=== PATIENT | female | born 1950 | race Caucasian/White ===

== ENCOUNTER → 2020-07-08 11:33 | Outpatient (BNVA) | payer MEDICARE, SELFPAY | PROVIDERS: PCP Internal Medicine; Referring Provider Internal Medicine; Visit Provider Internal Medicine | DX: G47.33 Obstructive sleep apnea (adult) (pediatric) (principal); E66.01 Morbid (severe) obesity due to excess calories; Z68.41 Body mass index [BMI] 40.0-44.9, adult; Z99.89 Dependence on other enabling machines and devices; J44.9 Chronic obstructive pulmonary disease, unspecified | CPT/HCPCS: 99212 ==

== ENCOUNTER → 2020-08-31 10:14 | Outpatient (BNV) | payer MEDICARE, BC, SELFPAY | PROVIDERS: PCP Internal Medicine; Visit Provider Internal Medicine Medical Oncology | DX: M85.89 Other specified disorders of bone density and structure, multiple sites (principal); Z85.3 Personal history of malignant neoplasm of breast | CPT/HCPCS: 99212; 99213; 99214 ==

== ENCOUNTER 2020-12-14 12:29 | Outpatient (REF) | payer MEDICARE, BC, SELFPAY ==
[2020-12-14 13:19] LABS: Hematocrit 44.4 % (37-47); Hemoglobin 14.4 g/dl (12.0-16.0); Mean Corpuscular HGB Conc 32.4 g/dl (31.0-35.0); Mean Corpuscular Hemoglobin 30.3 pg (27.0-33.0); Mean Corpuscular Volume 93.3 fL (80-98); Mean Platelet Volume 11.2 fL (9.4-12.3); Platelet Count 176 X10*3/uL (160-400); Red Blood Count 4.76 X10*6/uL (4.20-5.50)
[2020-12-14 13:45] LABS: Alanine Aminotransferase 14 U/L (0-31); Albumin Level 3.9 g/dL (3.5-5.0); Alkaline Phosphatase 73 U/L (39-117); Anion Gap 12 (12-20); Aspartate Amino Transferase 16 U/L (5-31); Bilirubin Direct 0.3 mg/dL (0.0-0.5); Bilirubin Total 0.8 mg/dL (0.0-1.0); Blood Urea Nitrogen 24 mg/dL (9-16); Calcium 9.2 mg/dL (8.4-10.2); Carbon Dioxide 25 mmol/L (22-29); Chloride 109 mmol/L (96-108); Cholesterol 185 mg/dL; Estimated Glomerular Filt Rate > 60; Glucose Random 81 mg/dL (60-115); HDL Cholesterol 71 mg/dL; LDL Cholesterol Calculated 90 mg/dl; Potassium 4.5 mmol/L (3.3-5.1); Sodium 141 mmol/L (135-145); Total Protein 6.4 g/dL (6.5-8.0); Triglycerides 124 mg/dL
[2020-12-14 14:05] LABS: Thyroid Stimulating Hormone 0.98 uIU/mL (0.32-4.0)
[2020-12-19 07:16] LABS: Vitamin D 25-OH, D2 <4 ng/mL; Vitamin D 25-OH, D3 75 ng/mL; Vitamin D 25-OH, Total 75 ng/mL (30-100)
== END 2020-12-14 12:30 | disposition home or self-care (01) ==
LOC: HO.LAB 12:29
PROVIDERS: PCP Internal Medicine; Visit Provider Internal Medicine
DX: M19.90 Unspecified osteoarthritis, unspecified site (principal)
CPT/HCPCS: 36415; 80048; 80061; 80076; 82306; 84443; 85027; 86140

== ENCOUNTER → 2021-01-17 15:27 | Outpatient (BNVA) | payer MEDICARE, BC, SELFPAY | PROVIDERS: PCP Internal Medicine; Visit Provider Internal Medicine | DX: J44.9 Chronic obstructive pulmonary disease, unspecified (principal); G47.33 Obstructive sleep apnea (adult) (pediatric); E66.9 Obesity, unspecified; Z99.89 Dependence on other enabling machines and devices | CPT/HCPCS: 99212 ==

== ENCOUNTER 2021-03-01 12:26 | Outpatient (REF) | payer MEDICARE, SELFPAY ==
--- NOTE | ~2021-03-01 | MM_ITS ---
EXAMINATION: MM SCREENING DIGITAL BREAST TOMOSYNTHESIS, BILATERAL CLINICAL INFORMATION: Screening. Asymptomatic. Right breast cancer in 2015 status post lumpectomy. COMPARISON: Mammography: February 23, 2020 and studies dating back to June 27, 2012 TECHNIQUE: Digital breast tomosynthesis is performed in both the craniocaudal and mediolateral oblique views along with computer-aided detection (CAD). Synthesized 2D images are generated from the tomosynthesis. FINDINGS: There are scattered areas of fibroglandular density (ACR BI-RADS breast composition Category b). There are no new significant masses, abnormal calcifications, or other abnormalities. Postsurgical change within the right breast is seen. MM/MM tomosynthesis screening BI IMPRESSION: There are no significant changes from prior study. ASSESSMENT: BI-RADS 2: Benign RECOMMENDATION: Routine annual mammography screening. This patient's information was entered into a reminder system with a target due date for their next mammogram.
== END 2021-03-01 12:27 | disposition home or self-care (01) ==
LOC: HO.MAMMO 12:26
PROVIDERS: PCP Internal Medicine; Visit Provider Internal Medicine
DX: Z12.31 Encounter for screening mammogram for malignant neoplasm of breast (principal)
CPT/HCPCS: 77063; 77067

== ENCOUNTER 2021-03-25 14:11 | Outpatient (REF) | payer MEDICARE, SELFPAY ==
--- NOTE | ~2021-03-25 | MM_ITS ---
EXAMINATION: BONE DENSITOMETRY CLINICAL INDICATION: Osteopenia. COMPARISON: Previous BD dated 11/02/2016 and baseline BD dated 05/20/2009. TECHNIQUE: Using a Re-APP DXA System (software version: 13.1) manufactured by [email or web address], dual-energy x-ray absorptiometry was performed of the lumbar spine and left hip. The images are of good technical quality. Summary results are attached. FINDINGS: AP SPINE L1-L2 (excluding L3 and L4): The data of L1-L4 has been changed to exclude the L3 and L4 vertebral bodies, because dextrocurvature and degenerative changes at these levels may cause overestimation of lumbar spine density. Current: BMD 0.929 g/cm2, Z-score -1.3, T-score -2.0, osteopenia, 3.8% increase from previous, 9.5% decrease from baseline (<5% change is not significant). Prior: BMD 0.895 g/cm2. Baseline: BMD 1.027 g/cm2. LEFT FEMUR, NECK: Current: BMD 0.774 g/cm2, Z-score -0.9, T-score -1.9, osteopenia. Prior: BMD 0.805 g/cm2. Baseline: BMD 0.897 g/cm2. LEFT FEMUR, TOTAL: Current: BMD 0.875 g/cm2, Z-score -0.3, T-score -1.1, osteopenia, 0.1% increase from previous, 15.1% decrease from baseline (<5% change is not significant). Prior: BMD 0.874 g/cm2. Baseline: BMD 1.031 g/cm2. IDENTIFIED RISK FACTORS: Early menopause. Secondary osteoporosis. Height loss. HISTORY OF FRACTURE: No insufficiency fracture reported. MEDICATIONS: Calcium. Vitamin D. MM/XR DEXA axial skeleton IMPRESSION: 1. DIAGNOSIS: Osteopenia based on the lowest T-score value of -2.0 in the lumbar spine applying World Health Organization criteria. 2. 10-YEAR FRACTURE RISK PREDICTION, FRAX: Major osteoporotic fracture (clinical spine, forearm, hip or shoulder) 9.5%. Hip fracture 1.5%. 3. Treatment Recommendations: NOF guidelines recommend consideration for treatment in postmenopausal women and men age 50 and older presenting with the following: -A hip or vertebral (clinical or morphometric) fracture. -T-score less than or equal to -2.5 at the femoral neck or spine after appropriate evaluation to exclude secondary causes. -Low bone mass at the hip or spine and a 10-year fracture probability by FRAX of greater than or equal to 3% for hip fracture or greater than or equal to 20% for major osteoporotic fracture based on the [place] adapted WHO algorithm. 4. Other Recommendations: All treatment decisions require clinical judgment and consideration of individual patient factors, including patient preferences, comorbidities, previous drug use, risk factors not captured in the FRAX model (e.g. frailty, falls, vitamin D deficiency, increased bone turnover, interval significant decline in bone density) and possible under or overestimation of fracture risk by FRAX. Additional medical evaluation for secondary cause of low bone mineral density may be appropriate. FUTURE SCAN RECOMMENDATION: People with diagnosed cases of osteoporosis or at high risk for fracture should have regular bone mineral density tests. For patients eligible for Medicare, routine testing is allowed once every 2 years. The testing frequency can be increased to one year for patients who have rapidly progressing disease, those who are receiving or discontinuing medical therapy to restore bone mass, or have additional risk factors.
== END 2021-03-25 14:12 | disposition home or self-care (01) ==
LOC: HO.MAMMO 14:11
PROVIDERS: Visit Provider Internal Medicine Medical Oncology
DX: Z13.820 Encounter for screening for osteoporosis (principal); M85.80 Other specified disorders of bone density and structure, unspecified site; Z78.0 Asymptomatic menopausal state; Z79.899 Other long term (current) drug therapy
CPT/HCPCS: 77080

== ENCOUNTER 2021-03-29 13:02 | Outpatient (REF) | payer MEDICARE, SELFPAY ==
--- NOTE | ~2021-03-29 | XR_ITS ---
EXAMINATION: XR BILATERAL HAND/WRIST. CLINICAL INFORMATION: Pain in bilateral hand. COMPARISON: None TECHNIQUE: 4 views each hand. FINDINGS: LEFT HAND/WRIST: There is loss of PIP and DIP joint space with minimal periarticular spurring PIP joint 3rd digit. There are mild subluxations at the PIP and DIP joints 3rd digit. No fracture seen. Loss of MCP joint spaces also visualized 2nd through 5th digits. The intercarpal joint spaces are preserved. Loss of radiocarpal joint space is seen. There is mild osteopenia. No fracture noted. RIGHT HAND/WRIST: There is mild loss of PIP and DIP joint space with periarticular spurring and bony erosive changes PIP joint 2nd digit. There is subluxations PIP joint 2nd digit. No visible fracture or dislocation seen. There is minimal loss of the radial ulnar carpal joint space. XR/XR hand wrist RT IMPRESSION: 1. Severe degenerative changes PIP and DIP joints of both hands. There is subluxation and periarticular spurring with soft tissue swelling PIP and DIP joints 3rd digits both hands. 2. There is no acute fracture or dislocation. 3. Minimal loss of radial ulnar carpal joint both hands.
--- NOTE | ~2021-03-29 | XR_ITS ---
EXAMINATION: XR BILATERAL HAND/WRIST. CLINICAL INFORMATION: Pain in bilateral hand. COMPARISON: None TECHNIQUE: 4 views each hand. FINDINGS: LEFT HAND/WRIST: There is loss of PIP and DIP joint space with minimal periarticular spurring PIP joint 3rd digit. There are mild subluxations at the PIP and DIP joints 3rd digit. No fracture seen. Loss of MCP joint spaces also visualized 2nd through 5th digits. The intercarpal joint spaces are preserved. Loss of radiocarpal joint space is seen. There is mild osteopenia. No fracture noted. RIGHT HAND/WRIST: There is mild loss of PIP and DIP joint space with periarticular spurring and bony erosive changes PIP joint 2nd digit. There is subluxations PIP joint 2nd digit. No visible fracture or dislocation seen. There is minimal loss of the radial ulnar carpal joint space. XR/XR hand wrist LT IMPRESSION: 1. Severe degenerative changes PIP and DIP joints of both hands. There is subluxation and periarticular spurring with soft tissue swelling PIP and DIP joints 3rd digits both hands. 2. There is no acute fracture or dislocation. 3. Minimal loss of radial ulnar carpal joint both hands.
[2021-03-29 14:32] LABS: MANUAL DIFF FLAG NO
[2021-03-29 14:39] LABS: Basophils Percent Auto 0.4 % (0-2); Eosinophils Absolute Auto 0.1 X10*3/uL (0.0-0.4); Eosinophils Percent Auto 1.3 % (0-4); Hematocrit 44.1 % (37-47); Hemoglobin 14.5 g/dl (12.0-16.0); Imm Gran Abs Auto 0.01 X10*3/uL (0.00-0.03); Imm Gran Pct Auto 0.2 % (0.0-0.4); Lymphocytes Absolute Auto 1.4 X10*3/uL (1.2-4.9); Lymphocytes Percent Auto 31.3 % (20-40); Mean Corpuscular HGB Conc 32.9 g/dl (31.0-35.0); Mean Corpuscular Hemoglobin 30.7 pg (27.0-33.0); Mean Corpuscular Volume 93.2 fL (80-98); Mean Platelet Volume 11.5 fL (9.4-12.3); Monocytes Absolute Auto 0.3 X10*3/uL (0.1-1.2); Monocytes Percent Auto 6.7 % (2-11); Neutrophils Absolute Auto 2.7 X10*3/uL (2.0-8.3); Neutrophils Percent Auto 60.1 % (45-73); Platelet Count 146 X10*3/uL (160-400); Red Blood Count 4.73 X10*6/uL (4.20-5.50); Red Cell Distribution Width 13.6 % (11.0-16.0); White Blood Count 4.5 X10*3/uL (4.8-10.8)
[2021-03-29 15:16] LABS: Alanine Aminotransferase 16 U/L (0-31); Albumin Level 3.9 g/dL (3.5-5.0); Alkaline Phosphatase 70 U/L (39-117); Anion Gap 12 (12-20); Aspartate Amino Transferase 20 U/L (5-31); Bilirubin Total 0.6 mg/dL (0.0-1.0); Blood Urea Nitrogen 28 mg/dL (9-16); C Reactive Protein 0.27 mg/dL (< or = 0.50); Carbon Dioxide 23 mmol/L (22-29); Chloride 112 mmol/L (96-108); Estimated Glomerular Filt Rate > 60; Glucose Random 85 mg/dL (60-115); Potassium 4.4 mmol/L (3.3-5.1); Rheumatoid Factor 24.7 IU/mL (<15.0); Sodium 143 mmol/L (135-145); Total Protein 6.3 g/dL (6.5-8.0)
[2021-03-29 15:27] LABS: Erythrocyte Sedimentation Rate 4 MM/HR (0-20)
[2021-03-31 23:52] LABS: Cyclic Citrullinated Peptide <16 UNITS
== END 2021-03-29 13:03 | disposition home or self-care (01) ==
LOC: HO.LAB 13:02
PROVIDERS: PCP Internal Medicine; Visit Provider Student in an Organized Health Care Education/Training Program
DX: M79.641 Pain in right hand (principal); M79.642 Pain in left hand; M19.90 Unspecified osteoarthritis, unspecified site
CPT/HCPCS: 36415; 73110; 73130; 80053; 85025; 85652; 86140; 86200; 86431; 99202

== ENCOUNTER → 2021-04-12 13:59 | Outpatient (BNVA) | payer MEDICARE, SELFPAY | PROVIDERS: PCP Internal Medicine; Visit Provider Student in an Organized Health Care Education/Training Program | DX: M19.90 Unspecified osteoarthritis, unspecified site (principal) | CPT/HCPCS: 99212 ==

== ENCOUNTER → 2021-07-12 11:07 | Outpatient (BNVA) | payer MEDICARE, SELFPAY | PROVIDERS: PCP Internal Medicine; Visit Provider Internal Medicine | DX: G47.33 Obstructive sleep apnea (adult) (pediatric) (principal); J44.9 Chronic obstructive pulmonary disease, unspecified; Z99.89 Dependence on other enabling machines and devices | CPT/HCPCS: 99212 ==

== ENCOUNTER 2021-11-29 10:08 | Outpatient (REF) | payer MEDICARE, SELFPAY ==
[2021-11-29 10:50] LABS: Hematocrit 42.6 % (37.0-47.0); Hemoglobin 14.1 g/dl (12.0-16.0); Mean Corpuscular HGB Conc 33.1 g/dl (31.0-35.0); Mean Corpuscular Hemoglobin 30.7 pg (27.0-33.0); Mean Corpuscular Volume 92.8 fL (80.0-98.0); Mean Platelet Volume 11.7 fL (9.4-12.3); Platelet Count 155 X10*3/uL (160-400); Red Blood Count 4.59 X10*6/uL (4.20-5.50); Red Cell Distribution Width 14.7 % (11.0-16.0); White Blood Count 4.8 X10*3/uL (4.8-10.8)
[2021-11-29 12:17] LABS: Alanine Aminotransferase 15 U/L (0-31); Albumin Level 3.9 g/dL (3.5-5.0); Alkaline Phosphatase 64 U/L (39-117); Anion Gap 10 (12-20); Aspartate Amino Transferase 16 U/L (5-31); Bilirubin Direct 0.4 mg/dL (0.0-0.5); Bilirubin Total 0.9 mg/dL (0.0-1.0); Blood Urea Nitrogen 25 mg/dL (9-16); Calcium 9.5 mg/dL (8.4-10.2); Carbon Dioxide 26 mmol/L (22-29); Chloride 109 mmol/L (96-108); Cholesterol 189 mg/dL; Estimated Glomerular Filt Rate > 60; Glucose Random 85 mg/dL (60-115); HDL Cholesterol 75 mg/dL; LDL Cholesterol Calculated 98 mg/dl; Potassium 4.2 mmol/L (3.3-5.1); Sodium 141 mmol/L (135-145); Total Protein 6.5 g/dL (6.5-8.0); Triglycerides 82 mg/dL
[2021-11-29 12:23] LABS: Thyroid Stimulating Hormone 2.55 uIU/mL (0.32-4.0)
== END 2021-11-29 10:09 | disposition home or self-care (01) ==
LOC: HO.LAB 10:08
PROVIDERS: PCP Internal Medicine; Visit Provider Internal Medicine
DX: K21.9 Gastro-esophageal reflux disease without esophagitis (principal); M19.90 Unspecified osteoarthritis, unspecified site; B07.9 Viral wart, unspecified
CPT/HCPCS: 36415; 80048; 80061; 80076; 84443; 85027

== ENCOUNTER → 2022-01-03 10:52 | Outpatient (BNVA) | payer MEDICARE, SELFPAY | PROVIDERS: PCP Internal Medicine; Visit Provider Internal Medicine | DX: G47.33 Obstructive sleep apnea (adult) (pediatric) (principal); J44.9 Chronic obstructive pulmonary disease, unspecified; E66.01 Morbid (severe) obesity due to excess calories; Z68.41 Body mass index [BMI] 40.0-44.9, adult; Z99.89 Dependence on other enabling machines and devices | CPT/HCPCS: 99212 ==

== ENCOUNTER → 2022-03-13 13:55 | Outpatient (BNVA) | payer MEDICARE, SELFPAY | PROVIDERS: PCP Internal Medicine; Visit Provider Obstetrics & Gynecology | DX: N76.2 Acute vulvitis (principal); L72.3 Sebaceous cyst | CPT/HCPCS: 99202 ==

== ENCOUNTER 2022-03-16 10:04 | Outpatient (REF) | payer MEDICARE, SELFPAY ==
--- NOTE | ~2022-03-16 | MM_ITS ---
EXAMINATION: MM SCREENING DIGITAL BREAST TOMOSYNTHESIS, BILATERAL CLINICAL INFORMATION: Screening. Asymptomatic. COMPARISON: Mammography: March 01, 2021 and studies dating back to June 27, 2012 TECHNIQUE: Digital breast tomosynthesis is performed in both the craniocaudal and mediolateral oblique views along with computer-aided detection (CAD). Synthesized 2D images are generated from the tomosynthesis. Right exaggerated craniocaudal view also performed. FINDINGS: There are scattered areas of fibroglandular density (ACR BI-RADS breast composition Category b). There are bilateral stable postsurgical change noted with scarring. No new abnormal dominant mass or suspicious grouping of microcalcifications identified. MM/MM tomosynthesis screening BI IMPRESSION: There are no significant changes from prior study. ASSESSMENT: BI-RADS 2: Benign RECOMMENDATION: Routine annual mammography screening. This patient's information was entered into a reminder system with a target due date for their next mammogram.
== END 2022-03-16 10:05 | disposition home or self-care (01) ==
LOC: HO.MAMMO 10:04
PROVIDERS: PCP Internal Medicine; Visit Provider Internal Medicine
DX: Z12.31 Encounter for screening mammogram for malignant neoplasm of breast (principal)
CPT/HCPCS: 77063; 77067

== ENCOUNTER → 2022-04-17 13:06 | Outpatient (BNVA) | payer MEDICARE, SELFPAY | PROVIDERS: PCP Internal Medicine; Visit Provider Obstetrics & Gynecology | DX: N76.2 Acute vulvitis (principal) | CPT/HCPCS: 99212 ==

== ENCOUNTER → 2022-07-04 10:37 | Outpatient (BNVA) | payer MEDICARE, SELFPAY | PROVIDERS: PCP Internal Medicine; Visit Provider Internal Medicine | DX: J44.9 Chronic obstructive pulmonary disease, unspecified (principal); G47.33 Obstructive sleep apnea (adult) (pediatric); E66.01 Morbid (severe) obesity due to excess calories; Z99.89 Dependence on other enabling machines and devices; Z68.41 Body mass index [BMI] 40.0-44.9, adult | CPT/HCPCS: 99212 ==

== ENCOUNTER 2023-02-06 12:32 | Outpatient (REF) | payer MEDICARE, SELFPAY ==
[2023-02-06 13:45] LABS: Anion Gap 12 (12-20); Blood Urea Nitrogen 27 mg/dL (9-16); Calcium 9.9 mg/dL (8.4-10.2); Carbon Dioxide 24 mmol/L (22-29); Chloride 110 mmol/L (96-108); Estimated Glomerular Filt Rate > 60; Glucose Fasting 88 mg/dL (60-99); Potassium 4.3 mmol/L (3.3-5.1); Sodium 142 mmol/L (135-145)
== END 2023-02-06 12:33 | disposition home or self-care (01) ==
LOC: HO.LAB 12:32
PROVIDERS: PCP Internal Medicine; Visit Provider Nurse Practitioner Family
DX: Z13.1 Encounter for screening for diabetes mellitus (principal)
CPT/HCPCS: 36415; 80048

== ENCOUNTER → 2023-02-13 10:56 | Outpatient (BNVA) | payer MEDICARE, SELFPAY | PROVIDERS: PCP Internal Medicine; Visit Provider Internal Medicine | DX: J44.9 Chronic obstructive pulmonary disease, unspecified (principal); G47.33 Obstructive sleep apnea (adult) (pediatric); Z99.89 Dependence on other enabling machines and devices | CPT/HCPCS: 99212 ==

== ENCOUNTER 2023-03-27 11:59 | Outpatient (REF) | payer MEDICARE, SELFPAY ==
--- NOTE | ~2023-03-27 | MM_ITS ---
EXAMINATION: BONE DENSITOMETRY CLINICAL INDICATION: Asymptomatic menopausal state. COMPARISON: Previous BD dated 03/25/2021 and baseline BD dated 05/20/2009. TECHNIQUE: Using a EM[employer] DXA System (software version: 13.1) manufactured by [employer], dual-energy x-ray absorptiometry was performed of the lumbar spine and left hip. The images are of good technical quality. Summary results are attached. FINDINGS: LEFT FEMUR, NECK: Current: BMD 0.815 g/cm2, Z-score -0.4, T-score -1.6, osteopenia. Prior: BMD 0.774 g/cm2. Baseline: BMD 0.897 g/cm2. LEFT FEMUR, TOTAL: Current: BMD 0.903 g/cm2, Z-score 0.1, T-score -0.8, normal, 3.2% increase from previous, 12.4% decrease from baseline (<5% change is not significant). Prior: BMD 0.875 g/cm2. Baseline: BMD 1.031 g/cm2. AP SPINE L1-L3 (excluding L4): The data of L1-L4 has been changed to exclude the L4 vertebral body, because degenerative sclerosis at this level may cause overestimation of lumbar spine density. Current: BMD 0.961 g/cm2, Z-score -0.9, T-score -1.7, osteopenia, 7.8% decrease from previous, 7.8% decrease from baseline (<5% change is not significant). Prior: BMD 1.042 g/cm2. Baseline: BMD 1.042 g/cm2. IDENTIFIED RISK FACTORS: Early menopause, secondary osteoporosis, height loss. HISTORY OF FRACTURE: None listed. MEDICATIONS: Calcium supplements or multivitamin, vitamin D. MM/XR DEXA axial skeleton IMPRESSION: 1. DIAGNOSIS: Osteopenia based on the lowest T-score value of -1.7 in the lumbar spine applying World Health Organization criteria. 2. 10-YEAR FRACTURE RISK PREDICTION, FRAX: Major osteoporotic fracture (clinical spine, forearm, hip or shoulder) 9.0%. Hip fracture 1.4%. 3. Treatment Recommendations: NOF guidelines recommend consideration for treatment in postmenopausal women and men age 50 and older presenting with the following: -A hip or vertebral (clinical or morphometric) fracture. -T-score less than or equal to -2.5 at the femoral neck or spine after appropriate evaluation to exclude secondary causes. -Low bone mass at the hip or spine and a 10-year fracture probability by FRAX of greater than or equal to 3% for hip fracture or greater than or equal to 20% for major osteoporotic fracture based on the [place] adapted WHO algorithm. 4. Other Recommendations: All treatment decisions require clinical judgment and consideration of individual patient factors, including patient preferences, comorbidities, previous drug use, risk factors not captured in the FRAX model (e.g. frailty, falls, vitamin D deficiency, increased bone turnover, interval significant decline in bone density) and possible under or overestimation of fracture risk by FRAX. Additional medical evaluation for secondary cause of low bone mineral density may be appropriate. FUTURE SCAN RECOMMENDATION: People with diagnosed cases of osteoporosis or at high risk for fracture should have regular bone mineral density tests. For patients eligible for Medicare, routine testing is allowed once every 2 years. The testing frequency can be increased to one year for patients who have rapidly progressing disease, those who are receiving or discontinuing medical therapy to restore bone mass, or have additional risk factors.
--- NOTE | ~2023-03-27 | MM_ITS ---
EXAMINATION: MM SCREENING DIGITAL BREAST TOMOSYNTHESIS, BILATERAL CLINICAL INFORMATION: Screening. Asymptomatic. COMPARISON: Mammography: This study is compared with prior exams dating back to 2018. TECHNIQUE: Digital breast tomosynthesis is performed in both the craniocaudal and mediolateral oblique views along with computer-aided detection (CAD). Synthesized 2D images are generated from the tomosynthesis. FINDINGS: The breasts are almost entirely fatty (ACR BI-RADS breast composition Category a). In the deep third of the upper outer quadrant of the right breast, there is a focal asymmetry which warrants additional mammographic imaging. There is an asymmetry in the axillary tail of the right breast for which additional mammographic imaging is advised. In the left breast, there are no significant masses, abnormal calcifications, or other abnormalities. MM/MM tomosynthesis screening BI IMPRESSION: Focal asymmetry of the right breast and asymmetry of the axillary tail of the right breast warrant additional mammographic imaging. Sonography may be performed at the discretion of the diagnostic radiologist. ASSESSMENT: BI-RADS BI-RADS 0 - Incomplete: Needs additional Imaging. RECOMMENDATION: 1. Additional views of the right breast 2. Targeted ultrasound if warranted after review of the additional views. 3. Radiology department staff will contact the patient for additional imaging. Additional Imaging required This examination should not preclude the clinical evaluation of a suspicious palpable abnormality. This patient's information was entered into a reminder system with a target due date for their next mammogram.
== END 2023-03-27 12:00 | disposition home or self-care (01) ==
LOC: HO.MAMMO 11:59
PROVIDERS: PCP Nurse Practitioner Family; Visit Provider Nurse Practitioner Family
DX: Z12.31 Encounter for screening mammogram for malignant neoplasm of breast (principal); Z13.820 Encounter for screening for osteoporosis; Z78.0 Asymptomatic menopausal state
CPT/HCPCS: 77063; 77067; 77080

== ENCOUNTER → 2023-03-27 13:00 | Outpatient (BNV) | payer MEDICARE, SELFPAY | PROVIDERS: PCP Nurse Practitioner Family; Visit Provider Radiology Diagnostic Radiology | DX: Z12.31 Encounter for screening mammogram for malignant neoplasm of breast (principal) | CPT/HCPCS: 77063; 77067; 77080 ==

== ENCOUNTER 2023-04-18 11:19 | Outpatient (AMB) | payer MEDICARE, SELFPAY ==
--- NOTE | 2023-04-18 11:40 | A.OFFVIS_ITS ---
Intake Vital Signs 04/18/23 11:41 Height 4 ft 9.5 in Weight 202 lb BMI 43.0 BP 136/65 Blood Pressure Location Lt brachial Position Sitting Respiration 14 Pulse 72 Intake Visit Reasons: colonoscopy screening Intake Note: Patient new consult for 2nd pre colonoscopy screening. Patient denies any GI issues. 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: No Accompanied by: Self / Same As Patient Allergies morphine [MORPHINE] Allergy (Unknown, Verified 03/12/23 10:08) VOMITING, hives/stomach upset Sulfa (Sulfonamide Antibiotics) Allergy (Unknown, Verified 03/12/23 10:08) hives tolmetin [From TOLECTIN] Allergy (Unknown, Verified 03/12/23 10:08) HIVES Medication List - Last Reconciled 04/18/23 by Mary Arcos PA-C [calcium 1 tab PO DAILY] cholecalciferol (vitamin D3) 25 mcg PO DAILY meloxicam 15 mg PO DAILY multivitamin 1 tab PO DAILY pantoprazole 40 mg PO DAILY ropinirole 1 mg PO BEDTIME trazodone 100 mg PO BEDTIME venlafaxine ER 75 mg PO DAILY [Vitamin D3 1 tab PO DAILY] zinc 50 mg PO DAILY HPI HPI Comments History of Present Illness Details A 72 y/o female referred screening colonoscopy-COPD- f/u Dr. Mcarthur- routinely- stable- no hospital admissions- she has absolutely no GI concerns- appetite good, bowels normal she has mild reflux-well controlled with-pantoprazole- 1980s- perforated colon- no detail Sleeve gastrectomy-years ago-no issues Last colonoscopy 2005 No nausea, vomiting, hematemesis, hematochezia fevers chills PFSH Medical History Arthritis COPD (chronic obstructive pulmonary disease) Endogenous depression GERD (gastroesophageal reflux disease) Hernia Obesity (BMI 35.0-39.9 without comorbidity) [place] on CPAP Osteoarthritis Perforation bowel Tracheobronchitis Viral wart on finger Surgical History H/O bilateral breast reduction surgery H/O lumpectomy History of gastric bypass History of left knee replacement History of right knee joint replacement History of total right knee replacement Family History Mother No problems noted. Father No problems noted. Maternal Grandfather Stomach cancer Social History Household Members: Family Housing: House Are you a primary child care provider to a significant other at home: No Do you presently have visiting nurse or other home services: No Alcohol intake: current Alcohol intake frequency: holidays/special occasions only Alcohol type: wine Patient Tobacco Use Status: Never used Tobacco e-Cigarette/Vaping Use: Never Used Second Hand Smoke Exposure: No service: No Current occupational status: retired Hearing needs: Yes (hearing aide) Vision needs: Yes (Glasses) Female Reproductive History Menstrual Age of Menarche: 15 Review of Systems Const All systems reviewed & are unremarkable except as noted in HPI and below Card Denies dyspnea Resp Denies dyspnea GI Denies abdominal pain and Denies heartburn Physical Exam Vital Signs: Last Vital Signs Pulse 72 04/18/23 11:41 Resp 14 04/18/23 11:41 BP 136/65 04/18/23 11:41 BMI result Body Mass Index 43.0 Const General: comfortable and no acute distress Nutritional Appearance: overweight Orientation/consciousness: patient oriented x3 Limitations: no limitations Eyes Sclerae: sclerae normal Resp Effort & Inspection: normal respiratory effort and able to speak in complete sentences Auscultation: clear to auscultation bilaterally, no rales, no rhonchi and no wheezes Cardio Rate: regular rate Rhythm: regular rhythm Heart sounds: S1 normal heart sound present and S2 normal heart sound present GI Inspection: Yes Abdominal panniculus present Palpation (GI): Soft to palpation and nontender Auscultation: normal bowel sounds Skin General skin exam: no rashes or lesions noted Neuro General: patient oriented x3 Extrem General: Yes full ROM Psych Mental Status: mental status grossly normal Speech and movement: Clear speech present Affect: normal affect Attitude: cooperative Thought process: Normal thought process present Assessment & Plan Assessment & Plan (1) [place] on CPAP: Comment: SLEEP APNEA/ HYPOVENTILATION SYNDROME IS WELL CONTROLLED WITH THE USE OF BIPAP 20/4 CMs, FULL FACE MASK . SHE IS VERY COMPLIANT AND ACTUALLY USES ABOUT 10 HOURS PLUS EVERY DAY WITH GOOD RESULTS. SHE WILL CONTINUE TO DO SAME AND HAS NO DIFFICULTY IN USING THE BIPAP . Code(s): G47.33 - Obstructive sleep apnea (adult) (pediatric); Z99.89 - Dependence on other enabling machines and devices (2) Obesity (BMI 35.0-39.9 without comorbidity): Comment: GROSS OBESITY . DIFFICULT FOR HER TO LOOSE WEIGHT . Code(s): E66.9 - Obesity, unspecified (3) COPD (chronic obstructive pulmonary disease): Comment: COPD REMAINS WELL CONTROLLED , NEEDS ONLY PRN USE OF PROAIR 2 PUFFS Q 6 HRS PRN For the vaccine she is up to date. Advised to protect herself against any respiratory infections. AT PRESENT SHE SEEMS TO HAVE A MILD DEGREE OF UPPER AIRWAY INFECTION, BECAUSE SHE HAS UNDERLYING COPD, I WILL GO AHEAD AND GIVE HER A COURSE OF Z-PAKO. Code(s): J44.9 - Chronic obstructive pulmonary disease, unspecified (4) Screening for colon cancer: Comment: GI history unclear Code(s): Z12.11 - Encounter for screening for malignant neoplasm of colon Plan: Screening colonoscopy Plan Colon- anesthesia consult- ck w/ T prep-Mag citrate not available Patient Instructions: Very pleasant overweight 72-year-old female referred for screening colonoscopy- her GI history is unclear Recommend colonoscopy, anesthesia consult Need to discuss prep due to history, which is unclear Patient fully aware. There no major barriers to understanding Encouraged to call questions or concerns Appreciate the opportunity assist in the care of this patient Coding Level of Care Code New Pt Level 4 (49681) Diagnoses [place] on CPAP G47.33; Z99.89 Obesity (BMI 35.0-39.9 without comorbidity) E66.9 COPD (chronic obstructive pulmonary disease) J44.9 Screening for colon cancer Z12.11 Time Spent (min) 35
[2023-04-18 11:41] VITALS: BP 136/65; PULSE 72; RESP 14; BMI 43.0
== END 2023-04-18 12:58 | disposition home or self-care (01) ==
PROVIDERS: PCP Internal Medicine; Visit Provider Physician Assistant
DX: G47.33 Obstructive sleep apnea (adult) (pediatric) (principal); Z99.89 Dependence on other enabling machines and devices; E66.9 Obesity, unspecified; J44.9 Chronic obstructive pulmonary disease, unspecified; Z12.11 Encounter for screening for malignant neoplasm of colon
CPT/HCPCS: 99204

== ENCOUNTER → 2023-04-18 11:19 | Outpatient (BNVA) | payer MEDICARE, SELFPAY | PROVIDERS: PCP Internal Medicine; Visit Provider Physician Assistant | DX: Z01.818 Encounter for other preprocedural examination (principal); E66.9 Obesity, unspecified; G47.33 Obstructive sleep apnea (adult) (pediatric); J44.9 Chronic obstructive pulmonary disease, unspecified; Z99.89 Dependence on other enabling machines and devices | CPT/HCPCS: 99202 ==

== ENCOUNTER 2023-05-10 13:00 | Outpatient (AMB) | payer MEDICARE, SELFPAY ==
--- NOTE | 2023-05-10 13:03 | MHC.PC.OV ---
Vital Signs 05/10/23 13:05 Height 4 ft 9.5 in Weight 199 lb 2 oz BMI 42.3 BP 120/78 Blood Pressure Location Lt brachial Position Sitting Pulse 77 Pulse Source Pulse Oximeter Pulse Oximetry (%) 97 Oxygen Delivery Method Room Air Intake Visit Reasons: arthritis and gerd Intake Note: Patient is here to follow up on GERD, Arthritis. Monomer Recovery Operator Required: No Cask Maker: Not Required per policy Accompanied by: Self / Same As Patient Allergies morphine [MORPHINE] Allergy (Unknown, Verified 05/15/23 06:02) VOMITING, hives/stomach upset Sulfa (Sulfonamide Antibiotics) Allergy (Unknown, Verified 05/15/23 06:02) hives tolmetin [From TOLECTIN] Allergy (Unknown, Verified 05/15/23 06:02) HIVES Medication List - Last Reconciled 05/15/23 by Stephen Olmos MD [calcium 1 tab PO DAILY] cholecalciferol (vitamin D3) 25 mcg PO DAILY meloxicam 15 mg PO DAILY multivitamin 1 tab PO DAILY pantoprazole 40 mg PO DAILY ropinirole 1 mg PO BEDTIME trazodone 100 mg PO BEDTIME venlafaxine ER 75 mg PO DAILY [Vitamin D3 1 tab PO DAILY] zinc 50 mg PO DAILY Tobacco use date assessed: 05/10/23 Fall risk assessment: No Falls in past year Last assessed Fall Risk: 05/10/23 Dental Screening Dental Screen Date: 05/10/23 Did you have a dental visit in the last 12 months?: Yes Did you have a dental problem in the last 6 months where you did not have access to dental care?: No Was dental information given to patient?: Patient has dentist HPI arthritis and gerd HPI Details 72-year-old female presents to the office to discuss her chronic medical conditions. Patient is reporting moderate bilateral hip pain radiating down into her knees. Symptoms are present every day and is affecting her quality of life. 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 Able to walk without assistance. Compliant with other medications. Reporting no side effects. Unfortunately patient has not lost any weight. [facility] Medical History Tracheobronchitis Endogenous depression Viral wart on finger GERD (gastroesophageal reflux disease) Osteoarthritis Hernia Perforation bowel Arthritis COPD (chronic obstructive pulmonary disease) [place] on CPAP Obesity (BMI 35.0-39.9 without comorbidity) Surgical History History of total right knee replacement History of right knee joint replacement H/O bilateral breast reduction surgery H/O lumpectomy History of left knee replacement History of gastric bypass Family History Mother No problems noted. Father No problems noted. Maternal Grandfather Stomach cancer Social History Household Members: Family Housing: House Are you a primary care navigator to a significant other at home: No Do you presently have visiting nurse or other home services: No Alcohol intake: current Alcohol intake frequency: holidays/special occasions only Alcohol type: wine Patient Tobacco Use Status: Never used Tobacco e-Cigarette/Vaping Use: Never Used Second Hand Smoke Exposure: No service: No Current occupational status: retired Cognitive needs: No Hearing needs: Yes (hearing aide) Vision needs: Yes (Glasses) Female Reproductive History Menstrual Age of Menarche: 15 Questionnaire Thrive Questionnaire Date Thrive assessed: 02/06/23 ROLANDO-7 AMB Questionnaire ROLANDO-7 Date ROLANDO - 7 assessed: 02/06/23 Source: Developed by Drs. Avila Sesay, Tessy Gonzalez, Lee Cartwright and colleagues, with an educational samm from [employer]. Physical exam (Primary Care) Vital Signs: Last Vital Signs Pulse 77 05/10/23 13:05 BP 120/78 05/10/23 13:05 Pulse Ox 97 05/10/23 13:05 Oxygen Delivery Method Room Air 05/10/23 13:05 Care Plan Goal for BP management: Blood pressure is stable. Continue current management. BMI result Body Mass Index 42.3 BMI Assessment/Plan discussion: High (1 lb per week weight loss suggested.) BMI High, discussed plan: lifestyle, weight reduction and dietary Tobacco/Smoking Status: Tobacco use Status Tobacco use date assessed 05/10/23 05/10/23 13:11 Patient Tobacco Use Status Never used Tobacco 05/10/23 13:11 e-Cigarette/Vaping Use Never Used 05/10/23 13:11 Thrive Assessment: Date of Thrive Assessment Date Thrive assessed 02/06/23 05/10/23 13:11 Const General: cooperative and healthy appearing Nutritional Appearance: well nourished Orientation/consciousness: patient oriented x3 Limitations: no limitations HENMT Head: Yes normal to inspection Eyes General: appearance normal, both eyes and all related structures Neck Neck: Yes normal visual inspection Chest Chest palpation & inspection: normal palpation of entire chest wall Resp Effort & Inspection: normal respiratory effort Neuro General: patient oriented x3 Assessment and Plan Assessment & Plan (1) Osteoarthritis, hip, bilateral: Code(s): M16.0 - Bilateral primary osteoarthritis of hip Qualifiers: Osteoarthritis type: primary Qualified Code(s): M16.0 - Bilateral primary osteoarthritis of hip Plan: X-ray of the hips ordered. Continue anti-inflammatories. Physical therapy to be started. Meloxicam to be continued. (2) Breast cancer: Code(s): C50.919 - Malignant neoplasm of unspecified site of unspecified female breast Plan: Condition is stable. Follow-up with oncologist. (3) Morbid obesity with BMI of 40.0-44.9, adult: Comment: PATIENT IS FULLY AWARE OF THIS ISSUE. SHE IS NOT PHYSICALLY ACTIVE, TRIES TO WATCH HER DIET. NOT ABLE TO LOSE MUCH WEIGHT, SHE IS MOSTLY SEDENTARY. Code(s): E66.01 - Morbid (severe) obesity due to excess calories; Z68.41 - Body mass index [BMI] 40.0-44.9, adult (4) Endogenous depression: Code(s): F33.2 - Major depressive disorder, recurrent severe without psychotic features Plan: Continue current medications. Condition is stable. Orders: Orders XR hip BI w PEL1V 05/10/23 M16.0 - Bilateral primary osteoarthritis of hip Medications: Refilled meloxicam 15 mg PO DAILY 90 tabs 1RF M19.90 - Unspecified osteoarthritis, unspecified site venlafaxine ER 75 mg PO DAILY 90 caps 1RF Coding Level of Care Code Est Pt Level 4 (00398) Diagnoses Primary osteoarthritis of both hips M16.0 Osteoarthritis type: primary Breast cancer C50.919 Morbid obesity with BMI of 40.0-44.9, adult E66.01; Z68.41 Endogenous depression F33.2
[2023-05-10 13:05] VITALS: BP 120/78; PULSE 77; O2SAT 97; BMI 42.3
== END 2023-05-10 13:31 | disposition home or self-care (01) ==
PROVIDERS: PCP Internal Medicine; Visit Provider Internal Medicine
DX: M16.0 Bilateral primary osteoarthritis of hip (principal); C50.919 Malignant neoplasm of unspecified site of unspecified female breast; E66.01 Morbid (severe) obesity due to excess calories; Z68.41 Body mass index [BMI] 40.0-44.9, adult; F33.2 Major depressive disorder, recurrent severe without psychotic features
CPT/HCPCS: 99214

== ENCOUNTER 2023-05-10 13:38 | Outpatient (REF) | payer MEDICARE, SELFPAY ==
--- NOTE | ~2023-05-10 | XR_ITS ---
EXAMINATION: XR BILATERAL HIPS WITH AP PELVIS CLINICAL INFORMATION: Bilateral primary osteoarthritis of the hip COMPARISON: None available. TECHNIQUE: AP view of the pelvis and AP and lateral views of each hip were obtained. FINDINGS: The bones are diffusely demineralized. Degenerative changes in the imaged lower lumbar spine and bilateral sacroiliac joints. Surgical clips overlie the right hemipelvis. Moderate degenerative changes in the left hip with joint space narrowing and hypertrophic change. Moderate degenerative changes in the right hip with joint space narrowing and hypertrophic change. Pelvic calcifications are likely vascular. Surgical clips in the right lower quadrant of the pelvis. Corticated, 1.5 cm rounded calcification along the medial proximal aspect of the right femur, possibly an injection granuloma. XR/XR hip BI w PEL1V IMPRESSION: Moderate degenerative changes in the bilateral hips. Additional imaging with CT scan or MRI should be considered for better visualization as these modalities are much more sensitive for detection of fracture or other underlying pathology.
== END 2023-05-10 13:39 | disposition home or self-care (01) ==
LOC: HO.XRAY 13:38
PROVIDERS: PCP Internal Medicine; Visit Provider Internal Medicine
DX: M16.0 Bilateral primary osteoarthritis of hip (principal)
CPT/HCPCS: 73521

== ENCOUNTER 2023-06-05 14:17 | Outpatient (REF) | payer MEDICARE, SELFPAY | END 2023-06-05 14:18 | disposition home or self-care (01) | LOC: HO.MAMMO 14:17 | PROVIDERS: PCP Internal Medicine; Visit Provider Nurse Practitioner Family | DX: N64.89 Other specified disorders of breast (principal) | CPT/HCPCS: 77061; 77065 ==

== ENCOUNTER 2023-07-30 10:04 | Outpatient (AMB) | payer MEDICARE, SELFPAY ==
[2023-07-30 10:12] VITALS: BP 162/82; PULSE 85; BMI 42.1
--- NOTE | 2023-07-30 10:12 | A.OFFVIS_ITS ---
Intake Vital Signs 07/30/23 10:12 Height 4 ft 9.5 in Weight 198 lb BMI 42.1 BP 162/82 H Blood Pressure Location Lt brachial Position Sitting Pulse 85 Intake Visit Reasons: patient request- Discuss prep Intake Note: Patient follow up to discuss pre colonoscopy screening. Patient denies any GI issues. 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 Accompanied by: Self / Same As Patient Allergies morphine [MORPHINE] Allergy (Unknown, Verified 07/30/23 10:11) VOMITING, hives/stomach upset Sulfa (Sulfonamide Antibiotics) Allergy (Unknown, Verified 07/30/23 10:11) hives tolmetin [From TOLECTIN] Allergy (Unknown, Verified 07/30/23 10:11) HIVES Medication List - Last Reconciled 07/30/23 by Mary Arcos PA-C bisacodyl (Dulcolax (bisacodyl)) 20 mg (4 x 5 mg) PO ONCE 1 day [calcium 1 tab PO DAILY] cholecalciferol (vitamin D3) 25 mcg PO DAILY magnesium citrate (OneLAX Magnesium Citrate oral solution) 300 mL PO ONCE magnesium citrate (OneLAX Magnesium Citrate oral solution) 300 mL PO ONCE meloxicam 15 mg PO DAILY multivitamin 1 tab PO DAILY pantoprazole 40 mg PO DAILY ropinirole 1 mg PO BEDTIME trazodone 100 mg PO BEDTIME venlafaxine ER 75 mg PO DAILY [Vitamin D3 1 tab PO DAILY] zinc 50 mg PO DAILY HPI HPI Comments History of Present Illness Details A 72-year-old female scheduled for colonoscopy on 08/08/23- Dr. Parisa romero-06/2022- Here to day to get prep- Well controlled gerd- PFSH Medical History Tracheobronchitis Endogenous depression Viral wart on finger GERD (gastroesophageal reflux disease) Osteoarthritis Hernia Perforation bowel Arthritis COPD (chronic obstructive pulmonary disease) [place] on CPAP Obesity (BMI 35.0-39.9 without comorbidity) Surgical History History of total right knee replacement History of right knee joint replacement H/O bilateral breast reduction surgery H/O lumpectomy History of left knee replacement History of gastric bypass Family History Mother No problems noted. Father No problems noted. Maternal Grandfather Stomach cancer Social History Household Members: Family Housing: House Are you a primary toddler caregiver to a significant other at home: No Do you presently have visiting nurse or other home services: No Alcohol intake: current Alcohol intake frequency: holidays/special occasions only Alcohol type: wine Patient Tobacco Use Status: Never used Tobacco e-Cigarette/Vaping Use: Never Used Second Hand Smoke Exposure: No service: No Current occupational status: retired Cognitive needs: No Hearing needs: Yes (hearing aide) Vision needs: Yes (Glasses) Female Reproductive History Menstrual Age of Menarche: 15 Review of Systems Const All systems reviewed & are unremarkable except as noted in HPI and below Card Denies chest pain and Denies dyspnea Resp Denies dyspnea Physical Exam Vital Signs: Last Vital Signs Pulse 85 07/30/23 10:12 BP 162/82 H 07/30/23 10:12 BMI result Body Mass Index 42.1 Const General: cooperative, healthy appearing, comfortable and no acute distress Orientation/consciousness: patient oriented x3 Limitations: no limitations Eyes Sclerae: sclerae normal Resp Effort & Inspection: normal respiratory effort and able to speak in complete sentences Auscultation: clear to auscultation bilaterally (distant breath sounds), no rales, no rhonchi and no wheezes Cardio Rate: regular rate Rhythm: regular rhythm Heart sounds: S1 normal heart sound present and S2 normal heart sound present GI Palpation (GI): Soft to palpation and nontender Auscultation: normal bowel sounds Skin General skin exam: no rashes or lesions noted Neuro General: patient oriented x3 Psych Appearance: grossly normal Mental Status: mental status grossly normal Speech and movement: Clear speech present Affect: normal affect Attitude: cooperative Thought process: Normal thought process present Thought content: Normal thought content present Assessment & Plan Assessment & Plan (1) Positive colorectal cancer screening using Cologuard test: Comment: Seen previously scheduled for colonoscopy anesthesia consult due to COPD, sleep apnea, however did not machine pecan picker prep Reviewed the medications only partial prep sent to patient Code(s): R19.5 - Other fecal abnormalities Plan Already scheduled for 08/08/23 anesthesia consult- scheduled Mag citrate Prep reviewed/ lit given, resend to pharmacy Medications: Refilled magnesium citrate (OneLAX Magnesium Citrate oral solution) 18:00-prep day Drink entire bottle of Mag citrate followed by an 8 oz glass of water 300 mL PO ONCE 300 mL 0RF magnesium citrate (OneLAX Magnesium Citrate oral solution) Day of procedure- Drink entire bottle followed by 8 oz of water-5 hours before arrival time 300 mL PO ONCE 300 mL 0RF Patient Instructions: Anesthesia appointment Friday 08/03@1pm Reviewed- prep/ anesthesia/ escort (RHETT)lite given- reviewed Encouraged to call questions or concerns Coding Level of Care Code Est Pt Level 3 (57359) Diagnoses Positive colorectal cancer screening using Cologuard test R19.5 Time Spent (min) 35
== END 2023-07-30 11:44 | disposition home or self-care (01) ==
PROVIDERS: PCP Internal Medicine; Visit Provider Physician Assistant
DX: R19.5 Other fecal abnormalities (principal)
CPT/HCPCS: 99213

== ENCOUNTER → 2023-07-30 10:04 | Outpatient (BNVA) | payer MEDICARE, SELFPAY | PROVIDERS: PCP Internal Medicine; Visit Provider Physician Assistant | DX: R19.5 Other fecal abnormalities (principal) | CPT/HCPCS: 99212 ==

== ENCOUNTER 2023-08-06 10:44 | Outpatient (AMB) | payer MEDICARE, SELFPAY ==
[2023-08-06 11:08] VITALS: BP 110/82; PULSE 88; O2SAT 97; BMI 42.5
--- NOTE | 2023-08-06 11:08 | A.OFFVIS_ITS ---
Intake Vital Signs 08/06/23 11:08 Height 4 ft 9.5 in Weight 200 lb BMI 42.5 BP 110/82 Blood Pressure Location Lt brachial Position Sitting Pulse 88 Pulse Source Pulse Oximeter Pulse Oximetry (%) 97 Oxygen Delivery Method Room Air Intake Visit Reasons: elisa Intake Note: pt is here for follow up and needs clearance for colonoscocpy on Sunday the , feeling good today. 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: No Allergies morphine [MORPHINE] Allergy (Severe, Verified 08/06/23 11:30) VOMITING, hives/stomach upset tolmetin [From TOLECTIN] Allergy (Severe, Verified 08/06/23 11:30) HIVES Sulfa (Sulfonamide Antibiotics) Allergy (Intermediate, Verified 08/06/23 11:30) hives Medication List - Last Reconciled 08/06/23 by Chintan Mcarthur MD bisacodyl (Dulcolax (bisacodyl)) 20 mg (4 x 5 mg) PO ONCE 1 day calcium carbonate (Calcium) 600 mg PO DAILY cholecalciferol (vitamin D3) 25 mcg PO DAILY magnesium citrate (OneLAX Magnesium Citrate oral solution) 300 mL PO ONCE magnesium citrate (OneLAX Magnesium Citrate oral solution) 300 mL PO ONCE meloxicam 15 mg PO DAILY multivitamin 1 tab PO DAILY pantoprazole 40 mg PO DAILY ropinirole 1 mg PO BEDTIME trazodone 100 mg PO BEDTIME venlafaxine ER 75 mg PO DAILY zinc 50 mg PO DAILY Do you need a note to return to daycare/school/sports/work: No HPI elisa HPI Details 72 years old female a known case of mild bronchial asthma, and obstructive sleep apnea. She is here for 6 months follow-up. Has been using her CPAP very regularly actually all most 9-10 hours per night and sleeps well. She remains grossly overweight, and because of that she gets short of breath on walking around but has only occasional. bouts of wheezing and cough She does use albuterol but only once in a while . At present she does not have any active respiratory symptoms. [facility] Medical History Anxiety Hx of radiation therapy Tracheobronchitis Endogenous depression Viral wart on finger GERD (gastroesophageal reflux disease) Osteoarthritis Hernia Perforation bowel Arthritis COPD (chronic obstructive pulmonary disease) ELISA on CPAP Obesity (BMI 35.0-39.9 without comorbidity) Surgical History History of colon surgery Hx of colonoscopy History of total right knee replacement H/O bilateral breast reduction surgery H/O lumpectomy History of left knee replacement History of gastric bypass Family History Mother No problems noted. Father No problems noted. 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 a primary mall plant caretaker to a significant other at home: Yes () Do you presently have visiting nurse or other home services: No Alcohol intake: current Alcohol intake frequency: holidays/special occasions only Alcohol type: wine Patient Tobacco Use Status: Never used Tobacco e-Cigarette/Vaping Use: Never Used Second Hand Smoke Exposure: No service: No Current occupational status: retired Cognitive needs: No Hearing needs: Yes (hearing aide) Vision needs: Yes (Glasses) Female Reproductive History Menstrual Age of Menarche: 15 Review of Systems Const All systems reviewed & are unremarkable except as noted in HPI and below Eyes Reports no additional complaints ENT Reports sore throat Card Denies chest pain, Denies irregular heart rhythm and Denies leg edema Resp Reports as per HPI and Reports cough (For the last 1 week) GI Reports heartburn (Controlled with med) Reports no additional complaints Musc Reports back pain and Reports arthralgias Skin/Breast Reports system reviewed and no additional complaints, except as documented Neuro Reports restless legs (Controlled with med) Psych Reports anxiety (Controlled with med) Endo Reports no additional complaints Physical Exam Vital Signs: Last Vital Signs Pulse 88 08/06/23 11:08 BP 110/82 08/06/23 11:08 Pulse Ox 97 08/06/23 11:08 Oxygen Delivery Method Room Air 08/06/23 11:08 BMI result Body Mass Index 42.5 Const General: comfortable, no acute distress, alert and awake Orientation/consciousness: patient oriented x3 HEENT Head: Yes normal to inspection General nose exam: No nasal polyps present and No nasal discharge present Face and sinus: Yes sinuses nontender Mouth: oropharynx normal Throat: Yes posterior oropharynx normal (There is mild redness of the mucosal and swelling in the nasopharynx.) Eyes General: appearance normal, both eyes and all related structures Neck Neck: Yes normal visual inspection, Yes no lymphadenopathy, Yes trachea midline and Yes no JVD Thyroid: Thyroid normal Chest Chest palpation & inspection: normal inspection of the chest (Increased AP diameter), normal palpation of entire chest wall and no tenderness Resp Other: Percussion note is resonant, breath sounds distant on both sides with prolonged expiratory phase. No wheezes rhonchi or crepitations are heard Cardio Palpation: normal PMI Rate: regular rate Rhythm: regular rhythm Heart sounds: no gallops and no murmurs GI Palpation (GI): Soft to palpation, nontender, No hepatosplenomegaly present, no masses and Other GI palpation findings present (Abdomen is obese and slightly protuberant) Auscultation: normal bowel sounds Back/Spine/Pelvis Thoracic/Lumbar Spine: thoracic and lumbar spine normal to inspection and thoraco-lumbar ROM limited Skin General skin exam: no rashes or lesions noted Neuro General: patient oriented x3 and no focal motor deficits Cranial nerves: Yes CN's II-XII intact bilaterally Extrem General: Yes normal to inspection, No no joint enlargement (Enlarged and tender right knee), Yes no clubbing, cyanosis or edema and Yes no calf tenderness Psych Appearance: grossly normal and well kempt Speech and movement: Normal speech and movement present Results Reviewed Results Reviewed: Compliance report: She has used 30/30 nights, 100%. Average use it per night 10 hours 7 minutes. Pressure used mostly 11-12 cm. . No air leak is recorded Residual AHI only 1.1 SPIROMETRY ; FVC= 72 % FEV1=80 % FEV1/FVC= 87 FEF 25-75= 100 % C/W MILD RESTRICTIVE DISORDER, ON NO OBSTRUCTIVE DISORDER. Assessment & Plan Assessment & Plan (1) Morbid obesity with BMI of 40.0-44.9, adult: Comment: PATIENT IS FULLY AWARE OF THIS ISSUE. SHE IS NOT PHYSICALLY ACTIVE, TRIES TO WATCH HER DIET. NOT ABLE TO LOSE MUCH WEIGHT, SHE IS MOSTLY SEDENTARY. Code(s): E66.01 - Morbid (severe) obesity due to excess calories; Z68.41 - Body mass index [BMI] 40.0-44.9, adult Plan: ABOVE (2) ELISA on CPAP: Comment: SLEEP APNEA/ HYPOVENTILATION SYNDROME IS WELL CONTROLLED WITH THE USE OF BIPAP 20/4 CMs, FULL FACE MASK . SHE IS VERY COMPLIANT AND ACTUALLY USES ABOUT 10 HOURS PLUS EVERY DAY WITH GOOD RESULTS. Code(s): G47.33 - Obstructive sleep apnea (adult) (pediatric); Z99.89 - Dependence on other enabling machines and devices Plan: COMMENDED FOR EXCELLENT COMPLIANCE, ADVISED TO KEEP ON USING THE BIPAP EVERY NIGHT REGULARLY. (3) COPD (chronic obstructive pulmonary disease): Comment: SHE HAS HAD HISTORY OF MILD BRONCHIAL ASTHMA/COPD IN THE PAST. CURRENTLY USES ALBUTEROL ONLY ONCE IN A WHILE. SPIROMETRY INDICATES THAT SHE ACTUALLY HAS ONLY MILD RESTRICTIVE DISORDER. THERE IS NO OBSTRUCTIVE AIRWAY DISORDER. SHE IS NONSMOKER. Code(s): J44.9 - Chronic obstructive pulmonary disease, unspecified Plan: DOES NOT NEED TO USE ANY BRONCHODILATOR INHALER, INSTRUCTED TO DO DEEP BREATHING EXERCISES 2 OR 3 TIMES A DAY REGULARLY Plan SHE WILL BE UNDERGOING COLONOSCOPY FOR COLORECTAL CANCER SCREENING. FROM PULMONARY POINT OF VIEW SHE HAS NO CONTRAINDICATION. Orders: Orders AMB Spirometry Testing Today J44.9 - Chronic obstructive pulmonary disease, unspecified Coding Level of Care Code Est Pt Level 4 (01479) Diagnoses Morbid obesity with BMI of 40.0-44.9, adult E66.01; Z68.41 ELISA on CPAP G47.33; Z99.89 COPD (chronic obstructive pulmonary disease) J44.9
== END 2023-08-06 12:01 | disposition home or self-care (01) ==
PROVIDERS: PCP Internal Medicine; Visit Provider Internal Medicine
DX: E66.01 Morbid (severe) obesity due to excess calories (principal); Z68.41 Body mass index [BMI] 40.0-44.9, adult; G47.33 Obstructive sleep apnea (adult) (pediatric); Z99.89 Dependence on other enabling machines and devices; J44.9 Chronic obstructive pulmonary disease, unspecified
CPT/HCPCS: 94010; 99214

== ENCOUNTER → 2023-08-06 10:44 | Outpatient (BNVA) | payer MEDICARE, SELFPAY | PROVIDERS: PCP Internal Medicine; Visit Provider Internal Medicine | DX: G47.33 Obstructive sleep apnea (adult) (pediatric) (principal); J44.9 Chronic obstructive pulmonary disease, unspecified; E66.01 Morbid (severe) obesity due to excess calories; Z68.41 Body mass index [BMI] 40.0-44.9, adult; Z99.89 Dependence on other enabling machines and devices | CPT/HCPCS: 94010; 99212 ==

== ENCOUNTER 2023-08-08 08:07 | Day surgery (SDC) | payer MEDICARE, SELFPAY ==
[2023-08-02 16:44] VITALS: BMI 41.5
--- NOTE | 2023-08-07 09:11 | P.CONAN_ITS ---
Documented by User: Felisa Saunders NP 08/07/23 09:13 HPI - Anesthesia Eval Consult details Narrative: 72yo F for Colonoscopy Pulmo cleared PMFSH Active Problems Active Problems: All Active Problems (Updated 08/06/23 @ 12:04 by Chintan Mcarthur MD) Positive colorectal cancer screening using Cologuard test (Acute) Osteoarthritis, hip, bilateral (Acute) Osteopenia (Acute) Screening for diabetes mellitus (Acute) Post-menopausal (Acute) Sebaceous cyst (Acute) Vulvar inflammation (Acute) Morbid obesity with BMI of 40.0-44.9, adult (Acute) Adult general medical exam (Acute) Screening for colon cancer (Acute) Bilateral hand pain (Acute) Encounter for annual physical exam (Acute) Breast cancer (Acute) Tracheobronchitis (Acute) Endogenous depression (Acute) Viral wart on finger (Acute) GERD (gastroesophageal reflux disease) (Acute) Osteoarthritis (Acute) COPD (chronic obstructive pulmonary disease) (Acute) [place] on CPAP (Acute) Obesity (BMI 35.0-39.9 without comorbidity) (Acute) Past Medical History Medical History Anxiety Hx of radiation therapy Tracheobronchitis Endogenous depression Viral wart on finger GERD (gastroesophageal reflux disease) Osteoarthritis Hernia Perforation bowel Arthritis COPD (chronic obstructive pulmonary disease) [place] on CPAP Obesity (BMI 35.0-39.9 without comorbidity) Family History Family History Mother No problems noted. Father No problems noted. Maternal Grandfather Stomach cancer Surgical History Surgical History History of colon surgery Hx of colonoscopy History of total right knee replacement H/O bilateral breast reduction surgery H/O lumpectomy History of left knee replacement History of gastric bypass Social History Social History Household Members: Spouse and Family Housing: House Are you a primary director day care center to a significant other at home: Yes () Do you presently have visiting nurse or other home services: No Alcohol intake: current Alcohol intake frequency: holidays/special occasions only Alcohol type: wine Patient Tobacco Use Status: Never used Tobacco e-Cigarette/Vaping Use: Never Used Second Hand Smoke Exposure: No service: No Current occupational status: retired Cognitive needs: No Hearing needs: Yes (hearing aide) Vision needs: Yes (Glasses) Meds Allergies Allergy/AdvReac Type Severity Reaction Status Date / Time morphine [MORPHINE] Allergy Severe VOMITING, Verified 08/06/23 11:30 hives/stomach upset tolmetin [From TOLECTIN] Allergy Severe HIVES Verified 08/06/23 11:30 Sulfa (Sulfonamide Allergy Intermediate hives Verified 08/06/23 11:30 Antibiotics) Home Medications Medication Instructions Recorded Confirmed Last Taken Type multivitamin 1 tab PO DAILY 08/31/20 08/02/23 Unknown History zinc 50 mg capsule 50 mg PO DAILY 09/02/21 08/02/23 Unknown History calcium carbonate 600 mg calcium 600 mg PO DAILY 08/02/23 08/02/23 Unknown History (1,500 mg) tablet (Calcium) Exam Height,Weight and Vital Signs: Height 4 ft 9.5 in Weight 88.451 kg Narrative Narrative: In office spirometry 07/2023 SPIROMETRY ; FVC= 72 % FEV1=80 % FEV1/FVC= 87 FEF 25-75= 100 % C/W MILD RESTRICTIVE DISORDER, ON NO OBSTRUCTIVE DISORDER. Assessment and Plan Assessment Anesthesia Assessment: Chart Reviewed Documented by User: Sharan Mesa MD 08/08/23 07:33 [facility] Past Medical History Medical History Anxiety Hx of radiation therapy Tracheobronchitis Endogenous depression Viral wart on finger GERD (gastroesophageal reflux disease) Osteoarthritis Hernia Perforation bowel Arthritis COPD (chronic obstructive pulmonary disease) [place] on CPAP Obesity (BMI 35.0-39.9 without comorbidity) Family History Family History Mother No problems noted. Father No problems noted. Maternal Grandfather Stomach cancer Family history of problems with anesthesia: No Surgical History Surgical History History of colon surgery Hx of colonoscopy History of total right knee replacement H/O bilateral breast reduction surgery H/O lumpectomy History of left knee replacement History of gastric bypass History of Problems with Anesthesia: No Social History Social History Household Members: Spouse and Family Housing: House Are you a primary director day care center to a significant other at home: Yes () Do you presently have visiting nurse or other home services: No Alcohol intake: current Alcohol intake frequency: holidays/special occasions only Alcohol type: wine Patient Tobacco Use Status: Never used Tobacco e-Cigarette/Vaping Use: Never Used Second Hand Smoke Exposure: No service: No Current occupational status: retired Cognitive needs: No Hearing needs: Yes (hearing aide) Vision needs: Yes (Glasses) Meds Allergies Allergy/AdvReac Type Severity Reaction Status Date / Time morphine [MORPHINE] Allergy Severe VOMITING, Verified 08/06/23 11:30 hives/stomach upset tolmetin [From TOLECTIN] Allergy Severe HIVES Verified 08/06/23 11:30 Sulfa (Sulfonamide Allergy Intermediate hives Verified 08/06/23 11:30 Antibiotics) Home Medications Medication Instructions Recorded Confirmed Last Taken Type multivitamin 1 tab PO DAILY 08/31/20 08/02/23 Unknown History zinc 50 mg capsule 50 mg PO DAILY 09/02/21 08/02/23 Unknown History calcium carbonate 600 mg calcium 600 mg PO DAILY 08/02/23 08/02/23 Unknown History (1,500 mg) tablet (Calcium) Exam Airway Mallampati Class: III TM Dist: <=3cm Neck ROM: Limited Heart: rrr Lungs: diminished bs Assessment and Plan Assessment Anesthesia Assessment: Anesthesia Plan Discussed Final Anesthetic Review Family History of Problems with Anesthesia: No History of Problems with Anesthesia: No NPO: Yes ASA Class: IV Final Preanesthetic Review: No Changes in Pt Med Stat, Meds/Allgs Chart Reviewed, Consent Obtained/Reviewed and Anes Risks/Benef Reviewed Patient Risk: High Procedure Risk: Low Anesthetic Plan Anesthetic Plan: MAC: and Agree w/ Assess. and Plan Disposition: Standard PACU
[2023-08-08 08:36] VITALS: BMI 41.8
--- NOTE | 2023-08-08 08:58 | MHC.SHP ---
Pre-Procedural Eval Section A Date of Service: 08/08/23 Section B Chief Complaint: pos cologuard test Relevant Family History (Specify if Yes): No Relevant Social History: None Present Medications: see Short Stay Collaborative assessment Medical History: Significant History (Anxiety Hx of radiation therapy Tracheobronchitis Endogenous depression Viral wart on finger GERD (gastroesophageal reflux disease) Osteoarthritis Hernia Perforation bowel Arthritis COPD (chronic obstructive pulmonary disease) [place] on CPAP Obesity (BMI 35.0-39.9 without comorbidity)) History of Previous Operations: Relevant previous surgery/procedure and date(s) (History of colon surgery Hx of colonoscopy History of total right knee replacement H/O bilateral breast reduction surgery H/O lumpectomy History of left knee replacement History of gastric bypass) Allergies: Allergies Allergy/AdvReac Type Severity Reaction Status Date / Time morphine [MORPHINE] Allergy Severe VOMITING, Verified 08/06/23 11:30 hives/stomach upset tolmetin [From TOLECTIN] Allergy Severe HIVES Verified 08/06/23 11:30 Sulfa (Sulfonamide Allergy Intermediate hives Verified 08/06/23 11:30 Antibiotics) Review of Systems Sugical H&P ROS: Negative: Constitution, Cardiovascular, Respiratory, Neurological, Psychiatric, Hem-Onc, Allergic/Immunologic, Gastrointestinal, Genitourinary, Musculoskeletal, Integumentary, Endocrine and Eyes/Ears/Nose/Throat Exam Surgical H&P Exam: Normal: HEENT, Normal: Heart, Normal: Lungs, Normal: Extremities, Normal: Abdomen, Normal: Skin and Normal: Neurological Plan Diagnosis/Plan: Unchanged I have reviewed the history and physical and performed a pertinent physical examination on my patient. No changes have occurred unless specified. Time Spent With Patient Time: Total time managing care of this patient today ____ minutes.
[2023-08-08 09:05] VITALS: BP 137/63; PULSE 74; RESP 16; TEMP 36.4; O2SAT 99
[2023-08-08] MEDS: Lactated Ringers 1,000 ML 100 ML IVCONT (09:07)
--- NOTE | 2023-08-08 09:07 | W.PM.OPN ---
Operative Note Operative Note Date of Service: 08/08/23 Narrative: Operative Information Procedure Description: Colonoscopy Indication: pos cologuard Anesthesia: MAC COLONOSCOPY Instrument: Olympus variable stiffness pediatric scope 190L Colonoscopy Monitoring: Vital signs and clinical assessment, continuous EKG monitoring, Pulse oximetry, Carbon Dioxide monitoring and blood pressure monitoring were done throughout the procedure. Colon withdrawal time was 10 minutes. Procedure: The patient was placed in the left lateral decubitis position and pre-procedure medications were administered. After a digital rectal examination of the ano-rectum, the video colonoscope was inserted into the rectum and advanced through the colon to the cecum/TI. The colonoscope was slowly withdrawn in a retrograde panoramic fashion and the colon mucosa was carefully examined including a retroflexed view of the rectum. Findings and interventions are described below. Procedure Difficulty: easy Findings: Terminal Ileum-normal Cecum:normal Ascending Colon: 7-8 mm sessile polyp removed with cold snare Transverse Colon -normal Descending Colon: mild diverticulosis Sigmoid Colon: normal Rectum: Retroflexion with small internal hemorrhoids, grade I Anorectum - normal Colon preparation: [place] Bowel Preparation Scale Right colon; 2 Transverse colon: 2 Left colon; 2 (0 = Unprepared colon segment with mucosa not seen due to solid stool that cannot be cleared. 1 = Portion of mucosa of the colon segment seen, but other areas of the colon segment not well seen due to staining, residual stool and/or opaque liquid. 2 = Minor amount of residual staining, small fragments of stool and/or opaque liquid, but mucosa of colon segment seen well. 3 = Entire mucosa of colon segment seen well with no residual staining, small fragments of stool or opaque liquid) Impression and Post Procedure Diagnosis: polyp internal hemorrhoids diverticular disease Plan: High fiber diet leaflet Avoid straining at stool, epsom salts and sitz bath, anusol supps or cream Repeat Colonoscopy in 5-7 years if health allows or earlier if clinically indicated Above findings were reviewed with the patient and relevant handouts were provided if indicated.
[2023-08-08 10:31] VITALS: BP 100/67; PULSE 83; RESP 16; TEMP 36.2; O2SAT 97
[2023-08-08 10:46] VITALS: BP 115/70; PULSE 68; RESP 14; TEMP 36.2; O2SAT 99
== END 2023-08-08 12:24 | disposition home or self-care (01) ==
PROVIDERS: PCP Internal Medicine; Visit Provider Internal Medicine Gastroenterology
PROC: 0DJD8ZZ Inspection of Lower Intestinal Tract, Via Natural or Artificial Opening Endoscopic (ICD-10-PCS; CPT 45378; principal; 2023-08-08 10:20)
DX: R19.5 Other fecal abnormalities (principal); D12.2 Benign neoplasm of ascending colon; K57.30 Diverticulosis of large intestine without perforation or abscess without bleeding; K64.0 First degree hemorrhoids; K21.9 Gastro-esophageal reflux disease without esophagitis; F33.2 Major depressive disorder, recurrent severe without psychotic features; F41.9 Anxiety disorder, unspecified; J44.9 Chronic obstructive pulmonary disease, unspecified; G47.33 Obstructive sleep apnea (adult) (pediatric); E66.9 Obesity, unspecified; Z68.41 Body mass index [BMI] 40.0-44.9, adult; Z92.3 Personal history of irradiation; Z79.899 Other long term (current) drug therapy; Z99.89 Dependence on other enabling machines and devices; Z88.2 Allergy status to sulfonamides; Z88.5 Allergy status to narcotic agent; Z98.84 Bariatric surgery status; Z96.653 Presence of artificial knee joint, bilateral; Z98.890 Other specified postprocedural states
CPT/HCPCS: 45385; 88305; J2704

== ENCOUNTER → 2023-08-08 08:07 | Outpatient (BNV) | payer MEDICARE, SELFPAY | PROVIDERS: PCP Internal Medicine; Visit Provider Internal Medicine Gastroenterology | DX: Z12.11 Encounter for screening for malignant neoplasm of colon (principal); R19.5 Other fecal abnormalities; K63.5 Polyp of colon; K57.30 Diverticulosis of large intestine without perforation or abscess without bleeding | CPT/HCPCS: 45385 ==

== ENCOUNTER 2023-08-23 09:39 | Outpatient (AMB) | payer MEDICARE, SELFPAY ==
[2023-08-23 09:46] VITALS: BP 146/65; PULSE 71; BMI 43.3
--- NOTE | 2023-08-23 09:46 | A.OFFVIS_ITS ---
Intake Vital Signs 08/23/23 09:46 Height 4 ft 9 in Weight 200 lb BMI 43.3 BP 146/65 H Blood Pressure Location Lt brachial Position Sitting Pulse 71 Intake Visit Reasons: s/p colon Mccauley Intake Note: Patient follow up for Colonoscopy results Patient denies any GI issues. Principal Scientist Required: No Accompanied by: Self / Same As Patient Allergies morphine [MORPHINE] Allergy (Severe, Verified 08/23/23 09:45) VOMITING, hives/stomach upset tolmetin [From TOLECTIN] Allergy (Severe, Verified 08/23/23 09:45) HIVES Sulfa (Sulfonamide Antibiotics) Allergy (Intermediate, Verified 08/23/23 09:45) hives Medication List - Last Reconciled 08/23/23 by Mary Arcos PA-C bisacodyl (Dulcolax (bisacodyl)) 20 mg (4 x 5 mg) PO ONCE 1 day calcium carbonate (Calcium) 600 mg PO DAILY cholecalciferol (vitamin D3) 25 mcg PO DAILY magnesium citrate (OneLAX Magnesium Citrate oral solution) 300 mL PO ONCE magnesium citrate (OneLAX Magnesium Citrate oral solution) 300 mL PO ONCE meloxicam 15 mg PO DAILY multivitamin 1 tab PO DAILY pantoprazole 40 mg PO DAILY ropinirole 1 mg PO BEDTIME trazodone 100 mg PO BEDTIME venlafaxine ER 75 mg PO DAILY zinc 50 mg PO DAILY HPI HPI Comments History of Present Illness Details A 72 y/i female seen after positive cologuard test f/u after colonoscopy with polypectomy- She did not like the prep- No GI complaints- had diarrhea a couple days now resolved- Reviewed-procedure report, pathology and recommendations. Opportunity for questions answered to her satisfaction [facility] Medical History (Updated 08/23/23 @ 10:04 by Mary Arcos PA-C) Anxiety Hx of radiation therapy Tracheobronchitis Endogenous depression Viral wart on finger GERD (gastroesophageal reflux disease) Osteoarthritis Hernia Perforation bowel Arthritis COPD (chronic obstructive pulmonary disease) [place] on CPAP Obesity (BMI 35.0-39.9 without comorbidity) Surgical History History of colon surgery Hx of colonoscopy History of total right knee replacement H/O bilateral breast reduction surgery H/O lumpectomy History of left knee replacement History of gastric bypass Family History Mother No problems noted. Father No problems noted. 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 a primary patient care provider to a significant other at home: Yes () Do you presently have visiting nurse or other home services: No Alcohol intake: current Alcohol intake frequency: holidays/special occasions only Alcohol type: wine Patient Tobacco Use Status: Never used Tobacco e-Cigarette/Vaping Use: Never Used Second Hand Smoke Exposure: No service: No Current occupational status: retired Cognitive needs: No Hearing needs: Yes (hearing aide) Vision needs: Yes (Glasses) Female Reproductive History Menstrual Age of Menarche: 15 Physical Exam Vital Signs: Last Vital Signs Pulse 71 08/23/23 09:46 BP 146/65 H 08/23/23 09:46 BMI result Body Mass Index 43.3 Const General: cooperative, healthy appearing, comfortable and no acute distress Orientation/consciousness: patient oriented x3 Limitations: no limitations Eyes Sclerae: sclerae normal Skin General skin exam: no rashes or lesions noted Neuro General: patient oriented x3 Extrem General: Yes full ROM Psych Mental Status: mental status grossly normal Speech and movement: Normal speech and movement present and Clear speech present Affect: normal affect Attitude: cooperative Thought process: Normal thought process present Thought content: Normal thought content present Results Reviewed Results Reviewed: Impression and Post Procedure Diagnosis: polyp internal hemorrhoids diverticular disease Plan: High fiber diet leaflet Avoid straining at stool, epsom salts and sitz bath, anusol supps or cream Repeat Colonoscopy in 5-7 years if health allows or earlier if clinically indicated graciela: Charisma Ashley Age/Sex: 72/F Attending: Albert Mccauley MD : 1950 Submitted by: Albert Mccauley MD Copies to: Stephen Olmos MD MR #: [id number] Status: [facility] Collected: 08/08/23 Location: [facility] Received: 08/08/23 Diagnosis Colon, ascending, polypectomy: Fragments of sessile serrated lesion/polyp; negative for cytologic dysplasia. Clinical History Pre-Op Dx: Screening Post-Op Dx: Polyps, diverticulosis, hemorrhoids Microscopic Description Microscopic sections reviewed. Material Received Ascending colon polyp Gross Description Received in formalin labeled ?ascending colon polyp? are 4 eisenberg irregular tissue fragments each measuring less than 0.1 cm, submitted in toto in a cassette labeled A. CEDS Copies To Albert Mccauley MD [address] [place] [address] [place] [address] Stephen Olmos MD [address] [place] [address] Dr. Navarrete [address] [place], [place] [address] [address] NOTE: Unless otherwise stated, all tissue is formalin-fixed and paraffin- embedded. Some or all of the immunohistochemical tests reported herein may have been developed and their performance characteristics determined by [facility]. They have not been cleared or approved by the U.S. Food and Drug Administration (FDA). However, the FDA has determined that such clearance or approval is not necessary. This laboratory is certified under the Clinical Laboratory Improvement Amendments of 1988 (CLIA) as qualified to perform high complexity clinical laboratory testing. Electronically Signed By: Carlos A Germain MD 08/10/23 2397 Patient: Charisma Ashley Age/Sex: 72/F MR#: [id number] Page 1 of 1 Assessment & Plan Assessment & Plan (1) Sessile serrated polyp of colon: Comment: adenoma- 5 yr repeat colon Code(s): D12.6 - Benign neoplasm of colon, unspecified Plan 5 year recall colonoscopy Patient Instructions: 5 year recall colonoscopy- if good health Call with concerns Coding Level of Care Code Est Pt Level 3 (36612) Diagnoses Sessile serrated polyp of colon D12.6 Time Spent (min) 25
== END 2023-08-23 13:30 | disposition home or self-care (01) ==
PROVIDERS: PCP Internal Medicine; Visit Provider Physician Assistant
DX: D12.6 Benign neoplasm of colon, unspecified (principal)
CPT/HCPCS: 99213

== ENCOUNTER → 2023-08-23 09:39 | Outpatient (BNVA) | payer MEDICARE, SELFPAY | PROVIDERS: PCP Internal Medicine; Visit Provider Physician Assistant | DX: D12.6 Benign neoplasm of colon, unspecified (principal) | CPT/HCPCS: 99212 ==

== ENCOUNTER 2023-11-29 13:39 | Outpatient (AMB) | payer MEDICARE, SELFPAY ==
--- NOTE | 2023-11-29 13:44 | MHC.PC.OV ---
Vital Signs 11/29/23 13:48 Height 4 ft 9 in Weight 204 lb 8 oz BMI 44.2 BP 130/62 Blood Pressure Location Lt brachial Position Sitting Pulse 68 Pulse Source Pulse Oximeter Pulse Oximetry (%) 97 Oxygen Delivery Method Room Air Intake Visit Reasons: 3M. F/U-Medication Intake Note: Patient is here to follow up on Osteoarthritis, GERD, COPD. Paper Colorer Required: No Vascular Ultrasound Technician: Not Required per policy Accompanied by: Self / Same As Patient Allergies morphine [MORPHINE] Allergy (Severe, Verified 11/29/23 13:47) VOMITING, hives/stomach upset tolmetin [From TOLECTIN] Allergy (Severe, Verified 11/29/23 13:47) HIVES Sulfa (Sulfonamide Antibiotics) Allergy (Intermediate, Verified 11/29/23 13:47) hives Medication List - Last Reconciled 11/29/23 by Stephen Olmos MD bisacodyl (Dulcolax (bisacodyl)) 20 mg (4 x 5 mg) PO ONCE 1 day calcium carbonate (Calcium) 600 mg PO DAILY cholecalciferol (vitamin D3) 25 mcg PO DAILY magnesium citrate (OneLAX Magnesium Citrate oral solution) 300 mL PO ONCE magnesium citrate (OneLAX Magnesium Citrate oral solution) 300 mL PO ONCE multivitamin 1 tab PO DAILY pantoprazole 40 mg PO DAILY ropinirole 1 mg PO BEDTIME tramadol 50 mg PO DAILY trazodone 100 mg PO BEDTIME venlafaxine ER 75 mg PO DAILY zinc 50 mg PO DAILY Tobacco use date assessed: 11/29/23 Fall risk assessment: 1 Fall in past year Last assessed Fall Risk: 11/29/23 Dental Screening Dental Screen Date: 11/29/23 Did you have a dental visit in the last 12 months?: Yes Did you have a dental problem in the last 6 months where you did not have access to dental care?: No Was dental information given to patient?: Patient has dentist HPI 3M. F/U-Medication HPI Details 72-year-old female presents to the office to discuss her chronic medical conditions. Patient is having intense pain between her glutes. She is able to walk and has no difficulty urinating. Her quality of life has deteriorated due to the pain. X-rays done showed bilateral arthritis in the hip. She has been given a trial of meloxicam which gives her minimal relief. Able to climb stairs and come down stairs. [facility] Medical History Anxiety Hx of radiation therapy Tracheobronchitis Endogenous depression Viral wart on finger GERD (gastroesophageal reflux disease) Osteoarthritis Hernia Perforation bowel Arthritis COPD (chronic obstructive pulmonary disease) [place] on CPAP Obesity (BMI 35.0-39.9 without comorbidity) Surgical History History of colon surgery Hx of colonoscopy History of total right knee replacement H/O bilateral breast reduction surgery H/O lumpectomy History of left knee replacement History of gastric bypass Family History Mother No problems noted. Father No problems noted. 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 a primary patient care to a significant other at home: Yes () Do you presently have visiting nurse or other home services: No Alcohol intake: current Alcohol intake frequency: holidays/special occasions only Alcohol type: wine Patient Tobacco Use Status: Never used Tobacco e-Cigarette/Vaping Use: Never Used Second Hand Smoke Exposure: No service: No Current occupational status: retired Cognitive needs: No Hearing needs: Yes (hearing aide) Vision needs: Yes (Glasses) Female Reproductive History Menstrual Age of Menarche: 15 Questionnaire PHQ-9 Over the last 2 weeks, how often have you been bothered by any of the following problems? 1. Little interest or pleasure in doing things: not at all 2. Feeling down, depressed, or hopeless: not at all 3. Trouble falling or staying asleep, or sleeping too much: not at all 4. Feeling tired or having little energy: not at all 5. Poor appetite or overeating: not at all 6. Feeling bad about yourself - or that you are a failure or have let yourself or your family down: not at all 7. Trouble concentrating on things, such as reading the newspaper or watching television: not at all 8. Moving or speaking so slowly that other people could have noticed. Or the opposite - being so fidgety or restless that you have been moving around a lot more than usual: not at all 9. Thoughts that you would be better off or of hurting yourself in some way: not at all Total score: 0 Depression Screening Interpretation: Negative Depression Screening Done: Yes Source: Developed by Drs. Avila Sesay, Tessy Gonzalez, Lee Cartwright and colleagues, with an educational samm from [employer]. Thrive Questionnaire Date Thrive assessed: 11/29/23 I am a: Patient What is your living situation today?: I have a steady place to live Within the past 12 months, did the food you bought not last and you didn't have the money to get more?: Never true Within the past 12 months, did you worry whether your food would run out before you got money to buy more?: Never true Do you have trouble paying for medicines?: No Do you have trouble getting transportation to medical appointments?: No Do you have trouble paying your heating and electricity bill?: No Do you have trouble taking care of your child, family member or friend?: No Do you have trouble with day-to-day activities such as bathing, preparing meals, shopping, managing finances, etc.?: No Are you currently unemployed and looking for a job?: No Are you interested in more education?: No Currently or been in a relationship where the following occur: no concerns reported THRIVE Score: 0 AUDIT C Alcohol Use Questionnaire (AUDIT-C) 1. How often do you have a drink containing alcohol?: Never Total Score: 0 ROLANDO-7 AMB Questionnaire ROLANDO-7 Date ROLANDO - 7 assessed: 11/29/23 Feeling nervous, anxious, or on edge: 0 = Not at all Not being able to stop or control worryin = Not at all Worrying too much about different things: 0 = Not at all Trouble relaxin = Not at all Being so restless that it is hard to sit still: 0 = Not at all Becoming easily annoyed or irritable: 0 = Not at all Feeling afraid as if something awful might happen: 0 = Not at all Total ROLANDO-7 score (0-4 normal; 5-9 mild; 10-14 moderate; 15-21 severe): 0 Source: Developed by Drs. Avila Sesay, Tessy Gonzalez, Lee Cartwright and colleagues, with an educational samm from [employer]. Physical exam (Primary Care) Vital Signs: Last Vital Signs Pulse 68 11/29/23 13:48 BP 130/62 11/29/23 13:48 Pulse Ox 97 11/29/23 13:48 Oxygen Delivery Method Room Air 11/29/23 13:48 Care Plan Goal for BP management: Blood pressure is in range. Continue current medications. BMI result Body Mass Index 44.2 BMI Assessment/Plan discussion: High (1 lb per week, weight loss suggested.) BMI High, discussed plan: lifestyle, weight reduction, dietary and physical activity Tobacco/Smoking Status: Tobacco use Status Tobacco use date assessed 11/29/23 11/29/23 13:55 Patient Tobacco Use Status Never used Tobacco 11/29/23 13:55 e-Cigarette/Vaping Use Never Used 11/29/23 13:55 PHQ-9: PHQ-9 Score PHQ-9: Total score 0 11/29/23 13:55 Depression Screening Interpretation: Negative Thrive Assessment: Date of Thrive Assessment Date Thrive assessed 11/29/23 11/29/23 13:55 Currently or been in a relationship where the following occur: no concerns reported Const General: cooperative and healthy appearing Nutritional Appearance: well nourished Orientation/consciousness: patient oriented x3 Limitations: no limitations HENMT Head: Yes normal to inspection Eyes General: appearance normal, both eyes and all related structures Neck Neck: Yes normal visual inspection Chest Chest palpation & inspection: normal palpation of entire chest wall Resp Effort & Inspection: normal respiratory effort Neuro General: patient oriented x3 Assessment and Plan Assessment & Plan (1) Morbid obesity with BMI of 40.0-44.9, adult: Comment: PATIENT IS FULLY AWARE OF THIS ISSUE. SHE IS NOT PHYSICALLY ACTIVE, TRIES TO WATCH HER DIET. NOT ABLE TO LOSE MUCH WEIGHT, SHE IS MOSTLY SEDENTARY. Code(s): E66.01 - Morbid (severe) obesity due to excess calories; Z68.41 - Body mass index [BMI] 40.0-44.9, adult (2) Endogenous depression: Code(s): F33.2 - Major depressive disorder, recurrent severe without psychotic features Plan: Symptoms appear stable. Continue current medications. (3) Breast cancer: Code(s): C50.919 - Malignant neoplasm of unspecified site of unspecified female breast Plan: Condition is stable. (4) Chronic back pain: Code(s): M54.9 - Dorsalgia, unspecified; G89.29 - Other chronic pain Plan: Meloxicam has been stopped. Tramadol started. Patient was instructed to take 1 a day and to increase it to twice a day max. A referral to Pain Management has been made to see if any interventional modality will help relieve her pain. Orders: Orders Basic Metabolic Panel Today C50.919 - Malignant neoplasm of unspecified site of unspecified female breast, E66.01 - Morbid (severe) obesity due to excess calories, F33.2 - Major depressive disorder, recurrent severe without psychotic features, G89.29 - Other chronic pain, M54.9 - Dorsalgia, unspecified, Z68.41 - Body mass index [BMI] 40.0-44.9, adult Liver Panel Today C50.919 - Malignant neoplasm of unspecified site of unspecified female breast, E66.01 - Morbid (severe) obesity due to excess calories, F33.2 - Major depressive disorder, recurrent severe without psychotic features, G89.29 - Other chronic pain, M54.9 - Dorsalgia, unspecified, Z68.41 - Body mass index [BMI] 40.0-44.9, adult Erythrocyte Sedimentation Rate Today C50.919 - Malignant neoplasm of unspecified site of unspecified female breast, E66.01 - Morbid (severe) obesity due to excess calories, F33.2 - Major depressive disorder, recurrent severe without psychotic features, G89.29 - Other chronic pain, M54.9 - Dorsalgia, unspecified, Z68.41 - Body mass index [BMI] 40.0-44.9, adult Complete Blood Count no Diff Today C50.919 - Malignant neoplasm of unspecified site of unspecified female breast, E66.01 - Morbid (severe) obesity due to excess calories, F33.2 - Major depressive disorder, recurrent severe without psychotic features, G89.29 - Other chronic pain, M54.9 - Dorsalgia, unspecified, Z68.41 - Body mass index [BMI] 40.0-44.9, adult Lipid Panel Today C50.919 - Malignant neoplasm of unspecified site of unspecified female breast, E66.01 - Morbid (severe) obesity due to excess calories, F33.2 - Major depressive disorder, recurrent severe without psychotic features, G89.29 - Other chronic pain, M54.9 - Dorsalgia, unspecified, Z68.41 - Body mass index [BMI] 40.0-44.9, adult Thyroid Stimulating Hormone Today C50.919 - Malignant neoplasm of unspecified site of unspecified female breast, E66.01 - Morbid (severe) obesity due to excess calories, F33.2 - Major depressive disorder, recurrent severe without psychotic features, G89.29 - Other chronic pain, M54.9 - Dorsalgia, unspecified, Z68.41 - Body mass index [BMI] 40.0-44.9, adult Referrals Pain Management Referral G89.29 - Other chronic pain, M54.9 - Dorsalgia, unspecified Medications: New tramadol 50 mg PO DAILY 30 tabs 1RF Discontinued meloxicam Discontinued Reason: Doctor's Order 15 mg PO DAILY 90 tabs 1RF M19.90 - Unspecified osteoarthritis, unspecified site Coding Level of Care Code Est Pt Level 4 (55597) Diagnoses Morbid obesity with BMI of 40.0-44.9, adult E66.01; Z68.41 Endogenous depression F33.2 Breast cancer C50.919 Chronic back pain M54.9; G89.29
[2023-11-29 13:48] VITALS: BP 130/62; PULSE 68; O2SAT 97; BMI 44.2
== END 2023-11-29 15:02 | disposition home or self-care (01) ==
PROVIDERS: PCP Internal Medicine; Visit Provider Internal Medicine
DX: M54.9 Dorsalgia, unspecified (principal); G89.29 Other chronic pain; E66.01 Morbid (severe) obesity due to excess calories; Z68.41 Body mass index [BMI] 40.0-44.9, adult
CPT/HCPCS: 99214

== ENCOUNTER 2023-12-14 11:29 | Outpatient (REF) | payer MEDICARE, SELFPAY ==
[2023-12-14 11:56] LABS: Hematocrit 44.1 % (37.0-47.0); Hemoglobin 14.5 g/dl (12.0-16.0); Mean Corpuscular HGB Conc 32.9 g/dl (31.0-35.0); Mean Corpuscular Hemoglobin 30.8 pg (27.0-33.0); Mean Corpuscular Volume 93.6 fL (80.0-98.0); Mean Platelet Volume 11.4 fL (9.4-12.3); Platelet Count 150 X10*3/uL (160-400); Red Blood Count 4.71 X10*6/uL (4.20-5.50); Red Cell Distribution Width 13.5 % (11.0-16.0); White Blood Count 4.5 X10*3/uL (4.8-10.8)
[2023-12-14 12:38] LABS: Alanine Aminotransferase 15 U/L (0-31); Albumin Level 3.9 g/dL (3.5-5.0); Alkaline Phosphatase 74 U/L (39-117); Anion Gap 10 (12-20); Aspartate Amino Transferase 16 U/L (5-31); Bilirubin Direct 0.2 mg/dL (0.0-0.5); Bilirubin Total 0.6 mg/dL (0.0-1.0); Blood Urea Nitrogen 22 mg/dL (9-16); Calcium 9.3 mg/dL (8.4-10.2); Carbon Dioxide 26 mmol/L (22-29); Chloride 111 mmol/L (96-108); Cholesterol 191 mg/dL (<200); Estimated Glomerular Filt Rate > 60; Glucose Random 89 mg/dL (60-115); HDL Cholesterol 62 mg/dL (>40); LDL Cholesterol Calculated 109 mg/dL (<100); Potassium 4.4 mmol/L (3.3-5.1); Sodium 143 mmol/L (135-145); Total Protein 6.6 g/dL (6.5-8.0); Triglycerides 103 mg/dL (<150)
[2023-12-14 12:57] LABS: Thyroid Stimulating Hormone 1.69 uIU/mL (0.32-4.0)
[2023-12-14 13:11] LABS: Erythrocyte Sedimentation Rate 7 MM/HR (0-20)
== END 2023-12-14 11:30 | disposition home or self-care (01) ==
LOC: HO.LAB 11:29
PROVIDERS: PCP Internal Medicine; Visit Provider Internal Medicine
DX: E66.01 Morbid (severe) obesity due to excess calories (principal); F33.2 Major depressive disorder, recurrent severe without psychotic features; C50.919 Malignant neoplasm of unspecified site of unspecified female breast; M54.9 Dorsalgia, unspecified; G89.29 Other chronic pain; Z68.41 Body mass index [BMI] 40.0-44.9, adult
CPT/HCPCS: 36415; 80048; 80061; 80076; 84443; 85027; 85652

== ENCOUNTER 2023-12-19 10:16 | Outpatient (AMB) | payer MEDICARE, SELFPAY ==
--- NOTE | 2023-12-19 10:44 | A.OFFVIS_ITS ---
Vital Signs 12/19/23 11:05 Height 4 ft 9 in Weight 203 lb BMI 43.9 BP 146/84 H Blood Pressure Location Lt brachial Position Sitting Respiration 14 Pulse 74 Pulse Source Pulse Oximeter Pulse Oximetry (%) 96 Oxygen Delivery Method Room Air Intake Visit Reasons: Other chronic pain, Dorsalgia, unspecified Intake Note: Patient comes in for initial visit was referred by primary care. Reports pain 8/10. Allergies morphine [MORPHINE] Allergy (Severe, Verified 12/19/23 11:07) VOMITING, hives/stomach upset tolmetin [From TOLECTIN] Allergy (Severe, Verified 12/19/23 11:07) HIVES Sulfa (Sulfonamide Antibiotics) Allergy (Intermediate, Verified 12/19/23 11:07) hives HPI Comments Details: Charisma Mortensen is very pleasant 72 years old female who presents in my office with complains on pain in bilateral gluteal folds. She reports that her pain started 2 years ago. She reports that her pain is related to climbing up and down a ladder. The were no significant trauma fall or car accident. She reports pain severe 10/10, she reports that her doctor prescribe her tramadol 50 mg once a day to help her pain. She reports that she is unable to sleep normally she is unable to seat for a long period of time she can not do activities of daily living she can not take care of herself and she can not function normally. She is retired individual. She is self mobile. Weather changes aggravate her pain. Her pain is most severe in the morning and the evening and less severe between 12 and 20:00. In terms of tissue damage she describes her pain as shooting sharp heavy and killing sensation. She never had physical therapy for this condition. She never had any injections for this condition. She had hip x-ray in [facility] which is significant for hip osteoarthritis Her past medical history significant for remote history of depression, asthma and shortness of breath, GERD, arthritis. She suffers from osteopenia and generalized arthritis. Her past surgical history significant for intestinal rupture in 89 hernia repair in 2004 sleeve gastrectomy in 2009 hernia repair 2011 abdominoplasty and breast reduction in 2011, total knee replacement 2012 on the right and 2020 on the left. Also she had lumpectomy in 2014. She denies smoking cigarettes drinking alcohol she denies caffeinated beverages but she uses cannabis gummies for pain. [facility] Medical History Anxiety Hx of radiation therapy Tracheobronchitis Endogenous depression Viral wart on finger GERD (gastroesophageal reflux disease) Osteoarthritis Hernia Perforation bowel Arthritis COPD (chronic obstructive pulmonary disease) [place] on CPAP Obesity (BMI 35.0-39.9 without comorbidity) Surgical History History of colon surgery Hx of colonoscopy History of total right knee replacement H/O bilateral breast reduction surgery H/O lumpectomy History of left knee replacement History of gastric bypass Family History Mother No problems noted. Father No problems noted. 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 a primary foster care case manager to a significant other at home: Yes () Do you presently have visiting nurse or other home services: No Alcohol intake: current Alcohol intake frequency: holidays/special occasions only Alcohol type: wine Patient Tobacco Use Status: Never used Tobacco e-Cigarette/Vaping Use: Never Used Second Hand Smoke Exposure: No service: No Current occupational status: retired Cognitive needs: No Hearing needs: Yes (hearing aide) Vision needs: Yes (Glasses) Female Reproductive History Menstrual Age of Menarche: 15 Review of Systems Const All systems reviewed & are unremarkable except as noted in HPI and below ENT Reports Normal hearing present Neuro Reports Normal hearing present, Denies Abnormal speech present, Denies confusion and Denies Sensory deficit (Neuro) Psych Denies confusion Physical Exam Vital Signs: Last Vital Signs Pulse 74 12/19/23 11:05 Resp 14 12/19/23 11:05 BP 146/84 H 12/19/23 11:05 Pulse Ox 96 12/19/23 11:05 Oxygen Delivery Method Room Air 12/19/23 11:05 BMI result Body Mass Index 43.9 Const General: no acute distress, well developed, alert and awake; No confusion Orientation/consciousness: patient oriented x3 and No confusion Limitations: no limitations Eyes General: appearance normal, both eyes and all related structures Pupils: Equal, round and reactive pupils present EOM: EOMs intact bilaterally Neck Neck: Yes full ROM Chest Chest palpation & inspection: normal inspection of the chest Resp Effort & Inspection: normal respiratory effort, able to speak in complete sentences, normal respiratory pattern, no audible wheezes and no cough Cardio Jugular venous distension: no JVD GI Inspection: Yes normal to inspection Back/Spine/Pelvis Other: No tenderness on palpation on paraspinal or spinal region in the thoracic lumbar or sacral spine. No tenderness on palpation in projection of sacroiliac joints. SLR is negative bilaterally. Chao test is negative bilaterally. Fourteen finger test is negative bilaterally. Significant tenderness on palpation in projection of the ischial bursa bilaterally. Neuro General: patient oriented x3, gait normal and No confusion Cranial nerves: Yes CN's II-XII intact bilaterally, Yes Equal, round and reactive pupils present, Yes Normal hearing present and Yes Ability to bilaterally elevate shoulders present Speech: No Abnormal speech present Gait exam (Neuro): Normal gait present Motor exam (neuro): 5/5 motor strength present throughout Sensory Exam: No Sensory deficit (Neuro) Extrem General: No pedal edema Psych Speech and movement: Normal speech and movement present Affect: normal affect Attitude: cooperative Thought process: Normal thought process present Thought content: Normal thought content present Insight: Good insight present (Psych) Judgement: Good judgement present (Psych) Assessment & Plan Assessment & Plan (1) Ischial bursitis of left side: Code(s): M70.72 - Other bursitis of hip, left hip Category: Medical (2) Ischial bursitis of right side: Code(s): M70.71 - Other bursitis of hip, right hip Category: Medical (3) Chronic pain syndrome: Code(s): G89.4 - Chronic pain syndrome Category: Medical (4) Osteoarthritis, hip, bilateral: Code(s): M16.0 - Bilateral primary osteoarthritis of hip Category: Medical Qualifiers: Osteoarthritis type: primary Qualified Code(s): M16.0 - Bilateral primary osteoarthritis of hip (5) Osteopenia: Code(s): M85.80 - Other specified disorders of bone density and structure, unspecified site Category: Medical Plan To diagnose her condition and rule out red flags such as bone metastasis in the pelvic bones versus inflammation and osteomyelitis I will send this patient for bony pelvis CT scan. We also agreed that because her pain is such an unbearable and the tramadol which was prescribed by her primary care physician 50 mg once a day brings very little help with her pain relief I will start her on tramadol 50 mg 4 times a day to help her pain for 21 days. I will give this patient this medication with 1 refill. Hopefully it will be long enough for us to go through the pelvic CT scan. I also will see this patient in this office after pelvis CTs done. Physical therapy can not be employed to treat bursitis. Also topical medications can not be introduced to treat her bursitis. Unfortunately this is very rare condition and if there is no red flags diagnose by CT scan medical pain management and physical therapy is all what is recommended to treat this condition. Orders: Orders CT bony pelvis Today M19.90 - Unspecified osteoarthritis, unspecified site Medications: New tramadol 50 mg PO Q6H PRN 84 tabs 1RF pain 21 days naloxone 4 mg/actuation spray 1 dose into ONE nostril; alternate nostrils w each dose until help arrives 4 mg intranasal Q3M PRN 2 ea 6RF opioid overdose 1 day Discontinued tramadol Discontinued Reason: Doctor's Order 50 mg PO DAILY 30 tabs 1RF Coding Level of Care Code New Pt Level 3 (20995) Diagnoses Ischial bursitis of left side M70.72 Ischial bursitis of right side M70.71 Chronic pain syndrome G89.4 Primary osteoarthritis of both hips M16.0 Osteoarthritis type: primary Osteopenia M85.80
[2023-12-19 11:05] VITALS: BP 146/84; PULSE 74; RESP 14; O2SAT 96; BMI 43.9
== END 2023-12-19 11:17 | disposition home or self-care (01) ==
PROVIDERS: PCP Internal Medicine; Visit Provider Anesthesiology
DX: M70.72 Other bursitis of hip, left hip (principal); M70.71 Other bursitis of hip, right hip; G89.4 Chronic pain syndrome; M16.0 Bilateral primary osteoarthritis of hip; M85.80 Other specified disorders of bone density and structure, unspecified site
CPT/HCPCS: 99203

== ENCOUNTER → 2023-12-19 10:16 | Outpatient (BNVA) | payer MEDICARE, SELFPAY | PROVIDERS: PCP Internal Medicine; Visit Provider Anesthesiology | DX: M70.72 Other bursitis of hip, left hip (principal); M70.71 Other bursitis of hip, right hip; M16.0 Bilateral primary osteoarthritis of hip; G89.4 Chronic pain syndrome; M85.80 Other specified disorders of bone density and structure, unspecified site | CPT/HCPCS: 99202 ==

== ENCOUNTER → 2023-12-21 19:30 | Outpatient (REF) | payer MEDICARE, SELFPAY | LOC: HO.SL 19:30 | PROVIDERS: PCP Internal Medicine; Visit Provider Internal Medicine | DX: G47.33 Obstructive sleep apnea (adult) (pediatric) (principal); E66.01 Morbid (severe) obesity due to excess calories; Z68.41 Body mass index [BMI] 40.0-44.9, adult; J44.9 Chronic obstructive pulmonary disease, unspecified; Z99.89 Dependence on other enabling machines and devices | CPT/HCPCS: 95810 ==

== ENCOUNTER → 2023-12-22 05:36 | Outpatient (BNV) | payer MEDICARE, SELFPAY | PROVIDERS: PCP Internal Medicine; Visit Provider Psychiatry & Neurology Neurology | DX: G47.33 Obstructive sleep apnea (adult) (pediatric) (principal) | CPT/HCPCS: 95810 ==

== ENCOUNTER 2024-02-05 13:25 | Outpatient (AMB) | payer MEDICARE, SELFPAY ==
[2024-02-05 13:28] VITALS: BP 102/64; PULSE 90; O2SAT 97; BMI 43.2
--- NOTE | 2024-02-05 13:28 | MHC.OFFVIS ---
Vital Signs 02/05/24 13:28 Height 4 ft 9 in Weight 199 lb 8.293 oz BMI 43.2 BP 102/64 Blood Pressure Location Lt brachial Position Sitting Pulse 90 Pulse Source Pulse Oximeter Pulse Oximetry (%) 97 Oxygen Delivery Method Room Air Intake Visit Reasons: Obstructive sleep apnea Intake Note: pt is here for follow up and states she has a lump of phlegm in her throat that she cannot get out unless she coughs hard. Also leg issue, pins and needles (right leg) Route Jumper Required: No Allergies morphine [MORPHINE] Allergy (Severe, Verified 02/05/24 13:33) VOMITING, hives/stomach upset tolmetin [From TOLECTIN] Allergy (Severe, Verified 02/05/24 13:33) HIVES Sulfa (Sulfonamide Antibiotics) Allergy (Intermediate, Verified 02/05/24 13:33) hives Medication List - Last Reconciled 02/05/24 by Chintan Mcarthur MD calcium carbonate (Calcium 600) 600 mg PO DAILY cholecalciferol (vitamin D3) 25 mcg PO DAILY multivitamin 1 tab PO DAILY naloxone 4 mg/actuation 4 mg intranasal Q3M PRN 1 day pantoprazole 40 mg PO DAILY ropinirole 2 mg (2 x 1 mg) PO BEDTIME 90 days tramadol 50 mg PO Q6H PRN 21 days trazodone 100 mg PO BEDTIME venlafaxine ER 75 mg PO DAILY zinc 50 mg PO DAILY Do you need a note to return to daycare/school/sports/work: No HPI HPI Obstructive sleep apnea: Details: Julieta Mortensen 73 years old female, comes today for follow-up for her sleep apnea and use of CPAP. She has been using CPAP very regularly and sleeps good for at least 6 hours every night. She is complaining of having some mucus in the nasopharynx area when she wakes up in the morning and has hard. Time to clear it up Denies any wheezing but sometimes has a feeling of tightness in the chest. She does not use humidification because it makes her nose somewhat congested. There is no issue with the use of CPAP. Most of the conversation today was about tingling in the right lower extremity below the knee area. She is being followed by the pain clinic, and would be having CT scan of the lumbosacral spine next week. She does have past history of low back pain and radiculopathy. PFSH Medical History (Updated 02/05/24 @ 13:56 by Chintan Mcarthur MD) Allergic rhinitis Anxiety Hx of radiation therapy Tracheobronchitis Endogenous depression Viral wart on finger GERD (gastroesophageal reflux disease) Osteoarthritis Hernia Perforation bowel Arthritis COPD (chronic obstructive pulmonary disease) [place] on CPAP Obesity (BMI 35.0-39.9 without comorbidity) Surgical History History of colon surgery Hx of colonoscopy History of total right knee replacement H/O bilateral breast reduction surgery H/O lumpectomy History of left knee replacement History of gastric bypass Family History Mother No problems noted. Father No problems noted. 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 a primary manager progressive care to a significant other at home: Yes () Do you presently have visiting nurse or other home services: No Alcohol intake: current Alcohol intake frequency: holidays/special occasions only Alcohol type: wine Patient Tobacco Use Status: Never used Tobacco e-Cigarette/Vaping Use: Never Used Second Hand Smoke Exposure: No service: No Current occupational status: retired Cognitive needs: No Hearing needs: Yes (hearing aide) Vision needs: Yes (Glasses) Female Reproductive History Menstrual Age of Menarche: 15 Review of Systems Const All systems reviewed & are unremarkable except as noted in HPI and below Eyes Reports no additional complaints ENT Reports sore throat Card Denies chest pain, Denies irregular heart rhythm and Denies leg edema Resp Reports as per HPI and Reports cough (For the last 1 week) GI Reports heartburn (Controlled with med) Reports no additional complaints Musc Reports back pain and Reports arthralgias Skin/Breast Reports system reviewed and no additional complaints, except as documented Neuro Reports restless legs (Controlled with med) Psych Reports anxiety (Controlled with med) Endo Reports no additional complaints Physical Exam Vital Signs: Last Vital Signs Pulse 90 02/05/24 13:28 BP 102/64 02/05/24 13:28 Pulse Ox 97 02/05/24 13:28 Oxygen Delivery Method Room Air 02/05/24 13:28 BMI result Body Mass Index 43.2 Const General: comfortable, no acute distress, alert and awake Orientation/consciousness: patient oriented x3 HEENT Head: Yes normal to inspection General nose exam: No nasal polyps present and No nasal discharge present Face and sinus: Yes sinuses nontender Mouth: oropharynx normal Throat: Yes posterior oropharynx normal (There is mild redness of the mucosal and swelling in the nasopharynx.) Eyes General: appearance normal, both eyes and all related structures Neck Neck: Yes normal visual inspection, Yes no lymphadenopathy, Yes trachea midline and Yes no JVD Thyroid: Thyroid normal Chest Chest palpation & inspection: normal inspection of the chest (Increased AP diameter), normal palpation of entire chest wall and no tenderness Resp Other: Percussion note is resonant, breath sounds distant on both sides with prolonged expiratory phase. No wheezes rhonchi or crepitations are heard Cardio Palpation: normal PMI Rate: regular rate Rhythm: regular rhythm Heart sounds: no gallops and no murmurs GI Palpation (GI): Soft to palpation, nontender, No hepatosplenomegaly present, no masses and Other GI palpation findings present (Abdomen is obese and slightly protuberant) Auscultation: normal bowel sounds Back/Spine/Pelvis Thoracic/Lumbar Spine: thoracic and lumbar spine normal to inspection and thoraco-lumbar ROM limited Skin General skin exam: no rashes or lesions noted Neuro General: patient oriented x3 and no focal motor deficits Cranial nerves: Yes CN's II-XII intact bilaterally Extrem General: Yes normal to inspection, No no joint enlargement (Enlarged and tender right knee), Yes no clubbing, cyanosis or edema and Yes no calf tenderness Psych Appearance: grossly normal and well kempt Speech and movement: Normal speech and movement present Results Reviewed Results Reviewed: Compliance report is not available as her CPAP. Device does not transmit information But according to her she uses it every night and without. That she can not even sleep Assessment & Plan Assessment & Plan (1) Obesity (BMI 35.0-39.9 without comorbidity): Comment: GROSS OBESITY . BMI= 43.2 DIFFICULT FOR HER TO LOOSE WEIGHT . Code(s): E66.9 - Obesity, unspecified Category: Medical Plan: Talked about diet, she is already trying to control her calories intake. She has not able to do much exercise. (2) [place] on CPAP: Comment: SLEEP APNEA/ HYPOVENTILATION SYNDROME IS WELL CONTROLLED WITH THE USE OF BIPAP 20/4 CMs, FULL FACE MASK . SHE IS VERY COMPLIANT AND ACTUALLY USES ABOUT 10 HOURS PLUS EVERY DAY WITH GOOD RESULTS. Code(s): G47.33 - Obstructive sleep apnea (adult) (pediatric); Z99.89 - Dependence on other enabling machines and devices Category: Medical Plan: Continue to use BiPAP regularly, at least for. 6 hours every night Advise that she should use humidification even though she can keep it at a low-level. (3) COPD (chronic obstructive pulmonary disease): Comment: SHE HAS HAD HISTORY OF MILD BRONCHIAL ASTHMA/COPD IN THE PAST. CURRENTLY USES ALBUTEROL ONLY ONCE IN A WHILE. SPIROMETRY INDICATES THAT SHE ACTUALLY HAS ONLY MILD RESTRICTIVE DISORDER. THERE IS NO OBSTRUCTIVE AIRWAY DISORDER. SHE IS NONSMOKER. Code(s): J44.9 - Chronic obstructive pulmonary disease, unspecified Category: Medical Plan: OK to use albuterol HFA 2 puffs Q 6 hours p.r.n. if there is any. wheezing or tight feeling in the chest (4) Allergic rhinitis: Comment: She describes of having a mucus plug in the nasopharynx, which I think is due to low-grade rhinitis, Code(s): J30.9 - Allergic rhinitis, unspecified Category: Medical Plan: Advised to use SALINE NASAL SPRAY 1 OR 2 SQUIRTS AT NIGHTTIME. ALSO MAY USE CLARITIN 10 MG ONCE A DAY AT NIGHT. USE HUMIDIFICATION AT LOW TO MEDIUM LEVEL. MAY USE STEAM INHALATION IN THE MORNING IF THERE IS FEELING OF MUCUS IN THE NASOPHARYNX. Medications: New albuterol sulfate 90 mcg/actuation 2 puffs inhalation Q4-6H PRN 8.5 grams 4RF shortness of breath or wheezing 30 days Coding Level of Care Code Est Pt Level 3 (56926) Diagnoses Obesity (BMI 35.0-39.9 without comorbidity) E66.9 [place] on CPAP G47.33; Z99.89 COPD (chronic obstructive pulmonary disease) J44.9 Allergic rhinitis J30.9
== END 2024-02-05 13:49 | disposition home or self-care (01) ==
PROVIDERS: PCP Internal Medicine; Visit Provider Internal Medicine
DX: E66.9 Obesity, unspecified (principal); G47.33 Obstructive sleep apnea (adult) (pediatric); Z99.89 Dependence on other enabling machines and devices; J44.9 Chronic obstructive pulmonary disease, unspecified; J30.9 Allergic rhinitis, unspecified
CPT/HCPCS: 99213

== ENCOUNTER → 2024-02-05 13:25 | Outpatient (BNVA) | payer MEDICARE, SELFPAY | PROVIDERS: PCP Internal Medicine; Visit Provider Internal Medicine | DX: J44.9 Chronic obstructive pulmonary disease, unspecified (principal); J30.9 Allergic rhinitis, unspecified; G47.33 Obstructive sleep apnea (adult) (pediatric); E66.9 Obesity, unspecified; Z68.41 Body mass index [BMI] 40.0-44.9, adult; Z99.89 Dependence on other enabling machines and devices | CPT/HCPCS: 99212 ==

== ENCOUNTER 2024-02-11 14:28 | Outpatient (REF) | payer MEDICARE, SELFPAY ==
--- NOTE | ~2024-02-11 | CT_ITS ---
EXAMINATION: CT PELVIS WITHOUT CONTRAST CLINICAL INFORMATION: Osteoarthritis. COMPARISON: None available. TECHNIQUE: Helical scanning was performed with submillimeter collimation through the pelvis. Sagittal and coronal multiplanar 2-D reconstructions were obtained. This CT examination was performed using dose optimization techniques as appropriate, variously including the following: *Automated exposure control *Adjustment of mA and/or kV according to patient size (this includes techniques or standardized protocols for targeted exams where dose is matched to indication/reason for exam; i.e. extremities or head) *Use of iterative reconstruction technique DLP: 891 mGy-cm FINDINGS: PELVIS: Partially visualized, lobulated inferior pole of the left kidney. Unremarkable bowel anastomoses. No bowel wall thickening or inflammatory change. No pelvic bowel obstruction. No soft tissue mass or fluid collection. Postsurgical change at the anterior abdominal wall with a small hernia containing nonobstructed loop of small bowel. No associated inflammation or stranding to suggest ischemia or incarceration. Fat-containing right anterior abdominal wall hernia with the neck measuring up to 1.0 cm in ML dimension. No associated bowel loops. OSSEOUS STRUCTURES: Mild bilateral sacroiliac joint space narrowing with small marginal osteophytes. No periarticular erosion. Moderate degenerative arthritis at the symphysis pubis. No hip joint space narrowing or marginal osteophytes. Partially visualized degenerative disc disease and facet arthropathy within the lower lumbar spine. No concerning lytic or blastic osseous lesion. No evidence of femoral head avascular necrosis. CT/CT bony pelvis IMPRESSION: 1. Mild bilateral sacroiliac osteoarthritis. Moderate degenerative arthritis at the pubis. 2. Postsurgical change at the anterior abdominal wall with a small hernia containing a nonobstructed loop of small bowel. No associated inflammation or stranding to suggest ischemia or incarceration. Fat-containing right anterior abdominal wall hernia with the neck measuring up to 1.0 cm. No associated bowel loops. 3. Partially visualized degenerative disc disease and facet arthropathy within the lower lumbar spine.
== END 2024-02-11 14:29 | disposition home or self-care (01) ==
LOC: HO.CT 14:28
PROVIDERS: PCP Internal Medicine; Visit Provider Anesthesiology
DX: M19.90 Unspecified osteoarthritis, unspecified site (principal)
CPT/HCPCS: 72192

== ENCOUNTER 2024-03-14 20:27 | Emergency (ER) | payer MEDICARE, SELFPAY ==
--- NOTE | ~2024-03-14 | CT_ITS ---
EXAMINATION: CT ABDOMEN AND PELVIS WITHOUT CONTRAST CLINICAL INFORMATION: Small bowel obstruction COMPARISON: None available. TECHNIQUE: Multidetector volumetric imaging was performed from the superior aspect of the liver through the pubic symphysis. Sagittal and coronal reformatted images were obtained on the technologist's workstation. This CT examination was performed using dose optimization techniques as appropriate, variously including the following: *Automated exposure control *Adjustment of mA and/or kV according to patient size (this includes techniques or standardized protocols for targeted exams where dose is matched to indication/reason for exam; i.e. extremities or head) *Use of iterative reconstruction technique DLP: 938 mGy-cm FINDINGS: LUNG BASES: Lingular scarring. LIVER, GALLBLADDER, AND BILIARY TREE: The liver is normal in size, shape, and attenuation. No focal hepatic lesion or biliary ductal dilatation is present. The gallbladder is unremarkable with no evidence of radiopaque gallstones, gallbladder wall thickening, or obvious pericholecystic inflammatory changes. PANCREAS: Mildly atrophic. No contour deforming masses SPLEEN: Unremarkable. ADRENAL GLANDS: Unremarkable. KIDNEYS AND URETERS: Right upper pole 3 mm and left renal pelvis 5 mm renal calculi. Mild bilateral hydronephrosis with perinephric stranding. No perinephric collection. No hydroureter. Right upper pole Bosniak 1 cyst measuring 1.6 cm; no follow-up needed. BLADDER: Unremarkable. GASTROINTESTINAL TRACT: Postsurgical changes of sleeve gastrectomy. Enteroenteric anastomosis are seen in the mid abdomen with focally dilated loop of small bowel with air-fluid levels. There is no upstream obstructive changes. ABDOMINAL WALL: No significant hernia is appreciated. LYMPH NODES: Normal. VASCULAR: Unremarkable. PELVIC VISCERA: Anteverted uterus with small amount of fluid within the endometrium. OSSEOUS STRUCTURES: Degenerative changes of the thoracolumbar spine, worst at L4-L5. No acute fractures or focal osseous lesions. CT/CT abdomen pelvis wo IV con IMPRESSION: 1. Right upper pole 3 mm left renal pelvis 5 mm renal calculi. However, these are not obstructive or appear to be the source of bilateral mild hydronephrosis. 2. Enteroenteric anastomosis of the small bowel in mid abdomen with focally dilated short segment loop of bowel at the anastomotic site with air-fluid levels. No upstream small bowel obstruction. 3. Endometrial fluid. Fleischner guidelines were followed.
[2024-03-14 20:41] VITALS: BP 140/80; BP 158/90; PULSE 80; PULSE 86; RESP 16; TEMP 36.9; O2SAT 100; O2SAT 96; BMI 41.5
--- NOTE | 2024-03-14 21:31 | ED_ITS ---
HPI - Abdominal Pain General Chief Complaint: Abdominal Pain Stated Complaint: Lower abdominal pain, dx with bowel obstruction Time Seen by Provider: 03/14/24 21:29 Source: patient Mode of arrival: ambulatory Limitations: no limitations History of Present Illness ED Provider: jose GRIMALDO narrative: Patient with history of bowel resection from perforated bowels in 1988 status post enteroenteric anastomosis, gastric sleeve surgery in 2009 was at [facility] on 03/11 discharge at 14:00 today for partial bowel obstruction with abdominal pain CT scan done there showed ventral hernia without any obstruction slight dilated bowel at the site of anastomosis otherwise no acute patient was having p.o. fluids and food had lunch at noon time reached home at 02:00 p.m. had dinner at 05:30 p.m. at 06:00 p.m. started noticing pain again vomited 2 times patient had bowel movement earlier today and passing flatus complaining of local pain at left lower abdomen Related Data Home Medications ?Medication ?Instructions ?Recorded ?Confirmed multivitamin 1 tab PO DAILY 08/31/20 03/10/24 zinc 50 mg capsule 50 mg PO DAILY 09/02/21 03/10/24 calcium carbonate (Calcium 600) 600 mg PO DAILY 08/02/23 03/10/24 Previous Rx's ?Medication ?Instructions ?Recorded trazodone 100 mg tablet 100 mg PO BEDTIME #90 tabs 12/28/22 cholecalciferol (vitamin D3) 25 25 mcg PO DAILY #90 tabs 04/12/23 mcg (1,000 unit) tablet venlafaxine 75 mg capsule,extended 75 mg PO DAILY #90 caps 09/20/23 release 24 hr naloxone 4 mg/actuation nasal spray 4 mg intranasal Q3M PRN opioid 12/19/23 overdose 1 day #2 ea tramadol 50 mg tablet 50 mg PO Q6H PRN pain 21 days #84 12/19/23 tabs ropinirole 1 mg tablet 2 mg (2 x 1 mg) PO BEDTIME RSL 90 01/01/24 days #180 tabs albuterol sulfate 90 mcg/actuation 2 puff inhalation Q4-6H PRN 02/05/24 aerosol inhaler shortness of breath or wheezing 30 days #8.5 grams pantoprazole 40 mg tablet,delayed 40 mg PO DAILY #90 tabs 02/20/24 release polyethylene glycol 3350 17 17 g PO DAILY #510 grams 03/14/24 gram/dose oral powder (Miralax) Allergies Allergy/AdvReac Type Severity Reaction Status Date / Time morphine [MORPHINE] Allergy Severe VOMITING, Verified 03/14/24 20:52 hives/stomach upset tolmetin [From TOLECTIN] Allergy Severe HIVES Verified 03/14/24 20:52 Sulfa (Sulfonamide Allergy Intermediate hives Verified 03/14/24 20:52 Antibiotics) Review of Systems Review of Systems Yes all other systems are reviewed and are negative [facility] Past Medical History Medical History Allergic rhinitis Anxiety Hx of radiation therapy Tracheobronchitis Endogenous depression Viral wart on finger GERD (gastroesophageal reflux disease) Osteoarthritis Hernia Perforation bowel Arthritis COPD (chronic obstructive pulmonary disease) [place] on CPAP Obesity (BMI 35.0-39.9 without comorbidity) Surgical History History of colon surgery Hx of colonoscopy History of total right knee replacement H/O bilateral breast reduction surgery H/O lumpectomy History of left knee replacement History of gastric bypass Family History Family History Mother No problems noted. Father No problems noted. Maternal Grandfather Stomach cancer Social History Social History Household Members: Spouse and Family Housing: House Are you a primary childcare provider to a significant other at home: Yes () Do you presently have visiting nurse or other home services: No Alcohol intake: current Alcohol intake frequency: holidays/special occasions only Alcohol type: wine Patient Tobacco Use Status: Never used Tobacco e-Cigarette/Vaping Use: Never Used Second Hand Smoke Exposure: No Advance Directives: No Advance Directives Information Provided: No service: No Current occupational status: retired Cognitive needs: No Hearing needs: Yes (hearing aide) Vision needs: Yes (Glasses) Physical Exam ED Vital Signs: Vital Signs - 24 hr 03/14/24 20:41 03/14/24 22:21 Temperature 98.5 F 98.8 F Pulse Rate 80 73 Respiratory Rate 16 16 Blood Pressure 140/80 H 132/85 Pulse Oximetry 96 95 Oxygen Delivery Method Room Air Room Air BMI result Body Mass Index 41.5 Appearance: Alert. Oriented X3. No acute distress. Eyes: No pallor or icterus ENT: Pharynx normal. Oral Mucosa moist Neck: Normal inspection. Neck supple. CVS: Normal heart rate and rhythm. Pulses normal. Respiratory: No respiratory distress. Equal air entry bilateral, no wheezing/rales/rhonchi Abdomen: Soft and local tenderness left lower quadrant no hernia sac palpable . Bowel sounds are present, no mass palpable, no CVA tenderness Skin: Skin warm and dry. Normal skin color. Normal skin turgor. Extremities: No lower extremity edema. No calf tenderness Neuro: Oriented X 3. No motor deficit. Medical Decision Making Medical Decision Making MDM Narrative: Patient's localized pain in the left lower quadrant CT scan showed slightly dilated bowel at the site of anastomosis no signs of acute bowel obstruction patient felt much better during stay in the ER taking p.o. fluids pain has gone case discussed Dr. Mullins surgeon who saw the CT scan report is advised patient to follow up with PCP/surgeon as outpatient and avoid constipation Differential Diagnosis Differential Diagnoses: The differential diagnosis associated with the presentation includes Small bowel obstruction/bowel pain/diverticulitis Admission/Observation Consideration of admission/observation: Escalation of care including admission/observation considered Independent Interpretation I performed an independent interpretation of an: CT Scan Radiology Impression Discussion of test interpretation with radiology: I have reviewed the radiologist's reading. Radiologist Impression: [address] [address] [address] Scan Report Signed Patient: Charisma Ashley MR#: [id number] : 1950 Acct:[id number] Age/Sex: 73 / F ADM Date: 03/14/24 Loc: .ED Attending Dr: Ordering Physician: Harry Leyva MD Date of Service: 03/14/24 Procedure(s): CT abdomen pelvis wo IV con Accession Number(s): [id number] cc: Stephen Olmos MD; Harry Leyva MD~ EXAMINATION: CT ABDOMEN AND PELVIS WITHOUT CONTRAST CLINICAL INFORMATION: Small bowel obstruction COMPARISON: None available. TECHNIQUE: Multidetector volumetric imaging was performed from the superior aspect of the liver through the pubic symphysis. Sagittal and coronal reformatted images were obtained on the technologist's workstation. This CT examination was performed using dose optimization techniques as appropriate, variously including the following: *Automated exposure control *Adjustment of mA and/or kV according to patient size (this includes techniques or standardized protocols for targeted exams where dose is matched to indication/reason for exam; i.e. extremities or head) *Use of iterative reconstruction technique DLP: 938 mGy-cm FINDINGS: LUNG BASES: Lingular scarring. LIVER, GALLBLADDER, AND BILIARY TREE: The liver is normal in size, shape, and attenuation. No focal hepatic lesion or biliary ductal dilatation is present. The gallbladder is unremarkable with no evidence of radiopaque gallstones, gallbladder wall thickening, or obvious pericholecystic inflammatory changes. PANCREAS: Mildly atrophic. No contour deforming masses SPLEEN: Unremarkable. ADRENAL GLANDS: Unremarkable. KIDNEYS AND URETERS: Right upper pole 3 mm and left renal pelvis 5 mm renal calculi. Mild bilateral hydronephrosis with perinephric stranding. No perinephric collection. No hydroureter. Right upper pole Bosniak 1 cyst measuring 1.6 cm; no follow-up needed. BLADDER: Unremarkable. GASTROINTESTINAL TRACT: Postsurgical changes of sleeve gastrectomy. Enteroenteric anastomosis are seen in the mid abdomen with focally dilated loop of small bowel with air-fluid levels. There is no upstream obstructive changes. ABDOMINAL WALL: No significant hernia is appreciated. LYMPH NODES: Normal. VASCULAR: Unremarkable. PELVIC VISCERA: Anteverted uterus with small amount of fluid within the endometrium. OSSEOUS STRUCTURES: Degenerative changes of the thoracolumbar spine, worst at L4-L5. No acute fractures or focal osseous lesions. CT/CT abdomen pelvis wo IV con IMPRESSION: 1. Right upper pole 3 mm left renal pelvis 5 mm renal calculi. However, these are not obstructive or appear to be the source of bilateral mild hydronephrosis. 2. Enteroenteric anastomosis of the small bowel in mid abdomen with focally dilated short segment loop of bowel at the anastomotic site with air-fluid levels. No upstream small bowel obstruction. 3. Endometrial fluid. Fleischner guidelines were followed. Medications Administered Discontinued Medications Generic Name Dose Route Start Last Admin Trade Name Freq PRN Reason Stop Dose Admin Ketorolac Tromethamine 60 mg 03/14/24 21:42 07/19/24 22:11 Ketorolac Tromethamine 60 Mg/2 Ml Vial IM 03/14/24 21:43 60 mg ONCE ONE Administration Ondansetron HCl 4 mg 03/14/24 21:41 03/14/24 22:11 Ondansetron Odt 4 Mg Tab.Rapdis TRANSLINGU 03/14/24 21:42 4 mg ONCE ONE Administration Discharge Plan Discharge Clinical Impression: Abdominal pain Patient Disposition: Home, Self-Care Instructions: Abdominal Pain (ED) Additional Instructions: You have pain at the site of anastomosis from previous surgery from dilated bowel Avoid constipation take Colace and MiraLax Drink plenty of fluids Follow up with your surgeon if pain continues Prescriptions: New polyethylene glycol 3350 [Miralax] 17 gram/dose powder 17 g PO DAILY Qty: 510 0RF No Action trazodone 100 mg tablet 100 mg PO BEDTIME Qty: 90 5RF cholecalciferol (vitamin D3) 25 mcg (1,000 unit) tablet 25 mcg PO DAILY Qty: 90 3RF venlafaxine 75 mg capsule,extended release 24hr 75 mg PO DAILY Qty: 90 1RF pantoprazole 40 mg tablet,delayed release (DR/EC) 40 mg PO DAILY Qty: 90 1RF multivitamin Tablet 1 tab PO DAILY zinc 50 mg Capsule 50 mg PO DAILY calcium carbonate [Calcium 600] 600 mg calcium (1,500 mg) Tablet 600 mg PO DAILY ropinirole 1 mg tablet 2 mg PO BEDTIME 90 Days Qty: 180 3RF albuterol sulfate 90 mcg/actuation HFA aerosol inhaler 2 puff inhalation Q4-6H PRN (Reason: shortness of breath or wheezing) 30 Days Qty: 8.5 4RF tramadol 50 mg tablet 50 mg PO Q6H PRN (Reason: pain) 21 Days Qty: 84 1RF naloxone 4 mg/actuation spray,non-aerosol 4 mg intranasal Q3M PRN (Reason: opioid overdose) 1 Days Qty: 2 6RF Rx Instructions: spray 1 dose into ONE nostril; alternate nostrils w each dose until help arrives Print Language: Swedish
[2024-03-14] MEDS: Ondansetron ODT 4 MG TAB.RAPDIS TRANSLINGU (22:11)
[2024-03-14] MEDS: Ketorolac Tromethamine 60 MG/2 ML VIAL IM (22:11)
[2024-03-14 22:21] VITALS: BP 132/85; PULSE 73; RESP 16; TEMP 37.1; O2SAT 95
[2024-03-14 23:25] VITALS: BP 132/85; PULSE 73; RESP 16; TEMP 37.1; O2SAT 95
== END 2024-03-14 23:25 | disposition home or self-care (01) ==
PROVIDERS: Emergency Provider Internal Medicine; PCP Internal Medicine
DX: R10.32 Left lower quadrant pain (principal)
CPT/HCPCS: 74176; 96372; 99284; J1885

== ENCOUNTER 2024-03-19 10:19 | Outpatient (AMB) | payer MEDICARE, SELFPAY ==
--- NOTE | 2024-03-19 10:43 | MHC.OFFVIS ---
Vital Signs 03/19/24 10:50 Height 4 ft 9 in Weight 195 lb 4 oz BMI 42.2 BP 146/70 H Blood Pressure Location Lt brachial Position Sitting Respiration 16 Pulse 82 Pulse Source Pulse Oximeter Pulse Oximetry (%) 98 Oxygen Delivery Method Room Air Intake Visit Reasons: CT FOLLOW UP/RESULTS Intake Note: Patient comes to discuss CT results. Reports pain 6-7/10. Allergies morphine [MORPHINE] Allergy (Severe, Verified 03/19/24 10:49) VOMITING, hives/stomach upset tolmetin [From TOLECTIN] Allergy (Severe, Verified 03/19/24 10:49) HIVES Sulfa (Sulfonamide Antibiotics) Allergy (Intermediate, Verified 03/19/24 10:49) hives HPI Comments Details: Charisma Mortensen is very pleasant 72 years old female who presents in my office with complains on pain in bilateral gluteal folds. She reports that her pain started 2 years ago. She reports that her pain is related to climbing up and down a ladder. The were no significant trauma fall or car accident. I sent this patient for the CT scan of the bony pelvis in the attempt to diagnose possible ischial bursitis. Unfortunately no diagnostic evidence of ischial bursitis was demonstrated on the CT scan. The CT scan demonstrated significant advanced sacroiliitis. I offered today this patient to go for diagnostic sacroiliac joint injection bilateral. I will schedule this patient for this procedure without sedation. She agreed to go for this procedure. After the procedure will be completed I will discuss possibility of treating this patient pain with, steroid injections, peripheral nerve stimulation. [facility] Medical History Allergic rhinitis Anxiety Hx of radiation therapy Tracheobronchitis Endogenous depression Viral wart on finger GERD (gastroesophageal reflux disease) Osteoarthritis Hernia Perforation bowel Arthritis COPD (chronic obstructive pulmonary disease) [place] on CPAP Obesity (BMI 35.0-39.9 without comorbidity) Surgical History History of colon surgery Hx of colonoscopy History of total right knee replacement H/O bilateral breast reduction surgery H/O lumpectomy History of left knee replacement History of gastric bypass Family History Mother No problems noted. Father No problems noted. 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 a primary neonatal critical care nurse to a significant other at home: Yes () Do you presently have visiting nurse or other home services: No Alcohol intake: current Alcohol intake frequency: does not drink Alcohol type: wine Patient Tobacco Use Status: Never used Tobacco e-Cigarette/Vaping Use: Never Used Second Hand Smoke Exposure: No service: No Current occupational status: retired Cognitive needs: No Hearing needs: Yes (hearing aide) Vision needs: Yes (Glasses) Female Reproductive History Menstrual Age of Menarche: 15 Review of Systems Const All systems reviewed & are unremarkable except as noted in HPI and below ENT Reports Normal hearing present Neuro Reports Normal hearing present, Denies Abnormal speech present, Denies confusion and Denies Sensory deficit (Neuro) Psych Denies confusion Physical Exam Vital Signs: Last Vital Signs Pulse 82 03/19/24 10:50 Resp 16 03/19/24 10:50 BP 146/70 H 03/19/24 10:50 Pulse Ox 98 03/19/24 10:50 Oxygen Delivery Method Room Air 03/19/24 10:50 BMI result Body Mass Index 42.2 Const General: no acute distress, well developed, alert and awake; No confusion Orientation/consciousness: patient oriented x3 and No confusion Limitations: no limitations Eyes General: appearance normal, both eyes and all related structures Pupils: Equal, round and reactive pupils present EOM: EOMs intact bilaterally Neck Neck: Yes full ROM Chest Chest palpation & inspection: normal inspection of the chest Resp Effort & Inspection: normal respiratory effort, able to speak in complete sentences, normal respiratory pattern, no audible wheezes and no cough Cardio Jugular venous distension: no JVD GI Inspection: Yes normal to inspection Back/Spine/Pelvis Other: No tenderness on palpation on paraspinal or spinal region in the thoracic lumbar or sacral spine. No tenderness on palpation in projection of sacroiliac joints. SLR is negative bilaterally. Chao test is negative bilaterally. Fourteen finger test is negative bilaterally. Significant tenderness on palpation in projection of the ischial bursa bilaterally. Neuro General: patient oriented x3, gait normal and No confusion Cranial nerves: Yes CN's II-XII intact bilaterally, Yes Equal, round and reactive pupils present, Yes Normal hearing present and Yes Ability to bilaterally elevate shoulders present Speech: No Abnormal speech present Gait exam (Neuro): Normal gait present Motor exam (neuro): 5/5 motor strength present throughout Sensory Exam: No Sensory deficit (Neuro) Extrem General: No pedal edema Psych Speech and movement: Normal speech and movement present Affect: normal affect Attitude: cooperative Thought process: Normal thought process present Thought content: Normal thought content present Insight: Good insight present (Psych) Judgement: Good judgement present (Psych) Results Reviewed Results Reviewed: CT PELVIS WItHOUT CONTRAST CLINICAL INFORMATION: Osteoarthritis. COMPARISON: None available. TECHNIQUE: Helical scanning was performed with submillimeter collimation through the pelvis. Sagittal and coronal multiplanar 2-D reconstructions were obtained. This CT examination was performed using dose optimization techniques as appropriate, variously including the following: *Automated exposure control *Adjustment of mA and/or kV according to patient size (this includes techniques or standardized protocols for targeted exams where dose is matched to indication/reason for exam; i.e. extremities or head) *Use of iterative reconstruction technique DLP: 891 mGy-cm FINDINGS: PELVIS: Partially visualized, lobulated inferior pole of the left kidney. Unremarkable bowel anastomoses. No bowel wall thickening or inflammatory change. No pelvic bowel obstruction. No soft tissue mass or fluid collection. Postsurgical change at the anterior abdominal wall with a small hernia containing nonobstructed loop of small bowel. No associated inflammation or stranding to suggest ischemia or incarceration. Fat-containing right anterior abdominal wall hernia with the neck measuring up to 1.0 cm in ML dimension. No associated bowel loops. OSSEOUS STRUCTURES: Mild bilateral sacroiliac joint space narrowing with small marginal osteophytes. No periarticular erosion. Moderate degenerative arthritis at the symphysis pubis. No hip joint space narrowing or marginal osteophytes. Partially visualized degenerative disc disease and facet arthropathy within the lower lumbar spine. No concerning lytic or blastic osseous lesion. No evidence of femoral head avascular necrosis. IMPRESSION: 1. Mild bilateral sacroiliac osteoarthritis. Moderate degenerative arthritis at the pubis. 2. Postsurgical change at the anterior abdominal wall with a small hernia containing a nonobstructed loop of small bowel. No associated inflammation or stranding to suggest ischemia or incarceration. Fat-containing right anterior abdominal wall hernia with the neck measuring up to 1.0 cm. No associated bowel loops. 3. Partially visualized degenerative disc disease and facet arthropathy within the lower lumbar spine. Assessment & Plan Assessment & Plan (1) Ischial bursitis of left side: Code(s): M70.72 - Other bursitis of hip, left hip Category: Medical (2) Ischial bursitis of right side: Code(s): M70.71 - Other bursitis of hip, right hip Category: Medical (3) Chronic pain syndrome: Code(s): G89.4 - Chronic pain syndrome Category: Medical (4) Osteoarthritis, hip, bilateral: Code(s): M16.0 - Bilateral primary osteoarthritis of hip Category: Medical Qualifiers: Osteoarthritis type: primary Qualified Code(s): M16.0 - Bilateral primary osteoarthritis of hip (5) Osteopenia: Code(s): M85.80 - Other specified disorders of bone density and structure, unspecified site Category: Medical (6) Sacroiliitis: Code(s): M46.1 - Sacroiliitis, not elsewhere classified Category: Medical (7) Somatic dysfunction of both sacroiliac joints: Code(s): M99.04 - Segmental and somatic dysfunction of sacral region Category: Medical Plan On the bony pelvis CT scan no bursitis of the show recess were demonstrated. The full report is as above. I will schedule this patient for diagnostic bilateral sacroiliac joint injection based on the discovery of the sacroiliac joint arthritis on the CT scan. (sees the above). If this results in good pain relief I will offer therapeutic SI joint injections versus PNS cure on X /stim wave. Patient Instructions: I here by testify that I spent 32 minutes in conversation with this patient as well as evaluating diagnostic reports, planning her care and organizing this note. Coding Level of Care Code Est Pt Level 4 (80002) Diagnoses Ischial bursitis of left side M70.72 Ischial bursitis of right side M70.71 Chronic pain syndrome G89.4 Primary osteoarthritis of both hips M16.0 Osteoarthritis type: primary Osteopenia M85.80 Sacroiliitis M46.1 Somatic dysfunction of both sacroiliac joints M99.04
[2024-03-19 10:50] VITALS: BP 146/70; PULSE 82; RESP 16; O2SAT 98; BMI 42.2
== END 2024-03-19 11:22 | disposition home or self-care (01) ==
PROVIDERS: PCP Internal Medicine; Visit Provider Anesthesiology
DX: M70.72 Other bursitis of hip, left hip (principal); M70.71 Other bursitis of hip, right hip; G89.4 Chronic pain syndrome; M16.0 Bilateral primary osteoarthritis of hip; M85.80 Other specified disorders of bone density and structure, unspecified site; M46.1 Sacroiliitis, not elsewhere classified; M99.04 Segmental and somatic dysfunction of sacral region
CPT/HCPCS: 99214

== ENCOUNTER → 2024-03-19 10:19 | Outpatient (BNVA) | payer MEDICARE, SELFPAY | PROVIDERS: PCP Internal Medicine; Visit Provider Anesthesiology | DX: M70.72 Other bursitis of hip, left hip (principal); M70.71 Other bursitis of hip, right hip; M16.0 Bilateral primary osteoarthritis of hip; M85.80 Other specified disorders of bone density and structure, unspecified site; M46.1 Sacroiliitis, not elsewhere classified; M99.04 Segmental and somatic dysfunction of sacral region; G89.4 Chronic pain syndrome | CPT/HCPCS: 99212 ==

== ENCOUNTER 2024-03-28 11:37 | Outpatient (REF) | payer MEDICARE, SELFPAY ==
--- NOTE | ~2024-03-28 | MM_ITS ---
EXAMINATION: MM SCREENING DIGITAL BREAST TOMOSYNTHESIS, BILATERAL CLINICAL INFORMATION: Screening. Asymptomatic. The patient is status post bilateral breast reduction. COMPARISON: Mammography: This study is compared with prior exams dating back to 2020. TECHNIQUE: Digital breast tomosynthesis is performed in both the craniocaudal and mediolateral oblique views along with computer-aided detection (CAD). Synthesized 2D images are generated from the tomosynthesis. FINDINGS: The breasts are almost entirely fatty (ACR BI-RADS breast composition Category a). There are no significant masses, abnormal calcifications, or other abnormalities. Post reduction changes are present. MM/MM tomosynthesis screening BI IMPRESSION: No mammographic evidence of malignancy. ASSESSMENT: BI-RADS BI-RADS 2 - Benign Findings RECOMMENDATION: Routine annual mammography screening. 1 year F/U This examination should not preclude the clinical evaluation of a suspicious palpable abnormality. This patient's information was entered into a reminder system with a target due date for their next mammogram.
== END 2024-03-28 11:38 | disposition home or self-care (01) ==
LOC: HO.MAMMO 11:37
PROVIDERS: PCP Internal Medicine; Visit Provider Internal Medicine
DX: Z12.31 Encounter for screening mammogram for malignant neoplasm of breast (principal)
CPT/HCPCS: 77063; 77067

== ENCOUNTER → 2024-03-28 12:00 | Outpatient (BNV) | payer MEDICARE, SELFPAY | PROVIDERS: PCP Internal Medicine; Visit Provider Radiology Diagnostic Radiology | DX: Z12.31 Encounter for screening mammogram for malignant neoplasm of breast (principal) | CPT/HCPCS: 77063; 77067 ==

== ENCOUNTER 2024-03-31 10:15 | Outpatient (AMB) | payer MEDICARE, SELFPAY ==
[2024-03-31 10:20] VITALS: BP 124/88; PULSE 86; O2SAT 97; BMI 41.3
--- NOTE | 2024-03-31 10:20 | A.OFFPC_ITS ---
Vital Signs 03/31/24 10:20 Height 4 ft 9 in Weight 191 lb BMI 41.3 BP 124/88 Blood Pressure Location Lt brachial Position Sitting Pulse 86 Pulse Source Pulse Oximeter Pulse Oximetry (%) 97 Oxygen Delivery Method Room Air Intake Visit Reasons: 3M F/U Allergies morphine [MORPHINE] Allergy (Severe, Verified 03/31/24 13:25) VOMITING, hives/stomach upset tolmetin [From TOLECTIN] Allergy (Severe, Verified 03/31/24 13:25) HIVES Sulfa (Sulfonamide Antibiotics) Allergy (Intermediate, Verified 03/31/24 13:25) hives Medication List - Last Reconciled 03/31/24 by Stephen Olmos MD albuterol sulfate 90 mcg/actuation 2 puffs inhalation Q4-6H PRN 30 days calcium carbonate (Calcium 600) 600 mg PO DAILY cholecalciferol (vitamin D3) 25 mcg PO DAILY multivitamin 1 tab PO DAILY naloxone 4 mg/actuation 4 mg intranasal Q3M PRN 1 day pantoprazole 40 mg PO DAILY polyethylene glycol 3350 (Miralax) 17 grams PO DAILY ropinirole 2 mg (2 x 1 mg) PO BEDTIME 90 days tamsulosin 0.4 mg PO DAILY tramadol 50 mg PO Q6H PRN 21 days trazodone 100 mg PO BEDTIME venlafaxine ER 75 mg PO DAILY zinc 50 mg PO DAILY Tobacco use date assessed: 11/29/23 Fall risk assessment: No Falls in past year Last assessed Fall Risk: 03/31/24 Dental Screening Dental Screen Date: 11/29/23 HPI 3M F/U HPI Details 73-year-old female presents to the [facility] to discuss her chronic medical conditions. Patient was in the emergency room on 3 separate occasions recently. Finally a left kidney stone was diagnosed and patient was put on pain medication and tamsulosin. Continues to take the tamsulosin and symptoms are reasonably controlled. Since the last office visit, patient has not increased her tramadol to twice a day. She saw the pain management clinic and advised to use medical marijuana. She continues to drive during the daytime but not at night. Able to function and do activities of daily living. [facility] Medical History (Updated 03/31/24 @ 13:36 by Stephen Olmos MD) Chronic pain syndrome Somatic dysfunction of both sacroiliac joints Allergic rhinitis Anxiety Hx of radiation therapy Tracheobronchitis Endogenous depression Viral wart on finger GERD (gastroesophageal reflux disease) Osteoarthritis Hernia Perforation bowel Arthritis COPD (chronic obstructive pulmonary disease) [place] on CPAP Obesity (BMI 35.0-39.9 without comorbidity) Surgical History History of colon surgery Hx of colonoscopy History of total right knee replacement H/O bilateral breast reduction surgery H/O lumpectomy History of left knee replacement History of gastric bypass Family History Mother No problems noted. Father No problems noted. 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 a primary housekeeper child care to a significant other at home: Yes () Do you presently have visiting nurse or other home services: No Alcohol intake: current Alcohol intake frequency: does not drink Alcohol type: wine Patient Tobacco Use Status: Never used Tobacco Tobacco use type: Cigarette e-Cigarette/Vaping Use: Never Used Second Hand Smoke Exposure: No service: No Current occupational status: retired Cognitive needs: No Hearing needs: Yes (hearing aide) Vision needs: Yes (Glasses) Female Reproductive History Menstrual Age of Menarche: 15 Questionnaire PHQ-9 Over the last 2 weeks, how often have you been bothered by any of the following problems? 1. Little interest or pleasure in doing things: not at all 2. Feeling down, depressed, or hopeless: not at all 3. Trouble falling or staying asleep, or sleeping too much: not at all 4. Feeling tired or having little energy: not at all 5. Poor appetite or overeating: not at all 6. Feeling bad about yourself - or that you are a failure or have let yourself or your family down: not at all 7. Trouble concentrating on things, such as reading the newspaper or watching t elevision: not at all 8. Moving or speaking so slowly that other people could have noticed. Or the opposite - being so fidgety or restless that you have been moving around a lot more than usual: not at all 9. Thoughts that you would be better off or of hurting yourself in some way: not at all Total score: 0 Depression Screening Interpretation: Negative Depression Screening Done: Yes Source: Developed by Drs. Avila Sesay, Lee Grider and colleagues, with an educational samm from [employer]. Thrive Questionnaire Date Thrive assessed: 11/29/23 AUDIT C Alcohol Use Questionnaire (AUDIT-C) 1. How often do you have a drink containing alcohol?: Never Total Score: 0 ROLANDO-7 AMB Questionnaire ROLANDO-7 Date ROLANDO - 7 assessed: 11/29/23 Source: Developed by Drs. Avila Sesay, Lee Grider and colleagues, with an educational samm from [employer]. Physical exam (Primary Care) Vital Signs: Last Vital Signs Pulse 86 03/31/24 10:20 BP 124/88 03/31/24 10:20 Pulse Ox 97 03/31/24 10:20 Oxygen Delivery Method Room Air 03/31/24 10:20 Care Plan Goal for BP management: Blood pressure is stable. BMI result Body Mass Index 41.3 BMI Assessment/Plan discussion: High (1 lb per week weight loss suggested.) BMI High, discussed plan: lifestyle, weight reduction and dietary Tobacco/Smoking Status: Tobacco use Status Tobacco use date assessed 11/29/23 03/31/24 10:27 Patient Tobacco Use Status Never used Tobacco 03/31/24 10:27 Tobacco use type Cigarette 03/31/24 10:27 e-Cigarette/Vaping Use Never Used 03/31/24 10:27 PHQ-9: PHQ-9 Score PHQ-9: Total score 0 03/31/24 10:27 Depression Screening Interpretation: Negative Thrive Assessment: Date of Thrive Assessment Date Thrive assessed 11/29/23 03/31/24 10:27 Const General: cooperative and healthy appearing Nutritional Appearance: well nourished Orientation/consciousness: patient oriented x3 Limitations: no limitations HENMT Head: Yes normal to inspection Eyes General: appearance normal, both eyes and all related structures Neck Neck: Yes normal visual inspection Chest Chest palpation & inspection: normal palpation of entire chest wall Resp Effort & Inspection: normal respiratory effort Neuro General: patient oriented x3 Assessment and Plan Assessment & Plan (1) Chronic pain syndrome: Code(s): G89.4 - Chronic pain syndrome Plan: Telephone conversation with Dr. Welch. Patient can try medical marijuana. However in the state [facility], no separate prescriptions are needed. (2) Osteoarthritis, hip, bilateral: Code(s): M16.0 - Bilateral primary osteoarthritis of hip Qualifiers: Osteoarthritis type: primary Qualified Code(s): M16.0 - Bilateral primary osteoarthritis of hip Plan: Continue current treatment. Patient was advised to try tramadol twice a day. (3) Morbid obesity with BMI of 40.0-44.9, adult: Code(s): E66.01 - Morbid (severe) obesity due to excess calories; Z68.41 - Body mass index [BMI] 40.0-44.9, adult Plan: Counseling on the importance of diet and exercise done. (4) Endogenous depression: Code(s): F33.2 - Major depressive disorder, recurrent severe without psychotic features Plan: Continue current medications. (5) Renal colic on left side: Code(s): N23 - Unspecified renal colic Plan: Records from [facility] reviewed. Coding Level of Care Code Est Pt Level 4 (96516) Complex EM visit Add On G2211 Diagnoses Chronic pain syndrome G89.4 Primary osteoarthritis of both hips M16.0 Osteoarthritis type: primary Morbid obesity with BMI of 40.0-44.9, adult E66.01; Z68.41 Endogenous depression F33.2 Renal colic on left side N23
== END 2024-03-31 10:56 | disposition home or self-care (01) ==
PROVIDERS: PCP Internal Medicine; Visit Provider Internal Medicine
DX: N23 Unspecified renal colic (principal); M16.0 Bilateral primary osteoarthritis of hip; E66.01 Morbid (severe) obesity due to excess calories; Z68.41 Body mass index [BMI] 40.0-44.9, adult
CPT/HCPCS: 99214; G2211

== ENCOUNTER 2024-06-10 06:26 | Outpatient (REF) | payer MEDICARE, SELFPAY | END 2024-06-10 06:27 | disposition home or self-care (01) | LOC: CF 06:26 | PROVIDERS: Visit Provider Anesthesiology | DX: M46.1 Sacroiliitis, not elsewhere classified (principal); M99.04 Segmental and somatic dysfunction of sacral region; M53.3 Sacrococcygeal disorders, not elsewhere classified | CPT/HCPCS: 27096; J2003; J2795; Q9967 ==

== ENCOUNTER 2024-06-10 13:21 | Outpatient (AMB) | payer MEDICARE, SELFPAY ==
--- NOTE | 2024-06-10 13:39 | MHC.OFFVIS ---
Vital Signs 06/10/24 14:48 06/10/24 14:49 Height 4 ft 9 in 4 ft 9 in Weight 191 lb 191 lb BMI 41.3 41.3 BP 164/78 H 140/65 H Blood Pressure Location Lt brachial Lt brachial Position Sitting Sitting Respiration 16 16 Pulse 75 79 Pulse Source Pulse Oximeter Pulse Oximeter Pulse Oximetry (%) 99 99 Oxygen Delivery Method Room Air Room Air Comment pre-op post-op Intake Visit Reasons: BILATERAL DIAGNOSTIC SIJ INJECTIONS Allergies morphine [MORPHINE] Allergy (Severe, Verified 06/10/24 14:49) VOMITING, hives/stomach upset tolmetin [From TOLECTIN] Allergy (Severe, Verified 06/10/24 14:49) HIVES Sulfa (Sulfonamide Antibiotics) Allergy (Intermediate, Verified 06/10/24 14:49) hives PFSH Medical History Chronic pain syndrome Somatic dysfunction of both sacroiliac joints Allergic rhinitis Anxiety Hx of radiation therapy Tracheobronchitis Endogenous depression Viral wart on finger GERD (gastroesophageal reflux disease) Osteoarthritis Hernia Perforation bowel Arthritis COPD (chronic obstructive pulmonary disease) [place] on CPAP Obesity (BMI 35.0-39.9 without comorbidity) Surgical History History of colon surgery Hx of colonoscopy History of total right knee replacement H/O bilateral breast reduction surgery H/O lumpectomy History of left knee replacement History of gastric bypass Family History Mother No problems noted. Father No problems noted. 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 a primary field care advocate to a significant other at home: Yes () Do you presently have visiting nurse or other home services: No Alcohol intake: current Alcohol intake frequency: does not drink Alcohol type: wine Patient Tobacco Use Status: Never used Tobacco Tobacco use type: Cigarette e-Cigarette/Vaping Use: Never Used Second Hand Smoke Exposure: No service: No Current occupational status: retired Cognitive needs: No Hearing needs: Yes (hearing aide) Vision needs: Yes (Glasses) Female Reproductive History Menstrual Age of Menarche: 15 Physical Exam Vital Signs: Last Vital Signs Pulse 79 06/10/24 14:49 Resp 16 06/10/24 14:49 BP 140/65 H 06/10/24 14:49 Pulse Ox 99 06/10/24 14:49 Oxygen Delivery Method Room Air 06/10/24 14:49 BMI result Body Mass Index 41.3 Assessment & Plan Assessment & Plan (1) Somatic dysfunction of both sacroiliac joints: Code(s): M99.04 - Segmental and somatic dysfunction of sacral region Category: Medical (2) Sacroiliitis: Code(s): M46.1 - Sacroiliitis, not elsewhere classified Category: Medical (3) Sacroiliac joint dysfunction of both sides: Code(s): M53.3 - Sacrococcygeal disorders, not elsewhere classified Category: Medical Plan Bilateral diagnostic sacroiliac joint injection Informed consent was explained thoroughly to the patient.? All questions about benefits and risks for the procedure were answered.automotive parts interpreter conservation officer Fabienne Amos helps her to convey this conversation. Patient came to the operating room and was positioned prone on the operating table with the pillow under the abdomen. The lower back and buttocks of the patient were prepped with ChloraPrep prepped and draped with sterile utility towels.? Sterilely draped C-arm was brought over the operating field and sq picture of patient's pelvis was demonstrated on the screen.? For the right joint tilting C-arm contralateral to the site of the joint the most posterior portion of the joints was superimposed with anterior silhouette of the joint.? Skin was injected in the projection of the joint slightly medial to the location of the joint with 25 gauge 1/2 inch needle using local lidocaine 2% . After that 22 gauge 3 and 1/2 inch needle was driven to the right joint in tunnel vision fashion.? When needle entered the joint capsule injection of the contrast was performed demonstrating intra-articular and minimally periarticular spread of the contrast.? After that 4 cc. of ropivacaine 0.5% was injected in the joint. After that procedure was repeated on the left side in mirroring fashion. Same dose of ropivacaine was injected into the joint. Upon completion of the injections the needle was removed and Band-Aid was applied.? Upon completion of the injection patient was taken outside of the operating room to the recovery room where recovered uneventfully. Orders: Orders FL guidance in treatment room 06/10/24 M46.1 - Sacroiliitis, not elsewhere classified Coding Level of Care Code Procedure Only Diagnoses Somatic dysfunction of both sacroiliac joints M99.04 Sacroiliitis M46.1 Sacroiliac joint dysfunction of both sides M53.3
[2024-06-10 14:48] VITALS: BP 164/78; PULSE 75; RESP 16; O2SAT 99; BMI 41.3
[2024-06-10 14:49] VITALS: BP 140/65; PULSE 79; RESP 16; O2SAT 99; BMI 41.3
== END 2024-06-10 14:48 | disposition home or self-care (01) ==
LOC: HO.PMCPRC 13:21
PROVIDERS: PCP Internal Medicine; Visit Provider Anesthesiology
DX: M46.1 Sacroiliitis, not elsewhere classified (principal); M53.3 Sacrococcygeal disorders, not elsewhere classified
CPT/HCPCS: 27096

== ENCOUNTER 2024-06-16 13:01 | Outpatient (AMB) | payer MEDICARE, SELFPAY ==
--- NOTE | 2024-06-16 13:16 | A.OFFVIS_ITS ---
Vital Signs 06/16/24 13:32 Height 4 ft 9 in Weight 191 lb 6 oz BMI 41.4 BP 138/96 H Blood Pressure Location Lt brachial Position Sitting Respiration 16 Pulse 80 Pulse Source Pulse Oximeter Pulse Oximetry (%) 97 Oxygen Delivery Method Room Air Intake Visit Reasons: BILATERAL DIAGNOSTIC SIJ INJECTIONS Intake Note: Patient comes in for post-op. Reports pain 6/10. Allergies morphine [MORPHINE] Allergy (Severe, Verified 06/10/24 14:49) VOMITING, hives/stomach upset tolmetin [From TOLECTIN] Allergy (Severe, Verified 06/10/24 14:49) HIVES Sulfa (Sulfonamide Antibiotics) Allergy (Intermediate, Verified 06/10/24 14:49) hives HPI Comments Details: Charisma Mortensen is very pleasant 72 years old female who presents in my office with complains on pain in bilateral gluteal folds. She reports that her pain started 2 years ago. She reports that her pain is related to climbing up and down a ladder. . I sent this patient for the CT scan of the bony pelvis in the attempt to diagnose possible ischial bursitis. Unfortunately no diagnostic evidence of ischial bursitis was demonstrated on the CT scan. The CT scan demonstrated significant advanced sacroiliitis. The patient went for diagnostic sacroiliac joint injection bilateral the results of the injection are as follows before the procedure she had pain 10/10. Immediately after the procedure and 1 hour after procedure she had pain 8/10. From that point on her pain started to decrease and 2 hours after procedure she had pain 7/10 3 hours after procedure had pain 5/10 4 hours of the procedure she had pain 3/10 and 5 hours after the procedure had pain 1/10. 6 hours after procedure had pain 0/10. She felt very comfortable for all the time from 6 hours after the procedure until 11: 55 p.m. when she had pain 3/10. Pain started to come back at around 09:00 where she felt pain 10/10. That demonstrates possibly good results of the diagnostic sacroiliac joint injection. I will schedule her for therapeutic sacroiliac joint injection with steroids. I will see her after that procedure. [facility] Medical History Chronic pain syndrome Somatic dysfunction of both sacroiliac joints Allergic rhinitis Anxiety Hx of radiation therapy Tracheobronchitis Endogenous depression Viral wart on finger GERD (gastroesophageal reflux disease) Osteoarthritis Hernia Perforation bowel Arthritis COPD (chronic obstructive pulmonary disease) [place] on CPAP Obesity (BMI 35.0-39.9 without comorbidity) Surgical History History of colon surgery Hx of colonoscopy History of total right knee replacement H/O bilateral breast reduction surgery H/O lumpectomy History of left knee replacement History of gastric bypass Family History Mother No problems noted. Father No problems noted. 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 a primary home care administrator to a significant other at home: Yes () Do you presently have visiting nurse or other home services: No Alcohol intake: current Alcohol intake frequency: does not drink Alcohol type: wine Patient Tobacco Use Status: Never used Tobacco Tobacco use type: Cigarette e-Cigarette/Vaping Use: Never Used Second Hand Smoke Exposure: No service: No Current occupational status: retired Cognitive needs: No Hearing needs: Yes (hearing aide) Vision needs: Yes (Glasses) Female Reproductive History Menstrual Age of Menarche: 15 Review of Systems Const All systems reviewed & are unremarkable except as noted in HPI and below ENT Reports Normal hearing present Neuro Reports Normal hearing present, Denies Abnormal speech present, Denies confusion and Denies Sensory deficit (Neuro) Psych Denies confusion Physical Exam Vital Signs: Last Vital Signs Pulse 80 06/16/24 13:32 Resp 16 06/16/24 13:32 BP 138/96 H 06/16/24 13:32 Pulse Ox 97 06/16/24 13:32 Oxygen Delivery Method Room Air 06/16/24 13:32 BMI result Body Mass Index 41.4 Const General: no acute distress, well developed, alert and awake; No confusion Orientation/consciousness: patient oriented x3 and No confusion Limitations: no limitations Eyes General: appearance normal, both eyes and all related structures Pupils: Equal, round and reactive pupils present EOM: EOMs intact bilaterally Neck Neck: Yes full ROM Chest Chest palpation & inspection: normal inspection of the chest Resp Effort & Inspection: normal respiratory effort, able to speak in complete sentences, normal respiratory pattern, no audible wheezes and no cough Cardio Jugular venous distension: no JVD GI Inspection: Yes normal to inspection Back/Spine/Pelvis Other: No tenderness on palpation on paraspinal or spinal region in the thoracic lumbar or sacral spine. No tenderness on palpation in projection of sacroiliac joints. SLR is negative bilaterally. Chao test is negative bilaterally. Fourteen finger test is negative bilaterally. Significant tenderness on palpation in projection of the ischial bursa bilaterally. Neuro General: patient oriented x3, gait normal and No confusion Cranial nerves: Yes CN's II-XII intact bilaterally, Yes Equal, round and reactive pupils present, Yes Normal hearing present and Yes Ability to bilaterally elevate shoulders present Speech: No Abnormal speech present Gait exam (Neuro): Normal gait present Motor exam (neuro): 5/5 motor strength present throughout Sensory Exam: No Sensory deficit (Neuro) Extrem General: No pedal edema Psych Speech and movement: Normal speech and movement present Affect: normal affect Attitude: cooperative Thought process: Normal thought process present Thought content: Normal thought content present Insight: Good insight present (Psych) Judgement: Good judgement present (Psych) Results Reviewed Results Reviewed: CT PELVIS WItHOUT CONTRAST CLINICAL INFORMATION: Osteoarthritis. COMPARISON: None available. TECHNIQUE: Helical scanning was performed with submillimeter collimation through the pelvis. Sagittal and coronal multiplanar 2-D reconstructions were obtained. This CT examination was performed using dose optimization techniques as appropriate, variously including the following: *Automated exposure control *Adjustment of mA and/or kV according to patient size (this includes techniques or standardized protocols for targeted exams where dose is matched to indication/reason for exam; i.e. extremities or head) *Use of iterative reconstruction technique DLP: 891 mGy-cm FINDINGS: PELVIS: Partially visualized, lobulated inferior pole of the left kidney. Unremarkable bowel anastomoses. No bowel wall thickening or inflammatory change. No pelvic bowel obstruction. No soft tissue mass or fluid collection. Postsurgical change at the anterior abdominal wall with a small hernia containing nonobstructed loop of small bowel. No associated inflammation or stranding to suggest ischemia or incarceration. Fat-containing right anterior abdominal wall hernia with the neck measuring up to 1.0 cm in ML dimension. No associated bowel loops. OSSEOUS STRUCTURES: Mild bilateral sacroiliac joint space narrowing with small marginal osteophytes. No periarticular erosion. Moderate degenerative arthritis at the symphysis pubis. No hip joint space narrowing or marginal osteophytes. Partially visualized degenerative disc disease and facet arthropathy within the lower lumbar spine. No concerning lytic or blastic osseous lesion. No evidence of femoral head avascular necrosis. IMPRESSION: 1. Mild bilateral sacroiliac osteoarthritis. Moderate degenerative arthritis at the pubis. 2. Postsurgical change at the anterior abdominal wall with a small hernia containing a nonobstructed loop of small bowel. No associated inflammation or stranding to suggest ischemia or incarceration. Fat-containing right anterior abdominal wall hernia with the neck measuring up to 1.0 cm. No associated bowel loops. 3. Partially visualized degenerative disc disease and facet arthropathy within the lower lumbar spine. Assessment & Plan Assessment & Plan (1) Ischial bursitis of left side: Code(s): M70.72 - Other bursitis of hip, left hip Category: Medical (2) Ischial bursitis of right side: Code(s): M70.71 - Other bursitis of hip, right hip Category: Medical (3) Chronic pain syndrome: Code(s): G89.4 - Chronic pain syndrome Category: Medical (4) Osteoarthritis, hip, bilateral: Code(s): M16.0 - Bilateral primary osteoarthritis of hip Category: Medical Qualifiers: Osteoarthritis type: primary Qualified Code(s): M16.0 - Bilateral primary osteoarthritis of hip (5) Osteopenia: Code(s): M85.80 - Other specified disorders of bone density and structure, unspecified site Category: Medical (6) Sacroiliitis: Code(s): M46.1 - Sacroiliitis, not elsewhere classified Category: Medical (7) Somatic dysfunction of both sacroiliac joints: Code(s): M99.04 - Segmental and somatic dysfunction of sacral region Category: Medical Plan On the bony pelvis CT scan no bursitis of the show recess were demonstrated. The full report is as above. Diagnostic sacroiliac joint resulted in not typical however impressive and much more than 6 hours pain relief. I will schedule her for therapeutic sacroiliac joint injection with triamcinolone. We will see her after the procedure. She complains on severe pain sometimes unable to take care of herself for her ailing . I recommended her to go to [facility] and obtain some help for herself and for her at home. She agreed with me on that. Patient Instructions: I here by testify that I spent 32 minutes in conversation with this patient as well as planning her care and organizing this note. Coding Level of Care Code Est Pt Level 4 (32760) Diagnoses Ischial bursitis of left side M70.72 Ischial bursitis of right side M70.71 Chronic pain syndrome G89.4 Primary osteoarthritis of both hips M16.0 Osteoarthritis type: primary Osteopenia M85.80 Sacroiliitis M46.1 Somatic dysfunction of both sacroiliac joints M99.04
[2024-06-16 13:32] VITALS: BP 138/96; PULSE 80; RESP 16; O2SAT 97; BMI 41.4
== END 2024-06-16 14:08 | disposition home or self-care (01) ==
PROVIDERS: PCP Internal Medicine; Visit Provider Anesthesiology
DX: M70.72 Other bursitis of hip, left hip (principal); M70.71 Other bursitis of hip, right hip; G89.4 Chronic pain syndrome; M16.0 Bilateral primary osteoarthritis of hip; M85.80 Other specified disorders of bone density and structure, unspecified site; M46.1 Sacroiliitis, not elsewhere classified; M99.04 Segmental and somatic dysfunction of sacral region
CPT/HCPCS: 99214

== ENCOUNTER → 2024-06-16 13:01 | Outpatient (BNVA) | payer MEDICARE, SELFPAY | PROVIDERS: PCP Internal Medicine; Visit Provider Anesthesiology | DX: M70.72 Other bursitis of hip, left hip (principal); M70.71 Other bursitis of hip, right hip; G89.4 Chronic pain syndrome; M16.0 Bilateral primary osteoarthritis of hip; M85.80 Other specified disorders of bone density and structure, unspecified site; M46.1 Sacroiliitis, not elsewhere classified; M99.04 Segmental and somatic dysfunction of sacral region | CPT/HCPCS: 99212 ==

== ENCOUNTER 2024-07-10 13:06 | Outpatient (AMB) | payer MEDICARE, SELFPAY ==
--- NOTE | 2024-07-10 13:53 | A.OFFPC_ITS ---
Vital Signs 07/10/24 13:54 Height 4 ft 9 in Weight 204 lb 4 oz BMI 44.2 BP 140/72 H Blood Pressure Location Lt brachial Position Sitting Pulse 81 Pulse Source Pulse Oximeter Pulse Oximetry (%) 96 Oxygen Delivery Method Room Air Intake Visit Reasons: 3 Month F/U - see comments Intake Note: Patient is here to follow up on Chronic pain, COPD, [place]. Complaint of pins and needle radiating up and down the right leg for the past six months. Dinner Cook Required: No Gleason Operator: Not Required per policy Accompanied by: Self / Same As Patient Allergies morphine [MORPHINE] Allergy (Severe, Verified 07/10/24 13:54) VOMITING, hives/stomach upset tolmetin [From TOLECTIN] Allergy (Severe, Verified 07/10/24 13:54) HIVES Sulfa (Sulfonamide Antibiotics) Allergy (Intermediate, Verified 07/10/24 13:54) hives Tobacco use date assessed: 07/10/24 Fall risk assessment: No Falls in past year Last assessed Fall Risk: 07/10/24 Dental Screening Dental Screen Date: 11/29/23 HPI HPI Comments History of Present Illness Details 73-year-old female presents to the [facility] for a follow-up visit. Patient is reporting tingling sensation and pain from the right hip down to the leg. She is seeing the pain management center and is scheduled for a steroid injection. She has difficulty walking. Able to ambulate without assistance. [facility] Medical History Chronic pain syndrome Somatic dysfunction of both sacroiliac joints Allergic rhinitis Anxiety Hx of radiation therapy Tracheobronchitis Endogenous depression Viral wart on finger GERD (gastroesophageal reflux disease) Osteoarthritis Hernia Perforation bowel Arthritis COPD (chronic obstructive pulmonary disease) [place] on CPAP Obesity (BMI 35.0-39.9 without comorbidity) Surgical History History of colon surgery Hx of colonoscopy History of total right knee replacement H/O bilateral breast reduction surgery H/O lumpectomy History of left knee replacement History of gastric bypass Family History Mother No problems noted. Father No problems noted. 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 a primary director of primary care to a significant other at home: Yes () Do you presently have visiting nurse or other home services: No Alcohol intake: current Alcohol intake frequency: does not drink Alcohol type: wine Patient Tobacco Use Status: Never used Tobacco Tobacco use type: Cigarette e-Cigarette/Vaping Use: Never Used Second Hand Smoke Exposure: No service: No Current occupational status: retired Cognitive needs: No Hearing needs: Yes (hearing aide) Vision needs: Yes (Glasses) Female Reproductive History Menstrual Age of Menarche: 15 Questionnaire Thrive Questionnaire Date Thrive assessed: 11/29/23 AUDIT C Alcohol Use Questionnaire (AUDIT-C) 3. How often do you have six or more drinks on one occasion?: Never Total Score: 0 ROLANDO-7 AMB Questionnaire ROLANDO-7 Date ROLANDO - 7 assessed: 11/29/23 Source: Developed by Drs. Avila Sesay, Tessy Gonzalez, Lee Cartwright and colleagues, with an educational samm from [employer]. Physical exam (Primary Care) Vital Signs: Last Vital Signs Pulse 81 07/10/24 13:54 BP 140/72 H 07/10/24 13:54 Pulse Ox 96 07/10/24 13:54 Oxygen Delivery Method Room Air 07/10/24 13:54 BMI result Body Mass Index 44.2 Tobacco/Smoking Status: Tobacco use Status Tobacco use date assessed 07/10/24 07/10/24 14:00 Patient Tobacco Use Status Never used Tobacco 07/10/24 14:00 Tobacco use type Cigarette 07/10/24 14:00 e-Cigarette/Vaping Use Never Used 07/10/24 14:00 Thrive Assessment: Date of Thrive Assessment Date Thrive assessed 11/29/23 07/10/24 14:00 Const General: cooperative and healthy appearing Nutritional Appearance: well nourished Orientation/consciousness: patient oriented x3 Limitations: no limitations HENMT Head: Yes normal to inspection Eyes General: appearance normal, both eyes and all related structures Neck Neck: Yes normal visual inspection Chest Chest palpation & inspection: normal palpation of entire chest wall Resp Effort & Inspection: normal respiratory effort Neuro General: patient oriented x3 Office Procedures Flu Questionnaire Does the patient have a severe egg allergy?: No Does the patient have severe life threatening allergies?: No Does the patient have a fever or illness today?: No Has the patient ever had Guillain-Le Grand Syndrome?: No Has the patient ever had any past reaction to a flu shot?: No Immunizations Fluarix Triv [id number] (PF) 45 mcg (15 mcg x 3)/0.5 mL IM syringe Performing Provider: Stephen Olmos MD [facility] Administered by: Nadia Znuiga LPN on 07/10/24 14:10 Dose Route Admin Location Dispensed Lot Number Expiration Date NDC [employer] Technologist 0.5 mL IM Left Deltoid 0.5 mL [id number] 02/23/25 11846-030-09 [employer] VIS Given Date VIS Provided VIS Publication Date 07/10/24 Single Vaccine 21 Eligibility Eligibility Date Funding Source Not [facility] Eligible 07/10/24 Private Coding Level of Care Code Est Pt Level 3 (87705) Complex EM visit Add On G2211 Diagnoses Ischial bursitis of right side M70.71 Assessment & Plan Assessment & Plan (1) Ischial bursitis of right side: Code(s): M70.71 - Other bursitis of hip, right hip Category: Medical Plan: Tramadol started once a day. Neurontin to be prescribed 3 times a day. Patient was gently advised to lose weight. Orders: Orders Influenza [id number] Immunization Today Z23 - Encounter for immunization Medications: Changed From tramadol 50 mg PO Q6H 21 days PRN 84 tabs 1RF pain To tramadol 50 mg PO DAILY PRN 30 tabs 0RF pain 30 days
[2024-07-10 13:54] VITALS: BP 140/72; PULSE 81; O2SAT 96; BMI 44.2
== END 2024-07-10 14:31 | disposition home or self-care (01) ==
PROVIDERS: PCP Internal Medicine; Visit Provider Internal Medicine
DX: M70.71 Other bursitis of hip, right hip (principal); Z23 Encounter for immunization

== ENCOUNTER → 2024-07-10 13:06 | Outpatient (BNVA) | payer MEDICARE, SELFPAY | PROVIDERS: PCP Internal Medicine; Visit Provider Internal Medicine | DX: Z23 Encounter for immunization (principal); M70.71 Other bursitis of hip, right hip | CPT/HCPCS: 90471; 90656; 99212 ==

== ENCOUNTER 2024-08-05 06:19 | Outpatient (REF) | payer MEDICARE, SELFPAY ==
--- NOTE | ~2024-08-05 | FL_ITS ---
EXAMINATION: FLUORO GUIDANCE IN TREATMENT ROOM CLINICAL INFORMATION: Sacrococcygeal disorders, not elsewhere classified. COMPARISON: None available. TECHNIQUE: Fluoroscopy supervised by: Dr. Esteban Bear. Fluoroscopy time: 0.3 minutes. Cumulative Dose: 5.32 mGy. DAP: 0.0687 mGy-m2 (milligray-meter squared). Images: 4. FINDINGS: [place] overlie each SI joint. Contrast was injected FL/FL guidance in treatment room IMPRESSION: Fluoroscopy during procedure. Please see procedure report for additional information. Electronically signed by: Bar Mejia MD 09/25/2024 07:29 AM EST
--- OUTSIDE RECORDS SUMMARY | 2024-08-06 18:28 | XMS_ITS ---
Author Organization [facility] Address [address] [place] [address] Care Team Providers Care Kindergarten Assistant Name Role Phone Nickolas, Kartik Primary Care Provider [phone] Wilber Robles Unavailable [phone] Allergies Allergen (clinical drug ingredient) Drug/Non Drug Allergy documented on EMR Reaction Allergy Type Onset Date Status sulfamethoxazole / trimethoprim Bactrim hives Drug Allergy Active tolmetin Tolmetin Sodium hives Drug Allergy A ctive morphine Morphine vomiting Drug Allergy Active REASON FOR VISIT At Risk Footcare, Painful Nail(s) aggrevated by shoes and causing difficulty standing/walking. Medications Medication SIG (Take, Route, Frequency, Duration) Notes Start Date End Date Status rOPINIRole HCl 1 MG 1 tablet 1 to 3 hour s before bedtime Orally Once a day Active Symbicort 80-4.5 MCG/ACT 2 puffs Inhalat ion Twice a day Active Tamoxifen Citrate 20 MG TAKE 1 TABLET BY MOUTH EVERY DAY Oral for 30 Active traZODone HCl 50 MG 1 tablet at bedtime Orally Once a day Active Pantoprazole Sodium Active Combivent 18-103 MCG/ACT 2 puffs Inhalat ion Four times a day 01/02/2020 Active Claritin Active Flonase 50 MCG/ACT 1 spray in each nost ril Nasally Once a day Active Effexor XR 75 MG 1 capsule with food Orally Once a day Active Omeprazole Active Tamsulosin HCl Activ e Acyclovir 5 % 1 application Externally Five times a day for 4 day(s) Active Aleve Active CeleBREX Active Tylenol 500mg Oral prn Not-Ta shanna Zantac 150 MG 1 tablet Orally Twic e a day Active Meloxicam 15 MG 1 tablet Orally Once a day Not-Taking Zinc Active Amoxicillin 500 MG 4 capsules one time Orally Once a day for 1 day(s) 09/19/2019 Not-Taking Social History Tobacco Use: Social History Observation Description Date Details (start date - stop date) Never Smoker NA - NA Tobacco Use/Smoking Question Answer Notes Are you a: nonsmoker Tobacco use other than smoking: Question Answer Notes Are you an other tobacco user? No Vital Signs Height 4ft9.5in in 06/13/2024 Weight 198 lbs 06/13/2024 BMI 42.1 kg/m2 06/13/2024 Blood pressure systolic 128 mm Hg 06/13/20 Blood pressure diastolic 70 mm Hg 024 Procedures Procedure Date Ordered Date Performed Result Body Sit e 59152-CXUYJZM NAIL, 6 OR MORE 06/13/2024 N/A 94879-ILCE SKIN LESIONS, 2 TO 4 06/13/2024 N/A Encounters Encounter Location Date Provider Diagnosis [facility] [address] [address] 06/13/2024 Wilber Robles Atherosclerosis of soboba artery of both lower extremities, with unspecified presence of clinical manifestation I70.203 ; Tinea unguium B35.1 ; Pain in right toe(s) M79.674 and Pain in left toe(s) M79.675 Assessments Encounter Date Diagnosis (ICD Code) Assessment Notes Treatment Notes Treatment Clinical Notes Section Notes 06/13/2024 Atherosclerosis of soboba artery of both lower extremities, with unspecified presence of clinical manifestation (ICD-10 - I70.203) 06/13/2024 Tinea unguium (ICD-10 - B35.1) 06/13/2024 Pain in right toe(s) (ICD-10 - M79.674) 06/13/2024 Pain in left toe(s) (ICD-10 - M79.675) Plan Of Treatment Pending Test Test Name Order Date 47502-DAZEBKH NAIL, 6 OR MORE 06/13/2024 02292-TACA SKIN LESIONS, 2 TO 4 06/13/20 24 Next Appt Details Follow Up: prn, Reason: Provider Name:Wilber Robles , 09/09/2024 03:00:00 PM, [address] [place], [address], Procedure Notes * Category Sub-Category Detail Notes Debride Nail 6-10 Nail debridement Performance o f this nail treatment by a nonprofessional would put this patients foot and overall health at risk. Therefore, nail debridement was performed extensively to reduce/remove overall nail length, girth, thickness, subungual debris, and necrotic tissue, by manual and/or electrical means through the use of a nail nipper and/or dremel-type convex grinder operator, to a more viable healthy nail plate or bed tissue 6-10. Silver nitrate used for any petechial bleeding as necessary. Definitive antifungal treatment options have been reviewed and discussed with the patient. The patient chooses, no pharmaceutical tx - 44640 Keratoma Treatment Parring or Cutting o f Benign Hyperkeratotic Lesion(s) (-56) 2-4 Lesions - The Benign hyperkeratotic lesions, as described above were pared, and/or cut utilizing a sterile 15 blade, tissue nippers, and/or dremel - 90073 , Q8 Progress Notes * DIONCharismaOB:1950 (73 yo F)Acc No.[id number]:06/13/2024 Progress Note Patient:?Charisma Ashley Provider:?Wilber Robles DPM :1950???Age:73 Y???Sex:Female D ate:06/13/2024 Address[address] Pcp:Stephen Olmos Subjective: * Chief Complaints: * ???At Risk FootcarePainful N ail(s) aggrevated by shoes and causing difficulty standing/walking. * HPI: ???At Risk footcare:?Pt States Last PCP Visit:?Date?03/12/2024 * ROS:?General/Constitutional:?Nausea?denies.?Vomiting?denies.?Hunger Thirst?denies.?Loss appetite?denies.?Chills?denies.?Fatigue?denies.?Fever?denies.?Night Sweats?denies.?Unexplained weight loss?denies.?Ophthalmologic:?Blurred vision?denies.?Red eye?denies.?HEENTM:?Dentures?denies.?Dizziness?denies.?Glasses/contacts?admits.?Retinopathy?de nies.?Blurred/double vision?denies.?TMJ?denies.?Discharge/drainage?denies.?Implants?admits.?Hard of hearing denies.?Difficulty chewing/swallowing/speaking?denies.?Nose bleeds?denies.?Sore mouth?denies.?Swollen glands?denies.?Respiratory:?On Oxygen?denies.?Pneumonia/pleurisy?denies.?Bronchitis??admits.?Emphysema?denies.? Coughing?admits.?Cough blood?denies.?Shortness of breath?denies.?Wheezing?denies.?Cardiovascular:?Pacemaker?denies.?MVP?denies.?WPW?denies.?CHF?denies.?Heart attack?denies.?Septal defect?denies.?Rapid beat?denies.?Chest pain ?denies.?Atrial Fib.?denies.?Murmur/Palpitations?denies.?Gastrointestinal:?Hemorrhoids?denies.?Stomach/Abdominal pain?denies.?Dark blood stool?denies.?Irritable bowel ?denies.?Constipation?denies.?Diarrhea?denies.?Vomiting?denies.?Hematology:?Swelling?denies.?Bruising?denies.?Bleeding problem?denies.?Genitourinary:?Blood urine?denies.?Frequent/Painfu/urination/bladder control?denies.?Kidney stones?denies.?Infection (UTI)?denies.?Nephropathy?denies.?Musculoskeletal:?Hammertoes?admits.?Bunions?denies.?Scoliosis/kyphosis?denies.?Muscle cramps / walking??admits.?Generalized aches and pains?denies.?Weakness?denies.?Integ.:?Shahid?denies.?Scars??admits.?Corns/calluses?admits.?Ingrown nails??admits.?Painful nails?admits.?Rashes?denies.?Neurologic:?Difficulty sleeping?admits.?Bipolar?denies.?Brain disorder?denies.?Balance trouble?denies.?Confusion?denies.?Fainting/blackouts?denies.?Headache?denies.?Tr emors?denies.? * Medical History:? * Surgical History:?intetinal, complication of infection 04/1989hernia 12/29, 01/04gastrectomy reast reduction 02/05skin removal 02/05left knee replacement 02/06lumpectomy on right breast 10/20/2014HT L2nd/Relocation L2nd MTPJ 03/07/2017right knee replacement 07/19/2021 * Hospitalization/Major Diagno stic Procedure:?Left side Pain unknown 04/02-04/04/20[facility]-Kidney stone 03/22/24 * Family History:?Mother: dece ased, foot problems, diagnosed with Unspecified essential hypertension, Unspecified heart disease, Other specified conditions influencing health status.?Father: , diagnosed with Other specified conditions influencing health status.?Maternal Grand Mother: arthritis, foot problems.? * Social History:?Tobacco Use:?Tobacco Use/Smoking?Are you a:?nonsmoker ?Tobacco use other than smoking?Are you an other tobacco user??No ???Miscellaneous:?Caffeine: yes, frequency: sometimes. ?Children: yes, 3. ?Exercise: yes, walking, occasional. ?Marital status: . ?Occupation: retired-[employer]. * Medications:?TakingTamsulosi n HCl Aleve Acyclovir 5 % Cream 1 application Externally Five times a dayCeleBREX Claritin Combivent 18-103 MCG/ACT Aerosol 2 puffs Inhalation Four times a dayEffexor XR 75 MG Capsule Extended Release 24 Hour 1 capsule with food Orally Once a dayFlonase 50 MCG/ACT Suspension 1 spray in each nostril Nasally Once a dayOmeprazole Pantoprazole Sodium Symbicort 80-4.5 MCG/ACT Aerosol 2 puffs Inhalation Twice a dayrOPINIRole HCl 1 MG Tablet 1 tablet 1 to 3 hours before bedtime Orally Once a daytraZODone HCl 50 MG Tablet 1 tablet at bedtime Orally Once a dayTamoxifen Citrate 20 MG Tablet TAKE 1 TABLET BY MOUTH EVERY DAY Oral Zantac 150 MG Tablet 1 tablet Orally Twice a dayZinc Taking Tamsulosin HCl Taking Aleve Taking Acyclovir 5 % Cream 1 application Externally Five times a dayTaking CeleBREX Taking Claritin Taking Combivent 18-103 MCG/ACT Aerosol 2 puffs Inhalation Four times a dayTaking Effexor XR 75 MG Capsule Extended Release 24 Hour 1 capsule with food Orally Once a dayTaking Flonase 50 MCG/ACT Suspension 1 spray in each nostril Nasally Once a dayTaking Omeprazole Taking Pantoprazole Sodium Taking Symbicort 80-4.5 MCG/ACT Aerosol 2 puffs Inhalation Twice a dayTaking rOPINIRole HCl 1 MG Tablet 1 tablet 1 to 3 hours before bedtime Orally Once a dayTaking traZODone HCl 50 MG Tablet 1 tablet at bedtime Orally Once a dayTaking Tamoxifen Citrate 20 MG Tablet TAKE 1 TABLET BY MOUTH EVERY DAY Oral Taking Zantac 150 MG Tablet 1 tablet Orally Twice a dayTaking Zinc Not-Taking/PRNMeloxicam 15 MG Tablet 1 tablet Orally Once a dayAmoxicillin 500 MG Capsule 4 capsules one time Orally Once a dayTylenol 500mg Oral prnMedication List reviewed and reconciled with the patientNot-Taking/PRN Meloxicam 15 MG Tablet 1 tablet Orally Once a dayNot-Taking/PRN Amoxicillin 500 MG Capsule 4 capsules one time Orally Once a dayNot-Taking/PRN Tylenol 500mg Oral prnMedication List reviewed and reconciled with the patient * Allergies:?Bactrim: hivesTol metin Sodium: hivesMorphine: vomitingyes[Allergies Verified] Objective: * Vitals:?Ht: 4ft9.5in, Wt:198 , BMI:42.1, Shoe size: 6.5, BP:128/70 mm Hg, Ht-cm: 146.05 cm, Wt-k.81 kg. * Examination: ???Vascular: ?DP PULSES(B):? 0-1/4, B/L.?PT PULSES(B):? 0/4, B/L.?CAPILLARY FILL TIME:? delayed, all digits, B/L.?TROPHIC CONDITION-TEXTURE/ELASTICITY/TURGOR/HAIR GROWTH(B):? decreased, with sparse to absent hair growth, B/L.?TEMPERTURE GRADIENT(C):? decreased, cool to cool, proximal to distal, B/L.?PIGMENTATION:? rubrous, B/L.?EDEMA(C):? absent, B/L.?CLAUDICATION(C):?denies, B/L.?REST PAIN:?denies, B/L.?Nails: ?NAILS are:?Elongated, overgrown, dystrophic, lytic, greater than 3mm thick, discolored and friable with crumbly malodorous subungual debris, with pain on palpation, T1, T3, T4, T5 (REGROWTH FROM PNA 2020),?T6, T8, T9.?Dermatologic: ?SKIN FINDINGS:? Skin exam reveals Keratotic lesion(s) located at, SUB MTH (s), 1, B/L .? Assessment: * Assessment: 1.?Tinea unguium - B35.1?2.? Atherosclerosis of soboba artery of both lower extremities, with unspecified presence of clinical manifestation - I70.203?3.?Pain in right toe(s) - M79.674?4.?Pain in left toe(s) - M79.675? Plan: * Treatment: 2.?Atherosclerosis of soboba artery of both lower extremities, with unspecified presence of clinical manifestation?Procedure: 21717-RTWL SKIN LESIONS, 2 TO 4 * Procedures:?Debride Nail 6-10:?Nail debridement?Performance of this nail treatment by a nonprofessional would put this patients foot and overall health at risk. Therefore, nail debridement was performed extensively to reduce/remove overall nail length, girth, thickness, subungual debris, and necrotic tissue, by manual and/or electrical means through the use of a nail nipper and/or dremel-type convex grinder operator, to a more viable healthy nail plate or bed tissue 6-10. Silver nitrate used for any petechial bleeding as necessary. Definitive antifungal treatment options have been reviewed and discussed with the patient. The patient chooses, no pharmaceutical tx - 10088.?Keratoma Treatment:?Parring or Cutting of Benign Hyperkeratotic Lesion(s)?(-56) 2-4 Lesions - The Benign hyperkeratotic lesions, as described above were pared, and/or cut utilizing a sterile 15 blade, tissue nippers, and/or dremel - 69164 , Q8.? * Procedure Codes:?33230 DEBRI DE NAIL, 6 OR MORE, Modifiers: XS 10952 TRIM SKIN LESIONS, 2 TO 4, Modifiers: XS , Q8 * Preventive Medicine:? ??Counseling:?BMI Care goal follow-up plan:?BMI counseling provided to patient:?Lifestyle education * Follow Up:?prn * Images: * Sign off status: Completed true * Provider:?Wilber Robles DPM Date:?2023 Generated for Mary hayes/Cady/Bruce on:?08/06/2024 06:28 PM EST History and Physical Notes * HPI (History of Present Illness) Category Sub-Category Detail Notes Category Not es At Risk footcare Pt States Last PCP Visit: Date: 4 Examination Category Sub-Category Detail Notes Category Not es Dermatologic SKIN FINDINGS: Skin exam reveal s Keratotic lesion(s) located at, SUB MTH (s), 1, B/L Vascular DP PULSES(B): 0-1/4, B/L PT PULSES(B): 0/4, B/L CAPILLARY FILL TIME: delayed, all digits , B/L TEMPERTURE GRADIENT(C): decreased, cool to cool, proximal to distal, B/L TROPHIC CONDITION-TEXTURE/ELASTICITY/TURGOR/HAIR GROWTH(B): decreased, with sparse to absent hair gr owth, B/L EDEMA(C): absent, B/L CLAUDICATION(C): denies, B/L REST PAIN: denies, B/L PIGMENTATION: rubrous, B/L Nails NAILS are: Elongated, overg rown, dystrophic, lytic, greater than 3mm thick, discolored and friable with crumbly malodorous subungual debris, with pain on palpation, T1, T3, T4, T5 (REGROWTH FROM PNA 2019), T6, T8, T9
--- OUTSIDE RECORDS SUMMARY | 2024-08-06 18:28 | XMS_ITS ---
Author Organization [facility] Address [address] [place] [address] Care Team Providers Care Rn Visiting Name Role Phone Nickolas, Kartik Primary Care Provider [phone] Wilber Robles Unavailable [phone] Allergies Allergen (clinical drug ingredient) Drug/Non Drug [...] Duration) Notes Start Date End Date Status Tylenol 500mg Oral prn Not-Ta shanna Amoxicillin 500 MG 4 capsules one time Orally Once a day for 1 day(s) 09/19/2019 Not-Taking Meloxicam 15 MG 1 tablet Orally Once a day Not-Taking Zinc Active Zantac 150 MG 1 tablet Orally Twic e a day Active rOPINIRole HCl 1 MG 1 tablet 1 to 3 hour s before bedtime Orally Once a day Active Symbicort 80-4.5 MCG/ACT 2 puffs Inhalat ion Twice a day Active Pantoprazole Sodium Active Tamoxifen Citrate 20 MG TAKE 1 TABLET BY MOUTH EVERY DAY Oral for 30 Active traZODone HCl 50 MG 1 tablet at bedtime Orally Once a day Active Combivent 18-103 MCG/ACT 2 puffs Inhalat ion Four times a day 01/02/2020 Active Flonase 50 MCG/ACT 1 spray in each nost ril Nasally Once a day Active Effexor XR 75 MG 1 capsule with food Orally Once a day Active Omeprazole Active Claritin Active Tamsulosin HCl Activ e CeleBREX Active Acyclovir 5 % 1 application Externally Five times a day for 4 day(s) Active Aleve Active Social History Tobacco Use: Social History Observation Description Date Details (start date - stop date) Never Smoker NA - NA Tobacco Use/Smoking Question Answer Notes Are you a: nonsmoker Alcohol Screen Question Answer Notes Did you have a drink containing alcohol in the p ast year? No Points 0 Interpretation Negative Tobacco use other than smoking: Question Answer Notes Are you an other tobacco user? No Vital Signs Height 4ft 9.5in in 03/28/2024 Weight 200 lbs 03/28/2024 BMI 42.53 kg/m2 03/28/2024 Blood pressure systolic 120 mm Hg 03/28/20 24 Blood pressure diastolic 70 mm Hg 024 Procedures Procedure Date Ordered Date Performed Result Body Sit e 26507-WQXEFNN NAIL, 6 OR MORE 03/28/2024 N/A 97713-ZXLR SKIN LESIONS, 2 TO 4 03/28/2024 N/A Encounters Encounter Location Date Provider Diagnosis [facility] [place] [address] [place] [address] 03/28/2024 Wilber Robles Atherosclerosis of [place] artery of both lower extremities, with unspecified presence of clinical manifestation I70.203 ; Tinea unguium B35.1 ; Pain in right toe(s) M79.674 and Pain in left toe(s) M79.675 Assessments Encounter Date Diagnosis (ICD Code) Assessment Notes Treatment Notes Treatment Clinical Notes Section Notes 03/28/2024 Atherosclerosis of [place] artery of both lower extremities, with unspecified presence of clinical manifestation (ICD-10 - I70.203) 03/28/2024 Tinea unguium (ICD-10 - B35.1) 03/28/2024 Pain in right toe(s) (ICD-10 - M79.674) 03/28/2024 Pain in left toe(s) (ICD-10 - M79.675) Plan Of Treatment Pending Test Test Name Order Date [id number]-DWYACYH NAIL, 6 OR MORE 03/28/2024 42393-TQHZ SKIN LESIONS, 2 TO 4 03/28/20 24 Next Appt Details Follow Up: prn, Reason: Provider Name:Wilber Robles , 09/09/2024 03:00:00 PM, [address] [place], [address], Procedure Notes * Category Sub-Category Detail Notes Debride Nail 6-10 Nail debridement Nail debridem ent performed extensively to reduce/remove overall nail length, girth, thickness, subungual debris, and necrotic tissue, by manual and electrical means through the use of a nail nipper and/or dremel, to more viable healthy nail plate or bed tissue 6-10. Silver nitrate used for any petechial bleeding as necessary. Patient chooses, no pharmaceutical tx (45182) Keratoma Treatment Parring or Cutting o f Benign Hyperkeratotic Lesion(s) 32007 (2-4 Lesions) - The Benign hyperkeratotic lesions, as described above were pared, and/or cut utilizing a sterile #15 blade, tissue nippers, and/or dremel, Q8 Progress Notes * Charisma ASHLEYOB:1950 (73 yo F)Acc No.[id number]:03/28/2024 Progress Note Patient:?Charisma Ashley Provider:?Wilber Robles DPM :1950???Age:73 Y???Sex:Female D ate:03/28/2024 Address[address] Pcp:Stephen Olmos Subjective: * Chief Complaints: * ???At Risk FootcarePainful N ail(s) aggrevated by shoes and causing difficulty standing/walking. * HPI: ???At Risk footcare:?Pt States Last PCP Visit:?Date?01/07/2024 * ROS:?General/Constitutional:?Nausea?denies.?Vomiting?denies.?Hunger Thirst?denies.?Loss appetite?denies.?Chills?denies.?Fatigue?denies.?Fever?denies.?Night Sweats?denies.?Unexplained weight loss?denies.?Ophthalmologic:?Blurred [...] Hospitalization/Major Diagno stic Procedure:?Left side Pain unknown 04/02-04/04/20 * Family History:?Mother: dece ased, foot problems, diagnosed with Unspecified essential hypertension, Unspecified heart disease, Other specified conditions influencing health status.?Father: , diagnosed with Other specified conditions influencing health status.?Maternal Grand Mother: arthritis, foot problems.? * Social History:?Tobacco Use:?Tobacco Use/Smoking?Are you a:?nonsmoker ?Tobacco use other than smoking?Are you an other tobacco user??No ???Drugs/Alcohol:?Drugs?Have you used drugs other than those for medical reasons in the past 12 months??No ?Alcohol Screen?Did you have a drink containing alcohol in the past year??No ?Points?0 ?Interpretation?Negative ???Miscellaneous:?Caffeine: yes, frequency: sometimes. ?Children: yes, 3. [...] Sodium: hivesMorphine: vomitingyes[Allergies Verified] Objective: * Vitals:?Ht: 4ft 9.5in, Wt:20 0, BMI:42.53, Shoe size:6.5, BP:120/70 mm Hg. * Examination: ???Vascular: ?DP PULSES:? 0-1/4, B/L.?PT PULSES:? 0/4, B/L.?CAPILLARY FILL TIME:? delayed, all digits, B/L.?SKIN TEMPERTURE GRADIENT OF THE LOWER EXTERMITIES:? decreased, cool to cool, proximal to distal, B/L.?HAIR GROWTH/TEXTURE/ELASTICITY/TURGOR:? decreased, B/L.?PIGMENTATION:? rubrous, B/L.?EDEMA:? absent, B/L.?CLAUDICATION:?denies, B/L.?REST PAIN:?denies, B/L.?Nails: ?NAILS are:?Elongated, overgrown, dystrophic, lytic, greater than 3mm thick, discolored and friable with crumbly malodorous subungual debris, with pain on palpation, T1, T3, T4, NOW T5(REGROWTH FROM PNA 2019),?T6, T8, T9.?Dermatologic: ?SKIN FINDINGS:? Skin exam reveals Keratotic lesion(s) located at, SUB MTH (s), 1, B/L .? Assessment: * Assessment: 1.?Tinea unguium - B35.1?2.? Atherosclerosis of [place] artery of both lower extremities, with unspecified presence of clinical manifestation - I70.203?3.?Pain in right toe(s) - M79.674?4.?Pain in left toe(s) - M79.675? Plan: * Treatment: 2.?Atherosclerosis of [place] artery of both lower extremities, with unspecified presence of clinical manifestation?Procedure: 55342-GUWV SKIN LESIONS, 2 TO 4 * Procedures:?Debride Nail 6-10:?Nail debridement?Nail debridement performed extensively to reduce/remove overall nail length, girth, thickness, subungual debris, and necrotic tissue, by manual and electrical means through the use of a nail nipper and/or dremel, to more viable healthy nail plate or bed tissue 6-10. Silver nitrate used for any petechial bleeding as necessary. Patient chooses, no pharmaceutical tx (97373).?Keratoma Treatment:?Parring or Cutting of Benign Hyperkeratotic Lesion(s)?55129 (2-4 Lesions) - The Benign hyperkeratotic lesions, as described above were pared, and/or cut utilizing a sterile #15 blade, tissue nippers, and/or dremel, Q8.? * Procedure Codes:?02440 DEBRI DE NAIL, 6 OR MORE, Modifiers: XS 26398 TRIM SKIN LESIONS, 2 TO 4, Modifiers: XS , Q8 * Follow Up:?prn * Images: * Sign off status: Completed true * Provider:?Wilber Robles DPM Date:?2023 Generated for Mary hayes/Cady/Bruce on:?08/06/2024 06:28 PM EST History and Physical Notes * HPI (History of Present Illness) Category Sub-Category Detail Notes Category Not es At Risk footcare Pt States Last PCP Visit: Date: Examination Category Sub-Category Detail Notes Category Not es Dermatologic SKIN FINDINGS: Skin exam reveal s Keratotic lesion(s) located at, SUB MTH (s), 1, B/L Vascular DP PULSES(B): 0-1/4, B/L PT PULSES(B): 0/4, B/L CAPILLARY FILL TIME: delayed, all digits , B/L TEMPERTURE GRADIENT(C): decreased, cool to cool, proximal to distal, B/L TROPHIC CONDITION-TEXTURE/ELASTICITY/TURGOR/HAIR GROWTH(B): decreased, B/L EDEMA(C): absent, B/L CLAUDICATION(C): denies, B/L REST PAIN: denies, B/L PIGMENTATION: rubrous, B/L Nails NAILS are: Elongated, overg rown, dystrophic, lytic, greater than 3mm thick, discolored and friable with crumbly malodorous subungual debris, with pain on palpation, T1, T3, T4, NOW T5(REGROWTH FROM PNA 2019), T6, T8, T9
--- OUTSIDE RECORDS SUMMARY | 2024-08-06 18:28 | XMS_ITS ---
Author Organization [facility] Address [address] [place] [id number] Care Team Providers Care Automation Mechanic Name Role Phone Stephen Olmos Primary Care Provider Wilber Robles Unavailable [phone] Fu Encounters Encounter Location Date Provider Diagnosis [address] [address] 01/18/2024 Wilber Robles Plan Of Treatment Next Appt Details Provider Name:Wilber Robles , 09/09/2024 03:00:00 PM, [address] [place] [address], [phone], Progress Notes * DIONCharisma RichelleOB:1950 (73 yo F)Acc No.[id number]:01/18/2024 Progress Note Patient:?Charisma ASHLEY Provider:?Wilber Robles DPM :1950???Age:73 Y???Sex:Female D ate:01/18/2024 Address:[facility] [phone] Pcp:Stephen Olmos Subjective: * Chief Complaints: * ???1. Dr Fu. * Medical History:? Objective: * Vitals:? Assessment: Plan: * Treatment: * Images: * The named appointment provid er may or may not be the originator of this progress note, and it is not deemed complete until electronically signed by the appointment provider. Sign off status: Pending * Provider:Dina Robles DPM Date:?2023 Generated for Mary hayes/Cady/Bruce on:?08/06/2024 06:28 PM EST
--- OUTSIDE RECORDS SUMMARY | 2024-08-06 18:29 | XMS_ITS | Clinical Summary ---
Author Organization Unknown Care Team Providers Care Plate Straightener Name Role Phone ANA MARÍA BESS, AVI Unavailable Unavailab carey BENSON PT, ALICIA Unavailable Unavailable ADRIEL SECTION CUTTER, LAYNE Unavailable Unavailable Payers Payer Name Policy Type Policy Number Effective Date Expira tion Date MEDICARE.NGS.PDGM [id number] Problems Condition Name Condition Details Condition Category Status Onset Date Resolution Date Last Treatment Date Treating Clinician Comments AFTERCARE FOLLOWING JOINT REPLACEMENT SURGERY Active 2020-08 00:00: 00 PRESENCE OF RIGHT ARTIFICIAL KNEE JOINT Active 2020-08 00:00: 00 CHRONIC OBSTRUCTIVE PULMONARY DISEASE, UNSPECIFIED Active 08-27 00:00: 00 UNSPECIFIED ASTHMA, UNCOMPLICATE D Active 08-27 00:00: 00 DEPRESSION, UNSPECIFIED Active 08-27 00:00: 00 OBSTRUCTIVE SLEEP APNEA (ADULT) (PEDIATRIC) Active 08-27 00:00: 00 RESTLESS LEGS SYNDROME Active 08-27 00:00: 00 OBESITY, UNSPECIFIED Active 08-27 00:00: 00 BODY MASS INDEX [BMI]40.0-44 .9, ADULT Active 08-27 00:00: 00 DEPENDENCE ON OTHER ENABLING MACHINES AND DEVICES Active 08-27 00:00: 00 PERSONAL HISTORY OF MALIGNANT NEOPLASM OF BREAST Active 08-27 00:00: 00 PERSONAL HISTORY OF PEPTIC ULCER DISEASE Active 08-27 00:00: 00 BARIATRIC SURGERY STATUS Active 08-27 00:00: 00 Allergies, Adverse Reactions, Alerts Allergy Name Allergy Type Status Severity Reaction(s) Onset Date Inactive Date Treating Clinician Comments BACTRIM Propensity to adverse reactions Active 2021-06 08:18:2 7 TOLECTIN Propensity to adverse reactions Active 2021-06 08:18:3 8 MORPHINE Propensity to adverse reactions Active 2021-06 08:18:5 1 Medications Ordered Medication Name Filled Medication Name Start Date Stop Date Current Medication? Ordering Clinician Indication Dosage Frequency Signature (SIG) Comments Components aspirin 325 mg tablet,david yed release 2020-08 00:00: 00 Yes [id number] ANTICOAGULA TION 325 mg 2 TIMES DAILY 325 mg 2 TIMES DAILY (route: oral) Med Classific ation: Analgesic , Anti-infl ammatory or Antipyret ic ropinirole 1 mg tablet 05-13 00:00: 00 Yes [id number] RLS 1 mg DAILY 1 mg AMADOR Y (route: oral) Med Classific ation: Central Nervous System Agents docusate sodium 100 mg capsule 2020-08 00:00: 00 Yes [id number] STOOL SOFTNER 100 mg 2 TIMES DAILY 100 mg 2 TIMES DAILY (route: oral) Med Classific ation: Gastroint estinal Therapy Agents trazodone 100 mg tablet 05-12 00:00: 00 Yes [id number] SLEEP AIDE 100 mg BEDTIME 100 mg BEDTIME (route: oral) Med Classific ation: Central Nervous System Agents celecoxib 200 mg capsule 2020-08 00:00: 00 Yes [id number] ANTI INFLAMMATOR Y 200 mg DAILY 200 mg DAILY (route: oral) Med Classific ation: Analgesic , Anti-infl ammatory or Antipyret ic pantoprazol e 40 mg tablet,david yed release 2020-08 00:00: 00 Yes [id number] GERD 40 mg DAILY 40 mg DAILY (route: oral) Med Classific ation: Gastroint estinal Therapy Agents venlafaxine ER 75 mg capsule,ext ended release 24 hr 2020-08 00:00: 00 Yes [id number] ANTIDEPRESS ANT 75 mg 2 TIMES DAILY 75 mg 2 TIMES DAILY (route: oral) Med Classific ation: Central Nervous System Agents meloxicam 15 mg tablet 2020-08 00:00: 00 07-21 00:00 :00 No [id number] Per instruc tions Per instructio ns (route: oral) Med Classific ation: Analgesic , Anti-infl ammatory or Antipyret ic acetaminoph en 325 mg capsule 2020-08 00:00: 00 Yes [id number] PAIN 650 mg EVERY 6 HOURS 650 mg EVERY 6 HOURS (route: oral) Med Classific ation: Analgesic , Anti-infl ammatory or Antipyret ic Calcium 600 + D(3) 600 mg calcium-200 unit capsule 2020-08 00:00: 00 Yes [id number] SUPPLEMENT 1 capsule DAILY 1 capsule DAILY (route: oral) Med Classific ation: Electroly te Balance-N utritiona l Products Combivent Respimat 20 mcg-100 mcg/actuati on solution for inhalation 2020-08 00:00: 00 Yes [id number] COPD 2 puff 4 TIMES DAILY 2 puff 4 TIMES DAILY (route: inhalation ) Med Classific ation: Respirato ry Therapy Agents hydromorpho ne 2 mg tablet 2020-08 00:00: 00 Yes [id number] PAIN Per instruc tions DIRECTED Per instructio ns DIRECTED (route: oral) Med Classific ation: Analgesic , Anti-infl ammatory or Antipyret ic Spectravite Women 50 Plus 8 mg iron-400 mcg-300 mcg tablet 2020-08 00:00: 00 Yes [id number] SUPPLEMENT 1 tablet DAILY 1 tablet DAILY (route: oral) Med Classific ation: Electroly te Balance-N utritiona l Products tramadol 50 mg tablet 2020-08 00:00: 00 Yes [id number] PAIN Per instruc tions DIRECTED Per instructio ns DIRECTED (route: oral) Med Classific ation: Analgesic , Anti-infl ammatory or Antipyret ic Vitamin D3 50 mcg (2,000 unit) capsule 2020-08 00:00: 00 Yes [id number] SUPPLEMENT 100 mcg DAILY 100 mcg DAILY (route: oral) Med Classific ation: Electroly te Balance-N utritiona l Products Vital Signs Vital Name Observation Time Observation Value Commen ts Temperature 2021-07-29 13:52:00.000 97.5 [degF] Temperature 2021-07-27 15:10:00.000 99.1 [degF] Temperature 2021-07-24 10:15:00.000 98.7 [degF] Temperature 2021-07-21 08:47:00.000 97.7 [degF] Height 2021-07-21 08:47:00.000 57 [in_us] Pulse 2021-07-29 13:52:00.000 82 /min Pulse 2021-07-27 15:10:00.000 77 /min Pulse 2021-07-24 10:15:00.000 84 /min Pulse 2021-07-21 08:47:00.000 97 /min O2 Saturation (%) 2021-07-29 13:52:00.000 97 % O2 Saturation (%) 2021-07-24 10:15:00.000 96 % Respirations 2021-07-29 13:52:00.000 16 /min Respirations 2021-07-27 15:10:00.000 16 /min Respirations 2021-07-24 10:15:00.000 18 /min Respirations 2021-07-21 08:47:00.000 18 /min Weight (lbs) 2021-07-21 08:47:00.000 195 [lb_av] Systolic Blood Pressure 2021-07-29 13:52:00.000 120 mm [Hg] Systolic Blood Pressure 2021-07-27 15:10:00.000 138 mm [Hg] Systolic Blood Pressure 2021-07-24 10:15:00.000 118 mm [Hg] Systolic Blood Pressure 2021-07-21 08:47:00.000 128 mm [Hg] Diastolic Blood Pressure 2021-07-29 13:52:00.000 70 mm [Hg] Diastolic Blood Pressure 2021-07-27 15:10:00.000 85 mm [Hg] Diastolic Blood Pressure 2021-07-24 10:15:00.000 72 mm [Hg] Diastolic Blood Pressure 2021-07-21 08:47:00.000 80 mm [Hg] Plan of Treatment Planned Activity Planned Date Details Comments Future Scheduled Test AGENCY MAY PERFORM A RESUMPTION OF CARE VISIT FOLLOWING ANY HOSPITAL ADMISSION. PHYSICAL THERAPY TO EVALUATE, ASSESS AND MONITOR, PROVIDE SKILLED THERAPEUTIC INTERVENTION, ACTIVITY, EDUCATION, AND TRAINING TO ADDRESS: [code = AGENCY MAY PERFORM A RESUMPTION OF CARE VISIT FOLLOWING ANY HOSPITAL ADMISSION. PHYSICAL THERAPY TO EVALUATE, ASSESS AND MONITOR, PROVIDE SKILLED THERAPEUTIC INTERVENTION, ACTIVITY, EDUCATION, AND TRAINING TO ADDRESS:] Future Scheduled Test TRANSFER T RAINING (PT) [code = TRANSFER TRAINING (PT)] Future Scheduled Test GAIT TRAIN ING (PT) [code = GAIT TRAINING (PT)] Future Scheduled Test THERAPEUTI C EXERCISES (PT) [code = THERAPEUTIC EXERCISES (PT)] Future Scheduled Test ORTHOPEDIC SURGICAL AFTERCARE (PT) MAY TEACH PATIENT APPLICATION OF CRYOTHERAPY FOR PAIN AND/OR SWELLING UP TO 20 MIN AT A TIME OVER INCISION/JOINT [code = ORTHOPEDIC SURGICAL AFTERCARE (PT) MAY TEACH PATIENT APPLICATION OF CRYOTHERAPY FOR PAIN AND/OR SWELLING UP TO 20 MIN AT A TIME OVER INCISION/JOINT] Future Scheduled Test KNEE REPLA CEMENT SELF-MANAGEMENT (PT) [code = KNEE REPLACEMENT SELF-MANAGEMENT (PT)] Future Scheduled Test IDENTIFY F ALL RISK FACTORS AND ESTABLISH HOME EXERCISE PROGRAM TO MINIMIZE FALL RISK (PT) [code = IDENTIFY FALL RISK FACTORS AND ESTABLISH HOME EXERCISE PROGRAM TO MINIMIZE FALL RISK (PT)] Future Scheduled Test PAIN MANAG EMENT (PT) [code = PAIN MANAGEMENT (PT)] Future Scheduled Test PHYSICAL T HERAPY TO INSTRUCT PATIENT/CAREGIVER ON RISK FOR HOSPITALIZATION, TEACH SIGNS AND SYMPTOMS THAT PUT PATIENT AT RISK, WHEN TO NOTIFY CLINICIAN OF COMPLICATIONS/DECLINE, AND WHEN TO CALL 911. PHYSICAL THERAPY TO INSTRUCT PATIENT/CAREGIVER ON: SIGNS AND SYMPTOMS TO BE ON ALERT FOR EARLY INTERVENTION, PRIOR TO NEEDING EMERGENCY SERVICES CALL US FIRST TO KEEP [facility] SYMPTOM REPORT FOR VISIBLE REFERENCE NOTIFY CLINICIAN/PHYSICIAN FOR DECLINE IN STATUS WHEN AND HOW TO CALL HOME HEALTH AGENCY FACILITATE PHYSICIAN FOLLOW UP APPOINTMENT IDENTIFY SOCIOECONOMIC CONCERNS AND MAKE APPROPRIATE REFERRAL NEEDED [code = PHYSICAL THERAPY TO INSTRUCT PATIENT/CAREGIVER ON RISK FOR HOSPITALIZATION, TEACH SIGNS AND SYMPTOMS THAT PUT PATIENT AT RISK, WHEN TO NOTIFY CLINICIAN OF COMPLICATIONS/DECLINE, AND WHEN TO CALL 911. PHYSICAL THERAPY TO INSTRUCT PATIENT/CAREGIVER ON: SIGNS AND SYMPTOMS TO BE ON ALERT FOR EARLY INTERVENTION, PRIOR TO NEEDING EMERGENCY SERVICES CALL US FIRST TO KEEP [facility] SYMPTOM REPORT FOR VISIBLE REFERENCE NOTIFY CLINICIAN/PHYSICIAN FOR DECLINE IN STATUS WHEN AND HOW TO CALL HOME HEALTH AGENCY FACILITATE PHYSICIAN FOLLOW UP APPOINTMENT IDENTIFY SOCIOECONOMIC CONCERNS AND MAKE APPROPRIATE REFERRAL NEEDED] Goal 2021-07-29 Patient Goal - WALK WITHOUT PAIN Goal Provider Goal - Goal Provider Goal - PT STG: PATIENT WILL DEMONSTRATE INDEPENDENCE WITH ALL ASPECTS OF BED MOBILITY WITHIN 1 WEEK PT LTG: PATIENT WILL DEMONSTRATE IMPROVED TRANSFERS FROM MIN ASSIST TO INDEPENDENT WITH WALKER WITHIN 1 WEEK Goal Provider Goal - PT STG: PATIENT WILL DEMONSTRATE ADEQUATE STEP LENGTH, FOOT CLEARANCE AND CONSISTENT HEEL STRIKE BILATERALLY TO IMPROVE GAIT PATTERN WITHIN 1 WEEK PT LTG: PATIENT WILL DEMONSTRATE IMPROVED AMBULATION FROM MIN ASSIST TO SUP WITH WALKER WITHIN 2 WEEKS PT LTG: PATIENT WILL DEMONSTRATE IMPROVED SAFETY NEGOTIATING STAIRS FROM MIN ASSIST TO SBA WITH RAIL AND STAIR LIFT WITHIN 2 WEEKS Goal Provider Goal - PT STG: PATIENT WILL DEMONSTRATE INDEPENDENCE WITH LOWER EXTREMITY HOME EXERCISE PROGRAM WITHIN 2 WEEKS PT LTG: PATIENT WILL DEMONSTRATE INCREASED STRENGTH OF RIGHT LE FROM 3-/5 TO 3/5 WITHIN 2 WEEKS IN ORDER TO IMPROVE SAFETY AND STABILITY WITH GAIT AND TRANSFERS PT LTG: PATIENT WILL DEMONSTRATE INCREASED ROM OF RIGHT KNEE FROM -5-76 DEGREES TO 0-120 DEGREES WITHIN 2 WEEKS IN ORDER TO IMPROVE GAIT PATTERN AND TRANSFER TECHNIQUE Goal Provider Goal - PATIENT WILL DEMONSTRATE NORMAL HEALING FOLLOWING SURGERY WITH NO COMPLICATIONS BY DISCHARGE. Goal Provider Goal - PT GOAL: PATIENT WILL DEMONSTRATE OPTIMAL OUTCOMES, INCLUDING INCREASED ROM AND STRENGTH FOLLOWING TKA BY DISCHARGE. Goal Provider Goal - PATIENT/CAREGIVER WILL DEMONSTRATE ADHERENCE TO FALL REDUCTION SELF MANAGEMENT TO MINIMIZE FALL RISK BY DISCHARGE. Goal Provider Goal - PT GOAL: PATIENT/CAREGIVER WILL VERBALIZE UNDERSTANDING OF PAIN MANAGEMENT BY DISCHARGE. Goal Provider Goal - PATIENT/CAREGIVER WILL VERBALIZE UNDERSTANDING OF SIGNS AND SYMPTOMS THAT PUT THE PATIENT AT RISK FOR HOSPITALIZATION, WHEN TO NOTIFY THERAPIST/NURSE OF COMPLICATIONS/DECLINE AND WHEN TO CALL 911. Reason for Visit INDEPENDENT WITH USE OF ASSISTIVE DEVICE Encounters Start Date/Time End Date/Time Encounter Type Admission Type Attending [facility] Care Department Encounter ID Discharge Date Discharge Status Discharge Condition Discharge Reason Percent Goals Met 2021-07-21 00:00:00 2021-07-29 00:00:00 Outpatient NEW ADMISSION ALICIA [facility]SON [facility] [id number] 2021-07-29 00:00:00 DISCHARGE TO HOME OR SELF CARE INDEPENDEN T WITH USE OF ASSISTIVE DEVICE HH ONLY - OUT PATIENT 100.00
--- OUTSIDE RECORDS SUMMARY | 2024-08-06 18:29 | XMS_ITS | Patient Health Record ---
Author Organization [facility] Address [address] [place] [address] Care Team Providers Care Lymphedema Therapist Name Role Phone Stephen Olmos Primary Care Provider [phone] Wilber Robles Unavailable [phone] Allergies Allergen (clinical drug ingredient) Drug/Non Drug Allergy documented on EMR Reaction Allergy Type Onset Date Status sulfamethoxazole / trimethoprim Bactrim hives Drug Allergy Active tolmetin Tolmetin Sodium hives Drug Allergy A ctive morphine Morphine vomiting Drug Allergy Active Reason For Referral No Information Medications Medication SIG (Take, Route, Frequency, Duration) Notes Start Date End Date Status Zantac 150 MG 1 tablet Orally Twic e a day Active Combivent 18-103 MCG/ACT 2 puffs Inhalat ion Four times a day 01/02/2020 Active Meloxicam 15 MG 1 tablet Orally Once a day Not-Taking Claritin Active Zinc Active Flonase 50 MCG/ACT 1 spray in each nost ril Nasally Once a day Active Tylenol 500mg Oral prn Not-Ta shanna Effexor XR 75 MG 1 capsule with food Orally Once a day Active Amoxicillin 500 MG 4 capsules one time Orally Once a day for 1 day(s) 09/19/2019 Not-Taking Pantoprazole Sodium Active Omeprazole Active Tamsulosin HCl Activ e rOPINIRole HCl 1 MG 1 tablet 1 to 3 hour s before bedtime Orally Once a day Active Symbicort 80-4.5 MCG/ACT 2 puffs Inhalat ion Twice a day Active Acyclovir 5 % 1 application Externally Five times a day for 4 day(s) Active Tamoxifen Citrate 20 MG TAKE 1 TABLET BY MOUTH EVERY DAY Oral for 30 Active Aleve Active traZODone HCl 50 MG 1 tablet at bedtime Orally Once a day Active CeleBREX Active Immunizations Vaccine Route Administration Date Status Comme nts COVID-19 Pfizer BioNTech Vaccine Unknown 06/16/2021 Administered 1st 11/23/20 2nd 12/16/20 Social History Tobacco Use: Social History Observation [...] Are you an other tobacco user? No Problems Problem Type SNOMED Code ICD Code Onset Dates Problem Status W/U Status Risk Notes Problem Atherosclerosis of [place] arteries of the extremities (136242106142034) Atherosclerosis of [place] artery of both lower extremities, with unspecified presence of clinical manifestation (I70.203) Active confirmed Vital Signs Blood pressure diastolic 70 mm Hg 06/13/2024 Height 4ft9.5in in 06/13/2024 Blood pressure systolic 128 mm Hg 06/13/2024 Weight 198 lbs 06/13/2024 BMI 42.1 kg/m2 06/13/2024 Procedures Procedure Date Ordered Date Performed Result Body Sit e 59827-WHCGTZM NAIL, 6 OR MORE 11/02/2023 N/A 03806-JYRX SKIN LESIONS, 2 TO 4 11/02/2023 N/A 53464-EQAOJNO NAIL, 6 OR MORE 03/28/2024 N/A 64871-JUIJ SKIN LESIONS, 2 TO 4 03/28/2024 N/A 49590-JUJKIPP NAIL, 6 OR MORE 06/13/2024 N/A 80938-SONZ SKIN LESIONS, 2 TO 4 06/13/2024 N/A Encounters Encounter Location Date [facility] [address] 11/02/2023 Wilber Robles Atherosclerosis of [place] artery of both lower extremities, with unspecified presence of clinical manifestation I70.203 ; Tinea unguium B35.1 ; Pain in right toe(s) M79.674 and Pain in left toe(s) M79.675 [facility] [place] [address] 03/28/2024 Wilber Robles Atherosclerosis of [place] artery of both lower extremities, with unspecified presence of clinical manifestation I70.203 ; Tinea unguium B35.1 ; Pain in right toe(s) M79.674 and Pain in left toe(s) M79.675 [facility] [address] [address] 06/13/2024 Wilber Robles Atherosclerosis of [place] artery of both lower extremities, with unspecified presence of clinical manifestation I70.203 ; Tinea unguium B35.1 ; Pain in right toe(s) M79.674 and Pain in left toe(s) M79.675 Assessments Encounter Date Diagnosis (ICD Code) Assessment Notes Treatment Notes Treatment Clinical Notes Section Notes 11/02/2023 Tinea unguium (ICD-10 - B35.1) 11/02/2023 Atherosclerosis of [place] artery of both lower extremities, with unspecified presence of clinical manifestation (ICD-10 - I70.203) 03/28/2024 Tinea unguium (ICD-10 - B35.1) 03/28/2024 Atherosclerosis of [place] artery of both lower extremities, with unspecified presence of clinical manifestation (ICD-10 - I70.203) 06/13/2024 Tinea unguium (ICD-10 - B35.1) 06/13/2024 Atherosclerosis of [place] artery of both lower extremities, with unspecified presence of clinical manifestation (ICD-10 - I70.203) 03/28/2024 Pain in right toe(s) (ICD-10 - M79.674) 06/13/2024 Pain in right toe(s) (ICD-10 - M79.674) 11/02/2023 Pain in right toe(s) (ICD-10 - M79.674) 11/02/2023 Pain in left toe(s) (ICD-10 - M79.675) 06/13/2024 Pain in left toe(s) (ICD-10 - M79.675) 03/28/2024 Pain in left toe(s) (ICD-10 - M79.675) Plan Of Treatment Pending Test Test Name Order Date X ray : Foot, left 3V 04/19/2017 08439-EZSZWVR NAIL, 6 OR MORE 12/05/2013 92422-BLSPULD NAIL, 6 OR MORE 08/07/2017 88899-HCSDIYA NAIL, 6 OR MORE 11/13/2017 93900-OUPFWLT NAIL, 6 OR MORE 02/19/2018 15525-CPGJQPP NAIL, 6 OR MORE 04/30/2018 23168-OGUPKOE NAIL, 6 OR MORE 07/23/2018 01690-IVWRKFK NAIL, 6 OR MORE 10/15/2018 20986-FSUWEIM NAIL, 6 OR MORE 03/13/2014 31647-IXNIDIM NAIL, 6 OR MORE 06/16/2014 04164-QMIJXSZ NAIL, 6 OR MORE 12/08/2014 88133-FPDRVTL NAIL, 6 OR MORE 03/05/2015 21903-APWRLHN NAIL, 6 OR MORE 06/08/2015 97536-OGZATEQ NAIL, 6 OR MORE 09/14/2015 64784-SUHGCHW NAIL, 6 OR MORE 12/28/2015 93841-OCTJSYL NAIL, 6 OR MORE 03/31/2016 87324-RTMAQQN NAIL, 6 OR MORE 07/04/2016 12425-JNWQLMG NAIL, 6 OR MORE 10/03/2016 22948-BQBFKHB NAIL, 6 OR MORE 01/07/2019 16166-VLZUENP NAIL, 6 OR MORE 04/01/2019 37191-ANHHMDQ NAIL, 6 OR MORE 05/18/2017 43962-PJWEIES NAIL, 6 OR MORE 08/01/2019 31947-HTRSXEN NAIL, 6 OR MORE 10/31/2019 25367-OGREGAP NAIL, 6 OR MORE 01/23/2020 17467-BIULNSX NAIL, 6 OR MORE 04/09/2020 54712-KQLWKQH NAIL, 6 OR MORE 07/02/2020 58067-GZEGKIN NAIL, 6 OR MORE 09/24/2020 81005-GZXIRBR NAIL, 6 OR MORE 12/07/2020 44268-REWCMTG NAIL, 6 OR MORE 02/15/2021 84944-SOCKZWC NAIL, 6 OR MORE 05/10/2021 94911-TTEIMFD NAIL, 6 OR MORE 01/02/2017 43766-SIRLNQH NAIL, 6 OR MORE 07/26/2021 90964-FUOXHIA NAIL, 6 OR MORE 11/04/2021 13586-ENHZQIR NAIL, 6 OR MORE 01/06/2022 62986-DKLITLV NAIL, 6 OR MORE 03/14/2022 35439-NRPKFXG NAIL, 6 OR MORE 07/03/2022 98305-VQELVUB NAIL, 6 OR MORE 09/12/2022 14308-WNUNHFC NAIL, 6 OR MORE 11/21/2022 12940-RSRQPXY NAIL, 6 OR MORE 02/09/2023 09387-YFQCVPX NAIL, 6 OR MORE 05/11/2023 65347-RDVMFGH NAIL, 6 OR MORE 08/03/2023 46118-BXDCLOO NAIL, 6 OR MORE 11/02/2023 03596-DXSLFPR NAIL, 6 OR MORE 03/28/2024 75161-UOOCDTE NAIL, 6 OR MORE 06/13/2024 39768-Ohrqxmks Plate 05/11/2023 69992-Zspphsry Plate 11/21/2022 70139-Qqkgdpmj Plate 03/14/2022 34829-Yskpuyrp Plate 04/01/2021 73628-Gzgpagxw Plate 05/10/2021 78738-Rloozvgj Plate 02/15/2021 76230-Uwistols Plate 12/07/2020 33586-Cnokwfcn Plate 09/24/2020 94281-Fovzkkdl Plate 07/02/2020 56683-Qieuciiq Plate 04/09/2020 37775-Zhgtytyl Plate 10/31/2019 94906-Turgfhhg Plate 08/01/2019 75747-Prvmfrce Plate 05/18/2017 72008-Tvqbnbdm Plate 04/01/2019 38640-Qcvmpcjt Plate 10/03/2016 30674-Kavtdjdv Plate 06/08/2015 70833-Hsesgktw Plate 10/15/2018 18416-Deeegetz Plate Each Additional 02/2017 78244-SPA 06/27/2019 78876-XJP 12/19/2019 05660-FYS 06/27/2021 67087- Debride <25 sq cm 07/26/2021 48346- Debride <25 sq cm 04/09/2020 22562-FIOXIVT SKIN/TISSUE 01/23/2020 60220-BNUXVYG SKIN/TISSUE 01/02/2020 15981-UNZABWN SKIN/TISSUE 07/11/2019 12819-YNLORMO SKIN/TISSUE 07/14/2021 32565 I&D ABSCESS- SIMPLE,SINGLE 017 11440-OCMU SKIN LESIONS, 2 TO 4 11/22/19 23 12112-UJVA SKIN LESIONS, 2 TO 4 09/12/19 23 31374-UEWR SKIN LESIONS, 2 TO 4 11/02/19 24 30508-YBSA SKIN LESIONS, 2 TO 4 08/03/20 23 60481-VNDH SKIN LESIONS, 2 TO 4 05/11/20 17808-DXFU SKIN LESIONS, 2 TO 4 02/10/20 23 64718-LLPF SKIN LESIONS, 2 TO 4 06/13/20 24 78027-LTRB SKIN LESIONS, 2 TO 4 03/28/20 47383- Biopsy of skin lesion 12/05/2013 54497- Biopsy of Addt'l Lesions 12/06/19 14 73224 - Tenotomy, open flexor 09/19/2019 74839 - Tenotomy, open flexor 03/18/2021 Next Appt Details Provider Name:Wilber Robles , 09/09/2024 03:00:00 PM, [address] [place] [address], [phone], Insurance Providers Payer Name Payer Address Payer Phone Subscriber Number Group Number Insured Name Patient Relationship to Insured Coverage Start Date Coverage End Date Medicare [facility] [employer] [address] [place] [address] [id number] Charisma Ashley Self - patient is the insured [employer] [address] [place] [address] [id number] Charisma Ashley Self - patient is the insured Medical (General) History Medical History History ICD Code Arthritis asthma Back,Hip,and Knee pain Hepatitis as a child Hiatal hernia Measles Mumps Chicken pox Surgical History Surgery Date(Month/Year) intetinal,complication of infection 04/27 989 hernia 12/29, 01/04 gastrectomy 05/06 breast reduction 02/05 skin removal 02/05 left knee replacement 02/06 lumpectomy on right breast 10/20/2014 HT L2nd/Relocation L2nd MTPJ 03/07/2017 right knee replacement 07/19/2021 Hospitalization History Reason Date(Month/Year) C/Rai-Kidney stone 03/22/24 Left side Pain unknown 04/02-04/04/20
== END 2024-08-05 06:20 | disposition home or self-care (01) ==
LOC: CF 06:19
PROVIDERS: Visit Provider Anesthesiology
DX: M53.3 Sacrococcygeal disorders, not elsewhere classified (principal); M46.1 Sacroiliitis, not elsewhere classified
CPT/HCPCS: 27096; J2003; J2795; J3301; Q9967

== ENCOUNTER 2024-08-05 14:17 | Outpatient (AMB) | payer MEDICARE, SELFPAY ==
[2024-08-05 14:24] VITALS: BP 130/82; PULSE 85; RESP 14; O2SAT 97
--- NOTE | 2024-08-05 14:24 | A.OFFVIS_ITS ---
Vital Signs 08/05/24 14:24 08/05/24 14:48 BP 130/82 140/88 H Blood Pressure Location Lt brachial Lt brachial Position Sitting Sitting Respiration 14 16 Pulse 85 90 Pulse Source Pulse Oximeter Pulse Oximeter Pulse Oximetry (%) 97 98 Oxygen Delivery Method Room Air Room Air Intake Visit Reasons: BILATERAL SIJ INJECTION Allergies morphine [MORPHINE] Allergy (Severe, Verified 08/05/24 14:25) VOMITING, hives/stomach upset tolmetin [From TOLECTIN] Allergy (Severe, Verified 08/05/24 14:25) HIVES Sulfa (Sulfonamide Antibiotics) Allergy (Intermediate, Verified 08/05/24 14:25) hives Medication List - Last Reconciled 08/05/24 by Georgia Tsai LPN albuterol sulfate 90 mcg/actuation 2 puffs PO Q4-6H PRN calcium carbonate (Calcium 600) 600 mg PO DAILY cholecalciferol (vitamin D3) 25 mcg PO DAILY gabapentin (Neurontin) 100 mg PO TID 30 days multivitamin 1 tab PO DAILY naloxone 4 mg/actuation 4 mg intranasal Q3M PRN 1 day pantoprazole 40 mg PO DAILY polyethylene glycol 3350 (Miralax) 17 grams PO DAILY ropinirole 2 mg (2 x 1 mg) PO BEDTIME 90 days tamsulosin 0.4 mg PO DAILY tramadol 50 mg PO DAILY 30 days trazodone 100 mg PO BEDTIME venlafaxine ER 75 mg PO DAILY zinc 50 mg PO DAILY [facility] Medical History Chronic pain syndrome Somatic dysfunction of both sacroiliac joints Allergic rhinitis Anxiety Hx of radiation therapy Tracheobronchitis Endogenous depression Viral wart on finger GERD (gastroesophageal reflux disease) Osteoarthritis Hernia Perforation bowel Arthritis COPD (chronic obstructive pulmonary disease) [place] on CPAP Obesity (BMI 35.0-39.9 without comorbidity) Surgical History History of colon surgery Hx of colonoscopy History of total right knee replacement H/O bilateral breast reduction surgery H/O lumpectomy History of left knee replacement History of gastric bypass Family History Mother No problems noted. Father No problems noted. 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 a primary respiratory care program director to a significant other at home: Yes () Do you presently have visiting nurse or other home services: No Alcohol intake: current Alcohol intake frequency: does not drink Alcohol type: wine Patient Tobacco Use Status: Never used Tobacco Tobacco use type: Cigarette e-Cigarette/Vaping Use: Never Used Second Hand Smoke Exposure: No service: No Current occupational status: retired Cognitive needs: No Hearing needs: Yes (hearing aide) Vision needs: Yes (Glasses) Female Reproductive History Menstrual Age of Menarche: 15 Physical Exam Vital Signs: Last Vital Signs Pulse 90 08/05/24 14:48 Resp 16 08/05/24 14:48 BP 140/88 H 08/05/24 14:48 Pulse Ox 98 08/05/24 14:48 Oxygen Delivery Method Room Air 08/05/24 14:48 Assessment & Plan Assessment & Plan (1) Sacroiliac joint dysfunction of both sides: Code(s): M53.3 - Sacrococcygeal disorders, not elsewhere classified Category: Medical (2) Sacroiliitis: Code(s): M46.1 - Sacroiliitis, not elsewhere classified Category: Medical Plan bilateral sacroiliac joint injection Informed consent was explained thoroughly to the patient.? All questions about benefits and risks for the procedure were answered. Patient came to the operating room and was positioned prone on the operating table with the pillow under her pelvis. ?[employer] [employer] monitors were applied and patient was sedated. ? Time out was performed delineating name and of the patient, site and side of the procedure, nature of the procedure and potential patient?s risks. The lower back of the patient and upper buttocks was prepped with ChloraPrep prepped and draped with sterile utility drapes.? C-arm was brought over the operating field and square picture of patient's pelvis was demonstrated on the screen.? For the right and left joint tilting C-arm contralateral to the site of the joint the posterior joint silhouette was delineated on the screen. Skin projection of the joint was chosen as a target of the injection and it was injected ?slightly medial to the location of the joint with 25 gauge needle using local lidocaine 2% without epinephrine. After that 22 gauge 3 and 1/2 inch needle was driven to the joint silhouette in tunnel vision fashion.? When needle entered the joint capsule injection of the contrast was performed demonstrating intra-articular spread of the contrast.? After that 4 cc. of ropivacaine 0.5% mixed with kenalog 40 mg was injected into the joint. Upon completion of the injections the needle was removed and sterile dressing was applied.? Upon completion of the injection patient was awaken taken outside of the operating room to the recovery room where recovered uneventfully.? Orders: Orders FL guidance in treatment room 08/05/24 M53.3 - Sacrococcygeal disorders, not elsewhere classified Coding Level of Care Code Procedure Only Diagnoses Sacroiliac joint dysfunction of both sides M53.3 Sacroiliitis M46.1
[2024-08-05 14:48] VITALS: BP 140/88; PULSE 90; RESP 16; O2SAT 98
--- OUTSIDE RECORDS SUMMARY | 2024-08-06 22:03 | XMS_ITS | Clinical Summary ---
Author Organization Unknown Care Team Providers Care Place Change Roof Bolter Name Role Phone ANA MARÍA BESS, AVI Unavailable Unavailab carey BENSON PT, ALICIA Unavailable Unavailable ADRIEL MANAGER BUSINESS BANKING, LAYNE Unavailable Unavailable Payers Payer Name Policy Type Policy Number Effective Date Expira tion Date MEDICARE.NGS.PDGM [id number] Problems Condition Name Condition Details Condition Category [...] tablet,david yed release 2020-08 00:00: 00 Yes [id number] ANTICOAGULA TION 325 mg 2 TIMES DAILY 325 mg 2 TIMES DAILY (route: oral) Med Classific ation: Analgesic , Anti-infl ammatory or Antipyret ic ropinirole 1 mg tablet 05-13 00:00: 00 Yes [id number] RLS 1 mg DAILY 1 mg AMADOR Y (route: oral) Med Classific ation: Central Nervous System Agents docusate sodium 100 mg capsule 2020-08 00:00: 00 Yes [id number] STOOL SOFTNER 100 mg 2 TIMES DAILY 100 mg 2 TIMES DAILY (route: oral) Med Classific ation: Gastroint estinal Therapy Agents trazodone 100 mg tablet 05-12 00:00: 00 Yes [id number] SLEEP AIDE 100 mg BEDTIME 100 mg BEDTIME (route: oral) Med Classific ation: Central Nervous System Agents celecoxib 200 mg capsule 2020-08 00:00: 00 Yes [id number] ANTI INFLAMMATOR Y 200 mg DAILY 200 mg DAILY (route: oral) Med Classific ation: Analgesic , Anti-infl ammatory or Antipyret ic pantoprazol e 40 mg tablet,david yed release 2020-08 00:00: 00 Yes [id number] GERD 40 mg DAILY 40 mg DAILY (route: oral) Med Classific ation: Gastroint estinal Therapy Agents venlafaxine ER 75 mg capsule,ext ended release 24 hr 2020-08 00:00: 00 Yes [id number] ANTIDEPRESS ANT 75 mg 2 TIMES DAILY 75 mg 2 TIMES DAILY (route: oral) Med Classific ation: Central Nervous System Agents meloxicam 15 mg tablet 2020-08 00:00: 00 07-21 00:00 :00 No [id number] Per instruc tions Per instructio ns (route: oral) Med Classific ation: Analgesic , Anti-infl ammatory or Antipyret ic acetaminoph en 325 mg capsule 2020-08 00:00: 00 Yes [id number] PAIN 650 mg EVERY 6 HOURS 650 mg EVERY 6 HOURS (route: oral) Med Classific ation: Analgesic , Anti-infl ammatory or Antipyret ic Calcium 600 + D(3) 600 mg calcium-200 unit capsule 2020-08 00:00: 00 Yes [id number] SUPPLEMENT 1 capsule DAILY 1 capsule DAILY (route: oral) Med Classific ation: Electroly te Balance-N utritiona l Products Combivent Respimat 20 mcg-100 mcg/actuati on solution for inhalation 2020-08 00:00: 00 Yes [id number] COPD 2 puff 4 TIMES DAILY 2 puff 4 TIMES DAILY (route: inhalation ) Med Classific ation: Respirato ry Therapy Agents hydromorpho ne 2 mg tablet 2020-08 00:00: 00 Yes [id number] PAIN Per instruc tions DIRECTED Per instructio ns DIRECTED (route: oral) Med Classific ation: Analgesic , Anti-infl ammatory or Antipyret ic Spectravite Women 50 Plus 8 mg iron-400 mcg-300 mcg tablet 2020-08 00:00: 00 Yes [id number] SUPPLEMENT 1 tablet DAILY 1 tablet DAILY (route: oral) Med Classific ation: Electroly te Balance-N utritiona l Products tramadol 50 mg tablet 2020-08 00:00: 00 Yes [id number] PAIN Per instruc tions DIRECTED Per instructio ns DIRECTED (route: oral) Med Classific ation: Analgesic , Anti-infl ammatory or Antipyret ic Vitamin D3 50 mcg (2,000 unit) capsule 2020-08 00:00: 00 Yes [id number] SUPPLEMENT 100 mcg DAILY 100 mcg DAILY [...] EMERGENCY SERVICES CALL US FIRST TO KEEP ROCKBOARD LATHER SYMPTOM REPORT FOR VISIBLE REFERENCE NOTIFY CLINICIAN/PHYSICIAN [...] EMERGENCY SERVICES CALL US FIRST TO KEEP ROCKBOARD LATHER SYMPTOM REPORT FOR VISIBLE REFERENCE NOTIFY CLINICIAN/PHYSICIAN [...] End Date/Time Encounter Type Admission Type Attending [facility] Care Department Encounter ID Discharge Date Discharge Status Discharge Condition Discharge Reason Percent Goals Met 2021-07-21 00:00:00 2021-07-29 00:00:00 Outpatient NEW ADMISSION ALICIA B[facility]SON [facility] [id number] 2021-07-29 00:00:00 DISCHARGE TO HOME OR SELF CARE INDEPENDEN T WITH USE OF ASSISTIVE DEVICE HH ONLY - OUT PATIENT 100.00
--- OUTSIDE RECORDS SUMMARY | 2024-08-06 22:03 | XMS_ITS | Clinical Summary ---
Author Organization Unknown Care Team Providers Care Consulting Sales Manager Name Role Phone ANA MARÍA BESS, AVI Unavailable Unavailab carey BENSON PT, ALICIA Unavailable Unavailable ADRIEL ELECTRICAL ENGINEERING INTERN, LAYNE Unavailable Unavailable Payers Payer Name Policy Type Policy Number Effective Date Expira tion Date MEDICARE.NGS.PDGM [id number] Problems Condition Name Condition Details Condition Category [...] tablet,david yed release 2020-08 00:00: 00 Yes [id number] ANTICOAGULA TION 325 mg 2 TIMES DAILY 325 mg 2 TIMES DAILY (route: oral) Med Classific ation: Analgesic , Anti-infl ammatory or Antipyret ic ropinirole 1 mg tablet 05-13 00:00: 00 Yes [id number] RLS 1 mg DAILY 1 mg AMADOR Y (route: oral) Med Classific ation: Central Nervous System Agents docusate sodium 100 mg capsule 2020-08 00:00: 00 Yes [id number] STOOL SOFTNER 100 mg 2 TIMES DAILY 100 mg 2 TIMES DAILY (route: oral) Med Classific ation: Gastroint estinal Therapy Agents trazodone 100 mg tablet 05-12 00:00: 00 Yes [id number] SLEEP AIDE 100 mg BEDTIME 100 mg BEDTIME (route: oral) Med Classific ation: Central Nervous System Agents celecoxib 200 mg capsule 2020-08 00:00: 00 Yes [id number] ANTI INFLAMMATOR Y 200 mg DAILY 200 mg DAILY (route: oral) Med Classific ation: Analgesic , Anti-infl ammatory or Antipyret ic pantoprazol e 40 mg tablet,david yed release 2020-08 00:00: 00 Yes [id number] GERD 40 mg DAILY 40 mg DAILY (route: oral) Med Classific ation: Gastroint estinal Therapy Agents venlafaxine ER 75 mg capsule,ext ended release 24 hr 2020-08 00:00: 00 Yes [id number] ANTIDEPRESS ANT 75 mg 2 TIMES DAILY 75 mg 2 TIMES DAILY (route: oral) Med Classific ation: Central Nervous System Agents meloxicam 15 mg tablet 2020-08 00:00: 00 07-21 00:00 :00 No [id number] Per instruc tions Per instructio ns (route: oral) Med Classific ation: Analgesic , Anti-infl ammatory or Antipyret ic acetaminoph en 325 mg capsule 2020-08 00:00: 00 Yes [id number] PAIN 650 mg EVERY 6 HOURS 650 mg EVERY 6 HOURS (route: oral) Med Classific ation: Analgesic , Anti-infl ammatory or Antipyret ic Calcium 600 + D(3) 600 mg calcium-200 unit capsule 2020-08 00:00: 00 Yes [id number] SUPPLEMENT 1 capsule DAILY 1 capsule DAILY (route: oral) Med Classific ation: Electroly te Balance-N utritiona l Products Combivent Respimat 20 mcg-100 mcg/actuati on solution for inhalation 2020-08 00:00: 00 Yes [id number] COPD 2 puff 4 TIMES DAILY 2 puff 4 TIMES DAILY (route: inhalation ) Med Classific ation: Respirato ry Therapy Agents hydromorpho ne 2 mg tablet 2020-08 00:00: 00 Yes [id number] PAIN Per instruc tions DIRECTED Per instructio ns DIRECTED (route: oral) Med Classific ation: Analgesic , Anti-infl ammatory or Antipyret ic Spectravite Women 50 Plus 8 mg iron-400 mcg-300 mcg tablet 2020-08 00:00: 00 Yes [id number] SUPPLEMENT 1 tablet DAILY 1 tablet DAILY (route: oral) Med Classific ation: Electroly te Balance-N utritiona l Products tramadol 50 mg tablet 2020-08 00:00: 00 Yes [id number] PAIN Per instruc tions DIRECTED Per instructio ns DIRECTED (route: oral) Med Classific ation: Analgesic , Anti-infl ammatory or Antipyret ic Vitamin D3 50 mcg (2,000 unit) capsule 2020-08 00:00: 00 Yes [id number] SUPPLEMENT 100 mcg DAILY 100 mcg DAILY [...] EMERGENCY SERVICES CALL US FIRST TO KEEP DECK CADET SYMPTOM REPORT FOR VISIBLE REFERENCE NOTIFY CLINICIAN/PHYSICIAN [...] EMERGENCY SERVICES CALL US FIRST TO KEEP DECK CADET SYMPTOM REPORT FOR VISIBLE REFERENCE NOTIFY CLINICIAN/PHYSICIAN [...] 2021-07-29 00:00:00 Outpatient NEW ADMISSION [facility] [id number] 2021-07-29 00:00:00 DISCHARGE TO HOME OR SELF CARE INDEPENDEN T WITH USE OF ASSISTIVE DEVICE HH ONLY - OUT PATIENT 100.00
== END 2024-08-05 15:01 | disposition home or self-care (01) ==
LOC: HO.PMCPRC 14:17
PROVIDERS: PCP Internal Medicine; Visit Provider Anesthesiology
DX: M53.3 Sacrococcygeal disorders, not elsewhere classified (principal); M46.1 Sacroiliitis, not elsewhere classified
CPT/HCPCS: 27096

== ENCOUNTER 2024-08-12 12:31 | Outpatient (AMB) | payer MEDICARE, SELFPAY ==
--- OUTSIDE RECORDS SUMMARY | 2024-08-12 12:33 | XMS_ITS | Clinical Summary ---
Author Organization Unknown Care Team Providers Care Industrial Hygenist Name Role Phone ANA MARÍA BESS, AVI Unavailable Unavailab carey BENSON PT, ALICIA Unavailable Unavailable ADRIEL GENERAL MAINTENANCE HELPER, LAYNE Unavailable Unavailable Payers Payer Name Policy Type Policy Number Effective Date Expira tion Date MEDICARE.NGS.PDGM [id number] Problems Condition Name Condition Details Condition Category [...] tablet,david yed release 2020-08 00:00: 00 Yes [id number] ANTICOAGULA TION 325 mg 2 TIMES DAILY 325 mg 2 TIMES DAILY (route: oral) Med Classific ation: Analgesic , Anti-infl ammatory or Antipyret ic ropinirole 1 mg tablet 05-13 00:00: 00 Yes [id number] RLS 1 mg DAILY 1 mg AMADOR Y (route: oral) Med Classific ation: Central Nervous System Agents docusate sodium 100 mg capsule 2020-08 00:00: 00 Yes [id number] STOOL SOFTNER 100 mg 2 TIMES DAILY 100 mg 2 TIMES DAILY (route: oral) Med Classific ation: Gastroint estinal Therapy Agents trazodone 100 mg tablet 05-12 00:00: 00 Yes [id number] SLEEP AIDE 100 mg BEDTIME 100 mg BEDTIME (route: oral) Med Classific ation: Central Nervous System Agents celecoxib 200 mg capsule 2020-08 00:00: 00 Yes [id number] ANTI INFLAMMATOR Y 200 mg DAILY 200 mg DAILY (route: oral) Med Classific ation: Analgesic , Anti-infl ammatory or Antipyret ic pantoprazol e 40 mg tablet,david yed release 2020-08 00:00: 00 Yes [id number] GERD 40 mg DAILY 40 mg DAILY (route: oral) Med Classific ation: Gastroint estinal Therapy Agents venlafaxine ER 75 mg capsule,ext ended release 24 hr 2020-08 00:00: 00 Yes [id number] ANTIDEPRESS ANT 75 mg 2 TIMES DAILY 75 mg 2 TIMES DAILY (route: oral) Med Classific ation: Central Nervous System Agents meloxicam 15 mg tablet 2020-08 00:00: 00 07-21 00:00 :00 No [id number] Per instruc tions Per instructio ns (route: oral) Med Classific ation: Analgesic , Anti-infl ammatory or Antipyret ic acetaminoph en 325 mg capsule 2020-08 00:00: 00 Yes [id number] PAIN 650 mg EVERY 6 HOURS 650 mg EVERY 6 HOURS (route: oral) Med Classific ation: Analgesic , Anti-infl ammatory or Antipyret ic Calcium 600 + D(3) 600 mg calcium-200 unit capsule 2020-08 00:00: 00 Yes [id number] SUPPLEMENT 1 capsule DAILY 1 capsule DAILY (route: oral) Med Classific ation: Electroly te Balance-N utritiona l Products Combivent Respimat 20 mcg-100 mcg/actuati on solution for inhalation 2020-08 00:00: 00 Yes [id number] COPD 2 puff 4 TIMES DAILY 2 puff 4 TIMES DAILY (route: inhalation ) Med Classific ation: Respirato ry Therapy Agents hydromorpho ne 2 mg tablet 2020-08 00:00: 00 Yes [id number] PAIN Per instruc tions DIRECTED Per instructio ns DIRECTED (route: oral) Med Classific ation: Analgesic , Anti-infl ammatory or Antipyret ic Spectravite Women 50 Plus 8 mg iron-400 mcg-300 mcg tablet 2020-08 00:00: 00 Yes [id number] SUPPLEMENT 1 tablet DAILY 1 tablet DAILY (route: oral) Med Classific ation: Electroly te Balance-N utritiona l Products tramadol 50 mg tablet 2020-08 00:00: 00 Yes [id number] PAIN Per instruc tions DIRECTED Per instructio ns DIRECTED (route: oral) Med Classific ation: Analgesic , Anti-infl ammatory or Antipyret ic Vitamin D3 50 mcg (2,000 unit) capsule 2020-08 00:00: 00 Yes [id number] SUPPLEMENT 100 mcg DAILY 100 mcg DAILY [...] EMERGENCY SERVICES CALL US FIRST TO KEEP BOW STAPLER SYMPTOM REPORT FOR VISIBLE REFERENCE NOTIFY CLINICIAN/PHYSICIAN [...] EMERGENCY SERVICES CALL US FIRST TO KEEP BOW STAPLER SYMPTOM REPORT FOR VISIBLE REFERENCE NOTIFY CLINICIAN/PHYSICIAN [...] End Date/Time Encounter Type Admission Type Attending [facility] Care Department Encounter ID Discharge Date Discharge Status Discharge Condition Discharge Reason Percent Goals Met 2021-07-21 00:00:00 2021-07-29 00:00:00 Outpatient NEW ADMISSION ALICIA B[facility]SON [facility] [id number] 2021-07-29 00:00:00 DISCHARGE TO HOME OR SELF CARE INDEPENDEN T WITH USE OF ASSISTIVE DEVICE HH ONLY - OUT PATIENT 100.00
--- OUTSIDE RECORDS SUMMARY | 2024-08-12 12:33 | XMS_ITS ---
Author Organization [facility] Address [address] [place] [address] Care Team Providers Care Information Specialist Name Role Phone Nickolas, Kartik Primary Care Provider Wilber Robles Unavailable [phone] Allergies Allergen (clinical drug ingredient) Drug/Non Drug [...] Ordered Date Performed Result Body Sit e 14733-TLIGXVF NAIL, 6 OR MORE 03/28/2024 N/A 08999-TSNL SKIN LESIONS, 2 TO 4 03/28/2024 N/A Encounters Encounter Location Date Provider Diagnosis [facility] [address] [place] [address] 03/28/2024 Wilber Robles Atherosclerosis of [place] artery of both lower extremities, with unspecified presence of clinical manifestation I70.203 ; Tinea unguium B35.1 ; Pain in right toe(s) M79.674 and Pain in left toe(s) M79.675 Assessments Encounter Date Diagnosis (ICD Code) Assessment Notes Treatment Notes Treatment Clinical Notes Section Notes 03/28/2024 Atherosclerosis of [place] artery of both lower extremities, with unspecified presence of clinical manifestation (ICD-10 - I70.203) 03/28/2024 Tinea unguium (ICD-10 - B35.1) 03/28/2024 Pain in right toe(s) (ICD-10 - M79.674) 03/28/2024 Pain in left toe(s) (ICD-10 - M79.675) Plan Of Treatment Pending Test Test Name Order Date 46363-UZGBKRL NAIL, 6 OR MORE 03/28/2024 66812-EHTT SKIN LESIONS, 2 TO 4 03/28/20 24 Next Appt Details Follow Up: prn, Reason: Provider Name:Wilber Robles , 09/09/2024 03:00:00 PM, [address] [place], [address], Procedure Notes * Category Sub-Category Detail Notes [...] as necessary. Patient chooses, no pharmaceutical tx (54060) Keratoma Treatment Parring or Cutting o f Benign Hyperkeratotic Lesion(s) 22580 (2-4 Lesions) - The Benign hyperkeratotic lesions, as described above were pared, and/or cut utilizing a sterile #15 blade, tissue nippers, and/or dremel, Q8 Progress Notes * Charisma ASHLEYOB:1950 (73 yo F)Acc No.[id number]:03/28/2024 Progress Note Patient:?Charisma Ashley Provider:?Wilber Robles DPM :1950???Age:73 Y???Sex:Female D ate:03/28/2024 Address:[address] Pcp:Stephen Olmos Subjective: * Chief Complaints: * [...] Assessment: 1.?Tinea unguium - B35.1?2.? Atherosclerosis of [place] artery of both lower extremities, with unspecified presence of clinical manifestation - I70.203?3.?Pain in right toe(s) - M79.674?4.?Pain in left toe(s) - M79.675? Plan: * Treatment: 2.?Atherosclerosis of [place] artery of both lower extremities, with unspecified presence of clinical manifestation?Procedure: 54105-GVSN SKIN LESIONS, 2 TO 4 * Procedures:?Debride Nail 6-10:?Nail debridement?Nail debridement performed extensively to reduce/remove overall nail length, girth, thickness, subungual debris, and necrotic tissue, by manual and electrical means through the use of a nail nipper and/or dremel, to more viable healthy nail plate or bed tissue 6-10. Silver nitrate used for any petechial bleeding as necessary. Patient chooses, no pharmaceutical tx (10108).?Keratoma Treatment:?Parring or Cutting of Benign Hyperkeratotic Lesion(s)?19802 (2-4 Lesions) - The Benign hyperkeratotic lesions, as described above were pared, and/or cut utilizing a sterile #15 blade, tissue nippers, and/or dremel, Q8.? * Procedure Codes:?03556 DEBRI DE NAIL, 6 OR MORE, Modifiers: XS 19789 TRIM SKIN LESIONS, 2 TO 4, Modifiers: XS , Q8 * Follow Up:?prn * Images: * Sign off status: Completed true * Provider:?Wilber Robles DPM Date:?2023 Generated for Mary hayes/Cady/Bruce on:?08/12/2024 12:32 PM EST History and Physical Notes * [...]
--- OUTSIDE RECORDS SUMMARY | 2024-08-12 12:33 | XMS_ITS ---
Author Organization [facility] Address [address] [facility] [address] Care Team Providers Care Rag Inspector Name Role Phone Nickolas, Kartik Primary Care Provider [phone] Wilber Robles Unavailable [phone] Allergies Allergen (clinical drug ingredient) Drug/Non Drug [...] Ordered Date Performed Result Body Sit e 51458-TRGZDSA NAIL, 6 OR MORE 06/13/2024 N/A 76319-SOWR SKIN LESIONS, 2 TO 4 06/13/2024 N/A Encounters Encounter Location Date Provider Diagnosis [facility] [address] [address] 06/13/2024 Wilber Robles Atherosclerosis of [place] artery of both lower extremities, with unspecified presence of clinical manifestation I70.203 ; Tinea unguium B35.1 ; Pain in right toe(s) M79.674 and Pain in left toe(s) M79.675 Assessments Encounter Date Diagnosis (ICD Code) Assessment Notes Treatment Notes Treatment Clinical Notes Section Notes 06/13/2024 Atherosclerosis of [place] artery of both lower extremities, with unspecified presence of clinical manifestation (ICD-10 - I70.203) 06/13/2024 Tinea unguium (ICD-10 - B35.1) 06/13/2024 Pain in right toe(s) (ICD-10 - M79.674) 06/13/2024 Pain in left toe(s) (ICD-10 - M79.675) Plan Of Treatment Pending Test Test Name Order Date 73340-YSGCEKT NAIL, 6 OR MORE 06/13/2024 44498-LVXK SKIN LESIONS, 2 TO 4 06/13/20 24 Next Appt Details Follow Up: prn, Reason: Provider Name:Wilber Robles , 09/09/2024 03:00:00 PM, [address] [place], [address], Procedure Notes * Category Sub-Category [...] use of a nail nipper and/or dremel-type tool grinder operator external, to a more viable healthy nail plate or bed tissue 6-10. Silver nitrate used for any petechial bleeding as necessary. Definitive antifungal treatment options have been reviewed and discussed with the patient. The patient chooses, no pharmaceutical tx - [address]00 Keratoma Treatment Parring or Cutting o f Benign Hyperkeratotic Lesion(s) (-56) 2-4 Lesions - The Benign hyperkeratotic lesions, as described above were pared, and/or cut utilizing a sterile 15 blade, tissue nippers, and/or dremel - 04842 , Q8 Progress Notes * DIONCharismaOB:1950 (73 yo F)Acc No.[id number]:06/13/2024 Progress Note Patient:?Charisma Ashley Provider:?Wilber Robles DPM :1950???Age:73 Y???Sex:Female D ate:06/13/2024 Address[address] Pcp:Stephen Olmos Subjective: * Chief Complaints: * [...] Assessment: 1.?Tinea unguium - B35.1?2.? Atherosclerosis of [place] artery of both lower extremities, with unspecified presence of clinical manifestation - I70.203?3.?Pain in right toe(s) - M79.674?4.?Pain in left toe(s) - M79.675? Plan: * Treatment: 2.?Atherosclerosis of [place] artery of both lower extremities, with unspecified presence of clinical manifestation?Procedure: 49371-DXGR SKIN LESIONS, 2 TO 4 * Procedures:?Debride Nail 6-10:?Nail debridement?Performance of this nail treatment by a nonprofessional would put this patients foot and overall health at risk. Therefore, nail debridement was performed extensively to reduce/remove overall nail length, girth, thickness, subungual debris, and necrotic tissue, by manual and/or electrical means through the use of a nail nipper and/or dremel-type tool grinder operator external, to a more viable healthy nail plate or bed tissue 6-10. Silver nitrate used for any petechial bleeding as necessary. Definitive antifungal treatment options have been reviewed and discussed with the patient. The patient chooses, no pharmaceutical tx - 75277.?Keratoma Treatment:?Parring or Cutting of Benign Hyperkeratotic Lesion(s)?(-56) 2-4 Lesions - The Benign hyperkeratotic lesions, as described above were pared, and/or cut utilizing a sterile 15 blade, tissue nippers, and/or dremel - 73555 , Q8.? * Procedure Codes:?51274 DEBRI DE NAIL, 6 OR MORE, Modifiers: XS 81343 TRIM SKIN LESIONS, 2 TO 4, Modifiers: [...]
--- OUTSIDE RECORDS SUMMARY | 2024-08-12 12:33 | XMS_ITS ---
Author Organization [facility] Address [address] [place] [address] Care Team Providers Care Security Advisor Name Role Phone Stephen Olmos Primary Care Provider [phone] Wilber Robles Unavailable [phone] Fu Encounters Encounter Location Date Provider Diagnosis [address] [address] 01/18/2024 Wilber Robles Plan Of Treatment Next Appt Details Provider Name:Wilber Robles , 09/09/2024 03:00:00 PM, [address] [place] [address], [address], Progress Notes * DIONCharisma RichelleOB:1950 (73 yo F)Acc No.[id number]:01/18/2024 Progress Note Patient:?Charisma ASHLEY Provider:?Wilber Robles DPM :1950???Age:73 Y???Sex:Female D ate:01/18/2024 Address:[facility] [address] [place] Pcp:Stephen Olmos Subjective: * Chief Complaints: * [...]
--- OUTSIDE RECORDS SUMMARY | 2024-08-12 12:33 | XMS_ITS | Patient Health Record ---
[facility] Address [address] [facility] [place] [address] Care Team Providers Care Timber Surveyor Name Role Phone Stephen Olmos Primary Care Provider [phone] Wilber Robles Unavailable [phone] Allergies Allergen (clinical drug ingredient) Drug/Non Drug [...] W/U Status Risk Notes Problem Atherosclerosis of [place] arteries of the extremities ([id number]) Atherosclerosis of [place] artery of both lower extremities, with unspecified presence of clinical manifestation (I70.203) Active confirmed Vital Signs Blood pressure diastolic 70 mm Hg 06/13/2024 Height 4ft9.5in in 06/13/2024 Blood pressure systolic 128 mm Hg 06/13/2024 Weight 198 lbs 06/13/2024 BMI 42.1 kg/m2 06/13/2024 Procedures Procedure Date Ordered Date Performed Result Body Sit e 67279-EQDICDI NAIL, 6 OR MORE 11/02/2023 N/A 70189-BNIZ SKIN LESIONS, 2 TO 4 11/02/2023 N/A 27641-KHUUDTB NAIL, 6 OR MORE 03/28/2024 N/A 74874-ALPJ SKIN LESIONS, 2 TO 4 03/28/2024 N/A 00030-JJJHJIJ NAIL, 6 OR MORE 06/13/2024 N/A 38754-RGYO SKIN LESIONS, 2 TO 4 06/13/2024 N/A Encounters Encounter Location Date [facility] [address] 11/02/2023 Wilber Robles Atherosclerosis of [place] artery of both lower extremities, with unspecified presence of clinical manifestation I70.203 ; Tinea unguium B35.1 ; Pain in right toe(s) M79.674 and Pain in left toe(s) M79.675 [facility] [place] [address] 03/28/2024 Wilber Robles Atherosclerosis of [place] artery of both lower extremities, with unspecified presence of clinical manifestation I70.203 ; Tinea unguium B35.1 ; Pain in right toe(s) M79.674 and Pain in left toe(s) M79.675 [facility] [address] [address] 06/13/2024 Wilber Robles Atherosclerosis of [place] artery of both lower extremities, with unspecified presence of clinical manifestation I70.203 ; Tinea unguium B35.1 ; Pain in right toe(s) M79.674 and Pain in left toe(s) M79.675 Assessments Encounter Date Diagnosis (ICD Code) Assessment Notes Treatment Notes Treatment Clinical Notes Section Notes 11/02/2023 Tinea unguium (ICD-10 - B35.1) 11/02/2023 Atherosclerosis of [place] artery of both lower extremities, with unspecified presence of clinical manifestation (ICD-10 - I70.203) 03/28/2024 Tinea unguium (ICD-10 - B35.1) 03/28/2024 Atherosclerosis of [place] artery of both lower extremities, with unspecified presence of clinical manifestation (ICD-10 - I70.203) 06/13/2024 Tinea unguium (ICD-10 - B35.1) 06/13/2024 Atherosclerosis of [place] artery of both lower extremities, with unspecified [...] X ray : Foot, left 3V 04/19/2017 16367-JRADZNT NAIL, 6 OR MORE 12/05/2013 57680-JUMEXCV NAIL, 6 OR MORE 08/07/2017 12867-HOXSANE NAIL, 6 OR MORE 11/13/2017 18985-TIRXWCL NAIL, 6 OR MORE 02/19/2018 37408-HBYQSYD NAIL, 6 OR MORE 04/30/2018 71927-DDRVACQ NAIL, 6 OR MORE 07/23/2018 62441-MDJPWEY NAIL, 6 OR MORE 10/15/2018 31782-GFIECUK NAIL, 6 OR MORE 03/13/2014 49941-XTBGLHS NAIL, 6 OR MORE 06/16/2014 87139-NNZVGRT NAIL, 6 OR MORE 12/08/2014 50697-IKZWTZS NAIL, 6 OR MORE 03/05/2015 75852-PNYABIJ NAIL, 6 OR MORE 06/08/2015 63452-TJTWWSC NAIL, 6 OR MORE 09/14/2015 74111-KSQIHZO NAIL, 6 OR MORE 12/28/2015 99353-XYEUGJG NAIL, 6 OR MORE 03/31/2016 34416-BEEYBJO NAIL, 6 OR MORE 07/04/2016 29448-DSSLCRU NAIL, 6 OR MORE 10/03/2016 11928-NKVECAQ NAIL, 6 OR MORE 01/07/2019 69888-SQJRYXI NAIL, 6 OR MORE 04/01/2019 44769-UKRANJS NAIL, 6 OR MORE 05/18/2017 83763-IRREOUW NAIL, 6 OR MORE 08/01/2019 39858-NXCNZDW NAIL, 6 OR MORE 10/31/2019 50606-GCYCZUA NAIL, 6 OR MORE 01/23/2020 22108-LURBCFT NAIL, 6 OR MORE 04/09/2020 70333-PHTDVFM NAIL, 6 OR MORE 07/02/2020 70848-FEQXBAN NAIL, 6 OR MORE 09/24/2020 71730-DMLNHLZ NAIL, 6 OR MORE 12/07/2020 30752-ETHNUFO NAIL, 6 OR MORE 02/15/2021 74485-FNIXHWM NAIL, 6 OR MORE 05/10/2021 37344-CORJTZQ NAIL, 6 OR MORE 01/02/2017 82589-QDTGWHL NAIL, 6 OR MORE 07/26/2021 12533-PTRLBVG NAIL, 6 OR MORE 11/04/2021 76925-LWUYFXI NAIL, 6 OR MORE 01/06/2022 97950-DNUYCLF NAIL, 6 OR MORE 03/14/2022 62992-ZMZESMU NAIL, 6 OR MORE 07/03/2022 42940-OXHVQUE NAIL, 6 OR MORE 09/12/2022 39245-UETRPGQ NAIL, 6 OR MORE 11/21/2022 86948-SQVBQKL NAIL, 6 OR MORE 02/09/2023 63115-ZDIDQSY NAIL, 6 OR MORE 05/11/2023 87845-YZTTQVW NAIL, 6 OR MORE 08/03/2023 70807-VIRYYQT NAIL, 6 OR MORE 11/02/2023 20019-MBWSOPB NAIL, 6 OR MORE 03/28/2024 23888-YNSIQSP NAIL, 6 OR MORE 06/13/2024 29702-Tffratzd Plate 05/11/2023 77600-Jjrmvhah Plate 11/21/2022 59264-Ampbysuu Plate 03/14/2022 42052-Yrnwwnwm Plate 04/01/2021 32039-Rutvzvct Plate 05/10/2021 70364-Wwnpiszg Plate 02/15/2021 17288-Qmyiakca Plate 12/07/2020 59356-Dykwkeia Plate 09/24/2020 98788-Sytqkvnl Plate 07/02/2020 23003-Ajzwekgt Plate 04/09/2020 95265-Qtnnleez Plate 10/31/2019 48461-Ybyfbele Plate 08/01/2019 48057-Fknskowr Plate 05/18/2017 41019-Jjqvvgvn Plate 04/01/2019 57457-Fsahrpej Plate 10/03/2016 89346-Knjsychp Plate 06/08/2015 16757-Bywjtevu Plate 10/15/2018 40530-Dntcswev Plate Each Additional 02/2017 28995-CWE 06/27/2019 06377-WMS 12/19/2019 98425-QBL 06/27/2021 06712- Debride <25 sq cm 07/26/2021 41308- Debride <25 sq cm 04/09/2020 07796-KIMAUFF SKIN/TISSUE 01/23/2020 98964-CNEOTOP SKIN/TISSUE 01/02/2020 48302-LJEIZKF SKIN/TISSUE 07/11/2019 36546-AKBRNQO SKIN/TISSUE 07/14/2021 61651 I&D ABSCESS- SIMPLE,SINGLE 017 41199-LDEA SKIN LESIONS, 2 TO 4 11/22/19 23 39269-PCLO SKIN LESIONS, 2 TO 4 09/12/19 23 84448-UJJD SKIN LESIONS, 2 TO 4 11/02/19 24 93812-WZXZ SKIN LESIONS, 2 TO 4 08/03/20 23 58714-XJFR SKIN LESIONS, 2 TO 4 05/11/20 46471-TGOI SKIN LESIONS, 2 TO 4 02/10/20 23 53759-HVLP SKIN LESIONS, 2 TO 4 06/13/20 24 89850-WYLW SKIN LESIONS, 2 TO 4 03/28/20 27802- Biopsy of skin lesion 12/05/2013 78078- Biopsy of Addt'l Lesions 12/06/19 14 50566 - Tenotomy, open flexor 09/19/2019 76748 - Tenotomy, open flexor 03/18/2021 Next Appt Details Provider Name:Wilber Robles , 09/09/2024 03:00:00 PM, [address] [place] [address], [phone], Insurance Providers Payer Name Payer Address Payer Phone Subscriber Number Group Number Insured Name Patient Relationship to Insured Coverage Start Date Coverage End Date Medicare [facility] [employer] [address] [facility] [place] [address] [id number] Charisma Ashley Self - patient is the insured [employer] [address] [place] [address] [id number] Charisma Ashley Self - patient is the [...]
--- OUTSIDE RECORDS SUMMARY | 2024-08-12 12:33 | XMS_ITS | Clinical Summary ---
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 Name Role Phone ANA MARÍA BESS, AVI Unavailable Unavailab carey BENSON PT, ALICIA Unavailable Unavailable ADRIEL WASTE COTTON CLEANER, LAYNE Unavailable Unavailable Payers Payer Name Policy Type Policy Number Effective Date Expira tion Date MEDICARE.NGS.PDGM [id number] Problems Condition Name Condition Details Condition Category [...] tablet,david yed release 2020-08 00:00: 00 Yes [id number] ANTICOAGULA TION 325 mg 2 TIMES DAILY 325 mg 2 TIMES DAILY (route: oral) Med Classific ation: Analgesic , Anti-infl ammatory or Antipyret ic ropinirole 1 mg tablet 05-13 00:00: 00 Yes [id number] RLS 1 mg DAILY 1 mg AMADOR Y (route: oral) Med Classific ation: Central Nervous System Agents docusate sodium 100 mg capsule 2020-08 00:00: 00 Yes [id number] STOOL SOFTNER 100 mg 2 TIMES DAILY 100 mg 2 TIMES DAILY (route: oral) Med Classific ation: Gastroint estinal Therapy Agents trazodone 100 mg tablet 05-12 00:00: 00 Yes [id number] SLEEP AIDE 100 mg BEDTIME 100 mg BEDTIME (route: oral) Med Classific ation: Central Nervous System Agents celecoxib 200 mg capsule 2020-08 00:00: 00 Yes [id number] ANTI INFLAMMATOR Y 200 mg DAILY 200 mg DAILY (route: oral) Med Classific ation: Analgesic , Anti-infl ammatory or Antipyret ic pantoprazol e 40 mg tablet,david yed release 2020-08 00:00: 00 Yes [id number] GERD 40 mg DAILY 40 mg DAILY (route: oral) Med Classific ation: Gastroint estinal Therapy Agents venlafaxine ER 75 mg capsule,ext ended release 24 hr 2020-08 00:00: 00 Yes [id number] ANTIDEPRESS ANT 75 mg 2 TIMES DAILY 75 mg 2 TIMES DAILY (route: oral) Med Classific ation: Central Nervous System Agents meloxicam 15 mg tablet 2020-08 00:00: 00 07-21 00:00 :00 No [id number] Per instruc tions Per instructio ns (route: oral) Med Classific ation: Analgesic , Anti-infl ammatory or Antipyret ic acetaminoph en 325 mg capsule 2020-08 00:00: 00 Yes [id number] PAIN 650 mg EVERY 6 HOURS 650 mg EVERY 6 HOURS (route: oral) Med Classific ation: Analgesic , Anti-infl ammatory or Antipyret ic Calcium 600 + D(3) 600 mg calcium-200 unit capsule 2020-08 00:00: 00 Yes [id number] SUPPLEMENT 1 capsule DAILY 1 capsule DAILY (route: oral) Med Classific ation: Electroly te Balance-N utritiona l Products Combivent Respimat 20 mcg-100 mcg/actuati on solution for inhalation 2020-08 00:00: 00 Yes [id number] COPD 2 puff 4 TIMES DAILY 2 puff 4 TIMES DAILY (route: inhalation ) Med Classific ation: Respirato ry Therapy Agents hydromorpho ne 2 mg tablet 2020-08 00:00: 00 Yes [id number] PAIN Per instruc tions DIRECTED Per instructio ns DIRECTED (route: oral) Med Classific ation: Analgesic , Anti-infl ammatory or Antipyret ic Spectravite Women 50 Plus 8 mg iron-400 mcg-300 mcg tablet 2020-08 00:00: 00 Yes [id number] SUPPLEMENT 1 tablet DAILY 1 tablet DAILY (route: oral) Med Classific ation: Electroly te Balance-N utritiona l Products tramadol 50 mg tablet 2020-08 00:00: 00 Yes [id number] PAIN Per instruc tions DIRECTED Per instructio ns DIRECTED (route: oral) Med Classific ation: Analgesic , Anti-infl ammatory or Antipyret ic Vitamin D3 50 mcg (2,000 unit) capsule 2020-08 00:00: 00 Yes [id number] SUPPLEMENT 100 mcg DAILY 100 mcg DAILY [...] EMERGENCY SERVICES CALL US FIRST TO KEEP JIG AND FIXTURE MAKER SYMPTOM REPORT FOR VISIBLE REFERENCE NOTIFY CLINICIAN/PHYSICIAN [...] EMERGENCY SERVICES CALL US FIRST TO KEEP JIG AND FIXTURE MAKER SYMPTOM REPORT FOR VISIBLE REFERENCE NOTIFY CLINICIAN/PHYSICIAN [...] Date/Time Encounter Type Admission Type Attending [facility] Care Department Encounter ID Discharge Date Discharge Status Discharge Condition Discharge Reason Percent Goals Met 2021-07-21 00:00:00 2021-07-29 00:00:00 Outpatient NEW ADMISSION ALICIA BENSON [facility] [id number] 2021-07-29 00:00:00 DISCHARGE TO HOME OR SELF CARE INDEPENDEN T WITH USE OF ASSISTIVE DEVICE HH ONLY - OUT PATIENT 100.00
[2024-08-12 13:07] VITALS: BP 122/90; PULSE 98; O2SAT 96; BMI 43.2
--- NOTE | 2024-08-12 13:07 | A.OFFVIS_ITS ---
Vital Signs 08/12/24 13:07 Height 4 ft 9 in Weight 199 lb 8.293 oz BMI 43.2 BP 122/90 H Blood Pressure Location Lt brachial Position Sitting Pulse 98 Pulse Source Pulse Oximeter Pulse Oximetry (%) 96 Oxygen Delivery Method Room Air Intake Visit Reasons: Obstructive sleep apnea Intake Note: pt is here for follow up of [place], and is going well. 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: No Allergies morphine [MORPHINE] Allergy (Severe, Verified 08/12/24 13:49) VOMITING, hives/stomach upset tolmetin [From TOLECTIN] Allergy (Severe, Verified 08/12/24 13:49) HIVES Sulfa (Sulfonamide Antibiotics) Allergy (Intermediate, Verified 08/12/24 13:49) hives Medication List - Last Reconciled 08/12/24 by Chintan Mcarthur MD albuterol sulfate 90 mcg/actuation 2 puffs PO Q4-6H PRN calcium carbonate (Calcium 600) 600 mg PO DAILY cholecalciferol (vitamin D3) 25 mcg PO DAILY gabapentin (Neurontin) 100 mg PO TID 30 days multivitamin 1 tab PO DAILY naloxone 4 mg/actuation 4 mg intranasal Q3M PRN 1 day pantoprazole 40 mg PO DAILY polyethylene glycol 3350 (Miralax) 17 grams PO DAILY ropinirole 2 mg (2 x 1 mg) PO BEDTIME 90 days tamsulosin 0.4 mg PO DAILY tramadol 50 mg PO DAILY 30 days trazodone 100 mg PO BEDTIME venlafaxine ER 75 mg PO DAILY zinc 50 mg PO DAILY Do you need a note to return to daycare/school/sports/work: No HPI HPI Obstructive sleep apnea: Details: THIS 73 YEARS OLD FEMALE, IS HERE FOR FOLLOW-UP AFTER 6 MONTHS. SHE HAS LONGSTANDING HISTORY OF OBSTRUCTIVE SLEEP APNEA WHICH IS BEING TREATED EFFECTIVELY WITH CPAP. SHE IS VERY COMPLIANT AND USES MORE THAN 8-9 HOURS EVERY DAY. HER WEIGHT IS UNCHANGED BUT SHE HAS NOT PUT ON EXTRA WEIGHT. HER CPAP MACHINE WORKS FINE EVEN THOUGH IT IS MORE THAN 5 YEARS OLD. SHE HAS OCCASIONAL COUGH AND WHEEZE BUT HAS NOT NEEDED TO USE THE ALBUTEROL INHALER. [facility] Medical History Chronic pain syndrome Somatic dysfunction of both sacroiliac joints Allergic rhinitis Anxiety Hx of radiation therapy Tracheobronchitis Endogenous depression Viral wart on finger GERD (gastroesophageal reflux disease) Osteoarthritis Hernia Perforation bowel Arthritis COPD (chronic obstructive pulmonary disease) [place] on CPAP Obesity (BMI 35.0-39.9 without comorbidity) Surgical History History of colon surgery Hx of colonoscopy History of total right knee replacement H/O bilateral breast reduction surgery H/O lumpectomy History of left knee replacement History of gastric bypass Family History Mother No problems noted. Father No problems noted. 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 a primary care team coordinator scheduler to a significant other at home: Yes () Do you presently have visiting nurse or other home services: No Alcohol intake: current Alcohol intake frequency: does not drink Alcohol type: wine Patient Tobacco Use Status: Never used Tobacco Tobacco use type: Cigarette e-Cigarette/Vaping Use: Never Used Second Hand Smoke Exposure: No service: No Current occupational status: retired Cognitive needs: No Hearing needs: Yes (hearing aide) Vision needs: Yes (Glasses) Female Reproductive History Menstrual Age of Menarche: 15 Review of Systems Const All systems reviewed & are unremarkable except as noted in HPI and below Eyes Reports no additional complaints ENT Reports sore throat Card Denies chest pain, Denies irregular heart rhythm and Denies leg edema Resp Reports as per HPI and Reports cough (For the last 1 week) GI Reports heartburn (Controlled with med) Reports no additional complaints Musc Reports back pain and Reports arthralgias Skin/Breast Reports system reviewed and no additional complaints, except as documented Neuro Reports restless legs (Controlled with med) Psych Reports anxiety (Controlled with med) Endo Reports no additional complaints Physical Exam Vital Signs: Last Vital Signs Pulse 98 08/12/24 13:07 BP 122/90 H 08/12/24 13:07 Pulse Ox 96 08/12/24 13:07 Oxygen Delivery Method Room Air 08/12/24 13:07 BMI result Body Mass Index 43.2 Const General: comfortable, no acute distress, alert and awake Orientation/consciousness: patient oriented x3 HEENT Head: Yes normal to inspection General nose exam: No nasal polyps present and No nasal discharge present Face and sinus: Yes sinuses nontender Mouth: oropharynx normal Throat: Yes posterior oropharynx normal (There is mild redness of the mucosal and swelling in the nasopharynx.) Eyes General: appearance normal, both eyes and all related structures Neck Neck: Yes normal visual inspection, Yes no lymphadenopathy, Yes trachea midline and Yes no JVD Thyroid: Thyroid normal Chest Chest palpation & inspection: normal inspection of the chest (Increased AP diameter), normal palpation of entire chest wall and no tenderness Resp Other: Percussion note is resonant, breath sounds distant on both sides with prolonged expiratory phase. No wheezes rhonchi or crepitations are heard Cardio Palpation: normal PMI Rate: regular rate Rhythm: regular rhythm Heart sounds: no gallops and no murmurs GI Palpation (GI): Soft to palpation, nontender, No hepatosplenomegaly present, no masses and Other GI palpation findings present (Abdomen is obese and slightly protuberant) Auscultation: normal bowel sounds Back/Spine/Pelvis Thoracic/Lumbar Spine: thoracic and lumbar spine normal to inspection and thoraco-lumbar ROM limited Skin General skin exam: no rashes or lesions noted Neuro General: patient oriented x3 and no focal motor deficits Cranial nerves: Yes CN's II-XII intact bilaterally Extrem General: Yes normal to inspection, No no joint enlargement (Enlarged and tender right knee), Yes no clubbing, cyanosis or edema and Yes no calf tenderness Psych Appearance: grossly normal and well kempt Speech and movement: Normal speech and movement present Results Reviewed Results Reviewed: COMPLIANCE REPORT FOR THE LAST 30 NIGHTS IS REVIEWED. AVERAGE USAGE PER NIGHT IS DAY 9 HOURS 29 MINUTES ( USE IT PER AVERAGE SED 100% OF THE NIGHT. NO SIGNIFICANT AIR LEAK. RESIDUAL AHI 0.9 Assessment & Plan Assessment & Plan (1) Morbid obesity with BMI of 40.0-44.9, adult: Comment: THIS PATIENT REMAINS GROSSLY OVERWEIGHT, BUT OVER THE YEARS SHE HAS DEFINITELY LOST SOME WEIGHT. Code(s): E66.01 - Morbid (severe) obesity due to excess calories; Z68.41 - Body mass index [BMI] 40.0-44.9, adult Category: Medical Plan: THERE IS NOT MUCH POTENTIAL FOR HER TO LOSE WEIGHT ANY MODE., BECAUSE HER ACTIVITY LEVEL IS LOW. (2) [place] on CPAP: Comment: SLEEP APNEA/ HYPOVENTILATION SYNDROME IS WELL CONTROLLED WITH THE USE OF BIPAP 20/4 CMs, FULL FACE MASK . SHE IS VERY COMPLIANT AND ACTUALLY USES ABOUT 10 HOURS PLUS EVERY DAY WITH GOOD RESULTS. Code(s): G47.33 - Obstructive sleep apnea (adult) (pediatric); Z99.89 - Dependence on other enabling machines and devices Category: Medical Plan: COMMENDED FOR VERY GOOD COMPLIANCE AND ADVISED TO CONTINUE USING THE CPAP DURING THE NIGHT AND FEW. HOURS DURING THE DAYTIME (3) COPD (chronic obstructive pulmonary disease): Comment: SHE HAS HAD HISTORY OF MILD BRONCHIAL ASTHMA/COPD IN THE PAST. CURRENTLY USES ALBUTEROL ONLY ONCE IN A WHILE. SPIROMETRY INDICATES THAT SHE ACTUALLY HAS ONLY MILD RESTRICTIVE DISORDER. THERE IS NO OBSTRUCTIVE AIRWAY DISORDER. SHE IS NONSMOKER. Code(s): J44.9 - Chronic obstructive pulmonary disease, unspecified Category: Medical Plan: SHE DOES HAVE ALBUTEROL ON HAND AND ADVISED TO USE 1 OR 2 PUFFS Q 6 HOURS ONLY P.R.N. (4) Allergic rhinitis: Comment: She describes of having a mucus plug in the nasopharynx, which I think is due to low-grade rhinitis, Code(s): J30.9 - Allergic rhinitis, unspecified Category: Medical Plan: MAY USE FLONASE 2 SPRAY IN EACH NOSTRIL AT NIGHT BUT ONLY P.R.N. Coding Level of Care Code Est Pt Level 3 (58043) Diagnoses Morbid obesity with BMI of 40.0-44.9, adult E66.01; Z68.41 [place] on CPAP G47.33; Z99.89 COPD (chronic obstructive pulmonary disease) J44.9 Allergic rhinitis J30.9
== END 2024-08-12 13:43 | disposition home or self-care (01) ==
PROVIDERS: PCP Internal Medicine; Visit Provider Internal Medicine
DX: E66.01 Morbid (severe) obesity due to excess calories (principal); Z68.41 Body mass index [BMI] 40.0-44.9, adult; G47.33 Obstructive sleep apnea (adult) (pediatric); Z99.89 Dependence on other enabling machines and devices; J44.9 Chronic obstructive pulmonary disease, unspecified; J30.9 Allergic rhinitis, unspecified
CPT/HCPCS: 99213

== ENCOUNTER → 2024-08-12 12:31 | Outpatient (BNVA) | payer MEDICARE, SELFPAY | PROVIDERS: PCP Internal Medicine; Visit Provider Internal Medicine | DX: G47.33 Obstructive sleep apnea (adult) (pediatric) (principal); J44.9 Chronic obstructive pulmonary disease, unspecified; J30.9 Allergic rhinitis, unspecified; E66.01 Morbid (severe) obesity due to excess calories; Z99.89 Dependence on other enabling machines and devices; Z68.41 Body mass index [BMI] 40.0-44.9, adult | CPT/HCPCS: 99212 ==

== ENCOUNTER 2024-09-01 12:52 | Outpatient (AMB) | payer MEDICARE, SELFPAY ==
--- NOTE | 2024-09-01 13:00 | MHC.OFFVIS ---
Vital Signs 09/01/24 13:02 Height 4 ft 9 in Weight 199 lb BMI 43.1 BP 169/75 H Blood Pressure Location Lt brachial Position Sitting Respiration 17 Pulse 99 Pulse Source Pulse Oximeter Pulse Oximetry (%) 96 Oxygen Delivery Method Room Air Intake Visit Reasons: BILATERAL SIJ INJECTION Allergies morphine [MORPHINE] Allergy (Severe, Verified 09/01/24 13:03) VOMITING, hives/stomach upset tolmetin [From TOLECTIN] Allergy (Severe, Verified 09/01/24 13:03) HIVES Sulfa (Sulfonamide Antibiotics) Allergy (Intermediate, Verified 09/01/24 13:03) hives Medication List - Last Reconciled 09/01/24 by Georgia Tsai LPN albuterol sulfate 90 mcg/actuation 2 puffs PO Q4-6H PRN calcium carbonate (Calcium 600) 600 mg PO DAILY cholecalciferol (vitamin D3) 25 mcg PO DAILY gabapentin (Neurontin) 100 mg PO TID 30 days multivitamin 1 tab PO DAILY naloxone 4 mg/actuation 4 mg intranasal Q3M PRN 1 day pantoprazole 40 mg PO DAILY ropinirole 2 mg (2 x 1 mg) PO BEDTIME 90 days tramadol 50 mg PO DAILY 30 days trazodone 100 mg PO BEDTIME venlafaxine ER 75 mg PO DAILY zinc 50 mg PO DAILY HPI Comments Details: Charisma Mortensen is back in my office after therapeutic bilateral sacroiliac joint injection. She reports her pain now is 09/05. She reports that since the time of the injection on 08/05/2024 her mobility greatly improved, she was able to perform better activities of daily living, she admits better social interactions. I explained to the patient today that we can repeat those injections as needed but no more often than once in 3 months. She will give us a call and I will schedule the procedure. Prior: Initially complained on on pain in bilateral gluteal folds which started 2 years ago. She reports that her pain is related to climbing up and down a ladder. . I sent this patient for the CT scan of the bony pelvis in the attempt to diagnose possible ischial bursitis. Unfortunately no diagnostic evidence of ischial bursitis was demonstrated on the CT scan. The CT scan demonstrated significant advanced sacroiliitis. She received diagnostic sacroiliac joint injections with very promising results. We schedule her for therapeutic sacroiliac joint injection. [facility] Medical History Chronic pain syndrome Somatic dysfunction of both sacroiliac joints Allergic rhinitis Anxiety Hx of radiation therapy Tracheobronchitis Endogenous depression Viral wart on finger GERD (gastroesophageal reflux disease) Osteoarthritis Hernia Perforation bowel Arthritis COPD (chronic obstructive pulmonary disease) [place] on CPAP Obesity (BMI 35.0-39.9 without comorbidity) Surgical History History of colon surgery Hx of colonoscopy History of total right knee replacement H/O bilateral breast reduction surgery H/O lumpectomy History of left knee replacement History of gastric bypass Family History Mother No problems noted. Father No problems noted. 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 a primary laboratory animal caretaker to a significant other at home: Yes () Do you presently have visiting nurse or other home services: No Alcohol intake: current Alcohol intake frequency: does not drink Alcohol type: wine Patient Tobacco Use Status: Never used Tobacco Tobacco use type: Cigarette e-Cigarette/Vaping Use: Never Used Second Hand Smoke Exposure: No service: No Current occupational status: retired Cognitive needs: No Hearing needs: Yes (hearing aide) Vision needs: Yes (Glasses) Female Reproductive History Menstrual Age of Menarche: 15 Review of Systems Const All systems reviewed & are unremarkable except as noted in HPI and below ENT Reports Normal hearing present Neuro Reports Normal hearing present, Denies Abnormal speech present, Denies confusion and Denies Sensory deficit (Neuro) Psych Denies confusion Physical Exam Vital Signs: Last Vital Signs Pulse 99 09/01/24 13:02 Resp 17 09/01/24 13:02 BP 169/75 H 09/01/24 13:02 Pulse Ox 96 09/01/24 13:02 Oxygen Delivery Method Room Air 09/01/24 13:02 BMI result Body Mass Index 43.1 Const General: no acute distress, well developed, alert and awake; No confusion Orientation/consciousness: patient oriented x3 and No confusion Limitations: no limitations Eyes General: appearance normal, both eyes and all related structures Pupils: Equal, round and reactive pupils present EOM: EOMs intact bilaterally Neck Neck: Yes full ROM Chest Chest palpation & inspection: normal inspection of the chest Resp Effort & Inspection: normal respiratory effort, able to speak in complete sentences, normal respiratory pattern, no audible wheezes and no cough Cardio Jugular venous distension: no JVD GI Inspection: Yes normal to inspection Back/Spine/Pelvis Other: No tenderness on palpation on paraspinal or spinal region in the thoracic lumbar or sacral spine. No tenderness on palpation in projection of sacroiliac joints. SLR is negative bilaterally. Chao test is negative bilaterally. Fourteen finger test is negative bilaterally. Neuro General: patient oriented x3, gait normal and No confusion Cranial nerves: Yes CN's II-XII intact bilaterally, Yes Equal, round and reactive pupils present, Yes Normal hearing present and Yes Ability to bilaterally elevate shoulders present Speech: No Abnormal speech present Gait exam (Neuro): Normal gait present Motor exam (neuro): 5/5 motor strength present throughout Sensory Exam: No Sensory deficit (Neuro) Extrem General: No pedal edema Psych Speech and movement: Normal speech and movement present Affect: normal affect Attitude: cooperative Thought process: Normal thought process present Thought content: Normal thought content present Insight: Good insight present (Psych) Judgement: Good judgement present (Psych) Results Reviewed Results Reviewed: CT PELVIS WItHOUT CONTRAST CLINICAL INFORMATION: Osteoarthritis. COMPARISON: None available. TECHNIQUE: Helical scanning was performed with submillimeter collimation through the pelvis. Sagittal and coronal multiplanar 2-D reconstructions were obtained. This CT examination was performed using dose optimization techniques as appropriate, variously including the following: *Automated exposure control *Adjustment of mA and/or kV according to patient size (this includes techniques or standardized protocols for targeted exams where dose is matched to indication/reason for exam; i.e. extremities or head) *Use of iterative reconstruction technique DLP: 891 mGy-cm FINDINGS: PELVIS: Partially visualized, lobulated inferior pole of the left kidney. Unremarkable bowel anastomoses. No bowel wall thickening or inflammatory change. No pelvic bowel obstruction. No soft tissue mass or fluid collection. Postsurgical change at the anterior abdominal wall with a small hernia containing nonobstructed loop of small bowel. No associated inflammation or stranding to suggest ischemia or incarceration. Fat-containing right anterior abdominal wall hernia with the neck measuring up to 1.0 cm in ML dimension. No associated bowel loops. OSSEOUS STRUCTURES: Mild bilateral sacroiliac joint space narrowing with small marginal osteophytes. No periarticular erosion. Moderate degenerative arthritis at the symphysis pubis. No hip joint space narrowing or marginal osteophytes. Partially visualized degenerative disc disease and facet arthropathy within the lower lumbar spine. No concerning lytic or blastic osseous lesion. No evidence of femoral head avascular necrosis. IMPRESSION: 1. Mild bilateral sacroiliac osteoarthritis. Moderate degenerative arthritis at the pubis. 2. Postsurgical change at the anterior abdominal wall with a small hernia containing a nonobstructed loop of small bowel. No associated inflammation or stranding to suggest ischemia or incarceration. Fat-containing right anterior abdominal wall hernia with the neck measuring up to 1.0 cm. No associated bowel loops. 3. Partially visualized degenerative disc disease and facet arthropathy within the lower lumbar spine. Assessment & Plan Assessment & Plan (1) Ischial bursitis of left side: Code(s): M70.72 - Other bursitis of hip, left hip Category: Medical (2) Ischial bursitis of right side: Code(s): M70.71 - Other bursitis of hip, right hip Category: Medical (3) Chronic pain syndrome: Code(s): G89.4 - Chronic pain syndrome Category: Medical (4) Osteoarthritis, hip, bilateral: Code(s): M16.0 - Bilateral primary osteoarthritis of hip Category: Medical Qualifiers: Osteoarthritis type: primary Qualified Code(s): M16.0 - Bilateral primary osteoarthritis of hip (5) Osteopenia: Code(s): M85.80 - Other specified disorders of bone density and structure, unspecified site Category: Medical (6) Sacroiliitis: Code(s): M46.1 - Sacroiliitis, not elsewhere classified Category: Medical (7) Somatic dysfunction of both sacroiliac joints: Code(s): M99.04 - Segmental and somatic dysfunction of sacral region Category: Medical Plan On the bony pelvis CT scan no bursitis of the show recess were demonstrated. The full report is as above. Diagnostic sacroiliac joint resulted in not typical however impressive and much more than 6 hours pain relief. Therapeutic sacroiliac joint injection resulted in the 1 month of pain relief. Patient was explained about possibility of performing those injections once in 3 months. She will give us a call and we will schedule injection for this patient. Coding Level of Care Code Est Pt Level 3 (05780) Diagnoses Ischial bursitis of left side M70.72 Ischial bursitis of right side M70.71 Chronic pain syndrome G89.4 Primary osteoarthritis of both hips M16.0 Osteoarthritis type: primary Osteopenia M85.80 Sacroiliitis M46.1 Somatic dysfunction of both sacroiliac joints M99.04
[2024-09-01 13:02] VITALS: BP 169/75; PULSE 99; RESP 17; O2SAT 96; BMI 43.1
--- OUTSIDE RECORDS SUMMARY | 2024-09-01 14:51 | XMS_ITS | Clinical Summary ---
Author Organization Unknown Care Team Providers Care Engine Repair Supervisor Name Role Phone ANA MARÍA BESS, AVI Unavailable Unavailab carey BENSON PT, ALICIA Unavailable Unavailable ADRIEL MAP COMPILER, LAYNE Unavailable Unavailable Payers Payer Name Policy Type Policy Number Effective Date Expira tion Date MEDICARE.NGS.PDGM [id number] Problems Condition Name Condition Details Condition Category [...] tablet,david yed release 2020-08 00:00: 00 Yes [id number] ANTICOAGULA TION 325 mg 2 TIMES DAILY 325 mg 2 TIMES DAILY (route: oral) Med Classific ation: Analgesic , Anti-infl ammatory or Antipyret ic ropinirole 1 mg tablet 05-13 00:00: 00 Yes [id number] RLS 1 mg DAILY 1 mg AMADOR Y (route: oral) Med Classific ation: Central Nervous System Agents docusate sodium 100 mg capsule 2020-08 00:00: 00 Yes [id number] STOOL SOFTNER 100 mg 2 TIMES DAILY 100 mg 2 TIMES DAILY (route: oral) Med Classific ation: Gastroint estinal Therapy Agents trazodone 100 mg tablet 05-12 00:00: 00 Yes [id number] SLEEP AIDE 100 mg BEDTIME 100 mg BEDTIME (route: oral) Med Classific ation: Central Nervous System Agents celecoxib 200 mg capsule 2020-08 00:00: 00 Yes [id number] ANTI INFLAMMATOR Y 200 mg DAILY 200 mg DAILY (route: oral) Med Classific ation: Analgesic , Anti-infl ammatory or Antipyret ic pantoprazol e 40 mg tablet,david yed release 2020-08 00:00: 00 Yes [id number] GERD 40 mg DAILY 40 mg DAILY (route: oral) Med Classific ation: Gastroint estinal Therapy Agents venlafaxine ER 75 mg capsule,ext ended release 24 hr 2020-08 00:00: 00 Yes [id number] ANTIDEPRESS ANT 75 mg 2 TIMES DAILY 75 mg 2 TIMES DAILY (route: oral) Med Classific ation: Central Nervous System Agents meloxicam 15 mg tablet 2020-08 00:00: 00 07-21 00:00 :00 No [id number] Per instruc tions Per instructio ns (route: oral) Med Classific ation: Analgesic , Anti-infl ammatory or Antipyret ic acetaminoph en 325 mg capsule 2020-08 00:00: 00 Yes [id number] PAIN 650 mg EVERY 6 HOURS 650 mg EVERY 6 HOURS (route: oral) Med Classific ation: Analgesic , Anti-infl ammatory or Antipyret ic Calcium 600 + D(3) 600 mg calcium-200 unit capsule 2020-08 00:00: 00 Yes [id number] SUPPLEMENT 1 capsule DAILY 1 capsule DAILY (route: oral) Med Classific ation: Electroly te Balance-N utritiona l Products Combivent Respimat 20 mcg-100 mcg/actuati on solution for inhalation 2020-08 00:00: 00 Yes [id number] COPD 2 puff 4 TIMES DAILY 2 puff 4 TIMES DAILY (route: inhalation ) Med Classific ation: Respirato ry Therapy Agents hydromorpho ne 2 mg tablet 2020-08 00:00: 00 Yes [id number] PAIN Per instruc tions DIRECTED Per instructio ns DIRECTED (route: oral) Med Classific ation: Analgesic , Anti-infl ammatory or Antipyret ic Spectravite Women 50 Plus 8 mg iron-400 mcg-300 mcg tablet 2020-08 00:00: 00 Yes [id number] SUPPLEMENT 1 tablet DAILY 1 tablet DAILY (route: oral) Med Classific ation: Electroly te Balance-N utritiona l Products tramadol 50 mg tablet 2020-08 00:00: 00 Yes [id number] PAIN Per instruc tions DIRECTED Per instructio ns DIRECTED (route: oral) Med Classific ation: Analgesic , Anti-infl ammatory or Antipyret ic Vitamin D3 50 mcg (2,000 unit) capsule 2020-08 00:00: 00 Yes [id number] SUPPLEMENT 100 mcg DAILY 100 mcg DAILY [...] EMERGENCY SERVICES CALL US FIRST TO KEEP MORTAR WORKER SYMPTOM REPORT FOR VISIBLE REFERENCE NOTIFY CLINICIAN/PHYSICIAN [...] EMERGENCY SERVICES CALL US FIRST TO KEEP MORTAR WORKER SYMPTOM REPORT FOR VISIBLE REFERENCE NOTIFY CLINICIAN/PHYSICIAN [...] End Date/Time Encounter Type Admission Type Attending [facility] Care Department Encounter ID Discharge Date Discharge Status Discharge Condition Discharge Reason Percent Goals Met 2021-07-21 00:00:00 2021-07-29 00:00:00 Outpatient NEW ADMISSION ALICIA BENSON [facility] [id number] 2021-07-29 00:00:00 DISCHARGE TO HOME OR SELF CARE INDEPENDEN T WITH USE OF ASSISTIVE DEVICE HH ONLY - OUT PATIENT 100.00
--- OUTSIDE RECORDS SUMMARY | 2024-09-01 14:51 | XMS_ITS | Patient Health Record ---
[facility] Address [address] [place] [address] Care Team Providers Care Heavy Line Technician Name Role Phone Stephen Olmos Primary Care Provider [phone] Wilber Robles Unavailable [phone] Allergies Allergen (clinical drug ingredient) Drug/Non Drug [...] W/U Status Risk Notes Problem Atherosclerosis of resighini arteries of the extremities ([id number]) Atherosclerosis of resighini artery of both lower extremities, with unspecified presence of clinical manifestation (I70.203) Active confirmed Vital Signs Blood pressure diastolic 70 mm Hg 06/13/2024 Height 4ft9.5in in 06/13/2024 Blood pressure systolic 128 mm Hg 06/13/2024 Weight 198 lbs 06/13/2024 BMI 42.1 kg/m2 06/13/2024 Procedures Procedure Date Ordered Date Performed Result Body Sit e 79922-TNWQIPD NAIL, 6 OR MORE 11/02/2023 N/A 71617-CEZU SKIN LESIONS, 2 TO 4 11/02/2023 N/A 70129-WGURHTR NAIL, 6 OR MORE 03/28/2024 N/A 04190-IGQZ SKIN LESIONS, 2 TO 4 03/28/2024 N/A 24132-BZZEVOA NAIL, 6 OR MORE 06/13/2024 N/A 94733-XJLQ SKIN LESIONS, 2 TO 4 06/13/2024 N/A Encounters Encounter [facility] Date [facility] [address] 11/02/2023 Wilber Robles Atherosclerosis of resighini artery of both lower extremities, with unspecified presence of clinical manifestation I70.203 ; Tinea unguium B35.1 ; Pain in right toe(s) M79.674 and Pain in left toe(s) M79.675 [facility] [place] [address] 03/28/2024 Wilber Robles Atherosclerosis of resighini artery of both lower extremities, with unspecified presence of clinical manifestation I70.203 ; Tinea unguium B35.1 ; Pain in right toe(s) M79.674 and Pain in left toe(s) M79.675 [facility] [address] [address] 06/13/2024 Wilber Robles Atherosclerosis of resighini artery of both lower extremities, with unspecified presence of clinical manifestation I70.203 ; Tinea unguium B35.1 ; Pain in right toe(s) M79.674 and Pain in left toe(s) M79.675 Assessments Encounter Date Diagnosis (ICD Code) Assessment Notes Treatment Notes Treatment Clinical Notes Section Notes 11/02/2023 Tinea unguium (ICD-10 - B35.1) 11/02/2023 Atherosclerosis of resighini artery of both lower extremities, with unspecified presence of clinical manifestation (ICD-10 - I70.203) 03/28/2024 Tinea unguium (ICD-10 - B35.1) 03/28/2024 Atherosclerosis of resighini artery of both lower extremities, with unspecified presence of clinical manifestation (ICD-10 - I70.203) 06/13/2024 Tinea unguium (ICD-10 - B35.1) 06/13/2024 Atherosclerosis of resighini artery of both lower extremities, with unspecified [...] X ray : Foot, left 3V 04/19/2017 90154-BKBXYGZ NAIL, 6 OR MORE 12/08/2014 95976-MSRNIFA NAIL, 6 OR MORE 06/08/2015 62649-MPNBHAY NAIL, 6 OR MORE 09/14/2015 57610-BFYVCZV NAIL, 6 OR MORE 12/28/2015 13837-OYHVUCV NAIL, 6 OR MORE 03/31/2016 97586-BQWXTDR NAIL, 6 OR MORE 10/03/2016 15174-JACABCI NAIL, 6 OR MORE 08/07/2017 08017-GACPJRC NAIL, 6 OR MORE 11/13/2017 38827-YAONPJO NAIL, 6 OR MORE 02/19/2018 48439-FLNUVMO NAIL, 6 OR MORE 04/30/2018 15612-YDGJNVV NAIL, 6 OR MORE 07/23/2018 63646-ERPTGWF NAIL, 6 OR MORE 10/15/2018 67411-QZKSPSP NAIL, 6 OR MORE 05/18/2017 09333-HIULQQC NAIL, 6 OR MORE 01/07/2019 17010-GAPKXJU NAIL, 6 OR MORE 04/01/2019 71766-TOPFVAW NAIL, 6 OR MORE 10/31/2019 22619-NMHAPDJ NAIL, 6 OR MORE 08/01/2019 90360-FMPWQBA NAIL, 6 OR MORE 01/23/2020 81894-FAGUQXC NAIL, 6 OR MORE 04/09/2020 31609-GKABOEB NAIL, 6 OR MORE 09/24/2020 76846-EIWYMVK NAIL, 6 OR MORE 12/07/2020 76115-SWSTUPZ NAIL, 6 OR MORE 02/15/2021 00198-TBPFFSU NAIL, 6 OR MORE 05/10/2021 96101-XXDYBNH NAIL, 6 OR MORE 01/02/2017 59047-XZMIGOK NAIL, 6 OR MORE 07/26/2021 35591-NILBZNH NAIL, 6 OR MORE 11/04/2021 95914-EBQBKDH NAIL, 6 OR MORE 01/06/2022 83198-DYRYPYV NAIL, 6 OR MORE 03/14/2022 25656-RHXJRKQ NAIL, 6 OR MORE 07/03/2022 63040-SUKGKDX NAIL, 6 OR MORE 09/12/2022 24475-ICHIJQO NAIL, 6 OR MORE 11/21/2022 01630-SXWGSSD NAIL, 6 OR MORE 02/09/2023 27735-HEXNMCO NAIL, 6 OR MORE 05/11/2023 88740-ZUAONVD NAIL, 6 OR MORE 08/03/2023 94186-SIOATBW NAIL, 6 OR MORE 11/02/2023 47346-FUPIUHV NAIL, 6 OR MORE 03/28/2024 58141-PCJVUAD NAIL, 6 OR MORE 06/13/2024 09853-QSABCWY NAIL, 6 OR MORE 07/04/2016 05590-CVKWSAT NAIL, 6 OR MORE 03/05/2015 11634-IVEERJN NAIL, 6 OR MORE 06/16/2014 44417-NCQPEOC NAIL, 6 OR MORE 03/13/2014 95261-HNTDODA NAIL, 6 OR MORE 12/05/2013 65729-JOTGZKR NAIL, OR MORE 07/02/2020 78521-Uepiujfe Plate 07/02/2020 11141-Bbbmuggu Plate 05/11/2023 61645-Tlwqvtpy Plate 11/21/2022 61369-Kuvfmauc Plate 03/14/2022 79872-Xpnkoymn Plate 04/01/2021 08352-Aivdtnqh Plate 05/10/2021 92787-Veiavlcx Plate 02/15/2021 02607-Sedbxwzh Plate 12/07/2020 72433-Uzwukczv Plate 09/24/2020 43078-Xpjxhlpq Plate 04/09/2020 38578-Qiswetuc Plate 08/01/2019 07138-Aipisgti Plate 10/31/2019 50815-Abntfclo Plate 04/01/2019 95767-Nqlaifmy Plate 05/18/2017 27914-Fwisdvmt Plate 10/15/2018 72970-Yvuyrbxf Plate 10/03/2016 50474-Louicdfi Plate 06/08/2015 15052-Tvnnchzp Plate Each Additional 02/2017 74561-YDB 12/19/2019 61124-OQU 06/27/2021 68666-ZSK 06/27/2019 87561- Debride <25 sq cm 07/26/2021 24661- Debride <25 sq cm 04/09/2020 32490-WXKXHLN SKIN/TISSUE 01/02/2020 92921-NUDQEZD SKIN/TISSUE 01/23/2020 95868-WQYCSQX SKIN/TISSUE 07/14/2021 04438-HWPEKKI SKIN/TISSUE 07/11/2019 38285 I&D ABSCESS- SIMPLE,SINGLE 017 77713-RVIG SKIN LESIONS, 2 TO 4 11/22/19 23 01439-PSKM SKIN LESIONS, 2 TO 4 09/12/19 23 63353-HGUO SKIN LESIONS, 2 TO 4 06/13/20 24 77855-MTLN SKIN LESIONS, 2 TO 4 03/28/20 24 41441-LNUA SKIN LESIONS, 2 TO 4 11/02/19 24 30264-MFJX SKIN LESIONS, 2 TO 4 08/03/20 23 00974-JSDV SKIN LESIONS, 2 TO 4 05/11/20 23 54368-LTWM SKIN LESIONS, 2 TO 4 02/10/20 92796- Biopsy of skin lesion 12/05/2013 04203- Biopsy of Addt'l Lesions 12/06/19 14 35521 - Tenotomy, open flexor 09/19/2019 70489 - Tenotomy, open flexor 03/18/2021 Next Appt Details Provider Name:Wilber Robles , 09/09/2024 03:00:00 PM, [address] [place] [address], [phone], Insurance Providers Payer Name Payer Address Payer Phone Subscriber Number Group Number Insured Name Patient Relationship to Insured Coverage Start Date Coverage End Date Medicare [facility] [employer] [address] [place] [address] [id number] Charisma Ashley Self - patient is the insured [employer] [address] [place] [address] [phone] [id number] Charisma Ashley Self - patient is the [...]
--- OUTSIDE RECORDS SUMMARY | 2024-09-01 14:51 | XMS_ITS ---
Author Organization [facility] Address [address] [facility] [place] [address] Care Team Providers Care Wheel Truing Machine Tender Name Role Phone Nickolas, Kartik Primary Care Provider [phone] Wilber Robles Unavailable [phone] Allergies Allergen (clinical drug ingredient) Drug/Non Drug [...] Ordered Date Performed Result Body Sit e 82258-ONLEJZL NAIL, 6 OR MORE 03/28/2024 N/A 27505-SIHZ SKIN LESIONS, 2 TO 4 03/28/2024 N/A Encounters Encounter Location Date Provider Diagnosis [facility] [place] [address] [place] [address] 03/28/2024 Wilber Robles Atherosclerosis of la posta artery of both lower extremities, with unspecified presence of clinical manifestation I70.203 ; Tinea unguium B35.1 ; Pain in right toe(s) M79.674 and Pain in left toe(s) M79.675 Assessments Encounter Date Diagnosis (ICD Code) Assessment Notes Treatment Notes Treatment Clinical Notes Section Notes 03/28/2024 Atherosclerosis of la posta artery of both lower extremities, with unspecified presence of clinical manifestation (ICD-10 - I70.203) 03/28/2024 Tinea unguium (ICD-10 - B35.1) 03/28/2024 Pain in right toe(s) (ICD-10 - M79.674) 03/28/2024 Pain in left toe(s) (ICD-10 - M79.675) Plan Of Treatment Pending Test Test Name Order Date 27312-EIHBOSU NAIL, 6 OR MORE 03/28/2024 26834-AMJP SKIN LESIONS, 2 TO 4 03/28/20 24 Next Appt Details Follow Up: prn, Reason: Provider Name:Wilber Roblse , 09/09/2024 03:00:00 PM, [address] [place], [address], Procedure Notes * Category Sub-Category Detail Notes [...] as necessary. Patient chooses, no pharmaceutical tx (45649) Keratoma Treatment Parring or Cutting o f Benign Hyperkeratotic Lesion(s) 64811 (2-4 Lesions) - The Benign hyperkeratotic lesions, as described above were pared, and/or cut utilizing a sterile #15 blade, tissue nippers, and/or dremel, Q8 Progress Notes * Charisma ASHLEYOB:1950 (73 yo F)Acc No.[id number]:03/28/2024 Progress Note Patient:?Charisma Ashley Provider:?Wilber Robles DPM :1950???Age:73 Y???Sex:Female D ate:03/28/2024 Address:[address] Pcp:Stephen Olmos Subjective: * Chief Complaints: * [...] Assessment: 1.?Tinea unguium - B35.1?2.? Atherosclerosis of la posta artery of both lower extremities, with unspecified presence of clinical manifestation - I70.203?3.?Pain in right toe(s) - M79.674?4.?Pain in left toe(s) - M79.675? Plan: * Treatment: 2.?Atherosclerosis of la posta artery of both lower extremities, with unspecified presence of clinical manifestation?Procedure: 91041-HQQQ SKIN LESIONS, 2 TO 4 * Procedures:?Debride Nail 6-10:?Nail debridement?Nail debridement performed extensively to reduce/remove overall nail length, girth, thickness, subungual debris, and necrotic tissue, by manual and electrical means through the use of a nail nipper and/or dremel, to more viable healthy nail plate or bed tissue 6-10. Silver nitrate used for any petechial bleeding as necessary. Patient chooses, no pharmaceutical tx (77036).?Keratoma Treatment:?Parring or Cutting of Benign Hyperkeratotic Lesion(s)?81153 (2-4 Lesions) - The Benign hyperkeratotic lesions, as described above were pared, and/or cut utilizing a sterile #15 blade, tissue nippers, and/or dremel, Q8.? * Procedure Codes:?25805 DEBRI DE NAIL, 6 OR MORE, Modifiers: XS 65000 TRIM SKIN LESIONS, 2 TO 4, Modifiers: XS , Q8 * Follow Up:?prn * Images: * Sign off status: Completed true * Provider:?Wilber Robles DPM Date:?2023 Generated for Mary hayes/Cady/Bruce on:?09/01/2024 02:50 PM EST History and Physical Notes * HPI (History of Present Illness) Category Sub-Category Detail Notes Category Not es At Risk footcare Pt States Last PCP Visit: Date: 4 Examination Category Sub-Category Detail Notes Category Not es Dermatologic SKIN FINDINGS: Skin exam reveal s Keratotic lesion(s) located at, SUB MTH (s), 1, B/L Vascular DP PULSES (B): 0-1/4, B/L PT PULSES (B): 0/4, B/L CAPILLARY FILL TIME: delayed, all digits , B/L TEMPERTURE GRADIENT (C): decreased, cool to cool, proximal to distal, B/L TROPHIC CONDITION-TEXTURE/ELASTICITY/TURGOR/HAIR GROWTH (B): decreased, B/L EDEMA (C): absent, B/L CLAUDICATION (C): denies, B/L REST PAIN: denies, B/L PIGMENTATION: rubrous, B/L Nails NAILS are: Elongated, overg rown, dystrophic, lytic, greater than 3mm thick, discolored and friable with crumbly malodorous subungual debris, with pain on palpation, T1, T3, T4, NOW T5(REGROWTH FROM PNA 2019), T6, T8, T9
--- OUTSIDE RECORDS SUMMARY | 2024-09-01 14:51 | XMS_ITS ---
Author Organization [facility] Address [address] [place] [address] Care Team Providers Care Coke Loader Name Role Phone Stephen Olmos Primary Care Provider Wilber Robles Unavailable [phone] Fu Encounters Encounter Location Date Provider Diagnosis [address] [address] 01/18/2024 Wilber Robles Plan Of Treatment Next Appt Details Provider Name:Wilber Robles , 09/09/2024 03:00:00 PM, [address] [place] [address], [phone], Progress Notes * DIONCharisma RichelleOB:1950 (73 yo F)Acc No.[id number]:01/18/2024 Progress Note Patient:?Charisma ASHLEY Provider:?Wilber Robles DPM :1950???Age:73 Y???Sex:Female D ate:01/18/2024 Address:[facility] [address] [id number] Pcp:Stephen Olmos Subjective: * Chief Complaints: * [...]
--- OUTSIDE RECORDS SUMMARY | 2024-09-01 14:51 | XMS_ITS | Clinical Summary ---
Author Organization Unknown Care Team Providers Care Cargo Handler Name Role Phone ANA MARÍA BESS, AVI Unavailable Unavailab carey BENSON PT, ALICIA Unavailable Unavailable [facility] PH[facility]IAN, LAYNE Unavailable Unavailable Payers Payer Name Policy Type Policy Number Effective Date Expira tion Date MEDICARE.NGS.PDGM [id number] Problems Condition Name Condition Details Condition Category [...] tablet,david yed release 2020-08 00:00: 00 Yes [id number] ANTICOAGULA TION 325 mg 2 TIMES DAILY 325 mg 2 TIMES DAILY (route: oral) Med Classific ation: Analgesic , Anti-infl ammatory or Antipyret ic ropinirole 1 mg tablet 05-13 00:00: 00 Yes [id number] RLS 1 mg DAILY 1 mg AMADOR Y (route: oral) Med Classific ation: Central Nervous System Agents docusate sodium 100 mg capsule 2020-08 00:00: 00 Yes [id number] STOOL SOFTNER 100 mg 2 TIMES DAILY 100 mg 2 TIMES DAILY (route: oral) Med Classific ation: Gastroint estinal Therapy Agents trazodone 100 mg tablet 05-12 00:00: 00 Yes [id number] SLEEP AIDE 100 mg BEDTIME 100 mg BEDTIME (route: oral) Med Classific ation: Central Nervous System Agents celecoxib 200 mg capsule 2020-08 00:00: 00 Yes [id number] ANTI INFLAMMATOR Y 200 mg DAILY 200 mg DAILY (route: oral) Med Classific ation: Analgesic , Anti-infl ammatory or Antipyret ic pantoprazol e 40 mg tablet,david yed release 2020-08 00:00: 00 Yes [id number] GERD 40 mg DAILY 40 mg DAILY (route: oral) Med Classific ation: Gastroint estinal Therapy Agents venlafaxine ER 75 mg capsule,ext ended release 24 hr 2020-08 00:00: 00 Yes [id number] ANTIDEPRESS ANT 75 mg 2 TIMES DAILY 75 mg 2 TIMES DAILY (route: oral) Med Classific ation: Central Nervous System Agents meloxicam 15 mg tablet 2020-08 00:00: 00 07-21 00:00 :00 No [id number] Per instruc tions Per instructio ns (route: oral) Med Classific ation: Analgesic , Anti-infl ammatory or Antipyret ic acetaminoph en 325 mg capsule 2020-08 00:00: 00 Yes [id number] PAIN 650 mg EVERY 6 HOURS 650 mg EVERY 6 HOURS (route: oral) Med Classific ation: Analgesic , Anti-infl ammatory or Antipyret ic Calcium 600 + D(3) 600 mg calcium-200 unit capsule 2020-08 00:00: 00 Yes [id number] SUPPLEMENT 1 capsule DAILY 1 capsule DAILY (route: oral) Med Classific ation: Electroly te Balance-N utritiona l Products Combivent Respimat 20 mcg-100 mcg/actuati on solution for inhalation 2020-08 00:00: 00 Yes [id number] COPD 2 puff 4 TIMES DAILY 2 puff 4 TIMES DAILY (route: inhalation ) Med Classific ation: Respirato ry Therapy Agents hydromorpho ne 2 mg tablet 2020-08 00:00: 00 Yes [id number] PAIN Per instruc tions DIRECTED Per instructio ns DIRECTED (route: oral) Med Classific ation: Analgesic , Anti-infl ammatory or Antipyret ic Spectravite Women 50 Plus 8 mg iron-400 mcg-300 mcg tablet 2020-08 00:00: 00 Yes [id number] SUPPLEMENT 1 tablet DAILY 1 tablet DAILY (route: oral) Med Classific ation: Electroly te Balance-N utritiona l Products tramadol 50 mg tablet 2020-08 00:00: 00 Yes [id number] PAIN Per instruc tions DIRECTED Per instructio ns DIRECTED (route: oral) Med Classific ation: Analgesic , Anti-infl ammatory or Antipyret ic Vitamin D3 50 mcg (2,000 unit) capsule 2020-08 00:00: 00 Yes [id number] SUPPLEMENT 100 mcg DAILY 100 mcg DAILY [...] EMERGENCY SERVICES CALL US FIRST TO KEEP DIVISIONAL STOREKEEPER SYMPTOM REPORT FOR VISIBLE REFERENCE NOTIFY CLINICIAN/PHYSICIAN [...] EMERGENCY SERVICES CALL US FIRST TO KEEP DIVISIONAL STOREKEEPER SYMPTOM REPORT FOR VISIBLE REFERENCE NOTIFY CLINICIAN/PHYSICIAN [...] Date/Time Encounter Type Admission Type Attending [facility] Care Department Encounter ID Discharge Date Discharge Status Discharge Condition Discharge Reason Percent Goals Met 2021-07-21 00:00:00 2021-07-29 00:00:00 Outpatient NEW ADMISSION ALICIA BENSON [facility] [id number] 2021-07-29 00:00:00 DISCHARGE TO HOME OR SELF CARE INDEPENDEN T WITH USE OF ASSISTIVE DEVICE HH ONLY - OUT PATIENT 100.00
--- OUTSIDE RECORDS SUMMARY | 2024-09-01 14:51 | XMS_ITS ---
Author Organization [facility] Address [address] [facility] [place] [address] Care Team Providers Care Maintenance Supervisor Name Role Phone Nickolas, Kartik Primary Care Provider Wilber Robles Unavailable [phone] Allergies Allergen (clinical drug ingredient) Drug/Non Drug [...] Ordered Date Performed Result Body Sit e 90189-PYERXWJ NAIL, 6 OR MORE 06/13/2024 N/A 96194-NOTW SKIN LESIONS, 2 TO 4 06/13/2024 N/A Encounters Encounter Location Date Provider Diagnosis [facility] [address] [address] 06/13/2024 Wilber Robles Atherosclerosis of choctaw artery of both lower extremities, with unspecified presence of clinical manifestation I70.203 ; Tinea unguium B35.1 ; Pain in right toe(s) M79.674 and Pain in left toe(s) M79.675 Assessments Encounter Date Diagnosis (ICD Code) Assessment Notes Treatment Notes Treatment Clinical Notes Section Notes 06/13/2024 Atherosclerosis of choctaw artery of both lower extremities, with unspecified presence of clinical manifestation (ICD-10 - I70.203) 06/13/2024 Tinea unguium (ICD-10 - B35.1) 06/13/2024 Pain in right toe(s) (ICD-10 - M79.674) 06/13/2024 Pain in left toe(s) (ICD-10 - M79.675) Plan Of Treatment Pending Test Test Name Order Date 27824-FDQRNOB NAIL, 6 OR MORE 06/13/2024 61411-GPLC SKIN LESIONS, 2 TO 4 06/13/20 24 Next Appt Details Follow Up: prn, Reason: Provider Name:Wilber Robles , 09/09/2024 03:00:00 PM, [address] [place], [address], Procedure Notes * Category Sub-Category [...] use of a nail nipper and/or dremel-type liquor grinder mill operator, to a more viable healthy nail plate or bed tissue 6-10. Silver nitrate used for any petechial bleeding as necessary. Definitive antifungal treatment options have been reviewed and discussed with the patient. The patient chooses, no pharmaceutical tx - 88096 Keratoma Treatment Parring or Cutting o f Benign Hyperkeratotic Lesion(s) (-56) 2-4 Lesions - The Benign hyperkeratotic lesions, as described above were pared, and/or cut utilizing a sterile 15 blade, tissue nippers, and/or dremel - 14123 , Q8 Progress Notes * KELLICharismaOB:1950 (73 yo F)Acc No.[id number]:06/13/2024 Progress Note Patient:?Charisma Ashley Provider:?Wilber Robles DPM :1950???Age:73 Y???Sex:Female D ate:06/13/2024 Address[address] Pcp:Stephen Olmos Subjective: * Chief Complaints: * [...] Assessment: 1.?Tinea unguium - B35.1?2.? Atherosclerosis of choctaw artery of both lower extremities, with unspecified presence of clinical manifestation - I70.203?3.?Pain in right toe(s) - M79.674?4.?Pain in left toe(s) - M79.675? Plan: * Treatment: 2.?Atherosclerosis of choctaw artery of both lower extremities, with unspecified presence of clinical manifestation?Procedure: 07581-EQUK SKIN LESIONS, 2 TO 4 * Procedures:?Debride Nail 6-10:?Nail debridement?Performance of this nail treatment by a nonprofessional would put this patients foot and overall health at risk. Therefore, nail debridement was performed extensively to reduce/remove overall nail length, girth, thickness, subungual debris, and necrotic tissue, by manual and/or electrical means through the use of a nail nipper and/or dremel-type liquor grinder mill operator, to a more viable healthy nail plate or bed tissue 6-10. Silver nitrate used for any petechial bleeding as necessary. Definitive antifungal treatment options have been reviewed and discussed with the patient. The patient chooses, no pharmaceutical tx - 86389.?Keratoma Treatment:?Parring or Cutting of Benign Hyperkeratotic Lesion(s)?(-56) 2-4 Lesions - The Benign hyperkeratotic lesions, as described above were pared, and/or cut utilizing a sterile 15 blade, tissue nippers, and/or dremel - 80461 , Q8.? * Procedure Codes:?84413 DEBRI DE NAIL, 6 OR MORE, Modifiers: XS 70350 TRIM SKIN LESIONS, 2 TO 4, Modifiers: [...] distal, B/L TROPHIC CONDITION-TEXTURE/ELASTICITY/TURGOR/HAIR GROWTH (B): decreased, with sparse to absent hair gr owth, B/L EDEMA (C): absent, B/L CLAUDICATION (C): denies, B/L REST PAIN: denies, B/L PIGMENTATION: rubrous, B/L Nails NAILS are: Elongated, overg rown, dystrophic, lytic, greater than 3mm thick, discolored and friable with crumbly malodorous subungual debris, with pain on palpation, T1, T3, T4, T5 (REGROWTH FROM PNA 2019), T6, T8, T9
== END 2024-09-01 13:27 | disposition home or self-care (01) ==
PROVIDERS: PCP Internal Medicine; Visit Provider Anesthesiology
DX: M70.72 Other bursitis of hip, left hip (principal); M70.71 Other bursitis of hip, right hip; G89.4 Chronic pain syndrome; M16.0 Bilateral primary osteoarthritis of hip; M85.80 Other specified disorders of bone density and structure, unspecified site; M46.1 Sacroiliitis, not elsewhere classified; M99.04 Segmental and somatic dysfunction of sacral region
CPT/HCPCS: 99213

== ENCOUNTER → 2024-09-01 12:52 | Outpatient (BNVA) | payer MEDICARE, SELFPAY | PROVIDERS: PCP Internal Medicine; Visit Provider Anesthesiology | DX: M70.72 Other bursitis of hip, left hip (principal); M70.71 Other bursitis of hip, right hip; M16.0 Bilateral primary osteoarthritis of hip; M85.80 Other specified disorders of bone density and structure, unspecified site; M46.1 Sacroiliitis, not elsewhere classified; M99.04 Segmental and somatic dysfunction of sacral region; G89.4 Chronic pain syndrome | CPT/HCPCS: 99212 ==

== ENCOUNTER 2024-11-10 13:11 | Outpatient (AMB) | payer MEDICARE, SELFPAY ==
[2024-11-10 13:34] VITALS: BP 130/94; PULSE 90; O2SAT 97; BMI 43.6
--- NOTE | 2024-11-10 13:34 | MHC.OFFVIS ---
Vital Signs 11/10/24 13:34 Height 4 ft 9.5 in Weight 205 lb 0.478 oz BMI 43.6 BP 130/94 H Blood Pressure Location Lt brachial Position Sitting Pulse 90 Pulse Source Pulse Oximeter Pulse Oximetry (%) 97 Oxygen Delivery Method Room Air Intake Visit Reasons: Obstructive sleep apnea Intake Note: pt is here for follow up and states her new cpap is going well but dealing with all over body ache, waiting for injection to her lower back to help. 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 Allergies morphine [MORPHINE] Allergy (Severe, Verified 11/10/24 13:52) VOMITING, hives/stomach upset tolmetin [From TOLECTIN] Allergy (Severe, Verified 11/10/24 13:52) HIVES Sulfa (Sulfonamide Antibiotics) Allergy (Intermediate, Verified 11/10/24 13:52) hives Medication List - Last Reconciled 11/10/24 by Chintan Mcarthur MD albuterol sulfate 90 mcg/actuation 2 puffs PO Q4-6H PRN calcium carbonate (Calcium 600) 600 mg PO DAILY cholecalciferol (vitamin D3) 25 mcg PO DAILY gabapentin (Neurontin) 100 mg PO TID 30 days multivitamin 1 tab PO DAILY naloxone 4 mg/actuation 4 mg intranasal Q3M PRN 1 day pantoprazole 40 mg PO DAILY raloxifene 60 mg PO DAILY ropinirole 2 mg (2 x 1 mg) PO BEDTIME 90 days tramadol 50 mg PO DAILY 30 days trazodone 100 mg PO BEDTIME venlafaxine ER 75 mg PO DAILY zinc 50 mg PO DAILY Do you need a note to return to daycare/school/sports/work: No HPI HPI Obstructive sleep apnea: Details: This 73 years old female is known to have obstructive sleep apnea for the past several years. She has been using CPAP. For more than 10-15 years her CPAP device was old so she has now gotten the new CPAP. Which is working good. She is very happy with the new CPAP device because it does not make it is much noise , and she sleeps very comfortably. She uses the CPAP every night for more than 9 hours. She claims that the sleep is very good and profound. She denies. any daytime sleepiness Her main problem is the, multi joints pain due to her advanced degenerative arthritis. But in spite of pain she does sleep good at night. PFSH Medical History Chronic pain syndrome Somatic dysfunction of both sacroiliac joints Allergic rhinitis Anxiety Hx of radiation therapy Tracheobronchitis Endogenous depression Viral wart on finger GERD (gastroesophageal reflux disease) Osteoarthritis Hernia Perforation bowel Arthritis COPD (chronic obstructive pulmonary disease) [place] on CPAP Obesity (BMI 35.0-39.9 without comorbidity) Surgical History History of colon surgery Hx of colonoscopy History of total right knee replacement H/O bilateral breast reduction surgery H/O lumpectomy History of left knee replacement History of gastric bypass Family History Mother No problems noted. Father No problems noted. 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: Yes () Do you presently have visiting nurse or other home services: No Alcohol intake: current Alcohol intake frequency: does not drink Alcohol type: wine Patient Tobacco Use Status: Never used Tobacco Tobacco use type: Cigarette e-Cigarette/Vaping Use: Never Used Second Hand Smoke Exposure: No service: No Current occupational status: retired Cognitive needs: No Hearing needs: Yes (hearing aide) Vision needs: Yes (Glasses) Female Reproductive History Menstrual Age of Menarche: 15 Review of Systems Const All systems reviewed & are unremarkable except as noted in HPI and below Eyes Reports no additional complaints ENT Reports sore throat Card Denies chest pain, Denies irregular heart rhythm and Denies leg edema Resp Reports as per HPI and Reports cough (For the last 1 week) GI Reports heartburn (Controlled with med) Reports no additional complaints Musc Reports back pain and Reports arthralgias Skin/Breast Reports system reviewed and no additional complaints, except as documented Neuro Reports restless legs (Controlled with med) Psych Reports anxiety (Controlled with med) Endo Reports no additional complaints Physical Exam Vital Signs: Last Vital Signs Pulse 90 11/10/24 13:34 BP 130/94 H 11/10/24 13:34 Pulse Ox 97 11/10/24 13:34 Oxygen Delivery Method Room Air 11/10/24 13:34 BMI result Body Mass Index 43.6 Const General: comfortable, no acute distress, alert and awake Orientation/consciousness: patient oriented x3 HEENT Head: Yes normal to inspection General nose exam: No nasal polyps present and No nasal discharge present Face and sinus: Yes sinuses nontender Mouth: oropharynx normal Throat: Yes posterior oropharynx normal (There is mild redness of the mucosal and swelling in the nasopharynx.) Eyes General: appearance normal, both eyes and all related structures Neck Neck: Yes normal visual inspection, Yes no lymphadenopathy, Yes trachea midline and Yes no JVD Thyroid: Thyroid normal Chest Chest palpation & inspection: normal inspection of the chest (Increased AP diameter), normal palpation of entire chest wall and no tenderness Resp Other: Percussion note is resonant, breath sounds distant on both sides with prolonged expiratory phase. No wheezes rhonchi or crepitations are heard Cardio Palpation: normal PMI Rate: regular rate Rhythm: regular rhythm Heart sounds: no gallops and no murmurs GI Palpation (GI): Soft to palpation, nontender, No hepatosplenomegaly present, no masses and Other GI palpation findings present (Abdomen is obese and slightly protuberant) Auscultation: normal bowel sounds Back/Spine/Pelvis Thoracic/Lumbar Spine: thoracic and lumbar spine normal to inspection and thoraco-lumbar ROM limited Skin General skin exam: no rashes or lesions noted Neuro General: patient oriented x3 and no focal motor deficits Cranial nerves: Yes CN's II-XII intact bilaterally Extrem General: Yes normal to inspection, No no joint enlargement (Enlarged and tender right knee), Yes no clubbing, cyanosis or edema and Yes no calf tenderness Psych Appearance: grossly normal and well kempt Speech and movement: Normal speech and movement present Results Reviewed Results Reviewed: Compliance report for the last 30 nights is reviewed She has used 30/30 nights,. 100% Average use it per night and day is 9 hours 59 minutes. There is no significant air leak. She is on BiPAP setting of IPAP 16 and EPAP of 6 Residual AHI 6. Assessment & Plan Assessment & Plan (1) Morbid obesity with BMI of 40.0-44.9, adult: Comment: THIS PATIENT REMAINS GROSSLY OVERWEIGHT, BUT OVER THE YEARS SHE HAS DEFINITELY LOST SOME WEIGHT. CURRENT BMI 43.6 Code(s): E66.01 - Morbid (severe) obesity due to excess calories; Z68.41 - Body mass index [BMI] 40.0-44.9, adult Category: Medical Plan: PATIENT IS AWARE OF GROSS OBESITY. SHE TRIES TO WATCH HER DIET BUT SHE IS NOT ABLE TO DO MUCH EXERCISE. (2) COPD (chronic obstructive pulmonary disease): Comment: SHE HAS HAD HISTORY OF MILD BRONCHIAL ASTHMA/COPD IN THE PAST. CURRENTLY USES ALBUTEROL ONLY ONCE IN A WHILE. SPIROMETRY INDICATES THAT SHE ACTUALLY HAS ONLY MILD RESTRICTIVE DISORDER. THERE IS NO OBSTRUCTIVE AIRWAY DISORDER. SHE IS NONSMOKER. Code(s): J44.9 - Chronic obstructive pulmonary disease, unspecified Category: Medical Plan: OK TO USE ALBUTEROL HFA 2 PUFFS Q 6 HOURS ONLY P.R.N. (3) [place] on CPAP: Comment: SLEEP APNEA/ HYPOVENTILATION SYNDROME IS WELL CONTROLLED WITH THE USE OF BIPAP 16/6 CMs, FULL FACE MASK . SHE IS VERY COMPLIANT AND ACTUALLY USES ABOUT 9-10 HOURS PLUS EVERY DAY WITH GOOD RESULTS. SHE IS VERY HAPPY WITH THE NEW BIPAP MACHINE AND VERY PLEASE TO USE IT EVERY NIGHT. Code(s): G47.33 - Obstructive sleep apnea (adult) (pediatric); Z99.89 - Dependence on other enabling machines and devices Category: Medical Plan: COMMENDED FOR GOOD COMPLIANCE AND ADVISED TO CONTINUE USING THE BIPAP EVERY NIGHT Coding Level of Care Code Est Pt Level 3 (47053) Diagnoses Morbid obesity with BMI of 40.0-44.9, adult E66.01; Z68.41 COPD (chronic obstructive pulmonary disease) J44.9 [place] on CPAP G47.33; Z99.89
--- OUTSIDE RECORDS SUMMARY | 2024-11-10 15:21 | XMS_ITS ---
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 Role Phone Stephen Olmos Primary Care Provider [phone] Wilber Robles Unavailable [phone] Allergies Allergen (clinical drug ingredient) Drug/Non Drug Allergy documented on EMR Reaction Allergy Type Onset Date Status Bactrim hives Drug Allergy Active tolmetin Tolmetin [...] Ordered Date Performed Result Body Sit e 89383-YODKWXM NAIL, 6 OR MORE 03/28/2024 N/A 57404-KXOU SKIN LESIONS, 2 TO 4 03/28/2024 N/A Encounters Encounter Location Date Provider Diagnosis [facility] [address] [place] [address] 03/28/2024 Wilber Robles Atherosclerosis of [place] artery of both lower extremities, with unspecified presence of clinical manifestation I70.203 ; Tinea unguium B35.1 ; Pain in right toe(s) M79.674 and Pain in left toe(s) M79.675 Assessments Encounter Date Diagnosis (ICD Code) Assessment Notes Treatment Notes Treatment Clinical Notes Section Notes 03/28/2024 Atherosclerosis of [place] artery of both lower extremities, with unspecified presence of clinical manifestation (ICD-10 - I70.203) 03/28/2024 Tinea unguium (ICD-10 - B35.1) 03/28/2024 Pain in right toe(s) (ICD-10 - M79.674) 03/28/2024 Pain in left toe(s) (ICD-10 - M79.675) Plan Of Treatment Pending Test Test Name Order Date 47204-FOQGPTY NAIL, 6 OR MORE 03/28/2024 74991-CYRR SKIN LESIONS, 2 TO 4 03/28/20 24 Next Appt Details Follow Up: prn, Reason: Provider Name:Wilber Coby Robles , 11/14/2024 12:00:00 PM, [address] [place], [address], Procedure Notes * Category Sub-Category Detail Notes [...] as necessary. Patient chooses, no pharmaceutical tx (96113) Keratoma Treatment Parring or Cutting o f Benign Hyperkeratotic Lesion(s) 44563 (2-4 Lesions) - The Benign hyperkeratotic lesions, as described above were pared, and/or cut utilizing a sterile #15 blade, tissue nippers, and/or dremel, Q8 Progress Notes * Charisma ASHLEYOB:1950 (73 yo F)Acc No.[id number]:03/28/2024 Progress Note Patient:?Charisma Ashley Provider:?Wilber Robles DPM :1950???Age:73 Y???Sex:Female D ate:03/28/2024 Address[address] Pcp:Stephen Olmos Subjective: * Chief Complaints: * [...] Assessment: 1.?Tinea unguium - B35.1?2.? Atherosclerosis of [place] artery of both lower extremities, with unspecified presence of clinical manifestation - I70.203?3.?Pain in right toe(s) - M79.674?4.?Pain in left toe(s) - M79.675? Plan: * Treatment: 2.?Atherosclerosis of [place] artery of both lower extremities, with unspecified presence of clinical manifestation?Procedure: 29942-NXVS SKIN LESIONS, 2 TO 4 * Procedures:?Debride Nail 6-10:?Nail debridement?Nail debridement performed extensively to reduce/remove overall nail length, girth, thickness, subungual debris, and necrotic tissue, by manual and electrical means through the use of a nail nipper and/or dremel, to more viable healthy nail plate or bed tissue 6-10. Silver nitrate used for any petechial bleeding as necessary. Patient chooses, no pharmaceutical tx ([id number]).?Keratoma Treatment:?Parring or Cutting of Benign Hyperkeratotic Lesion(s)?95710 (2-4 Lesions) - The Benign hyperkeratotic lesions, as described above were pared, and/or cut utilizing a sterile #15 blade, tissue nippers, and/or dremel, Q8.? * Procedure Codes:?05357 DEBRI DE NAIL, 6 OR MORE, Modifiers: XS 23815 TRIM SKIN LESIONS, 2 TO 4, Modifiers: XS , Q8 * Follow Up:?prn * Images: * Sign off status: Completed true * Provider:?Wilber Robles DPM Date:?2023 Generated for Mary hayes/Cady/Bruce on:?11/10/2024 03:20 PM EDT History and Physical Notes * HPI (History [...]
--- OUTSIDE RECORDS SUMMARY | 2024-11-10 15:21 | XMS_ITS ---
Author Organization [facility] Address [address] [facility] [place] [address] Care Team Providers Care Public Health Doctor Name Role Phone Nickolas, Kartik Primary Care Provider Wilber Robles Unavailable [phone] Allergies Allergen (clinical drug ingredient) Drug/Non Drug Allergy documented on EMR Reaction Allergy Type Onset Date Status Bactrim hives Drug Allergy Active tolmetin Tolmetin Sodium hives Drug Allergy A ctive morphine Morphine vomiting Drug Allergy Active REASON FOR VISIT At Risk Footcare, Painful Nail(s) aggrevated by shoes and causing difficulty standing/walking., Foot pain Medications Medication SIG (Take, Route, Frequency, Duration) Notes Start Date End Date Status Zantac 150 MG 1 tablet Orally Twic e a day Active Tylenol 500mg Oral prn Not-Ta shanna Amoxicillin 500 MG 4 capsules one time Orally Once a day for 1 day(s) 09/19/2019 Not-Taking Meloxicam 15 MG 1 tablet Orally Once a day Not-Taking Zinc Active Tamoxifen Citrate 20 MG TAKE 1 TABLET BY MOUTH EVERY DAY Oral for 30 Active traZODone HCl 50 MG 1 tablet at bedtime Orally Once a day Active rOPINIRole HCl 1 MG 1 tablet 1 to 3 hour s before bedtime Orally Once a day Active Symbicort 80-4.5 MCG/ACT 2 puffs Inhalat ion Twice a day Active Pantoprazole Sodium Active Omeprazole Active Flonase 50 MCG/ACT 1 spray in each nost ril Nasally Once a day Active Effexor XR 75 MG 1 capsule with food Orally Once a day Active Combivent 18-103 MCG/ACT 2 puffs Inhalat ion Four times a day 01/02/2020 Active Claritin Active CeleBREX Active Acyclovir 5 % 1 application Externally Five times a day for 4 day(s) Active Aleve Active Tamsulosin HCl Activ e Social History Tobacco Use: Social History Observation Description Date Details (start date - stop date) Never Smoker NA - NA Alcohol Screen Question Answer Notes Did you have a drink containing alcohol in the p ast year? No Points 0 Interpretation Negative Tobacco use other than smoking: Question Answer Notes Are you an other tobacco user? No Tobacco Control (Standard) Question Answer Notes Tobacco use: Nonsmoker Additional Findings: Tobacco non-user Current no nsmoker Vital Signs Height 4ft9.5in in 09/09/2024 Weight 198 lbs 09/09/2024 BMI 42.1 kg/m2 09/09/2024 Blood pressure systolic 128 mm Hg 09/09/19 25 Blood pressure diastolic 70 mm Hg 025 Procedures Procedure Date Ordered Date Performed Result Body Sit e 95281-ZFTMGBX NAIL, 6 OR MORE 09/09/2024 N/A 41823-OPOO SKIN LESIONS, 2 TO 4 09/09/2024 N/A Encounters Encounter Location Date Provider Diagnosis [facility] [address] [place] [address] 09/09/2024 Wilber Robles Atherosclerosis of [place] artery of both lower extremities, with unspecified presence of clinical manifestation I70.203 ; Tinea unguium B35.1 ; Pain in right toe(s) M79.674 ; Pain in left toe(s) M79.675 ; Pain in left foot M79.672 ; Pain in left ankle and joints of left foot M25.572 ; Bursitis of left foot M77.52 and 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 Assessments Encounter Date Diagnosis (ICD Code) Assessment Notes Treatment Notes Treatment Clinical Notes Section Notes 09/09/2024 Atherosclerosis of [place] artery of both lower extremities, with unspecified presence of clinical manifestation (ICD-10 - I70.203) 09/09/2024 Tinea unguium (ICD-10 - B35.1) 09/09/2024 Pain in right toe(s) (ICD-10 - M79.674) 09/09/2024 Pain in left toe(s) (ICD-10 - M79.675) 09/09/2024 Pain in left foot (ICD-10 - M79.672) 09/09/2024 Pain in left ankle and joints of left foot (ICD-10 - M25.572) 09/09/2024 Bursitis of left foot (ICD-10 - M77.52) 09/09/2024 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 - M19.072) Plan Of Treatment Pending Test Test Name Order Date X ray : Foot, left 3V 09/09/2024 [id number] NAIL, 6 OR MORE 09/09/2024 41635-[id number] SKIN LESIONS, 2 TO 4 09/09/19 Next Appt Details Follow Up: prn, Reason: Provider Name:Wilber Robles , 11/14/2024 12:00:00 PM, [address] [place] [address], [phone], Procedure Notes * Category Sub-Category Detail Notes Debride Nail 6-10 Nail debridement Due to the cl inical pathology outlined in the exam findings, performance of this nail treatment is medically necessary as its management by an unskilled/untrained nonprofessional would put this patients foot and overall health at risk. Therefore, debridement to affected nail(s), as described in exam ( T1, T3, T4, T5, T6, T8, T9), was performed exclusively by the physician of record to reduce/remove overall nail length, girth, thickness, subungual debris, and necrotic tissue, by manual and/or electrical means through the use of a nail nipper and/or dremel-type grinder hardboard, to a more viable healthy nail plate or bed tissue 6-10 nails in total. Silver nitrate was used for any petechial bleeding as necessary. Definitive antifungal treatment options, both pharmaceutical and surgical, have been reviewed and discussed with the patient. The patient solely prefers the use of intermittent/as needed professional debridement services for their nail condition and understands the need for additional periodic treatments to maintain effectiveness in symptomatic relief - 10172 Keratoma Treatment Parring or Cutting o f Benign Hyperkeratotic Lesion(s) (-56) 2-4 Lesions - Due to the at risk nature of the patients medical condition as documented in the exam findings, performance of this keratoderma treatment is medically necessary as its management by an unskilled/untrained nonprofessional would put this patients foot and overall health at risk. Therefore, the benign hyperkeratotic lesions, ( 2) in total, locations as stated and described in the exam ( SUB MTH (s), 1, B/L), were pared, and/or cut utilizing a sterile 15 blade, tissue nippers, and/or power dremel instrumentation by the physician of record - 73472, Q8 Progress Notes * Charisma ASHLEYYoselynOB:1950 (73 yo F)Acc No.[id number]:09/09/2024 Progress Note Patient:?Charisma ASHLEY Provider:?Wilber Robles DPM :1950???Age:73 Y???Sex:Female D ate:09/09/2024 Address[address] Pcp:Stephen Olmos Subjective: * Chief Complaints: * ???At Risk FootcarePainful N ail(s) aggrevated by shoes and causing difficulty standing/walking.Foot pain * HPI: ???At Risk footcare:?Pt States Last PCP Visit:?Date?06/16/2024 ???Foot Pain:?Nature:?aching, stiffness, swelling, throbbing.?Location:?Top, Midfoot, LEFT.?Duration:?several weeks.?Course:?worse.?Treatments:?rest/alter normal daily activity.? * ROS:?General/Constitutional:?Nausea?denies.?Vomiting?denies.?Hunger Thirst?denies.?Loss appetite?denies.?Chills?denies.?Fatigue?denies.?Fever?denies.?Night Sweats?denies.?Unexplained weight loss?denies.?Ophthalmologic:?Blurred [...] arthritis, foot problems.? * Social History:?Tobacco Use:?Tobacco use other than smoking?Are you an other tobacco user??No ?Tobacco Control (Standard)?Tobacco use:?Nonsmoker ?Additional Findings: Tobacco non-user?Current nonsmoker ???Drugs/Alcohol:?Drugs?Have you used drugs other than those for medical reasons in the past 12 months??No ?Alcohol Screen?Did you have a drink containing alcohol in the past year??No ?Points?0 ?Interpretation?Negative ???Miscellaneous:?Caffeine: yes, frequency: sometimes. ?Children: yes, 3. ?Exercise: yes, walking, occasional. ?Marital status: . ?Occupation: retired-[employer]. * Medications:?TakingTamsulosi n HCl Aleve Acyclovir 5 % Cream 1 application Externally Five times a day CeleBREX Claritin Combivent 18-103 MCG/ACT Aerosol 2 puffs Inhalation Four times a day Effexor XR 75 MG Capsule Extended Release 24 Hour 1 capsule with food Orally Once a day Flonase 50 MCG/ACT Suspension 1 spray in each nostril Nasally Once a day Omeprazole Pantoprazole Sodium Symbicort 80-4.5 MCG/ACT Aerosol 2 puffs Inhalation Twice a day rOPINIRole HCl 1 MG Tablet 1 tablet 1 to 3 hours before bedtime Orally Once a day traZODone HCl 50 MG Tablet 1 tablet at bedtime Orally Once a day Tamoxifen Citrate 20 MG Tablet TAKE 1 TABLET BY MOUTH EVERY DAY Oral Zantac 150 MG Tablet 1 tablet Orally Twice a day Zinc Taking Tamsulosin HCl Taking Aleve Taking Acyclovir 5 % Cream 1 application Externally Five times a day Taking CeleBREX Taking Claritin Taking Combivent 18-103 MCG/ACT Aerosol 2 puffs Inhalation Four times a day Taking Effexor XR 75 MG Capsule Extended Release 24 Hour 1 capsule with food Orally Once a day Taking Flonase 50 MCG/ACT Suspension 1 spray in each nostril Nasally Once a day Taking Omeprazole Taking Pantoprazole Sodium Taking Symbicort 80-4.5 MCG/ACT Aerosol 2 puffs Inhalation Twice a day Taking rOPINIRole HCl 1 MG Tablet 1 tablet 1 to 3 hours before bedtime Orally Once a day Taking traZODone HCl 50 MG Tablet 1 tablet at bedtime Orally Once a day Taking Tamoxifen Citrate 20 MG Tablet TAKE 1 TABLET BY MOUTH EVERY DAY Oral Taking Zantac 150 MG Tablet 1 tablet Orally Twice a day Taking Zinc Not-Taking/PRNMeloxicam 15 MG Tablet 1 tablet Orally Once a day Amoxicillin 500 MG Capsule 4 capsules one time Orally Once a day Tylenol 500mg Oral prn Medication List reviewed and reconciled with the patientNot- Taking/PRN Meloxicam 15 MG Tablet 1 tablet Orally Once a day Not-Taking/PRN Amoxicillin 500 MG Capsule 4 capsules one time Orally Once a day Not-Taking/PRN Tylenol 500mg Oral prn Medication List reviewed and reconciled with the patient * Allergies:?Bactrim: hivesTol metin Sodium: hivesMorphine: vomitingyes[Allergies Verified] Objective: * Vitals:?Ht:4ft9.5in, Wt:198, BMI:42.1, Shoe size:6.5, BP:128/70mm Hg, Ht-cm: 146.05 cm, Wt-k.81 kg. * Examination: ???Vascular: ?DP PULSES (B):? 0-1/4, B/L.?PT PULSES (B):? 0/4, B/L.?CAPILLARY FILL TIME:? delayed, all digits, B/L.?TROPHIC CONDITION-TEXTURE/ELASTICITY/TURGOR/HAIR GROWTH (B):? decreased, with sparse to absent hair growth, B/L.?TEMPERTURE GRADIENT (C):? decreased, cool to cool, proximal to distal, B/L.?PIGMENTATION:? rubrous, B/L.?EDEMA (C):? absent, B/L.?CLAUDICATION (C):?denies, B/L.?REST PAIN:?denies, B/L.?Nails: ?NAILS are:?Elongated, overgrown, dystrophic, lytic, greater than 3mm thick, discolored and friable with crumbly malodorous subungual debris, with pain on palpation, T1, T3, T4, T5 (REGROWTH FROM PNA 2019),?T6, T8, T9.?Dermatologic: ?SKIN FINDINGS:? Skin exam reveals Keratotic lesion(s) located at, SUB MTH (s), 1, B/L .?Orthopedic: ?FOOT MORPHOLOGY:? Prominent, painful 1st Met-Cuneiform joint without inflammation, LEFT.?FOOTWEAR:?shoe gear properties exacerbate patients foot/toe deformity.?X-Rays - IMAGING REPORT: ?Clinical Indication(s):? Evaluate for Fracture, Evaluate Biomechanical Deformity.?Views:?3 views of Foot, AP, LAT, LO, LEFT??Taken by trained?[facility] Front Office Manager (?EF).?Findings:?normal bone and soft tissue density consistent for patients age and sex, eburnation dorsal 1st MT/Cun. jt, dorsal degenerative changes of the tarsal joints.?Fracture:?Negative fractures identified.?Neurological: ?TINEL'S COMPRESSION:? Negative, Medial dorsal cutaneous nerve distribution, Intermediate dorsal cutaneous nerve distribution, Deep peroneal nerve distribution, Left.?General Examination: ?GENERAL APPEARANCE:?Reveals a pleasant, alert, well nourished, well- developed, well hydrated individual, who demonstrates proper attention to hygiene/body habitus, and is in no acute distress, Pt serves as own historian for office visit today.?ORIENTED:?person, place, and time.? Assessment: * Assessment: 1.?Tinea unguium - B35.1???2 .?Atherosclerosis of [place] artery of both lower extremities, with unspecified presence of clinical manifestation - I70.203 (Primary)???3.?Pain in right toe(s) - M79.674???4.?Pain in left toe(s) - M79.675 ??5.?Pain in left foot - M79.672???6.?Pain in left ankle and joints of left foot - M25.572???7.?Bursitis of left foot - M77.52???8.?Osteoarthritis of midtarsal joint of left foot - M19.072???Specify :Dx New problem, Prognosis Uncertain (4) Acute problem, Complicated w/ Multiple Tx Options(4)??? Plan: * Treatment: 2.?Tinea unguium?Procedure: [id number]-[id number] NAIL, 6 OR MORE 3.?Pain in left foot?Imaging: X ray : Foot, left 3V * Procedures:?Debride Nail 6-10:?Nail debridement?Due to the clinical pathology outlined in the exam findings, performance of this nail treatment is medically necessary as its management by an unskilled/untrained nonprofessional would put this patients foot and overall health at risk. Therefore, debridement to affected nail(s), as described in exam (?T1,?T3,?T4, T5,?T6,?T8,?T9), was performed exclusively by the physician of record to reduce/remove overall nail length, girth, thickness, subungual debris, and necrotic tissue, by manual and/or electrical means through the use of a nail nipper and/or dremel-type grinder hardboard, to a more viable healthy nail plate or bed tissue 6- 10 nails in total. Silver nitrate was used for any petechial bleeding as necessary. Definitive antifungal treatment options, both pharmaceutical and surgical, have been reviewed and discussed with the patient. The patient solely prefers the use of intermittent/as needed professional debridement services for their nail condition and understands the need for additional periodic treatments to maintain effectiveness in symptomatic relief - 59607.?Keratoma Treatment:?Parring or Cutting of Benign Hyperkeratotic Lesion(s)?(-56) 2-4 Lesions - Due to the at risk nature of the patients medical condition as documented in the exam findings, performance of this keratoderma treatment is medically necessary as its management by an unskilled/untrained nonprofessional would put this patients foot and overall health at risk. Therefore, the benign hyperkeratotic lesions, ( 2) in total, locations as stated and described in the exam (?SUB MTH (s),?1,?B/L), were pared, and/or cut utilizing a sterile 15 blade, tissue nippers, and/or power dremel instrumentation by the physician of record - 60311, Q8.? * Procedure Codes:?81680 DEBRI DE NAIL, 6 OR MORE, Modifiers: XS 40863 X-RAY EXAM OF LEFT FOOT 3V, Modifiers: 26 , [id number] TRIM SKIN LESIONS, 2 TO 4, Modifiers: XS , Q8 * Preventive Medicine:? ??Counseling:?BMI Care goal follow-up plan:?BMI counseling provided to patient:?Lifestyle education ?Discussion:?-14: Office or other outpatient visit for the evaluation and management of an established patient, which required a medically appropriate history and/or examination and MODERATE level of DECISION MAKING for: 1 OR MORE CHRONIC PROBLEM(S) THATS WORSENING, 2 STABLE CHRONIC PROBLEMS, A NEWLY DIAGNOSED PROBLEM WITH UNCERTAIN PROGNOSIS, AN ACUTE COMPLICATED INJURY WITH MULTIPLE TREATMENT OPTIONS, OR AN ACUTE PROBLEM WITH ACCOMPANYING SYSTEMIC SYMPTOMS, THAT POSE(S) A MODERATE RISK OF MORBIDITY. THIS CONDITION MAY ALSO INCLUDE RX DRUG MANAGEMENT, OR A DECISON FOR MINOR SURGERY. The visit on the day of the encounter encompassed interpreting the data and educating the patient as to the nature of their condition, treatment options available according to their individual PMH, meds, allergies, and overall health/living conditions, as well as any potential risks or complications that may occur from a failure to adhere to, and participate in, the recommended course of therapy. The discussion included a complete verbal, and/or written explanation of the examination results, any x-rays taken, the proposed diagnosis, and outline of the treatment plan. A schedule for future care needs was also explained. The patient verbalized an understanding of the instructions at this time and agreed to be an active participant in their treatment. If the patient should think of any questions or concerns after the visit, I have encouraged the patient to call the office.?Arthritis:?The patient was counseled on the various etiologies for their Arthritis including genetic, history of injury or trauma, abnormal foot biomechanics leading to excessive joint wear, and use/overuse. We discussed the various treatment options from no treatment, to topical analgesics such as Biofreeze gel, Aspercream, Voltaren gel, Lidoderm patches, CBD oils, THC creams, and Custom-compounded topical cream preparations to natural oral products such as Glucosamine Sulfate/Chondroitin/MSM/Collegen to analgesic Tylenol, to anti-inflammatory medications such as Ibuprofen/Naproxen, and the use of oral steroids if needed. Cardiac, Kidney, and GI issues were discussed RE: potential complications of oral anti-inflammatories. We discussed several other treatment options consisting of accom shoes, supportive innersoles, AFO bracing/support, cortisone injection therapy, and surgical resection of the arthritic joint(s) or fusion reconstruction if necessary. We discussed the advantages and disadvantages of conservative (vs) surgical treamtents including pain relief, improved function/activities of daily life, return to exercise to failure, expense, systemic complications, infection, etaphtd-[id number]-jtdieke, prolongued postop course. Patient questions re: the various treatment options available, their successes and potential failures, and senior living effects were discussed and the answers were verbally confirmed understood.?Orthotics:?I explained to the patient the benefits of OT use. I explained that orthoses are medically necessary to decrease the foot pain through proper mechanical control, support of their foot.?P.R.I.C.E.:?The patient was counseled on the use of P.R.I.C.E. and NSAIDS (if well tolerated) to aid in the recovery from their painful condition.?Podiatric Surgery Counseling:?Surgical procedures to treat the patients foot problem were discussed. We reviewed the risks of the procedure (described below) vs not having the procedure (persistent pain, deformity, risk for skin ulceration/infection, loss of toe). We discussed the potential procedure complications including, but not limited to: pain, swelling, bleeding, scarring, numbness, infection, delayed/non healing, floppy/unstable/shorthened toe, recurrence, failure of the procedure, overcorrection leading to plantarflexed/downward positioned toe, recurrence, need for further surgery, as well as the possibility for loss of the toe itself. We discussed the use of IV/Local anesthesia, and the usual post-op course for healing. No guarentees were given. The patient verbally indicated a full understanding of the above conversation, and any other of their questions were answered to their satisfaction.?Shoe Gear Counseling:?The patient and I reviewed the types of shoes they should be wearing. My recommendation included obtaining a well-fitted shoe with a good supportive, non-foldable nor twistable sole, plenty of toe/room for the forefoot, and proper arch support. Based on todays examination, I recommended the patient look for new shoes, by having their feet professionally measured. We discussed that generally the best time of the day for a shoe fitting is the afternoon. Different shoes types and brands to best match the patients occupation and vocation were discussed. Specific brand selection will be up to the patient, their individual foot condition/deformities, and fit. The patient and I reviewed the standard new shoe break in period by wearing them for a few hours a day while checking for redness or sores as wear time is increased. The patient verbally confirmed to understanding the information discussed.? ??Screening/Special Tests:?Fall Risk?Screening:?No falls in the past year ?FALLS: Screening for Future Fall Risk?Have you had any falls with injury in the past year??No * Follow Up:?prn * Images: * Sign off status: Completed true * Provider:?Wilber Robles DPM Date:?2024 Generated for Mary hayes/Cady/Bruce on:?11/10/2024 03:21 PM EDT History and Physical Notes * HPI (History of Present Illness) Category Sub-Category Detail Notes Category Not es At Risk footcare Pt States Last PCP Visit: Date: 4 Foot Pain Nature: aching, stiffnes s, swelling, throbbing Location: Top, Midfoot, LEFT Duration: several weeks Course: worse Treatments: rest/alter normal da fernando activity Examination Category Sub-Category Detail Notes Category Not es Neurological TINEL'S COMPRESSION: Negative, M edial dorsal cutaneous nerve distribution, Intermediate dorsal cutaneous nerve distribution, Deep peroneal nerve distribution, Left Dermatologic SKIN FINDINGS: Skin exam reveal s Keratotic lesion(s) located at, SUB MTH (s), 1, B/L Orthopedic FOOT MORPHOLOGY: Prominent, pain ful 1st Met-Cuneiform joint without inflammation, LEFT FOOTWEAR: shoe gear properties exacerbate patients foot/toe deformity General Examination GENERAL APPEARANCE: Reveals a pleasant, alert, well nourished, well-developed, well hydrated individual, who demonstrates proper attention to hygiene/body habitus, and is in no acute distress, Pt serves as own historian for office visit today ORIENTED: person, place, and t torey Vascular DP PULSES (B): 0-1/4, B/L PT [...] (REGROWTH FROM PNA 2019), T6, T8, T9 X-Rays - IMAGING REPORT Findings: normal b one and soft tissue density consistent for patients age and sex, eburnation dorsal 1st MT/Cun. jt, dorsal degenerative changes of the tarsal joints Fracture: Negative fractures i dentified Views: 3 views of Foot, AP, LAT, LO, LEFT Taken by trained [facility] Front Office Manager ( EF) Clinical Indication(s): Evaluate for Fra cture, Evaluate Biomechanical Deformity
--- OUTSIDE RECORDS SUMMARY | 2024-11-10 15:21 | XMS_ITS | Patient Health Record ---
[facility] Organization [facility] Address [address] [facility] [address] Care Team Providers Care Box Brander Name Role Phone Stephen Olmos Primary Care Provider [phone] Wilber Robles Unavailable [phone] Allergies Allergen (clinical drug ingredient) Drug/Non Drug Allergy documented on EMR Reaction Allergy Type Onset Date Status Bactrim hives Drug Allergy Active tolmetin Tolmetin Sodium hives Drug Allergy A ctive morphine Morphine vomiting Drug Allergy Active Reason For Referral No Information Medications Medication SIG (Take, Route, Frequency, Duration) Notes Start Date End Date Status CeleBREX Active Acyclovir 5 % 1 application Externally Five times a day for 4 day(s) Active Tamoxifen Citrate 20 MG TAKE 1 TABLET BY MOUTH EVERY DAY Oral for 30 Active Aleve Active traZODone HCl 50 MG 1 tablet at bedtime Orally Once a day Active Tamsulosin HCl Activ e rOPINIRole HCl [...] a day for 1 day(s) 09/19/2019 Not-Taking Combivent 18-103 MCG/ACT 2 puffs Inhalat ion Four times a day 01/02/2020 Active Meloxicam 15 MG 1 tablet Orally Once a day Not-Taking Claritin Active Zinc Active Zantac 150 MG 1 tablet Orally Twic e a day Active Immunizations Vaccine Route Administration Date Status Commashley nts COVID-19 Pfizer BioNTech Vaccine Unknown 06/16/2021 [...] Additional Findings: Tobacco non-user Current no nsmoker Problems Problem Type SNOMED Code ICD Code Onset Dates Problem Status W/U Status Risk Notes Problem Atherosclerosis of [place] arteries of the extremities ([id number]) Atherosclerosis of [place] artery of both lower extremities, with unspecified presence of clinical manifestation (I70.203) Active confirmed Vital Signs Blood pressure diastolic 70 mm Hg 09/09/2024 Height 4ft9.5in in 09/09/2024 Blood pressure systolic 128 mm Hg 09/09/2024 Weight 198 lbs 09/09/2024 BMI 42.1 kg/m2 09/09/2024 Procedures Procedure Date Ordered Date Performed Result Body Sit e 83777-ERWCMRP NAIL, 6 OR MORE 03/28/2024 N/A 35303-VONK SKIN LESIONS, 2 TO 4 03/28/2024 N/A 98371-LLEAZUR NAIL, 6 OR MORE 06/13/2024 N/A 94556-ELUR SKIN LESIONS, 2 TO 4 06/13/2024 N/A 49295-WABDRFB NAIL, 6 OR MORE 09/09/2024 N/A 53109-OMWK SKIN LESIONS, 2 TO 4 09/09/2024 N/A Encounters Encounter Location Date [facility] [address] [place] [address] 03/28/2024 Wilber Robles Atherosclerosis of [place] artery of both lower extremities, with unspecified presence of clinical manifestation I70.203 ; Tinea unguium B35.1 ; Pain in right toe(s) M79.674 and Pain in left toe(s) M79.675 [facility] [address] [address] 06/13/2024 Wilber Robles Atherosclerosis of [place] artery of both lower extremities, with unspecified presence of clinical manifestation I70.203 ; Tinea unguium B35.1 ; Pain in right toe(s) M79.674 and Pain in left toe(s) M79.675 [facility] [address] 09/09/2024 Wilber Robles Atherosclerosis of [place] artery of both lower extremities, with unspecified [...] Notes Treatment Clinical Notes Section Notes 03/28/2024 Tinea unguium (ICD-10 - B35.1) 03/28/2024 Atherosclerosis of [place] artery of both lower extremities, with unspecified presence of clinical manifestation (ICD-10 - I70.203) 06/13/2024 Tinea unguium (ICD-10 - B35.1) 06/13/2024 Atherosclerosis of [place] artery of both lower extremities, with unspecified presence of clinical manifestation (ICD-10 - I70.203) 09/09/2024 Tinea unguium (ICD-10 - B35.1) 09/09/2024 Atherosclerosis of [place] artery of both lower extremities, with unspecified presence of clinical manifestation (ICD-10 - I70.203) 09/09/2024 Pain in right toe(s) (ICD-10 - M79.674) 03/28/2024 Pain in right toe(s) (ICD-10 - M79.674) 06/13/2024 Pain in right toe(s) (ICD-10 - M79.674) 06/13/2024 Pain in left toe(s) (ICD-10 - M79.675) 03/28/2024 Pain in left toe(s) (ICD-10 - M79.675) 09/09/2024 Pain in left toe(s) (ICD-10 - [...] X ray : Foot, left 3V 04/19/2017 X ray : Foot, left 3V 09/09/2024 19954-XKOQABA NAIL, 6 OR MORE 09/09/2024 70494-QZZVJRU NAIL, 6 OR MORE 03/28/2024 92988-IPXGEJV NAIL, 6 OR MORE 06/13/2024 77782-RBPJBEJ NAIL, 6 OR MORE 12/05/2013 52037-OCAFFMS NAIL, 6 OR MORE 08/07/2017 00031-OOLAPYH NAIL, 6 OR MORE 11/13/2017 71179-VCZGULO NAIL, 6 OR MORE 02/19/2018 10515-YJHYALL NAIL, 6 OR MORE 04/30/2018 76532-KCNVUBR NAIL, 6 OR MORE 07/23/2018 38051-JDOQXWB NAIL, 6 OR MORE 10/15/2018 70770-KGQVFLU NAIL, 6 OR MORE 03/13/2014 95886-SWUGWKL NAIL, 6 OR MORE 06/16/2014 31881-STTFGTL NAIL, 6 OR MORE 12/08/2014 45389-MQUTGIE NAIL, 6 OR MORE 03/05/2015 64504-CPMZOUX NAIL, 6 OR MORE 06/08/2015 99851-NVQUSEM NAIL, 6 OR MORE 09/14/2015 28212-QQIHGRG NAIL, 6 OR MORE 12/28/2015 36496-XVQHJMU NAIL, 6 OR MORE 03/31/2016 60425-TFULFNF NAIL, 6 OR MORE 07/04/2016 08746-XQXYAFF NAIL, 6 OR MORE 10/03/2016 24315-JDYJFNE NAIL, 6 OR MORE 01/07/2019 15286-NDUBIMK NAIL, 6 OR MORE 04/01/2019 11844-UQHHPGL NAIL, 6 OR MORE 05/18/2017 28653-VAKHLWJ NAIL, 6 OR MORE 08/01/2019 55006-ZFNHCVD NAIL, 6 OR MORE 10/31/2019 27649-OOJFHDE NAIL, 6 OR MORE 01/23/2020 93968-CGLAEIG NAIL, 6 OR MORE 04/09/2020 72954-SPVSYUI NAIL, 6 OR MORE 07/02/2020 99661-WUOULDQ NAIL, 6 OR MORE 09/24/2020 24910-RULROVU NAIL, 6 OR MORE 12/07/2020 21192-CAIYTHP NAIL, 6 OR MORE 02/15/2021 66403-LSEEEIN NAIL, 6 OR MORE 05/10/2021 70400-WRVGPBR NAIL, 6 OR MORE 01/02/2017 46033-NDBSFWW NAIL, 6 OR MORE 07/26/2021 55576-YOTCLGU NAIL, 6 OR MORE 11/04/2021 32836-ZGZWWFT NAIL, 6 OR MORE 01/06/2022 60452-FVVJLJW NAIL, 6 OR MORE 03/14/2022 66450-SNMAFSG NAIL, 6 OR MORE 07/03/2022 33163-ACUUSRQ NAIL, 6 OR MORE 09/12/2022 61669-GNRKJKT NAIL, 6 OR MORE 11/21/2022 36874-VOTJREH NAIL, 6 OR MORE 02/09/2023 50106-HWGAEVM NAIL, 6 OR MORE 05/11/2023 44603-YWCEFGG NAIL, 6 OR MORE 08/03/2023 80495-YUXPPQR NAIL, 6 OR MORE 11/02/2023 64546-Clufhwae Plate 11/21/2022 46221-Ezkcszpc Plate 03/14/2022 12197-Ybamtiux Plate 04/01/2021 07486-Nebrrinb Plate 05/10/2021 56336-Vclrstbs Plate 02/15/2021 86721-Nwwslwfr Plate 12/07/2020 08752-Xirtjmnn Plate 09/24/2020 11038-Yulzesor Plate 07/02/2020 58349-Wsrrzfqy Plate 04/09/2020 23883-Rmbzslid Plate 10/31/2019 80409-Dvddubpk Plate 08/01/2019 91125-Vfwypgfw Plate 05/18/2017 99998-Ucrgvadd Plate 04/01/2019 08567-Sqyedbxm Plate 10/03/2016 12266-Cucosshz Plate 06/08/2015 06807-Liciumlf Plate 10/15/2018 75637-Stjwparu Plate 05/11/2023 48462-Sqwmisuv Plate Each Additional 02/2017 23002-IGD 06/27/2019 46015-XZY 12/19/2019 98043-EKI 06/27/2021 24784- Debride <25 sq cm 07/26/2021 88597- Debride <25 sq cm 04/09/2020 17608-TZFMFSZ SKIN/TISSUE 01/23/2020 10448-VPVUAKC SKIN/TISSUE 01/02/2020 42821-BXNUHQB SKIN/TISSUE 07/11/2019 08511-CQWCWJP SKIN/TISSUE 07/14/2021 75737 I&D ABSCESS- SIMPLE,SINGLE 017 33825-DDTK SKIN LESIONS, 2 TO 4 11/22/19 23 31051-FYFY SKIN LESIONS, 2 TO 4 09/12/19 23 17196-AQUU SKIN LESIONS, 2 TO 4 11/02/19 24 52350-DUVQ SKIN LESIONS, 2 TO 4 08/03/20 23 92417-AYIK SKIN LESIONS, 2 TO 4 05/11/20 23 07526-ZPSY SKIN LESIONS, 2 TO 4 02/10/20 23 84496-NCFQ SKIN LESIONS, 2 TO 4 09/09/19 25 67580-SCDK SKIN LESIONS, 2 TO 4 06/13/20 24 08860-XKUV SKIN LESIONS, 2 TO 4 03/28/20 24 04513- Biopsy of skin lesion 12/05/2013 92609- Biopsy of Addt'l Lesions 12/06/19 14 84982 - Tenotomy, open flexor 09/19/2019 76290 - Tenotomy, open flexor 03/18/2021 Next Appt Details Provider Name:Wilber Robles , 11/14/2024 12:00:00 PM, [address] [facility], [place], [address], Insurance Providers Payer Name Payer Address Payer Phone Subscriber Number Group Number Insured Name Patient Relationship to Insured Coverage Start Date Coverage End Date Medicare National [employer] [address] [place] [address] [phone] [id number] Charisma Ashley Marie Self - patient is the insured [facility] [address] [place] [address] [id number] Julieta Ashleye Marie Self - patient is the insured Medical [...] knee replacement 07/19/2021 Hospitalization History Reason Date(Month/Year) [facility]/Fredi-Kidney stone 03/22/24 Left side Pain unknown 04/02-04/04/20
--- OUTSIDE RECORDS SUMMARY | 2024-11-10 15:21 | XMS_ITS ---
Author Organization [facility] Address [address] [facility] [place] [address] Care Team Providers Care Vacuum Cleaner Assembler Name Role Phone Nickolas, Kartik Primary Care Provider [phone] Wilber Robles Unavailable [phone] Allergies Allergen (clinical drug ingredient) Drug/Non Drug [...] Active CeleBREX Active Tylenol 500mg Oral prn Ana M-Ta shanna Zantac 150 MG 1 tablet Orally [...] Ordered Date Performed Result Body Sit e 14709-MDQKBRM NAIL, 6 OR MORE 06/13/2024 N/A 32173-VGIA SKIN LESIONS, 2 TO 4 06/13/2024 N/A Encounters Encounter Location Date Provider Diagnosis [facility] [address] [address] 06/13/2024 Wilber Robles Atherosclerosis of [place] artery of both lower extremities, with unspecified presence of clinical manifestation I70.203 ; Tinea unguium B35.1 ; Pain in right toe(s) M79.674 and Pain in left toe(s) M79.675 Assessments Encounter Date Diagnosis (ICD Code) Assessment Notes Treatment Notes Treatment Clinical Notes Section Notes 06/13/2024 Atherosclerosis of [place] artery of both lower extremities, with unspecified presence of clinical manifestation (ICD-10 - I70.203) 06/13/2024 Tinea unguium (ICD-10 - B35.1) 06/13/2024 Pain in right toe(s) (ICD-10 - M79.674) 06/13/2024 Pain in left toe(s) (ICD-10 - M79.675) Plan Of Treatment Pending Test Test Name Order Date 28725-AFLQJZJ NAIL, 6 OR MORE 06/13/2024 85176-LWQR SKIN LESIONS, 2 TO 4 06/13/20 24 Next Appt Details Follow Up: prn, Reason: Provider Name:Wilber Robles , 11/14/2024 12:00:00 PM, [address] [place], [address], Procedure Notes * Category Sub-Category Detail Notes Debride Nail 6-10 Nail debridement Performance o f this nail treatment by a nonprofessional would put this patients foot and overall health at risk. Therefore, nail debridement was performed extensively to reduce/remove overall nail length, girth, thickness, subungual debris, and necrotic tissue, by manual and/or electrical means through the use of a nail nipper and/or dremel-type universal grinder tool, to a more viable healthy nail plate or bed tissue 6-10. Silver nitrate used for any petechial bleeding as necessary. Definitive antifungal treatment options have been reviewed and discussed with the patient. The patient chooses, no pharmaceutical tx - 88639 Keratoma Treatment Parring or Cutting o f Benign Hyperkeratotic Lesion(s) (-56) 2-4 Lesions - The Benign hyperkeratotic lesions, as described above were pared, and/or cut utilizing a sterile 15 blade, tissue nippers, and/or dremel - 86858 , Q8 Progress Notes * Charisma ASHLEYOB:1950 (73 yo F)Acc No.[id number]:06/13/2024 Progress Note Patient:?DionCharisma Provider:Dina Robles DPM :1950???Age:73 Y???Sex:Female D ate:06/13/2024 Address:[place] [address], [facility] Pcp:Stephen Olmos Subjective: * Chief Complaints: * [...] Assessment: 1.?Tinea unguium - B35.1?2.? Atherosclerosis of [place] artery of both lower extremities, with unspecified presence of clinical manifestation - I70.203?3.?Pain in right toe(s) - M79.674?4.?Pain in left toe(s) - M79.675? Plan: * Treatment: 2.?Atherosclerosis of [place] artery of both lower extremities, with unspecified presence of clinical manifestation?Procedure: 86548-JQCU SKIN LESIONS, 2 TO 4 * Procedures:?Debride Nail 6-10:?Nail debridement?Performance of this nail treatment by a nonprofessional would put this patients foot and overall health at risk. Therefore, nail debridement was performed extensively to reduce/remove overall nail length, girth, thickness, subungual debris, and necrotic tissue, by manual and/or electrical means through the use of a nail nipper and/or dremel-type universal grinder tool, to a more viable healthy nail plate or bed tissue 6-10. Silver nitrate used for any petechial bleeding as necessary. Definitive antifungal treatment options have been reviewed and discussed with the patient. The patient chooses, no pharmaceutical tx - 69618.?Keratoma Treatment:?Parring or Cutting of Benign Hyperkeratotic Lesion(s)?(-56) 2-4 Lesions - The Benign hyperkeratotic lesions, as described above were pared, and/or cut utilizing a sterile 15 blade, tissue nippers, and/or dremel - 46428 , Q8.? * Procedure Codes:?95215 DEBRI DE NAIL, 6 OR MORE, Modifiers: XS 55456 TRIM SKIN LESIONS, 2 TO 4, Modifiers: [...]
== END 2024-11-10 14:56 | disposition home or self-care (01) ==
LOC: HO.HPS 13:11
PROVIDERS: PCP Internal Medicine; Visit Provider Internal Medicine
DX: E66.01 Morbid (severe) obesity due to excess calories (principal); Z68.41 Body mass index [BMI] 40.0-44.9, adult; J44.9 Chronic obstructive pulmonary disease, unspecified; G47.33 Obstructive sleep apnea (adult) (pediatric); Z99.89 Dependence on other enabling machines and devices
CPT/HCPCS: 99213

== ENCOUNTER → 2024-11-10 13:11 | Outpatient (BNVA) | payer MEDICARE, SELFPAY | PROVIDERS: PCP Internal Medicine; Visit Provider Internal Medicine | DX: G47.33 Obstructive sleep apnea (adult) (pediatric) (principal); J44.9 Chronic obstructive pulmonary disease, unspecified; E66.01 Morbid (severe) obesity due to excess calories; Z99.89 Dependence on other enabling machines and devices; Z68.41 Body mass index [BMI] 40.0-44.9, adult | CPT/HCPCS: 99212 ==

== ENCOUNTER 2025-01-01 14:29 | Outpatient (AMB) | payer MEDICARE, SELFPAY ==
--- NOTE | 2025-01-01 14:41 | MHC.PC.OV ---
Vital Signs 01/01/25 14:44 Height 4 ft 9.5 in Weight 205 lb 2 oz BMI 43.6 BP 140/72 H Blood Pressure Location Lt brachial Position Sitting Pulse 88 Pulse Source Pulse Oximeter Temp 97.3 F Temp Source Temporal Artery Scan Pulse Oximetry (%) 95 Oxygen Delivery Method Room Air Intake Visit Reasons: 3mth f/u Intake Note: Patient is here to follow up on COPD, TR[place], Chronic pain. Complaint of pain in both arms and upper back Top Waddy Required: No Gum Machine Filler: Not Required per policy Accompanied by: Self / Same As Patient Allergies morphine [MORPHINE] Allergy (Severe, Verified 01/01/25 14:43) VOMITING, hives/stomach upset tolmetin [From TOLECTIN] Allergy (Severe, Verified 01/01/25 14:43) HIVES Sulfa (Sulfonamide Antibiotics) Allergy (Intermediate, Verified 01/01/25 14:43) hives Tobacco use date assessed: 01/01/25 Fall risk assessment: No Falls in past year Last assessed Fall Risk: 01/01/25 Dental Screening Dental Screen Date: 01/01/25 Did you have a dental visit in the last 12 months?: Yes Did you have a dental problem in the last 6 months where you did not have access to dental care?: No Was dental information given to patient?: Patient has dentist [facility] Medical History (Updated 11/10/24 @ 14:05 by Chintan Mcarthur MD) Chronic pain syndrome Somatic dysfunction of both sacroiliac joints Allergic rhinitis Anxiety Hx of radiation therapy Tracheobronchitis Endogenous depression Viral wart on finger GERD (gastroesophageal reflux disease) Osteoarthritis Hernia Perforation bowel Arthritis COPD (chronic obstructive pulmonary disease) TRENTON on CPAP Obesity (BMI 35.0-39.9 without comorbidity) Surgical History History of colon surgery Hx of colonoscopy (~08/08/23) History of total right knee replacement H/O bilateral breast reduction surgery H/O lumpectomy History of left knee replacement History of gastric bypass Family History Mother No problems noted. Father No problems noted. Maternal Grandfather Stomach cancer Social History (Reviewed 01/01/25 @ 14:42 by LISA Portillo Household Members: Spouse and Family Housing: House Are you a primary wound care technician to a significant other at home: Yes () Do you presently have visiting nurse or other home services: No Alcohol intake: current Alcohol intake frequency: does not drink Alcohol type: wine Patient Tobacco Use Status: Never used Tobacco Tobacco use type: Cigarette e-Cigarette/Vaping Use: Never Used Second Hand Smoke Exposure: No service: No Current occupational status: retired Cognitive needs: No Hearing needs: Yes (hearing aide) Vision needs: Yes (Glasses) Female Reproductive History Menstrual Age of Menarche: 15 Questionnaire PHQ-9 Over the last 2 weeks, how often have you been bothered by any of the following problems? 1. Little interest or pleasure in doing things: not at all 2. Feeling down, depressed, or hopeless: not at all 3. Trouble falling or staying asleep, or sleeping too much: nearly every day 4. Feeling tired or having little energy: more than half the days 5. Poor appetite or overeating: not at all 6. Feeling bad about yourself - or that you are a failure or have let yourself or your family down: not at all 7. Trouble concentrating on things, such as reading the newspaper or watching television: not at all 8. Moving or speaking so slowly that other people could have noticed. Or the opposite - being so fidgety or restless that you have been moving around a lot more than usual: nearly every day 9. Thoughts that you would be better off or of hurting yourself in some way: not at all Total score: 8 Depression Screening Interpretation: Positive Depression Screening Done: Yes Source: Developed by Drs. Avila Sesay, Tessy Gonzalez, Lee Cartwright and colleagues, with an educational samm from [employer]. Thrive Questionnaire Date Thrive assessed: 01/01/25 I am a: Patient What is your living situation today?: I have a steady place to live Within the past 12 months, did the food you bought not last and you didn't have the money to get more?: I choose not to answer this question Within the past 12 months, did you worry whether your food would run out before you got money to buy more?: Sometimes True Do you have trouble paying for medicines?: No Do you have trouble getting transportation to medical appointments?: No Do you have trouble paying your heating and electricity bill?: I choose not to answer this question Do you have trouble taking care of your child, family member or friend?: No Do you have trouble with day-to-day activities such as bathing, preparing meals, shopping, managing finances, etc.?: No Are you currently unemployed and looking for a job?: No Are you interested in more education?: No Please select the resources that you would like help with: None Currently or been in a relationship where the following occur: I choose not to answer THRIVE Score: 1 AUDIT C Alcohol Use Questionnaire (AUDIT-C) 1. How often do you have a drink containing alcohol?: Never Total Score: 0 ROLANDO-7 AMB Questionnaire ROLANDO-7 Date ROLANDO - 7 assessed: 01/01/25 Feeling nervous, anxious, or on edge: 0 = Not at all Not being able to stop or control worryin = More than half the days Worrying too much about different things: 2 = More than half the days Trouble relaxin = Not at all Being so restless that it is hard to sit still: 1 = Several days Becoming easily annoyed or irritable: 0 = Not at all Feeling afraid as if something awful might happen: 0 = Not at all Total ROLANDO-7 score (0-4 normal; 5-9 mild; 10-14 moderate; 15-21 severe): 5 Source: Developed by Drs. Avila Sesay, Tessy Gonzalez, eLe Cartrwight and colleagues, with an educational samm from [employer]. Physical exam (Primary Care) Vital Signs: Last Vital Signs Temp 97.3 F 01/01/25 14:44 Pulse 88 01/01/25 14:44 BP 140/72 H 01/01/25 14:44 Pulse Ox 95 01/01/25 14:44 Oxygen Delivery Method Room Air 01/01/25 14:44 BMI result Body Mass Index 43.6 Tobacco/Smoking Status: Tobacco use Status Tobacco use date assessed 01/01/25 01/01/25 14:47 Patient Tobacco Use Status Never used Tobacco 01/01/25 14:41 Tobacco use type Cigarette 01/01/25 14:41 e-Cigarette/Vaping Use Never Used 01/01/25 14:41 PHQ-9: PHQ-9 Score PHQ-9: Total score 8 01/01/25 14:47 Depression Screening Interpretation: Positive Thrive Assessment: Date of Thrive Assessment Date Thrive assessed 01/01/25 01/01/25 14:47 Currently or been in a relationship where the following occur: I choose not to answer Coding Level of Care Code Est Pt Level 4 (17130) Complex EM visit Add On G2211 Diagnoses Osteoarthritis M19.90 Assessment & Plan Assessment & Plan (1) Osteoarthritis: Code(s): M19.90 - Unspecified osteoarthritis, unspecified site Category: Medical Plan: Patient is reporting arthritis pain. Prednisone started. Follow up in two weeks Plan History of Present Illness The patient is a 74-year-old female presenting with chronic pain management and persistent phlegm. She reports extensive pain in the arms and shoulders, progressively worsening. The arthritis in her fingers hinders daily tasks and exacerbates emotional distress. A throat lump with persistent phlegm has been resistant to treatment. Partial pain relief from tramadol and a muscle relaxant is noted. Lower body pain was previously treated successfully with an injection, but the upper body discomfort remains significant. A gap since her last appointment is indicated. Social History - Level of Activity: The patient experiences functional limitations due to arthritis-related pain. Review of Systems - Musculoskeletal: Reports generalized arthritis pain, particularly in arms, shoulders, and fingers. - Respiratory: Reports chronic lump sensation in the throat with persistent phlegm. - Sleep: Reports difficulty falling asleep due to pain. Physical Exam General: Cooperative and healthy appearing Nutritional Appearance: Well nourished Orientation/consciousness: Patient oriented x3 Limitations: No limitations Head: Normal to inspection General: Appearance normal, both eyes and all related structures Neck: Normal visual inspection Chest: Normal palpation of entire chest wall Respiratory: Lump of phlegm in throat, persistent coughing ormal respiratory effort Neurology: Patient oriented x3 Results Plan 1. Generalized Osteoarthritis - Initiate prednisone 5 mg, monitor symptom relief. - Plan follow-up in two weeks to reassess symptoms and treatment effectiveness. 2. Chronic Pharyngitis With Persistent Phlegm - Monitor symptom progression; no immediate diagnostic testing required unless symptoms change. Discussion Notes During our discussion, I explained to the patient the rationale for initiating prednisone to manage her generalized osteoarthritis. We discussed potential benefits, such as reducing inflammation and pain, alongside possible side effects. I emphasized the importance of the follow-up appointment in two weeks to assess effectiveness and adjust the treatment regimen if necessary. The patient was advised to continue current medications and monitor any changes in her symptoms, particularly regarding the phlegm and throat lump. Return precautions were also discussed. Patient Instructions - Take prednisone 5 mg as prescribed. - Schedule a follow-up appointment in two weeks to assess symptom improvement. - Continue current medications and monitor any changes in symptoms. - Contact the office if symptoms worsen or if new symptoms develop. Orders: Orders Liver Panel Today M1 - Unspecified osteoarthritis, unspecified site C Reactive Protein Today M1 - Unspecified osteoarthritis, unspecified site Thyroid Stimulating Hormone Today M1. - Unspecified osteoarthritis, unspecified site UA and rflx microscopic Today M1 - Unspecified osteoarthritis, unspecified site Lipid Panel Today M1 - Unspecified osteoarthritis, unspecified site Complete Blood Count no Diff Today M1 - Unspecified osteoarthritis, unspecified site Basic Metabolic Panel Today M1 - Unspecified osteoarthritis, unspecified site Erythrocyte Sedimentation Rate Today M19 - Unspecified osteoarthritis, unspecified site
[2025-01-01 14:44] VITALS: BP 140/72; PULSE 88; TEMP 36.3; O2SAT 95; BMI 43.6
--- OUTSIDE RECORDS SUMMARY | 2025-01-01 15:17 | XMS_ITS ---
Author Organization [facility] Address [address] [place] [address] Care Team Providers Care Development Technologist Name Role Phone Nickolas, Kartik Primary Care Provider Wilber Robles Unavailable [phone] Allergies Allergen (clinical drug ingredient) Drug/Non Drug Allergy documented on EMR Reaction Allergy Type Onset Date Status sulfamethoxazole / trimethoprim Bactrim hives Drug Allergy Active tolmetin Tolmetin Sodium hives Drug Allergy A ctive morphine Morphine vomiting Drug Allergy Active REASON FOR VISIT At Risk Footcare, Painful Nail(s) aggravated by shoes and causing difficulty standing/walking., Ingrown Nail Medications Medication SIG (Take, Route, Frequency, Duration) Notes Start Date End Date Status Omeprazole Active Flonase 50 MCG/ACT 1 spray in each nost ril Nasally Once a day Active Effexor XR 75 MG 1 capsule with food Orally Once a day Active Combivent 18-103 MCG/ACT 2 puffs Inhalat ion Four times a day 01/02/2020 Active Claritin Active Tylenol 500mg Oral prn Not-Ta shanna CeleBREX Active Acyclovir 5 % 1 application Externally Five times a day for 4 day(s) Active Aleve Active Tamsulosin HCl Not-T aking Amoxicillin 500 MG 4 capsules one time Orally Once a day for 1 day(s) 09/19/2019 Not-Taking Zantac 150 MG 1 tablet Orally Twic e a day Active Tamoxifen Citrate 20 MG TAKE 1 TABLET BY MOUTH EVERY DAY Oral for 30 Active Meloxicam 15 MG 1 tablet Orally Once a day Not-Taking Zinc Active Symbicort 80-4.5 MCG/ACT 2 puffs Inhalat ion Twice a day Active Pantoprazole Sodium Active traZODone HCl 50 MG 1 tablet at bedtime Orally Once a day Active rOPINIRole HCl 1 MG 1 tablet 1 to 3 hour s before bedtime Orally Once a day Active Social History Tobacco Use: Social History Observation Description Date Details (start date - stop date) Never Smoker NA - NA Tobacco use other than smoking: Question Answer Notes Are you an other tobacco user? No Tobacco Control (Standard) Question Answer Notes Tobacco use: Nonsmoker Additional Findings: Tobacco non-user Current no nsmoker Vital Signs Height 4ft9.5in in 11/14/2024 Weight 200 lbs 11/14/2024 BMI 42.53 kg/m2 11/14/2024 Blood pressure systolic 128 mm Hg 11/15/19 25 Blood pressure diastolic 70 mm Hg 025 Procedures Procedure Date Ordered Date Performed Result Body Sit e 05600-XQMYYFC NAIL, 6 OR MORE 11/14/2024 N/A 97222-Yyjcojmk Plate 11/14/2024 N/A 06722-XPME SKIN LESIONS, 2 TO 4 11/14/2024 N/A Encounters Encounter Location Date Provider Diagnosis [facility] [place] [address] [place] [address] 11/14/2024 Wilber Robles Atherosclerosis of [place] artery of both lower extremities, with unspecified presence of clinical manifestation I70.203 ; Tinea unguium B35.1 ; Pain in right toe(s) M79.674 ; Pain in left toe(s) M79.675 and Ingrown nail L60.0 Assessments Encounter Date Diagnosis (ICD Code) Assessment Notes Treatment Notes Treatment Clinical Notes Section Notes 11/14/2024 Atherosclerosis of [place] artery of both lower extremities, with unspecified presence of clinical manifestation (ICD-10 - I70.203) Q7(A), Q8(2B), Q9(1B,2C) 11/14/2024 Tinea unguium (ICD-10 - B35.1) 11/14/2024 Pain in right toe(s) (ICD-10 - M79.674) 11/14/2024 Pain in left toe(s) (ICD-10 - M79.675) 11/14/2024 Ingrown nail (ICD-10 - L60.0) Plan Of Treatment Pending Test Test Name Order Date 74253-LZQFONE NAIL, 6 OR MORE 11/14/2024 34617-Jsqwsstl Plate 11/14/2024 33439-WCQX SKIN LESIONS, 2 TO 4 11/15/19 25 Next Appt Details Follow Up: prn, Reason: Provider Name:Wilber Robles , 02/13/2025 01:00:00 PM, [address] [place] [address], [phone], Procedure Notes * Category Sub-Category Detail Notes Nail Avulsion Procedure A fine sterile e levator was placed between the eponychium, nail fold, and nail plate to separate the structures. A sterile nail splitter, and/or sterile 316 blade, was then used to longitudinally section the nail along its entire length through the eponychium to the area under the nail fold. The offending portion of nail was from the nail bed with a rolling action and then removed with a hemostat. No underlying bone was identified. There was minimal bleeding as hemostasis was achieved through the temporary use of either a digital tourniquet or the aforementioned local with epinephrine. A bacitracin sterile dressing was applied. Local wound aftercare instructions were discussed and dispensed. The patient was informed of both conservative and future surgical procedures to prevent recurrence. Tylenol or Motrin was recommended for pain or discomfort - 17694, CIRCULATION: Pt was advised as to the risk of delayed or nonhealing due to circulation. Pt is to call the office with any questions, concerns, or complications Anesthesia 1cc of 1 percent Lid ocaine Plain local anesthesic utilizing aseptic technique Location Lateral nail border, T8 Debride Nail 6-10 Nail debridement Due to the cl inical pathology outlined in the exam findings, performance of this nail treatment is medically necessary as its management by an unskilled/untrained nonprofessional would put this patients foot and overall health at risk. Therefore, debridement to affected nail(s), as described in exam ( T1, T3, T4, T5, T6, T8, T9 ), was performed exclusively by the physician of record to reduce/remove overall nail length, girth, thickness, subungual debris, and necrotic tissue, by manual and/or electrical means through the use of a nail nipper and/or dremel-type card grinder, to a more viable healthy nail plate [...] to maintain effectiveness in symptomatic relief - 44880 Keratoma Treatment Parring or Cutting o f [...] the exam ( SUB MTH (s), 1, B/L ), were pared, and/or cut utilizing a sterile 15 blade, tissue nippers, and/or power dremel instrumentation by the physician of record - 66901, Q8 Progress Notes * Charisma ASHLEY RichelleOB:1950 (73 yo F)Acc No.[id number]:11/14/2024 Progress Note Patient:?Charisma ASHLEY Provider:?Wilber Robles DPM :1950???Age:73 Y???Sex:Female D ate:11/14/2024 Address:[address] Pcp:Stephen Olmos Subjective: * Chief Complaints: * ???At Risk FootcarePainful N ail(s) aggravated by shoes and causing difficulty standing/walking.Ingrown Nail * HPI: ???At Risk footcare:?Pt States Last PCP Visit:?Date?08/21/2024 * ROS:?General/Constitutional:?Nausea?denies.?Vomiting?denies.?Hunger Thirst?denies.?Loss appetite?denies.?Chills?denies.?Fatigue?denies.?Fever?denies.?Night Sweats?denies.?Unexplained weight loss?denies.?Ophthalmologic:?Blurred [...] (Standard)?Tobacco use:?Nonsmoker ?Additional Findings: Tobacco non-user?Current nonsmoker ???Miscellaneous:?Caffeine: yes, frequency: sometimes. ?Children: yes, 3. ?Exercise: yes, walking, occasional. ?Marital status: . ?Occupation: retired-[employer]. * Medications:?TakingAleve Acy clovir 5 % Cream 1 application Externally Five [...] tablet Orally Twice a day Zinc Taking Aleve Taking Acyclovir 5 % Cream 1 application Externally Five times a day Taking CeleBREX Taking Claritin Taking Combivent 18- 103 MCG/ACT Aerosol 2 puffs Inhalation Four times [...] tablet Orally Twice a day Taking Zinc Not-Taking/PRNTamsulosin HCl Meloxicam 15 MG Tablet 1 tablet Orally Once a day Amoxicillin 500 MG Capsule 4 capsules one time Orally Once a day Tylenol 500mg Oral prn Medication List reviewed and reconciled with the patientNot-Taking/PRN Tamsulosin HCl Not-Taking/PRN Meloxicam 15 MG Tablet 1 tablet Orally Once a day Not- Taking/PRN Amoxicillin 500 MG Capsule 4 capsules one time Orally Once a day Not-Taking/PRN Tylenol 500mg Oral prn Medication List reviewed and reconciled with the patient * Allergies:?Bactrim: hivesTol metin Sodium: hivesMorphine: vomitingyes[Allergies Verified] Objective: * Vitals:?Ht: 4ft9.5in, Wt:200 , BMI:42.53, Shoe size: 6.5, BP:128/70mm Hg, Ht-cm: 146.05 cm, Wt-k.72 kg. * Examination: ???Vascular: ?DP PULSES (B):? [...] located at, SUB MTH (s), 1, B/L .?Ingrown Nail: ?INSPECTION:?Reveals nail incurvation, pain on palpation, groove hypertrophy, Lateral nail border, T8.? Assessment: * Assessment: 1.?Tinea unguium - B35.1???2 .?Atherosclerosis of [place] artery of both lower extremities, with unspecified presence of clinical manifestation - I70.203 (Primary)???Specify :Q8???Notes :Q7(A), Q8(2B), Q9(1B,2C)???3.?Pain in right toe(s) - M79.674???4.?Pain in left toe(s) - M79.675???5.?Ingrown nail - L60.0???Specify :Lateral nail border,?T8??? Plan: * Treatment: 2.?Tinea unguium?Procedure: 54464-EQTKXMM NAIL, 6 OR MORE 3.?Ingrown nail?Procedure: 49772-Xncocowb Plate * Procedures:?Debride Nail 6-10:?Nail debridement?Due to the clinical pathology outlined in the exam findings, performance of this nail treatment is medically necessary as its management by an unskilled/untrained nonprofessional would put this patients foot and overall health at risk. Therefore, debridement to affected nail(s), as described in exam (?T1,?T3,?T4, T5,?T6,?T8,?T9?), was performed exclusively by the physician of record to reduce/remove overall nail length, girth, thickness, subungual debris, and necrotic tissue, by manual and/or electrical means through the use of a nail nipper and/or dremel-type card grinder, to a more viable healthy nail plate [...] to maintain effectiveness in symptomatic relief - 47081.?Keratoma Treatment:?Parring or Cutting of Benign Hyperkeratotic Lesion(s)?(-56) [...] and described in the exam (?SUB MTH (s),?1,?B/L?), were pared, and/or cut utilizing a sterile 15 blade, tissue nippers, and/or power dremel instrumentation by the physician of record - 98713, Q8.?Nail Avulsion:?Location?Lateral nail border,?T8.?Anesthesia?1cc of 1 percent Lidocaine Plain local anesthesic utilizing aseptic technique.?Procedure?A fine sterile elevator was placed between the eponychium, nail fold, and nail plate to separate the structures. A sterile nail splitter, and/or sterile 316 blade, was then used to longitudinally section the nail along its entire length through the eponychium to the area under the nail fold. The offending portion of nail was from the nail bed with a rolling action and then removed with a hemostat. No underlying bone was identified. There was minimal bleeding as hemostasis was achieved through the temporary use of either a digital tourniquet or the aforementioned local with epinephrine. A bacitracin sterile dressing was applied. Local wound aftercare instructions were discussed and dispensed. The patient was informed of both conservative and future surgical procedures to prevent recurrence. Tylenol or Motrin was recommended for pain or discomfort - 13207, CIRCULATION: Pt was advised as to the risk of delayed or nonhealing due to circulation. Pt is to call the office with any questions, concerns, or complications.? * Procedure Codes:?99055 DEBRI DE NAIL, 6 OR MORE, Modifiers: XS 57305 Avulsion Plate, Modifiers: XS , [id number] TRIM SKIN LESIONS, 2 TO 4, Modifiers: XS , Q8 * Follow Up:?prn * Images: * Sign off status: Completed true * Provider:?Wilber Robles DPM Date:?2024 Generated for Mary hayes/Cady/eTransmitting on:?01/01/2025 03:16 PM EDT History and Physical Notes * HPI (History of Present Illness) Category Sub-Category Detail Notes Category Not es At Risk footcare Pt States Last PCP Visit: Date: 4 Examination Category Sub-Category Detail Notes Category Not es Ingrown Nail INSPECTION: Reveals nail inc urvation, pain on palpation, groove hypertrophy, Lateral nail border, T8 Dermatologic SKIN FINDINGS: Skin exam reveal s [...]
--- OUTSIDE RECORDS SUMMARY | 2025-01-01 15:17 | XMS_ITS | Patient Health Record ---
Author [facility] Address [address] [place] [address] Care Team Providers Care High Worker Name Role Phone Stephen Olmos Primary Care Provider Wilber Robles Unavailable [phone] Allergies Allergen (clinical drug ingredient) Drug/Non Drug Allergy documented on EMR Reaction Allergy Type Onset Date Status sulfamethoxazole / trimethoprim Bactrim hives Drug Allergy Active tolmetin Tolmetin Sodium hives Drug Allergy A ctive morphine Morphine vomiting Drug Allergy Active Reason For Referral No Information Medications Medication SIG (Take, Route, Frequency, Duration) Notes Start Date End Date Status Omeprazole Active Tylenol 500mg Oral prn Not-Ta shanna Flonase 50 MCG/ACT 1 spray in each nost ril Nasally Once a day Active Effexor XR 75 MG 1 capsule with food Orally Once a day Active Amoxicillin 500 MG 4 capsules one time Orally Once a day for 1 day(s) 09/19/2019 Not-Taking CeleBREX Active Zantac 150 MG 1 tablet Orally Twic e a day Active Acyclovir 5 % 1 application Externally Five times a day for 4 day(s) Active Tamoxifen Citrate 20 MG TAKE 1 TABLET BY MOUTH EVERY DAY Oral for 30 Active Combivent 18-103 MCG/ACT 2 puffs Inhalat ion Four times a day 01/02/2020 Active Meloxicam 15 MG 1 tablet Orally Once a day Not-Taking Claritin Active Zinc Active Symbicort 80-4.5 MCG/ACT 2 puffs Inhalat ion Twice a day Active Pantoprazole Sodium Active Aleve Active traZODone HCl 50 MG 1 tablet at bedtime Orally Once a day Active Tamsulosin HCl Not-T aking rOPINIRole HCl 1 MG 1 tablet 1 to 3 hour s before bedtime Orally Once a day Active Immunizations Vaccine Route Administration [...] W/U Status Risk Notes Problem Atherosclerosis of [place] arteries of the extremities ([id number]) Atherosclerosis of [place] artery of both lower extremities, with unspecified presence of clinical manifestation (I70.203) Active confirmed Q7(A), Q8(2B), Q9(1B,2 C) Vital Signs Blood pressure diastolic 70 mm Hg 11/14/2024 Height 4ft9.5in in 11/14/2024 Blood pressure systolic 128 mm Hg 11/14/2024 Weight 200 lbs 11/14/2024 BMI 42.53 kg/m2 11/14/2024 Procedures Procedure Date Ordered Date Performed Result Body Sit e 64306-YCLDWPH NAIL, 6 OR MORE 03/28/2024 N/A 30680-OPFN SKIN LESIONS, 2 TO 4 03/28/2024 N/A 87261-XCSYDAU NAIL, 6 OR MORE 06/13/2024 N/A 22627-VHKS SKIN LESIONS, 2 TO 4 06/13/2024 N/A 27594-ZVUUKYL NAIL, 6 OR MORE 09/09/2024 N/A 85428-WVBJ SKIN LESIONS, 2 TO 4 09/09/2024 N/A 52775-OGOPHJD NAIL, 6 OR MORE 11/14/2024 N/A 89015-Ckdoxntr Plate 11/14/2024 N/A 21068-CYFF SKIN LESIONS, 2 TO 4 11/14/2024 N/A Encounters Encounter Location Date Provider Diagnosis [facility] [address] [place] [address] 03/28/2024 Wilbermarcus PrinceTravis Atherosclerosis of sob[place] artery of both lower extremities, with unspecified presence of clinical manifestation I70.203 ; Tinea unguium B35.1 ; Pain in right toe(s) M79.674 and Pain in left toe(s) M79.[address] [address] 06/13/2024 Wilber Travis Atherosclerosis of sob[place] artery of both lower extremities, with unspecified presence of clinical manifestation I70.203 ; Tinea unguium B35.1 ; Pain in right toe(s) M79.674 and Pain in left toe(s) M79.[address] [address] 09/09/2024 Wilbermarcus PrinceTravis Atherosclerosis of sob[place] artery of both lower extremities, with unspecified presence of clinical manifestation I70.203 ; Tinea unguium B35.1 ; Pain in right toe(s) M79.674 ; Pain in left toe(s) M79.675 ; Pain in left foot M79.672 ; Pain in left ankle and joints of left foot M25.572 ; Bursitis of left foot M77.52 and 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 [address] 11/14/2024 Wilber Princeunier Atherosclerosis of sob[place] artery of both lower extremities, with unspecified presence of clinical manifestation I70.203 ; Tinea unguium B35.1 ; Pain in right toe(s) M79.674 ; Pain in left toe(s) M79.675 and Ingrown nail L60.0 Assessments Encounter Date Diagnosis (ICD Code) Assessment Notes Treatment Notes Treatment Clinical Notes Section Notes 03/28/2024 Tinea unguium (ICD-10 - B35.1) 03/28/2024 Atherosclerosis of sob[place] artery of both lower extremities, with unspecified presence of clinical manifestation (ICD-10 - I70.203) 06/13/2024 Tinea unguium (ICD-10 - B35.1) 06/13/2024 Atherosclerosis of soboba artery of both lower extremities, with unspecified presence of clinical manifestation (ICD-10 - I70.203) 09/09/2024 Tinea unguium (ICD-10 - B35.1) 09/09/2024 Atherosclerosis of soboba artery of both lower extremities, with unspecified presence of clinical manifestation (ICD-10 - I70.203) 11/14/2024 Tinea unguium (ICD-10 - B35.1) 11/14/2024 Atherosclerosis of sob[place] artery of both lower extremities, with unspecified presence of clinical manifestation (ICD-10 - I70.203) Q7(A), Q8(2B), Q9(1B,2C) 11/14/2024 Pain in right toe(s) (ICD-10 - M79.674) 09/09/2024 Pain in right toe(s) (ICD-10 - M79.674) 03/28/2024 Pain in right toe(s) (ICD-10 - M79.674) 06/13/2024 Pain in right toe(s) (ICD-10 - M79.674) 06/13/2024 Pain in left toe(s) (ICD-10 - M79.675) 03/28/2024 Pain in left toe(s) (ICD-10 - M79.675) 09/09/2024 Pain in left toe(s) (ICD-10 - M79.675) 11/14/2024 Pain in left toe(s) (ICD-10 - M79.675) 09/09/2024 Pain in left foot (ICD-10 - M79.672) 11/14/2024 Ingrown nail (ICD-10 - L60.0) 09/09/2024 Pain in left ankle and joints of left foot (ICD-10 - M25.572) 09/09/2024 Bursitis of left foot (ICD-10 - M77.52) 09/09/2024 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 - M19.072) Plan Of Treatment Pending Test Test Name Order Date X ray : Foot, left 3V 04/19/2017 X ray : Foot, left 3V 09/09/2024 80802-DBGJMBY NAIL, 6 OR MORE 11/14/2024 68237-ILMVSDD NAIL, 6 OR MORE 09/09/2024 20562-IBLOORJ NAIL, 6 OR MORE 03/28/2024 70918-JRYPTMD NAIL, 6 OR MORE 06/13/2024 85246-CRYKLID NAIL, 6 OR MORE 12/05/2013 22104-FFZHMIE NAIL, 6 OR MORE 08/07/2017 20578-NFTULZC NAIL, 6 OR MORE 11/13/2017 39560-VLSGLYP NAIL, 6 OR MORE 02/19/2018 86035-EQCMLCL NAIL, 6 OR MORE 04/30/2018 07373-SBKXRKG NAIL, 6 OR MORE 07/23/2018 88003-CMIENUD NAIL, 6 OR MORE 10/15/2018 77193-KTJJICZ NAIL, 6 OR MORE 03/13/2014 49693-HMUHEZM NAIL, 6 OR MORE 06/16/2014 84606-FFTNFRV NAIL, 6 OR MORE 12/08/2014 30164-ZHCFKMD NAIL, 6 OR MORE 03/05/2015 32968-RBCFSWC NAIL, 6 OR MORE 06/08/2015 50085-CMXNKAH NAIL, 6 OR MORE 09/14/2015 78481-CQMDMSF NAIL, 6 OR MORE 12/28/2015 64000-MLWCXNU NAIL, 6 OR MORE 03/31/2016 03497-KACWFWN NAIL, 6 OR MORE 07/04/2016 23792-EIWEJKM NAIL, 6 OR MORE 10/03/2016 85971-UIAKHUQ NAIL, 6 OR MORE 01/07/2019 73153-EUWRPTN NAIL, 6 OR MORE 04/01/2019 41917-BPHMTKR NAIL, 6 OR MORE 05/18/2017 01928-UTMKVCC NAIL, 6 OR MORE 08/01/2019 08107-OHOOIIO NAIL, 6 OR MORE 10/31/2019 68052-AZZKJMN NAIL, 6 OR MORE 01/23/2020 69288-SBSBEUO NAIL, 6 OR MORE 04/09/2020 86000-IWITHYT NAIL, 6 OR MORE 07/02/2020 07508-MXWHLXE NAIL, 6 OR MORE 09/24/2020 06190-SBCMUWB NAIL, 6 OR MORE 12/07/2020 98031-KJMGECR NAIL, 6 OR MORE 02/15/2021 63966-QJZIWYN NAIL, 6 OR MORE 05/10/2021 32884-LTGDBJY NAIL, 6 OR MORE 01/02/2017 11450-XEDFHOE NAIL, 6 OR MORE 07/26/2021 70172-ESQKLIG NAIL, 6 OR MORE 11/04/2021 35623-KAWAURQ NAIL, 6 OR MORE 01/06/2022 39002-DWVYOZE NAIL, 6 OR MORE 03/14/2022 07690-HSKSGXI NAIL, 6 OR MORE 07/03/2022 46077-YTEMGCN NAIL, 6 OR MORE 09/12/2022 28361-PVLKDVS NAIL, 6 OR MORE 11/21/2022 12539-FSSFCDS NAIL, 6 OR MORE 02/09/2023 57869-TQTOQXJ NAIL, 6 OR MORE 05/11/2023 27779-CYNDBOY NAIL, 6 OR MORE 08/03/2023 98498-JUIQUQV NAIL, OR MORE 11/02/2023 32990-Bzxebdtx Plate 11/21/2022 29534-Kajmsshv Plate 03/14/2022 40636-Ligdlbkg Plate 04/01/2021 64809-Otbflevj Plate 05/10/2021 05404-Ypqcckzb Plate 02/15/2021 99126-Bhaoqwnd Plate 12/07/2020 39864-Ckjluyfw Plate 09/24/2020 25036-Qjaekdol Plate 07/02/2020 44035-Xbftzhtn Plate 04/09/2020 53046-Gzkfcgka Plate 10/31/2019 36922-Exdrikiy Plate 08/01/2019 85278-Rysyhofv Plate 05/18/2017 95430-Rctuqqmn Plate 04/01/2019 30502-Dfqlxudr Plate 10/03/2016 06911-Xrqdpuxq Plate 06/08/2015 37017-Emvuryxd Plate 10/15/2018 71591-Fpjzolod Plate 05/11/2023 69270-Ypbkthca Plate 11/14/2024 63625-Qpcgwoix Plate Each Additional 02/2017 51784-LXK 06/27/2019 13213-KNX 12/19/2019 43749-MOM 06/27/2021 28647- Debride <25 sq cm 07/26/2021 63696- Debride <25 sq cm 04/09/2020 29998-KVGTUCX SKIN/TISSUE 01/23/2020 94283-SLEBCWW SKIN/TISSUE 01/02/2020 40609-DDBBMQF SKIN/TISSUE 07/11/2019 13081-EAVFCOG SKIN/TISSUE 07/14/2021 46885 I&D ABSCESS- SIMPLE,SINGLE 017 81197-XPFC SKIN LESIONS, 2 TO 4 11/22/19 23 32833-DIRD SKIN LESIONS, 2 TO 4 09/12/19 23 69296-RVUU SKIN LESIONS, 2 TO 4 11/02/19 24 89662-QVMO SKIN LESIONS, 2 TO 4 08/03/20 23 19378-ILUC SKIN LESIONS, 2 TO 4 05/11/20 23 31445-OPAI SKIN LESIONS, 2 TO 4 02/10/20 23 78433-NNEK SKIN LESIONS, 2 TO 4 06/13/20 24 19694-JPXU SKIN LESIONS, 2 TO 4 03/28/20 24 33980-YVJI SKIN LESIONS, 2 TO 4 09/09/19 25 77150-LAXG SKIN LESIONS, 2 TO 4 11/15/19 25 07352- Biopsy of skin lesion 12/05/2013 17173- Biopsy of Addt'l Lesions 12/06/19 14 77185 - Tenotomy, open flexor 09/19/2019 17665 - Tenotomy, open flexor 03/18/2021 Next Appt Details Provider Name:Wilber Robles , 02/13/2025 01:00:00 PM, [address] [facility], [place], [address], Insurance Providers Payer Name Payer Address Payer Phone Subscriber Number Group Number Insured Name Patient Relationship to Insured Coverage Start Date Coverage End Date Medicare National [employer] [address] [place] [address] [id number] Charisma Ashley Self - patient is the insured [employer] [address] [place] [address] [id number] Charisma Ashley Self - patient is the [...] knee replacement 07/19/2021 Hospitalization History Reason Date(Month/Year) [facility] [place]Kid[place] 03/22/24 Left side Pain unknown 04/02-04/04/20
--- OUTSIDE RECORDS SUMMARY | 2025-01-01 15:17 | XMS_ITS ---
Author Organization [facility] Address [address] [facility] [place] [address] Care Team Providers Care Desktop Publishing Associate Name Role Phone Nickolas, Kartik Primary Care Provider Wilber Robles Unavailable [phone] Allergies Allergen (clinical drug ingredient) Drug/Non Drug [...] Ordered Date Performed Result Body Sit e 45742-PRMNZOF NAIL, 6 OR MORE 06/13/2024 N/A 19825-PSJK SKIN LESIONS, 2 TO 4 06/13/2024 N/A Encounters Encounter Location Date Provider Diagnosis [facility] [address] [address] 06/13/2024 Wilber Robles Atherosclerosis of [place] artery of both lower extremities, with unspecified presence of clinical manifestation I70.203 ; Tinea unguium B35.1 ; Pain in right toe(s) M79.674 and Pain in left toe(s) M79.675 Assessments Encounter Date Diagnosis (ICD Code) Assessment Notes Treatment Notes Treatment Clinical Notes Section Notes 06/13/2024 Atherosclerosis of [place] artery of both lower extremities, with unspecified presence of clinical manifestation (ICD-10 - I70.203) 06/13/2024 Tinea unguium (ICD-10 - B35.1) 06/13/2024 Pain in right toe(s) (ICD-10 - M79.674) 06/13/2024 Pain in left toe(s) (ICD-10 - M79.675) Plan Of Treatment Pending Test Test Name Order Date 92489-JVQZVKH NAIL, 6 OR MORE 06/13/2024 82620-RVLT SKIN LESIONS, 2 TO 4 06/13/20 24 Next Appt Details Follow Up: prn, Reason: Provider Name:Wilber Robles , 02/13/2025 01:00:00 PM, [address] [place], [address], Procedure Notes * Category Sub-Category [...] use of a nail nipper and/or dremel-type bone grinder, to a more viable healthy nail plate or bed tissue 6-10. Silver nitrate used for any petechial bleeding as necessary. Definitive antifungal treatment options have been reviewed and discussed with the patient. The patient chooses, no pharmaceutical tx - 44856 Keratoma Treatment Parring or Cutting o f Benign Hyperkeratotic Lesion(s) (-56) 2-4 Lesions - The Benign hyperkeratotic lesions, as described above were pared, and/or cut utilizing a sterile 15 blade, tissue nippers, and/or dremel - 31481 , Q8 Progress Notes * DIONCharismaOB:1950 (73 yo F)Acc No.[id number]:06/13/2024 Progress Note Patient:?Charisma Ashley Provider:?Wilber Robles DPM :1950???Age:73 Y???Sex:Female D ate:06/13/2024 Address:[address] Pcp:Stephen Olmos Subjective: * Chief Complaints: * [...] Assessment: 1.?Tinea unguium - B35.1?2.? Atherosclerosis of [place] artery of both lower extremities, with unspecified presence of clinical manifestation - I70.203?3.?Pain in right toe(s) - M79.674?4.?Pain in left toe(s) - M79.675? Plan: * Treatment: 2.?Atherosclerosis of [place] artery of both lower extremities, with unspecified presence of clinical manifestation?Procedure: 67458-HYKA SKIN LESIONS, 2 TO 4 * Procedures:?Debride Nail 6-10:?Nail debridement?Performance of this nail treatment by a nonprofessional would put this patients foot and overall health at risk. Therefore, nail debridement was performed extensively to reduce/remove overall nail length, girth, thickness, subungual debris, and necrotic tissue, by manual and/or electrical means through the use of a nail nipper and/or dremel-type bone grinder, to a more viable healthy nail plate or bed tissue 6-10. Silver nitrate used for any petechial bleeding as necessary. Definitive antifungal treatment options have been reviewed and discussed with the patient. The patient chooses, no pharmaceutical tx - 46596.?Keratoma Treatment:?Parring or Cutting of Benign Hyperkeratotic Lesion(s)?(-56) 2-4 Lesions - The Benign hyperkeratotic lesions, as described above were pared, and/or cut utilizing a sterile 15 blade, tissue nippers, and/or dremel - 19501 , Q8.? * Procedure Codes:?72746 DEBRI DE NAIL, 6 OR MORE, Modifiers: XS 14562 TRIM SKIN LESIONS, 2 TO 4, Modifiers: XS , Q8 * Preventive Medicine:? ??Counseling:?BMI Care goal follow-up plan:?BMI counseling provided to patient:?Lifestyle education * Follow Up:?prn * Images: * Sign off status: Completed true * Provider:?Wilber Robles DPM Date:?2023 Generated for Mary hayes/Cady/Bruce on:?01/01/2025 03:16 PM EDT History and Physical [...]
--- OUTSIDE RECORDS SUMMARY | 2025-01-01 15:17 | XMS_ITS ---
Author Organization [facility] Address [address] [facility] [place] [address] Care Team Providers Care Flatbed Company Driver Name Role Phone Nickolas, Kartik Primary Care Provider Wilber Robles Unavailable [phone] Allergies Allergen (clinical drug ingredient) Drug/Non Drug [...] Ordered Date Performed Result Body Sit e 26964-MHKRTIK NAIL, 6 OR MORE 09/09/2024 N/A 53578-CRCU SKIN LESIONS, 2 TO 4 09/09/2024 N/A Encounters Encounter Location Date Provider Diagnosis [facility] [place] [address] [place] [address] 09/09/2024 Wilber Robles Atherosclerosis of [place] artery of both lower extremities, with unspecified [...] Clinical Notes Section Notes 09/09/2024 Atherosclerosis of [place] artery of both lower extremities, with unspecified [...] X ray : Foot, left 3V 09/09/2024 57486-TMXVWWH NAIL, 6 OR MORE 09/09/2024 85425-FGTD SKIN LESIONS, 2 TO 4 09/09/19 25 Next Appt Details Follow Up: prn, Reason: Provider Name:Wilber Robles , 02/13/2025 01:00:00 PM, [address] [place] [address], [address], Procedure Notes * Category Sub-Category Detail [...] use of a nail nipper and/or dremel-type cutter grinder, to a more viable healthy nail [...] to maintain effectiveness in symptomatic relief - 41190 Keratoma Treatment Parring or Cutting o f [...] instrumentation by the physician of record - 67503, Q8 Progress Notes * Charisma ASHLEYYoselynOB:1950 (73 yo F)Acc No.[id number]:09/09/2024 Progress Note Patient:?Charisma ASHLEY Provider:?Wilber Robles DPM :1950???Age:73 Y???Sex:Female D ate:09/09/2024 Address:[address] Pcp:Stephen Olmos Subjective: * Chief Complaints: * [...] Foot, AP, LAT, LO, LEFT??Taken by trained?Podiatric Counter Stacker (?EF).?Findings:?normal bone and soft tissue density consistent [...] Assessment: 1.?Tinea unguium - B35.1???2 .?Atherosclerosis of [place] artery of both lower extremities, with unspecified [...] Tx Options(4)??? Plan: * Treatment: 2.?Tinea unguium?Procedure: 42456-JXDVLJI NAIL, 6 OR MORE 3.?Pain in left [...] use of a nail nipper and/or dremel-type cutter grinder, to a more viable healthy nail [...] to maintain effectiveness in symptomatic relief - 88111.?Keratoma Treatment:?Parring or Cutting of Benign Hyperkeratotic Lesion(s)?(-56) [...] instrumentation by the physician of record - 00316, Q8.? * Procedure Codes:?57864 DEBRI DE NAIL, 6 OR MORE, Modifiers: XS 49839 X-RAY EXAM OF LEFT FOOT 3V, Modifiers: 26 , [id number] TRIM SKIN LESIONS, 2 TO 4, Modifiers: [...] exercise to failure, expense, systemic complications, infection, qwtyrxo-fwo-gwdnnow, prolongued postop course. Patient questions re: the various treatment options available, their successes and potential failures, and marine oil terminal superintendent effects were discussed and the answers were [...] Robles DPM Date:?2024 Generated for Mary hayes/Cady/Bruce on:?01/01/2025 03:17 PM EDT History and Physical Notes * [...] ful 1st Met-Cuneiform joint without inflammation, LEFT FOOTWEAR EVALUATION: shoe gear propertie s exacerbate patients foot/toe deformity General Examination GENERAL [...] LAT, LO, LEFT Taken by trained Podiatric Counter Stacker ( EF) Clinical Indication(s): Evaluate for Fra cture, Evaluate Biomechanical Deformity
== END 2025-01-01 15:15 | disposition home or self-care (01) ==
LOC: HO.HMCH 14:30
PROVIDERS: PCP Internal Medicine; Visit Provider Internal Medicine
DX: M19.90 Unspecified osteoarthritis, unspecified site (principal)

== ENCOUNTER → 2025-01-01 14:29 | Outpatient (BNVA) | payer MEDICARE, SELFPAY | PROVIDERS: PCP Internal Medicine; Visit Provider Internal Medicine | DX: M19.90 Unspecified osteoarthritis, unspecified site (principal) | CPT/HCPCS: 99212 ==

== ENCOUNTER 2025-01-06 13:13 | Outpatient (REF) | payer MEDICARE, SELFPAY ==
[2025-01-06 13:34] LABS: MANUAL DIFF FLAG NO
[2025-01-06 13:44] LABS: Eosinophils Percent Auto 0.7 % (0-4); Hematocrit 44.4 % (37.0-47.0); Hemoglobin 14.9 g/dl (12.0-16.0); Imm Gran Abs Auto 0.01 X10*3/uL (0.00-0.03); Imm Gran Pct Auto 0.3 % (0.0-0.4); Lymphocytes Percent Auto 33.8 % (20-40); Mean Corpuscular HGB Conc 33.6 g/dl (31.0-35.0); Mean Corpuscular Hemoglobin 30.7 pg (27.0-33.0); Mean Corpuscular Volume 91.4 fL (80.0-98.0); Mean Platelet Volume 11.4 fL (9.4-12.3); Monocytes Absolute Auto 0.2 X10*3/uL (0.1-1.2); Monocytes Percent Auto 6.8 % (2-11); Neutrophils Absolute Auto 1.7 x10*3/uL (2.0-8.3); Neutrophils Percent Auto 58.4 % (45-73); Platelet Count 123 X10*3/uL (160-400); Red Blood Count 4.86 X10*6/uL (4.20-5.50); Red Cell Distribution Width 13.5 % (11.0-16.0); White Blood Count 2.9 X10*3/uL (4.8-10.8)
[2025-01-06 14:02] LABS: Alanine Aminotransferase 24 U/L (0-31); Albumin Level 3.8 g/dL (3.5-5.0); Alkaline Phosphatase 56 U/L (39-117); Anion Gap 15 (12-20); Aspartate Amino Transferase 26 U/L (5-31); Bilirubin Direct 0.1 mg/dL (0.0-0.5); Bilirubin Total 0.3 mg/dL (0.0-1.0); Blood Urea Nitrogen 18 mg/dL (9-16); C Reactive Protein 0.17 mg/dL (< or = 0.50); Calcium 8.8 mg/dL (8.4-10.2); Carbon Dioxide 24 mmol/L (22-29); Chloride 108 mmol/L (96-108); Cholesterol 162 mg/dL (<200); Estimated Glomerular Filt Rate > 60; Glucose Random 102 mg/dL (60-115); HDL Cholesterol 70 mg/dL (>40); LDL Cholesterol Calculated 73 mg/dL (<100); Potassium 4.6 mmol/L (3.3-5.1); Sodium 142 mmol/L (135-145); Total Protein 6.6 g/dL (6.5-8.0); Triglycerides 97 mg/dL (<150)
[2025-01-06 14:06] LABS: Appearance Urine Clear; Color Urine Yellow; Glucose Urine UA Negative (Negative); Leukocyte Esterase Urine Negative (Negative); Nitrite Urine Negative (Negative); Urine Blood Negative (Negative); Urine Ketones Negative (Negative); Urine Protein Negative (Neg-Trace)
[2025-01-06 14:17] LABS: Thyroid Stimulating Hormone 1.44 uIU/mL (0.32-4.0)
--- OUTSIDE RECORDS SUMMARY | 2025-01-06 14:18 | XMS_ITS ---
Author Organization [facility] Address [address] [place] [address] Care Team Providers Care Smokehouse Operator Name Role Phone Nickolas, Kartik Primary Care Provider Wilber Robles Unavailable [phone] Allergies Allergen (clinical drug ingredient) Drug/Non Drug [...] Ordered Date Performed Result Body Sit e 93202-WGARETQ NAIL, 6 OR MORE 11/14/2024 N/A 06444-Jogaujiy Plate 11/14/2024 N/A 58166-IITR SKIN LESIONS, 2 TO 4 11/14/2024 N/A Encounters Encounter Location Date Provider Diagnosis [facility] [place] [address] [place] [address] 11/14/2024 Wilber Robles Atherosclerosis of [place] artery of both lower extremities, with unspecified presence of clinical manifestation I70.203 ; Tinea unguium B35.1 ; Pain in right toe(s) M79.674 ; Pain in left toe(s) M79.675 and Ingrown nail L60.0 Assessments Encounter Date Diagnosis (ICD Code) Assessment Notes Treatment Notes Treatment Clinical Notes Section Notes 11/14/2024 Atherosclerosis of [place] artery of both lower extremities, with unspecified presence of clinical manifestation (ICD-10 - I70.203) Q7(A), Q8(2B), Q9(1B,2C) 11/14/2024 Tinea unguium (ICD-10 - B35.1) 11/14/2024 Pain in right toe(s) (ICD-10 - M79.674) 11/14/2024 Pain in left toe(s) (ICD-10 - M79.675) 11/14/2024 Ingrown nail (ICD-10 - L60.0) Plan Of Treatment Pending Test Test Name Order Date 88044-SHUUUPO NAIL, 6 OR MORE 11/14/2024 39373-Ugocxdkp Plate 11/14/2024 11472-TWZN SKIN LESIONS, 2 TO 4 11/15/19 25 Next Appt Details Follow Up: prn, Reason: Provider Name:Wilber Robles , 02/13/2025 01:00:00 PM, [address] [place] [address], [address], Procedure Notes * Category Sub-Category Detail Notes [...] was recommended for pain or discomfort - 32465, CIRCULATION: Pt was advised as to the [...] use of a nail nipper and/or dremel-type wood grinder, to a more viable healthy nail [...] to maintain effectiveness in symptomatic relief - 67751 Keratoma Treatment Parring or Cutting o f [...] instrumentation by the physician of record - 59342, Q8 Progress Notes * Charisma ASHLEY RichelleOB:1950 (73 yo F)Acc No.[id number]:11/14/2024 Progress Note Patient:?Charisma ASHLEY Provider:?Wilber Robles DPM :1950???Age:73 Y???Sex:Female D ate:11/14/2024 Address:[address] Pcp:Stephen Olmos Subjective: * Chief Complaints: * [...] Assessment: 1.?Tinea unguium - B35.1???2 .?Atherosclerosis of [place] artery of both lower extremities, with unspecified presence of clinical manifestation - I70.203 (Primary)???Specify :Q8???Notes :Q7(A), Q8(2B), Q9(1B,2C)???3.?Pain in right toe(s) - M79.674???4.?Pain in left toe(s) - M79.675???5.?Ingrown nail - L60.0???Specify :Lateral nail border,?T8??? Plan: * Treatment: 2.?Tinea unguium?Procedure: 78664-VMEIFUA NAIL, 6 OR MORE 3.?Ingrown nail?Procedure: 43778-Zhtxszul Plate * Procedures:?Debride Nail 6-10:?Nail debridement?Due to [...] use of a nail nipper and/or dremel-type wood grinder, to a more viable healthy nail [...] to maintain effectiveness in symptomatic relief - 07363.?Keratoma Treatment:?Parring or Cutting of Benign Hyperkeratotic Lesion(s)?(-56) [...] instrumentation by the physician of record - 93820, Q8.?Nail Avulsion:?Location?Lateral nail border,?T8.?Anesthesia?1cc of 1 percent [...] was recommended for pain or discomfort - 84782, CIRCULATION: Pt was advised as to the risk of delayed or nonhealing due to circulation. Pt is to call the office with any questions, concerns, or complications.? * Procedure Codes:?54637 DEBRI DE NAIL, 6 OR MORE, Modifiers: XS 64447 Avulsion Plate, Modifiers: XS , [id number] TRIM SKIN LESIONS, 2 TO 4, Modifiers: XS , Q8 * Follow Up:?prn * Images: * Sign off status: Completed true * Provider:?Wilber Robles DPM Date:?2024 Generated for Mary hayes/Cady/eTransmitting on:?01/06/2025 02:18 PM EDT History and Physical Notes * [...]
--- OUTSIDE RECORDS SUMMARY | 2025-01-06 14:18 | XMS_ITS ---
Author Organization [facility] Address [address] [facility] [place] [address] Care Team Providers Care Radiology Ct Technologist Name Role Phone Nickolas, Kartik Primary Care Provider Wilber Robles Unavailable [phone] Allergies Allergen (clinical drug ingredient) Drug/Non Drug [...] Ordered Date Performed Result Body Sit e 63075-QCKHPGX NAIL, 6 OR MORE 06/13/2024 N/A 74294-CPEL SKIN LESIONS, 2 TO 4 06/13/2024 N/A Encounters Encounter Location Date Provider Diagnosis [facility] [address] [address] 06/13/2024 Wilber Robles Atherosclerosis of [place] artery of both lower extremities, with unspecified presence of clinical manifestation I70.203 ; Tinea unguium B35.1 ; Pain in right toe(s) M79.674 and Pain in left toe(s) M79.675 Assessments Encounter Date Diagnosis (ICD Code) Assessment Notes Treatment Notes Treatment Clinical Notes Section Notes 06/13/2024 Atherosclerosis of [place] artery of both lower extremities, with unspecified presence of clinical manifestation (ICD-10 - I70.203) 06/13/2024 Tinea unguium (ICD-10 - B35.1) 06/13/2024 Pain in right toe(s) (ICD-10 - M79.674) 06/13/2024 Pain in left toe(s) (ICD-10 - M79.675) Plan Of Treatment Pending Test Test Name Order Date 63673-SOZEGAI NAIL, 6 OR MORE 06/13/2024 03439-UPBO SKIN LESIONS, 2 TO 4 06/13/20 24 Next Appt Details Follow Up: prn, Reason: Provider Name:Wilber Robles , 02/13/2025 01:00:00 PM, [address] [place], [address], Procedure Notes * Category Sub-Category [...] use of a nail nipper and/or dremel-type plate grinder, to a more viable healthy nail plate or bed tissue 6-10. Silver nitrate used for any petechial bleeding as necessary. Definitive antifungal treatment options have been reviewed and discussed with the patient. The patient chooses, no pharmaceutical tx - 37793 Keratoma Treatment Parring or Cutting o f Benign Hyperkeratotic Lesion(s) (-56) 2-4 Lesions - The Benign hyperkeratotic lesions, as described above were pared, and/or cut utilizing a sterile 15 blade, tissue nippers, and/or dremel - 08831 , Q8 Progress Notes * DIONCharismaOB:1950 (73 yo F)Acc No.[id number]:06/13/2024 Progress Note Patient:?Charisma Ashley Provider:?Wilber Robles DPM :1950???Age:73 Y???Sex:Female D ate:06/13/2024 Address:[address] Pcp:Stephen Olmos Subjective: * Chief Complaints: * [...] Assessment: 1.?Tinea unguium - B35.1?2.? Atherosclerosis of [place] artery of both lower extremities, with unspecified presence of clinical manifestation - I70.203?3.?Pain in right toe(s) - M79.674?4.?Pain in left toe(s) - M79.675? Plan: * Treatment: 2.?Atherosclerosis of [place] artery of both lower extremities, with unspecified presence of clinical manifestation?Procedure: 42189-SHGD SKIN LESIONS, 2 TO 4 * Procedures:?Debride Nail 6-10:?Nail debridement?Performance of this nail treatment by a nonprofessional would put this patients foot and overall health at risk. Therefore, nail debridement was performed extensively to reduce/remove overall nail length, girth, thickness, subungual debris, and necrotic tissue, by manual and/or electrical means through the use of a nail nipper and/or dremel-type plate grinder, to a more viable healthy nail plate or bed tissue 6-10. Silver nitrate used for any petechial bleeding as necessary. Definitive antifungal treatment options have been reviewed and discussed with the patient. The patient chooses, no pharmaceutical tx - 96912.?Keratoma Treatment:?Parring or Cutting of Benign Hyperkeratotic Lesion(s)?(-56) 2-4 Lesions - The Benign hyperkeratotic lesions, as described above were pared, and/or cut utilizing a sterile 15 blade, tissue nippers, and/or dremel - 11500 , Q8.? * Procedure Codes:?37186 DEBRI DE NAIL, 6 OR MORE, Modifiers: XS 29180 TRIM SKIN LESIONS, 2 TO 4, Modifiers: XS , Q8 * Preventive Medicine:? ??Counseling:?BMI Care goal follow-up plan:?BMI counseling provided to patient:?Lifestyle education * Follow Up:?prn * Images: * Sign off status: Completed true * Provider:?Wilber Robles DPM Date:?2023 Generated for Mary hayes/Cady/Bruce on:?01/06/2025 02:18 PM EDT History and Physical [...]
--- OUTSIDE RECORDS SUMMARY | 2025-01-06 14:18 | XMS_ITS | Patient Health Record ---
Author Organization [facility] Address [address] [facility] [place] [address] Care Team Providers Care Director Family Name Role Phone Stephen Olmos Primary Care Provider Wilber Robles Unavailable [phone] Allergies Allergen (clinical drug ingredient) Drug/Non Drug [...] W/U Status Risk Notes Problem Atherosclerosis of [place] arteries of the extremities ([id number]) Atherosclerosis of [place] artery of both lower extremities, with unspecified presence of clinical manifestation (I70.203) Active confirmed Q7(A), Q8(2B), Q9(1B,2 C) Vital Signs Blood pressure diastolic 70 mm Hg 11/14/2024 Height 4ft9.5in in 11/14/2024 Blood pressure systolic 128 mm Hg 11/14/2024 Weight 200 lbs 11/14/2024 BMI 42.53 kg/m2 11/14/2024 Procedures Procedure Date Ordered Date Performed Result Body Sit e 35841-IZLTAGA NAIL, 6 OR MORE 03/28/2024 N/A 47777-YUVM SKIN LESIONS, 2 TO 4 03/28/2024 N/A 18939-URKLOLY NAIL, 6 OR MORE 06/13/2024 N/A 94108-YWXU SKIN LESIONS, 2 TO 4 06/13/2024 N/A 76326-TMNGOBZ NAIL, 6 OR MORE 09/09/2024 N/A 68191-WUIO SKIN LESIONS, 2 TO 4 09/09/2024 N/A 58426-OUCURJP NAIL, 6 OR MORE 11/14/2024 N/A 85771-Aykpcuam Plate 11/14/2024 N/A 00677-HVHJ SKIN LESIONS, 2 TO 4 11/14/2024 N/A Encounters Encounter Location Date Provider Diagnosis [facility] [address] [place] [address] 03/28/2024 Wilbermarcus PrinceTravis Atherosclerosis of [place] artery of both lower extremities, with unspecified presence of clinical manifestation I70.203 ; Tinea unguium B35.1 ; Pain in right toe(s) M79.674 and Pain in left toe(s) M79.[address] [address] 06/13/2024 Wilber Travis Atherosclerosis of [place] artery of both lower extremities, with unspecified presence of clinical manifestation I70.203 ; Tinea unguium B35.1 ; Pain in right toe(s) M79.674 and Pain in left toe(s) M79.[address] [address] 09/09/2024 Wilbermarcus PrinceTravis Atherosclerosis of [place] artery of both lower extremities, with unspecified presence of clinical manifestation I70.203 ; Tinea unguium B35.1 ; Pain in right toe(s) M79.674 ; Pain in left toe(s) M79.675 ; Pain in left foot M79.672 ; Pain in left ankle and joints of left foot M25.572 ; Bursitis of left foot M77.52 and 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 [address] 11/14/2024 Wilber Princeunier Atherosclerosis of [place] artery of both lower extremities, with unspecified presence of clinical manifestation I70.203 ; Tinea unguium B35.1 ; Pain in right toe(s) M79.674 ; Pain in left toe(s) M79.675 and Ingrown nail L60.0 Assessments Encounter Date Diagnosis (ICD Code) Assessment Notes Treatment Notes Treatment Clinical Notes Section Notes 03/28/2024 Tinea unguium (ICD-10 - B35.1) 03/28/2024 Atherosclerosis of [place] artery of both lower extremities, with unspecified presence of clinical manifestation (ICD-10 - I70.203) 06/13/2024 Tinea unguium (ICD-10 - B35.1) 06/13/2024 Atherosclerosis of [place] artery of both lower extremities, with unspecified presence of clinical manifestation (ICD-10 - I70.203) 09/09/2024 Tinea unguium (ICD-10 - B35.1) 09/09/2024 Atherosclerosis of [place] artery of both lower extremities, with unspecified presence of clinical manifestation (ICD-10 - I70.203) 11/14/2024 Tinea unguium (ICD-10 - B35.1) 11/14/2024 Atherosclerosis of [place] artery of both lower extremities, with unspecified [...] X ray : Foot, left 3V 09/09/2024 78942-FIOXRJW NAIL, 6 OR MORE 11/14/2024 30189-DDSAPCZ NAIL, 6 OR MORE 09/09/2024 52334-AEZMWQG NAIL, 6 OR MORE 03/28/2024 38252-QWPEABL NAIL, 6 OR MORE 06/13/2024 15853-OIWPRDO NAIL, 6 OR MORE 12/05/2013 70191-BRUUEPL NAIL, 6 OR MORE 08/07/2017 34812-EWVDERG NAIL, 6 OR MORE 11/13/2017 77166-HZSZXLA NAIL, 6 OR MORE 02/19/2018 11520-CUSEPVD NAIL, 6 OR MORE 04/30/2018 43487-TSMVCXH NAIL, 6 OR MORE 07/23/2018 22329-GNCAEPA NAIL, 6 OR MORE 10/15/2018 38452-VWNOSJC NAIL, 6 OR MORE 03/13/2014 25169-EDXXGPA NAIL, 6 OR MORE 06/16/2014 62077-LEGDMUW NAIL, 6 OR MORE 12/08/2014 95329-JDCUPEE NAIL, 6 OR MORE 03/05/2015 58549-XQZVXRY NAIL, 6 OR MORE 06/08/2015 63145-XTDFDHM NAIL, 6 OR MORE 09/14/2015 59551-JNUTXLW NAIL, 6 OR MORE 12/28/2015 81909-YCDDUBW NAIL, 6 OR MORE 03/31/2016 39821-PXRSUKY NAIL, 6 OR MORE 07/04/2016 31336-KXMNQGS NAIL, 6 OR MORE 10/03/2016 84460-ITKKPNZ NAIL, 6 OR MORE 01/07/2019 72171-HMCQTSN NAIL, 6 OR MORE 04/01/2019 92514-WXUAFSN NAIL, 6 OR MORE 05/18/2017 43112-LCFSLBO NAIL, 6 OR MORE 08/01/2019 16885-PXEARZJ NAIL, 6 OR MORE 10/31/2019 97740-ITMXPUO NAIL, 6 OR MORE 01/23/2020 19984-NXLEYMN NAIL, 6 OR MORE 04/09/2020 62214-IMKBKEX NAIL, 6 OR MORE 07/02/2020 37484-QKKUCYK NAIL, 6 OR MORE 09/24/2020 58185-PPDASHY NAIL, 6 OR MORE 12/07/2020 32746-VELGLZD NAIL, 6 OR MORE 02/15/2021 73520-XJSIQEJ NAIL, 6 OR MORE 05/10/2021 85952-WGMNWME NAIL, 6 OR MORE 01/02/2017 37881-NRZNUEO NAIL, 6 OR MORE 07/26/2021 55522-CACPMEL NAIL, 6 OR MORE 11/04/2021 71538-RISDYOU NAIL, 6 OR MORE 01/06/2022 22312-EOVZCHT NAIL, 6 OR MORE 03/14/2022 45649-PVXKNFQ NAIL, 6 OR MORE 07/03/2022 13097-QRZNISM NAIL, 6 OR MORE 09/12/2022 41436-CTHLULB NAIL, 6 OR MORE 11/21/2022 38914-HPJBYVZ NAIL, 6 OR MORE 02/09/2023 18599-YRNELYC NAIL, 6 OR MORE 05/11/2023 59221-WMGWZPM NAIL, 6 OR MORE 08/03/2023 02361-QWUOLQY NAIL, OR MORE 11/02/2023 96525-Lkghxpdx Plate 11/21/2022 11487-Dgbxgqxh Plate 03/14/2022 03305-Fylgqtfr Plate 04/01/2021 95499-Frkgcnjj Plate 05/10/2021 49766-Xnxygbbq Plate 02/15/2021 86445-Xxulamgh Plate 12/07/2020 76429-Vcpouhhv Plate 09/24/2020 88035-Sjdsbljf Plate 07/02/2020 59344-Lkccrltq Plate 04/09/2020 13092-Heoolqid Plate 10/31/2019 29130-Ltqyojad Plate 08/01/2019 85052-Dlueytpf Plate 05/18/2017 92117-Bvhhzqmb Plate 04/01/2019 92648-Rmwdctam Plate 10/03/2016 80323-Tjelypja Plate 06/08/2015 57984-Uchtgdnd Plate 10/15/2018 87227-Ztemhnpo Plate 05/11/2023 52414-Vkptzmei Plate 11/14/2024 45642-Huzyusuw Plate Each Additional 02/2017 36847-VJW 06/27/2019 70294-INN 12/19/2019 14011-IYX 06/27/2021 40454- Debride <25 sq cm 07/26/2021 80502- Debride <25 sq cm 04/09/2020 57522-QSZNUQM SKIN/TISSUE 01/23/2020 25024-LMNCJBA SKIN/TISSUE 01/02/2020 53288-GMMFOBR SKIN/TISSUE 07/11/2019 53538-HNSDNAN SKIN/TISSUE 07/14/2021 16971 I&D ABSCESS- SIMPLE,SINGLE 017 44194-JGWV SKIN LESIONS, 2 TO 4 11/22/19 23 59267-FPBA SKIN LESIONS, 2 TO 4 09/12/19 23 03393-LIAI SKIN LESIONS, 2 TO 4 11/02/19 24 34489-CMPU SKIN LESIONS, 2 TO 4 08/03/20 23 58038-PLPK SKIN LESIONS, 2 TO 4 05/11/20 23 99943-EFFM SKIN LESIONS, 2 TO 4 02/10/20 23 61199-YTPK SKIN LESIONS, 2 TO 4 06/13/20 24 42392-EQKB SKIN LESIONS, 2 TO 4 03/28/20 24 28743-UCTP SKIN LESIONS, 2 TO 4 09/09/19 25 00937-POCL SKIN LESIONS, 2 TO 4 11/15/19 25 25091- Biopsy of skin lesion 12/05/2013 03766- Biopsy of Addt'l Lesions 12/06/19 14 79084 - Tenotomy, open flexor 09/19/2019 22651 - Tenotomy, open flexor 03/18/2021 Next Appt Details Provider Name:Wilber Robles , 02/13/2025 01:00:00 PM, [address] [facility], [place], [address], Insurance Providers Payer Name Payer Address Payer Phone Subscriber Number Group Number Insured Name Patient Relationship to Insured Coverage Start Date Coverage End Date Medicare National [employer] [address] [place] [address] [id number] Charisma Ashley Self - patient is the insured [employer] [address] [place] [address] [phone] [id number] Charisma Ashley Self - patient is the [...] replacement 07/19/2021 Hospitalization History Reason Date(Month/Year) [facility] [place]Kid[place] 03/22/24 Left side Pain unknown 04/02-04/04/20
[2025-01-06 14:19] LABS: Erythrocyte Sedimentation Rate 7 MM/HR (0-20)
--- OUTSIDE RECORDS SUMMARY | 2025-01-06 14:19 | XMS_ITS ---
Author Organization [facility] Address [address] [facility] [address] Care Team Providers Care Die Casting Machine Operator Name Role Phone Nickolas, Kartik Primary Care Provider [phone] Wilber Robles Unavailable [phone] Allergies Allergen (clinical drug ingredient) Drug/Non Drug [...] Ordered Date Performed Result Body Sit e 45666-EEFLEOE NAIL, 6 OR MORE 09/09/2024 N/A 55176-SRPC SKIN LESIONS, 2 TO 4 09/09/2024 N/A Encounters Encounter Location Date Provider Diagnosis [facility] [place] [address] [place] [address] 09/09/2024 Wilber Robles Atherosclerosis of [place] artery of both lower extremities, with unspecified [...] Clinical Notes Section Notes 09/09/2024 Atherosclerosis of [place] artery of both lower extremities, with unspecified [...] X ray : Foot, left 3V 09/09/2024 16405-FWBVPIL NAIL, 6 OR MORE 09/09/2024 75587-FYNK SKIN LESIONS, 2 TO 4 09/09/19 25 Next Appt Details Follow Up: prn, Reason: Provider Name:Wilber Robles , 02/13/2025 01:00:00 PM, [address] [place] [address], [phone], Procedure Notes * Category Sub-Category Detail [...] use of a nail nipper and/or dremel-type almond grinder, to a more viable healthy nail [...] to maintain effectiveness in symptomatic relief - 30663 Keratoma Treatment Parring or Cutting o f [...] instrumentation by the physician of record - 54599, Q8 Progress Notes * Charisma ASHLEYYoselynOB:1950 (73 yo F)Acc No.[id number]:09/09/2024 Progress Note Patient:?Charisma ASHLEY Provider:?Wilber Robles DPM :1950???Age:73 Y???Sex:Female D ate:09/09/2024 Address:[address] Pcp:Stephen Olmos Subjective: * Chief Complaints: * [...] Foot, AP, LAT, LO, LEFT??Taken by trained?Podiatric Wholesale Manager (?EF).?Findings:?normal bone and soft tissue density [...] Assessment: 1.?Tinea unguium - B35.1???2 .?Atherosclerosis of [place] artery of both lower extremities, with unspecified [...] Tx Options(4)??? Plan: * Treatment: 2.?Tinea unguium?Procedure: 83376-XEBCSAB NAIL, 6 OR MORE 3.?Pain in left [...] use of a nail nipper and/or dremel-type almond grinder, to a more viable healthy nail [...] to maintain effectiveness in symptomatic relief - 44295.?Keratoma Treatment:?Parring or Cutting of Benign Hyperkeratotic Lesion(s)?(-56) [...] instrumentation by the physician of record - 46773, Q8.? * Procedure Codes:?02276 DEBRI DE NAIL, 6 OR MORE, Modifiers: XS 43646 X-RAY EXAM OF LEFT FOOT 3V, Modifiers: 26 , VO04099 TRIM SKIN LESIONS, 2 TO 4, Modifiers: [...] exercise to failure, expense, systemic complications, infection, [id number], prolongued postop course. Patient questions re: the various treatment options available, their successes and potential failures, and [place] effects were discussed and the answers were [...] Robles DPM Date:?2024 Generated for Mary hayes/Cady/Bruce on:?01/06/2025 02:18 PM [...] LAT, LO, LEFT Taken by trained Podiatric Wholesale Manager ( EF) Clinical Indication(s): Evaluate for Fra cture, Evaluate Biomechanical Deformity
== END 2025-01-06 13:14 | disposition home or self-care (01) ==
LOC: HO.LAB 13:13
PROVIDERS: Internal Medicine Medical Oncology; PCP Internal Medicine; Visit Provider Internal Medicine
DX: M19.90 Unspecified osteoarthritis, unspecified site (principal); C50.919 Malignant neoplasm of unspecified site of unspecified female breast; Z13.6 Encounter for screening for cardiovascular disorders
CPT/HCPCS: 36415; 80053; 80061; 81003; 82248; 84443; 85025; 85652; 86140

== ENCOUNTER 2025-01-15 08:51 | Outpatient (AMB) | payer MEDICARE, SELFPAY ==
--- OUTSIDE RECORDS SUMMARY | 2025-01-15 09:02 | XMS_ITS ---
Author Organization [facility] Address [address] [facility] [place] [address] Care Team Providers Care Bottle Carrier Name Role Phone Nickolas, Kartik Primary Care Provider Wilber Robles Unavailable [phone] Allergies Allergen (clinical drug ingredient) Drug/Non Drug [...] Ordered Date Performed Result Body Sit e 47290-PJYLYAG NAIL, 6 OR MORE 11/14/2024 N/A 79299-Fjuyfjiz Plate 11/14/2024 N/A 26372-YKFM SKIN LESIONS, 2 TO 4 11/14/2024 N/A Encounters Encounter Location Date Provider Diagnosis [facility] [place] [address] [place] [address] 11/14/2024 Wilber Robles Atherosclerosis of [place] artery of both lower extremities, with unspecified presence of clinical manifestation I70.203 ; Tinea unguium B35.1 ; Pain in right toe(s) M79.674 ; Pain in left toe(s) M79.675 and Ingrown nail L60.0 Assessments Encounter Date Diagnosis (ICD Code) Assessment Notes Treatment Notes Treatment Clinical Notes Section Notes 11/14/2024 Atherosclerosis of [place] artery of both lower extremities, with unspecified presence of clinical manifestation (ICD-10 - I70.203) Q7(A), Q8(2B), Q9(1B,2C) 11/14/2024 Tinea unguium (ICD-10 - B35.1) 11/14/2024 Pain in right toe(s) (ICD-10 - M79.674) 11/14/2024 Pain in left toe(s) (ICD-10 - M79.675) 11/14/2024 Ingrown nail (ICD-10 - L60.0) Plan Of Treatment Pending Test Test Name Order Date 61923-UASCBYY NAIL, 6 OR MORE 11/14/2024 28058-Izeafhlk Plate 11/14/2024 68135-BWEH SKIN LESIONS, 2 TO 4 11/15/19 25 Next Appt Details Follow Up: prn, Reason: Provider Name:Wilber Robles , 02/13/2025 01:00:00 PM, [address] [place] [address], [address], Procedure Notes * Category Sub-Category Detail Notes [...] was recommended for pain or discomfort - 83715, CIRCULATION: Pt was advised as to the [...] use of a nail nipper and/or dremel-type organ grinder, to a more viable healthy nail [...] to maintain effectiveness in symptomatic relief - 75736 Keratoma Treatment Parring or Cutting o f [...] instrumentation by the physician of record - 91396, Q8 Progress Notes * Charisma ASHLEY RichelleOB:1950 (73 yo F)Acc No.[id number]:11/14/2024 Progress Note Patient:?Charisma ASHLEY Provider:?Wilber Robles DPM :1950???Age:73 Y???Sex:Female D ate:11/14/2024 Address:[address] Pcp:Stephen Olmos Subjective: * Chief Complaints: * [...] Assessment: 1.?Tinea unguium - B35.1???2 .?Atherosclerosis of [place] artery of both lower extremities, with unspecified presence of clinical manifestation - I70.203 (Primary)???Specify :Q8???Notes :Q7(A), Q8(2B), Q9(1B,2C)???3.?Pain in right toe(s) - M79.674???4.?Pain in left toe(s) - M79.675???5.?Ingrown nail - L60.0???Specify :Lateral nail border,?T8??? Plan: * Treatment: 2.?Tinea unguium?Procedure: 62036-CUTUDHO NAIL, 6 OR MORE 3.?Ingrown nail?Procedure: 52748-Qoesazjc Plate * Procedures:?Debride Nail 6-10:?Nail debridement?Due to [...] use of a nail nipper and/or dremel-type organ grinder, to a more viable healthy nail [...] to maintain effectiveness in symptomatic relief - 28441.?Keratoma Treatment:?Parring or Cutting of Benign Hyperkeratotic Lesion(s)?(-56) [...] instrumentation by the physician of record - 74639, Q8.?Nail Avulsion:?Location?Lateral nail border,?T8.?Anesthesia?1cc of 1 percent [...] was recommended for pain or discomfort - 16831, CIRCULATION: Pt was advised as to the risk of delayed or nonhealing due to circulation. Pt is to call the office with any questions, concerns, or complications.? * Procedure Codes:?00142 DEBRI DE NAIL, 6 OR MORE, Modifiers: XS 69396 Avulsion Plate, Modifiers: XS , Q269231 TRIM SKIN LESIONS, 2 TO 4, Modifiers: XS , Q8 * Follow Up:?prn * Images: * Sign off status: Completed true * Provider:?Wilber Robles DPM Date:?2024 Generated for Mary hayes/Cady/eTransmitting on:?01/15/2025 09:02 AM EDT History and Physical Notes * HPI [...]
--- OUTSIDE RECORDS SUMMARY | 2025-01-15 09:03 | XMS_ITS ---
Author Organization [facility] Address [address] [place] [address] Care Team Providers Care Brake Adjuster Name Role Phone Nickolas, Kartik Primary Care Provider [phone] Wilber Robles Unavailable [phone] Allergies Allergen (clinical drug ingredient) Drug/Non Drug [...] Ordered Date Performed Result Body Sit e 92921-NFYMPBJ NAIL, 6 OR MORE 06/13/2024 N/A 91210-GGDZ SKIN LESIONS, 2 TO 4 06/13/2024 N/A Encounters Encounter Location Date Provider Diagnosis [facility] [address] [address] 06/13/2024 Wilber Robles Atherosclerosis of [place] artery of both lower extremities, with unspecified presence of clinical manifestation I70.203 ; Tinea unguium B35.1 ; Pain in right toe(s) M79.674 and Pain in left toe(s) M79.675 Assessments Encounter Date Diagnosis (ICD Code) Assessment Notes Treatment Notes Treatment Clinical Notes Section Notes 06/13/2024 Atherosclerosis of [place] artery of both lower extremities, with unspecified presence of clinical manifestation (ICD-10 - I70.203) 06/13/2024 Tinea unguium (ICD-10 - B35.1) 06/13/2024 Pain in right toe(s) (ICD-10 - M79.674) 06/13/2024 Pain in left toe(s) (ICD-10 - M79.675) Plan Of Treatment Pending Test Test Name Order Date 45829-DHRMFMK NAIL, 6 OR MORE 06/13/2024 23830-TRAL SKIN LESIONS, 2 TO 4 06/13/20 24 Next Appt Details Follow Up: prn, Reason: Provider Name:Wilber Robles , 02/13/2025 01:00:00 PM, [address] [place], [address], Procedure Notes * Category Sub-Category [...] of a nail nipper and/or dremel-type grinder machine knife setter, to a more viable healthy nail plate or bed tissue 6-10. Silver nitrate used for any petechial bleeding as necessary. Definitive antifungal treatment options have been reviewed and discussed with the patient. The patient chooses, no pharmaceutical tx - 38527 Keratoma Treatment Parring or Cutting o f Benign Hyperkeratotic Lesion(s) (-56) 2-4 Lesions - The Benign hyperkeratotic lesions, as described above were pared, and/or cut utilizing a sterile 15 blade, tissue nippers, and/or dremel - 12258 , Q8 Progress Notes * DIONCharismaOB:1950 (73 yo F)Acc No.[id number]:06/13/2024 Progress Note Patient:?Charisma Ashley Provider:?Wilber Robles DPM :1950???Age:73 Y???Sex:Female D ate:06/13/2024 Address:[address] Pcp:Stephen Olmos Subjective: * Chief Complaints: * [...] Assessment: 1.?Tinea unguium - B35.1?2.? Atherosclerosis of [place] artery of both lower extremities, with unspecified presence of clinical manifestation - I70.203?3.?Pain in right toe(s) - M79.674?4.?Pain in left toe(s) - M79.675? Plan: * Treatment: 2.?Atherosclerosis of [place] artery of both lower extremities, with unspecified presence of clinical manifestation?Procedure: 08553-FUZU SKIN LESIONS, 2 TO 4 * Procedures:?Debride Nail 6-10:?Nail debridement?Performance of this nail treatment by a nonprofessional would put this patients foot and overall health at risk. Therefore, nail debridement was performed extensively to reduce/remove overall nail length, girth, thickness, subungual debris, and necrotic tissue, by manual and/or electrical means through the use of a nail nipper and/or dremel-type grinder machine knife setter, to a more viable healthy nail plate or bed tissue 6-10. Silver nitrate used for any petechial bleeding as necessary. Definitive antifungal treatment options have been reviewed and discussed with the patient. The patient chooses, no pharmaceutical tx - 29777.?Keratoma Treatment:?Parring or Cutting of Benign Hyperkeratotic Lesion(s)?(-56) 2-4 Lesions - The Benign hyperkeratotic lesions, as described above were pared, and/or cut utilizing a sterile 15 blade, tissue nippers, and/or dremel - 50920 , Q8.? * Procedure Codes:?18605 DEBRI DE NAIL, 6 OR MORE, Modifiers: XS 32681 TRIM SKIN LESIONS, 2 TO 4, Modifiers: XS , Q8 * Preventive Medicine:? ??Counseling:?BMI Care goal follow-up plan:?BMI counseling provided to patient:?Lifestyle education * Follow Up:?prn * Images: * Sign off status: Completed true * Provider:?Wilber Robles DPM Date:?2023 Generated for Mary hayes/Cady/Bruce on:?01/15/2025 09:02 AM EDT History and Physical [...]
--- OUTSIDE RECORDS SUMMARY | 2025-01-15 09:03 | XMS_ITS ---
Author Organization [facility] Address [address] [facility] [place] [address] Care Team Providers Care Paper Coater Name Role Phone Nickolas, Kartik Primary Care Provider [phone] Wilber Robles Unavailable [phone] Allergies Allergen (clinical drug ingredient) Drug/Non Drug [...] Ordered Date Performed Result Body Sit e 29789-USTVXGQ NAIL, 6 OR MORE 09/09/2024 N/A 35403-YULC SKIN LESIONS, 2 TO 4 09/09/2024 N/A Encounters Encounter Location Date Provider Diagnosis [facility] [address] [place] [address] 09/09/2024 Wilber Robles Atherosclerosis of [place] artery [...] Clinical Notes Section Notes 09/09/2024 Atherosclerosis of [place] artery of both [...] X ray : Foot, left 3V 09/09/2024 49114-WAMTSQO NAIL, 6 OR MORE 09/09/2024 41749-WVAD SKIN LESIONS, 2 TO 4 09/09/19 25 Next Appt Details Follow Up: prn, Reason: Provider Name:Wilber Robles , 02/13/2025 01:00:00 PM, [address] [place] [address], [address], Procedure Notes * Category Sub-Category Detail [...] use of a nail nipper and/or dremel-type bark grinder, to a more viable healthy nail [...] to maintain effectiveness in symptomatic relief - 71360 Keratoma Treatment Parring or Cutting o f [...] instrumentation by the physician of record - 88291, Q8 Progress Notes * Charisma ASHLEYYoselynOB:1950 (73 yo F)Acc No.[id number]:09/09/2024 Progress Note Patient:?Charisma ASHLEY Provider:?Wilber Robles DPM :1950???Age:73 Y???Sex:Female D ate:09/09/2024 Address:[address] Pcp:Stephen Olmos Subjective: * Chief Complaints: * [...] Foot, AP, LAT, LO, LEFT??Taken by trained?Podiatric Assistant [employer] (?EF).?Findings:?normal bone and soft tissue density consistent [...] Assessment: 1.?Tinea unguium - B35.1???2 .?Atherosclerosis of [place] artery of both lower [...] Tx Options(4)??? Plan: * Treatment: 2.?Tinea unguium?Procedure: 44199-ZABYFTP NAIL, 6 OR MORE 3.?Pain in left [...] use of a nail nipper and/or dremel-type bark grinder, to a more viable healthy nail [...] to maintain effectiveness in symptomatic relief - 96383.?Keratoma Treatment:?Parring or Cutting of Benign Hyperkeratotic Lesion(s)?(-56) [...] instrumentation by the physician of record - 29771, Q8.? * Procedure Codes:?91161 DEBRI DE NAIL, 6 OR MORE, Modifiers: XS 24478 X-RAY EXAM OF LEFT FOOT 3V, Modifiers: 26 , QL15874 TRIM SKIN LESIONS, 2 TO 4, Modifiers: [...] exercise to failure, expense, systemic complications, infection, [id number]-[id number], prolongued postop course. Patient questions re: the various treatment options available, their successes and potential failures, and residential effects were discussed and the answers were [...] Robles DPM Date:?2024 Generated for Mary hayes/Cady/Bruce on:?01/15/2025 09:02 AM [...] LAT, LO, LEFT Taken by trained Podiatric Assistant [employer] ( EF) Clinical Indication(s): Evaluate for Fra cture, Evaluate Biomechanical Deformity
--- OUTSIDE RECORDS SUMMARY | 2025-01-15 09:03 | XMS_ITS | Patient Health Record ---
[facility] Address [address] [place] [address] Care Team Providers Care Pulp Bleacher Name Role Phone Stephen Olmos Primary Care Provider Wilber Robles Unavailable [phone] Allergies Allergen (clinical drug ingredient) Drug/Non Drug [...] W/U Status Risk Notes Problem Atherosclerosis of unga arteries of the extremities ([id number]) Atherosclerosis of [place] artery of both lower extremities, with unspecified presence of clinical manifestation (I70.203) Active confirmed Q7(A), Q8(2B), Q9(1B,2 C) Vital Signs Blood pressure diastolic 70 mm Hg 11/14/2024 Height 4ft9.5in in 11/14/2024 Blood pressure systolic 128 mm Hg 11/14/2024 Weight 200 lbs 11/14/2024 BMI 42.53 kg/m2 11/14/2024 Procedures Procedure Date Ordered Date Performed Result Body Sit e 23024-DIQKZFJ NAIL, 6 OR MORE 03/28/2024 N/A 84500-THDF SKIN LESIONS, 2 TO 4 03/28/2024 N/A 91229-CRFAOSK NAIL, 6 OR MORE 06/13/2024 N/A 69244-UEUR SKIN LESIONS, 2 TO 4 06/13/2024 N/A 55572-JRVTITG NAIL, 6 OR MORE 09/09/2024 N/A 99209-OJFG SKIN LESIONS, 2 TO 4 09/09/2024 N/A 37166-POCRRHG NAIL, 6 OR MORE 11/14/2024 N/A 22196-Cteshqcx Plate 11/14/2024 N/A 27172-DSEO SKIN LESIONS, 2 TO 4 11/14/2024 N/A Encounters Encounter Location Date Provider Diagnosis [facility] [address] [place] [address] 03/28/2024 Wilbermarcus PrinceTravis Atherosclerosis of un[place] artery of both lower extremities, with unspecified presence of clinical manifestation I70.203 ; Tinea unguium B35.1 ; Pain in right toe(s) M79.674 and Pain in left toe(s) M79.[address] [address] 06/13/2024 Wilber Travis Atherosclerosis of un[place] artery of both lower extremities, with unspecified presence of clinical manifestation I70.203 ; Tinea unguium B35.1 ; Pain in right toe(s) M79.674 and Pain in left toe(s) M79.[address] [address] 09/09/2024 Wilbermarcus PrinceTravis Atherosclerosis of un[place] artery of both lower extremities, with unspecified presence of clinical manifestation I70.203 ; Tinea unguium B35.1 ; Pain in right toe(s) M79.674 ; Pain in left toe(s) M79.675 ; Pain in left foot M79.672 ; Pain in left ankle and joints of left foot M25.572 ; Bursitis of left foot M77.52 and 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 [address] 11/14/2024 Wilber Princeunier Atherosclerosis of un[place] artery of both lower extremities, with unspecified presence of clinical manifestation I70.203 ; Tinea unguium B35.1 ; Pain in right toe(s) M79.674 ; Pain in left toe(s) M79.675 and Ingrown nail L60.0 Assessments Encounter Date Diagnosis (ICD Code) Assessment Notes Treatment Notes Treatment Clinical Notes Section Notes 03/28/2024 Tinea unguium (ICD-10 - B35.1) 03/28/2024 Atherosclerosis of un[place] artery of both lower extremities, with unspecified presence of clinical manifestation (ICD-10 - I70.203) 06/13/2024 Tinea unguium (ICD-10 - B35.1) 06/13/2024 Atherosclerosis of [place] artery of both lower extremities, with unspecified presence of clinical manifestation (ICD-10 - I70.203) 09/09/2024 Tinea unguium (ICD-10 - B35.1) 09/09/2024 Atherosclerosis of un[place] artery of both lower extremities, with unspecified presence of clinical manifestation (ICD-10 - I70.203) 11/14/2024 Tinea unguium (ICD-10 - B35.1) 11/14/2024 Atherosclerosis of un[place] artery of both lower extremities, with unspecified [...] X ray : Foot, left 3V 09/09/2024 59453-UQQJIZP NAIL, 6 OR MORE 11/14/2024 42611-QQMCFFO NAIL, 6 OR MORE 09/09/2024 10455-HIIZXPQ NAIL, 6 OR MORE 03/28/2024 99574-IRJIZEB NAIL, 6 OR MORE 06/13/2024 13549-STGHFLS NAIL, 6 OR MORE 12/05/2013 77232-DITUQEZ NAIL, 6 OR MORE 08/07/2017 20535-FRBKWKH NAIL, 6 OR MORE 11/13/2017 44640-BBLEMZU NAIL, 6 OR MORE 02/19/2018 41135-WQQOCUN NAIL, 6 OR MORE 04/30/2018 18714-LORUYZR NAIL, 6 OR MORE 07/23/2018 62632-WJAKEMF NAIL, 6 OR MORE 10/15/2018 74050-RYYWRWS NAIL, 6 OR MORE 03/13/2014 14590-IBQIXSV NAIL, 6 OR MORE 06/16/2014 61028-YOHJKHX NAIL, 6 OR MORE 12/08/2014 67179-QOYJXPH NAIL, 6 OR MORE 03/05/2015 34197-HUOPXBD NAIL, 6 OR MORE 06/08/2015 36214-ODDYAOQ NAIL, 6 OR MORE 09/14/2015 43790-BOYHLOI NAIL, 6 OR MORE 12/28/2015 16351-DQXBXRV NAIL, 6 OR MORE 03/31/2016 38892-ETPDQGJ NAIL, 6 OR MORE 07/04/2016 54613-RAGNMDK NAIL, 6 OR MORE 10/03/2016 37277-WBPDPDF NAIL, 6 OR MORE 01/07/2019 95249-VIPANUK NAIL, 6 OR MORE 04/01/2019 64920-KEKXTUF NAIL, 6 OR MORE 05/18/2017 98421-YCOFIOR NAIL, 6 OR MORE 08/01/2019 29300-JDHNYVN NAIL, 6 OR MORE 10/31/2019 34230-IJZCCOC NAIL, 6 OR MORE 01/23/2020 10561-IGFORJR NAIL, 6 OR MORE 04/09/2020 53575-SHDJESW NAIL, 6 OR MORE 07/02/2020 71649-DOEVHBZ NAIL, 6 OR MORE 09/24/2020 83587-SOASWJG NAIL, 6 OR MORE 12/07/2020 97052-RIIUUHL NAIL, 6 OR MORE 02/15/2021 94698-MEYJNKJ NAIL, 6 OR MORE 05/10/2021 62577-JJFQFVN NAIL, 6 OR MORE 01/02/2017 02743-NHFGDQP NAIL, 6 OR MORE 07/26/2021 90171-UVIBLCQ NAIL, 6 OR MORE 11/04/2021 58347-WTKNEEY NAIL, 6 OR MORE 01/06/2022 58201-QOWFSDA NAIL, 6 OR MORE 03/14/2022 96221-OCOLCEJ NAIL, 6 OR MORE 07/03/2022 29083-TUKJEVT NAIL, 6 OR MORE 09/12/2022 04296-OKYBHQU NAIL, 6 OR MORE 11/21/2022 29037-XMOYFDD NAIL, 6 OR MORE 02/09/2023 21254-YVZWBRR NAIL, 6 OR MORE 05/11/2023 11237-VQDLXIH NAIL, 6 OR MORE 08/03/2023 27290-XCYAFMB NAIL, OR MORE 11/02/2023 32566-Ldsjseqa Plate 11/21/2022 30705-Ptquhqqz Plate 03/14/2022 42935-Hcxpzbpk Plate 04/01/2021 39073-Xieszpvf Plate 05/10/2021 78720-Gqoujaed Plate 02/15/2021 06100-Qcckzbiz Plate 12/07/2020 81121-Ulvakzrq Plate 09/24/2020 88654-Mqxqvzrp Plate 07/02/2020 48526-Bvlsdojc Plate 04/09/2020 29986-Bdpovlud Plate 10/31/2019 42776-Ljbqqtes Plate 08/01/2019 02824-Oynglzxt Plate 05/18/2017 62680-Kkuohbcc Plate 04/01/2019 06428-Afikmvvn Plate 10/03/2016 88715-Gerdvuaj Plate 06/08/2015 98070-Kxrqonvj Plate 10/15/2018 08197-Fxrwcoiy Plate 05/11/2023 35113-Newtivqk Plate 11/14/2024 57855-Djospwem Plate Each Additional 02/2017 37773-IOH 06/27/2019 73654-FIL 12/19/2019 46476-PHC 06/27/2021 46095- Debride <25 sq cm 07/26/2021 43584- Debride <25 sq cm 04/09/2020 78272-CHTTVFG SKIN/TISSUE 01/23/2020 92413-AFKYHKD SKIN/TISSUE 01/02/2020 86473-JVFGEOJ SKIN/TISSUE 07/11/2019 55257-AUATPQU SKIN/TISSUE 07/14/2021 35600 I&D ABSCESS- SIMPLE,SINGLE 017 02659-BQFR SKIN LESIONS, 2 TO 4 11/22/19 23 99773-TVVV SKIN LESIONS, 2 TO 4 09/12/19 23 82300-NDTA SKIN LESIONS, 2 TO 4 11/02/19 24 35594-GOWE SKIN LESIONS, 2 TO 4 08/03/20 23 83648-NUXP SKIN LESIONS, 2 TO 4 05/11/20 23 58374-PPEK SKIN LESIONS, 2 TO 4 02/10/20 23 15242-SVSB SKIN LESIONS, 2 TO 4 06/13/20 24 39970-AEML SKIN LESIONS, 2 TO 4 03/28/20 24 54526-IHXZ SKIN LESIONS, 2 TO 4 09/09/19 25 94039-GXAH SKIN LESIONS, 2 TO 4 11/15/19 25 27111- Biopsy of skin lesion 12/05/2013 81464- Biopsy of Addt'l Lesions 12/06/19 14 26693 - Tenotomy, open flexor 09/19/2019 56997 - Tenotomy, open flexor 03/18/2021 Next Appt Details Provider Name:Wilber Robles , 02/13/2025 01:00:00 PM, [address] [facility], [place], [address], Insurance Providers Payer Name Payer Address Payer Phone Subscriber Number Group Number Insured Name Patient Relationship to Insured Coverage Start Date Coverage End Date Medicare National [employer] [address] [place] [address] [id number] Charisma Ashley Self - patient is the insured [employer] [address] [place] [address] [phone] [id number] Charisma Ashley Self - patient is the [...] knee replacement 07/19/2021 Hospitalization History Reason Date(Month/Year) [facility] [place] [facility] [place]Kidney [place] 03/22/24 Left side Pain unknown 04/02-04/04/20
--- NOTE | 2025-01-15 09:16 | MHC.PC.OV ---
Vital Signs 01/15/25 09:19 Height 4 ft 9.5 in Weight 202 lb 6 oz BMI 43.0 BP 130/66 Blood Pressure Location Lt brachial Position Sitting Pulse 89 Pulse Source Pulse Oximeter Temp 97.1 F Temp Source Temporal Artery Scan Pulse Oximetry (%) 94 Oxygen Delivery Method Room Air Intake Visit Reasons: 2 week f/u Intake Note: Patient is here to follow up on OA. Automatic Presser Required: No Incoming Inspector: Not Required per policy Accompanied by: Self / Same As Patient Allergies morphine [MORPHINE] Allergy (Severe, Verified 01/15/25 09:18) VOMITING, hives/stomach upset tolmetin [From TOLECTIN] Allergy (Severe, Verified 01/15/25 09:18) HIVES Sulfa (Sulfonamide Antibiotics) Allergy (Intermediate, Verified 01/15/25 09:18) hives Tobacco use date assessed: 01/15/25 Fall risk assessment: No Falls in past year Last assessed Fall Risk: 01/15/25 Dental Screening Dental Screen Date: 01/01/25 [facility] Medical History (Updated 11/10/24 @ 14:05 by Chintan Mcarthur MD) Chronic pain syndrome Somatic dysfunction of both sacroiliac joints Allergic rhinitis Anxiety Hx of radiation therapy Tracheobronchitis Endogenous depression Viral wart on finger GERD (gastroesophageal reflux disease) Osteoarthritis Hernia Perforation bowel Arthritis COPD (chronic obstructive pulmonary disease) [place] on CPAP Obesity (BMI 35.0-39.9 without comorbidity) Surgical History History of colon surgery Hx of colonoscopy (~08/08/23) History of total right knee replacement H/O bilateral breast reduction surgery H/O lumpectomy History of left knee replacement History of gastric bypass Family History Mother No problems noted. Father No problems noted. 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: Yes () Do you presently have visiting nurse or other home services: No Alcohol intake: current Alcohol intake frequency: does not drink Alcohol type: wine Patient Tobacco Use Status: Never used Tobacco Tobacco use type: Cigarette e-Cigarette/Vaping Use: Never Used Second Hand Smoke Exposure: No service: No Current occupational status: retired Cognitive needs: No Hearing needs: Yes (hearing aide) Vision needs: Yes (Glasses) Female Reproductive History Menstrual Age of Menarche: 15 Questionnaire Thrive Questionnaire Date Thrive assessed: 01/01/25 I am a: Patient What is your living situation today?: I have a steady place to live Within the past 12 months, did the food you bought not last and you didn't have the money to get more?: I choose not to answer this question Within the past 12 months, did you worry whether your food would run out before you got money to buy more?: Sometimes True Do you have trouble paying for medicines?: No Do you have trouble getting transportation to medical appointments?: No Do you have trouble paying your heating and electricity bill?: I choose not to answer this question Do you have trouble taking care of your child, family member or friend?: No Do you have trouble with day-to-day activities such as bathing, preparing meals, shopping, managing finances, etc.?: No Are you currently unemployed and looking for a job?: No Are you interested in more education?: No Please select the resources that you would like help with: None Currently or been in a relationship where the following occur: I choose not to answer THRIVE Score: 1 ROLANDO-7 AMB Questionnaire ROLANDO-7 Date ROLANDO - 7 assessed: 01/01/25 Source: Developed by Drs. Avila Sesay, Tessy Gonzalez, Lee Cartwright and colleagues, with an educational samm from [employer]. Physical exam (Primary Care) Vital Signs: Last Vital Signs Temp 97.1 F 01/15/25 09:19 Pulse 89 01/15/25 09:19 BP 130/66 01/15/25 09:19 Pulse Ox 94 01/15/25 09:19 Oxygen Delivery Method Room Air 01/15/25 09:19 BMI result Body Mass Index 43.0 Tobacco/Smoking Status: Tobacco use Status Tobacco use date assessed 01/15/25 01/15/25 09:18 Patient Tobacco Use Status Never used Tobacco 01/15/25 09:17 Tobacco use type Cigarette 01/15/25 09:17 e-Cigarette/Vaping Use Never Used 01/15/25 09:17 Thrive Assessment: Date of Thrive Assessment Date Thrive assessed 01/01/25 01/15/25 09:17 Currently or been in a relationship where the following occur: I choose not to answer Coding Level of Care Code Deion Pt Level 4 (51271) Complex EM visit Add On G2211 Diagnoses Osteoarthritis M19.90 Assessment & Plan Assessment & Plan (1) Osteoarthritis: Code(s): M19.90 - Unspecified osteoarthritis, unspecified site Category: Medical Plan: History of Present Illness The patient is a 74-year-old female presenting with osteoarthritis and associated chronic pain. She reports that her pain has improved with the use of 5 mg of prednisone, specifically mentioning relief from previous pain in her back and arms. Yet, she continues to suffer from severe arthritic pain in her fingers, especially on the left hand, which significantly restricts her ability to perform daily activities such as making a fist or holding objects. The symptoms are notably influenced by weather, with worsening pain in colder conditions and improvement when it is warm. Last year, she consulted with arthritis specialists who indicated no additional treatment options. She has been managing her pain primarily with Tramadol, a medication she had been taking at a dose of one tablet per day, although she currently has none left. The patient is aware of the potential side effects of prednisone, fueled by her sister?s experience with the drug. Consequently, her treatment plan aims to control symptoms while mitigating adverse effects, with adjustments in medication dosage based on her symptomatology. Social History - No social determinants of health were discussed. Review of Systems - Musculoskeletal: Reports arthritic pain in fingers, improvement of pain in back and arms with medication. 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 Results Plan 1. Osteoarthritis - Prescribed prednisone 1 mg tablets to manage symptoms with instructions on flexible dosing based on daily pain levels. - Continued Tramadol at one tablet per day for pain relief. - Educated patient on prednisone side effects and advised monitoring. 2. Chronic Pain - Renewed Tramadol prescription for consistent pain management. - Advised patient regarding typical symptom fluctuations and environmental impact on pain. Discussion Notes During the consultation, I discussed with the patient her diagnosis of osteoarthritis and the chronic pain associated with it. We reviewed her current medication regimen, including the benefits and risks of continued use of prednisone and Tramadol. I educated her on the potential long-term side effects of prednisone, such as weight gain, increased blood pressure, elevated blood sugars, and bone fragility. We agreed on a flexible dosing strategy for prednisone, allowing up to 5 mg on bad days while reducing the dose on better days. Additionally, I renewed her prescription for Tramadol to address chronic pain. We agreed on the need for a follow-up in three months to assess her progress and adjust treatment as necessary. The patient appears well-informed and receptive to the management plan. Patient Instructions - Take prednisone as prescribed: 1 mg tablets, with flexibility to increase to 5 mg as needed based on pain levels. - Continue taking Tramadol once daily to help manage pain. - Be aware of the potential side effects of prednisone such as weight gain and increased blood sugar. - Monitor your pain levels and note any changes in symptoms. - Follow up in three months or sooner if symptoms worsen. - Seek medical care if you experience any adverse reactions or if pain becomes unmanageable. Medications: New prednisone 1 mg PO DAILY 30 tabs 0RF Refilled tramadol 50 mg PO DAILY 30 tabs 0RF pain 30 days
[2025-01-15 09:19] VITALS: BP 130/66; PULSE 89; TEMP 36.2; O2SAT 94; BMI 43.0
== END 2025-01-15 10:02 | disposition home or self-care (01) ==
LOC: HO.HMCH 08:52
PROVIDERS: PCP Internal Medicine; Visit Provider Internal Medicine
DX: M19.90 Unspecified osteoarthritis, unspecified site (principal)

== ENCOUNTER → 2025-01-15 08:51 | Outpatient (BNVA) | payer MEDICARE, SELFPAY | PROVIDERS: PCP Internal Medicine; Visit Provider Internal Medicine | DX: M19.041 Primary osteoarthritis, right hand (principal); M19.042 Primary osteoarthritis, left hand | CPT/HCPCS: 99212 ==

== ENCOUNTER 2025-02-09 12:18 | Outpatient (AMB) | payer MEDICARE, SELFPAY ==
[2025-02-09 13:16] VITALS: BP 110/72; PULSE 75; O2SAT 97; BMI 44.3
--- NOTE | 2025-02-09 13:16 | A.OFFVIS_ITS ---
Vital Signs 02/09/25 13:16 Height 4 ft 9.5 in Weight 208 lb 5.389 oz BMI 44.3 BP 110/72 Blood Pressure Location Lt brachial Position Sitting Pulse 75 Pulse Source Pulse Oximeter Pulse Oximetry (%) 97 Oxygen Delivery Method Room Air Intake Visit Reasons: Obstructive sleep apnea Intake Note: pt is here for follow up of [place] Director Medical Affairs Required: No Allergies morphine [MORPHINE] Allergy (Severe, Verified 02/09/25 13:41) VOMITING, hives/stomach upset tolmetin [From TOLECTIN] Allergy (Severe, Verified 02/09/25 13:41) HIVES Sulfa (Sulfonamide Antibiotics) Allergy (Intermediate, Verified 02/09/25 13:41) hives Medication List - Last Reconciled 02/09/25 by Chintan Mcarthur MD albuterol sulfate 90 mcg/actuation 2 puffs PO Q4-6H PRN calcium carbonate (Calcium 600) 600 mg PO DAILY cholecalciferol (vitamin D3) 25 mcg PO DAILY gabapentin (Neurontin) 100 mg PO TID 30 days multivitamin 1 tab PO DAILY naloxone 4 mg/actuation 4 mg intranasal Q3M PRN 1 day pantoprazole 40 mg PO DAILY prednisone 1 mg PO DAILY raloxifene 60 mg PO DAILY ropinirole 2 mg (2 x 1 mg) PO BEDTIME 90 days tramadol 50 mg PO DAILY 30 days trazodone 100 mg PO BEDTIME venlafaxine ER 75 mg PO DAILY zinc 50 mg PO DAILY Do you need a note to return to daycare/school/sports/work: No HPI HPI Obstructive sleep apnea: Details: RADHA ROSEN 74 years oldm grossly obese and has history of obstructive sleep apnea/hypoventilation syndrome. She uses CPAP very religiously every night and sleeps well. She has no complaint with the CPAP device. Are the mask Her usage during the night with sometime during the day is more than 9 hours. She remains very pleasant alert and no complaint with breathing or sleep. She does have history of restless legs syndrome which is controlled with ropinirole 2 mg at bedtime. [facility] Medical History Chronic pain syndrome Somatic dysfunction of both sacroiliac joints Allergic rhinitis Anxiety Hx of radiation therapy Tracheobronchitis Endogenous depression Viral wart on finger GERD (gastroesophageal reflux disease) Osteoarthritis Hernia Perforation bowel Arthritis COPD (chronic obstructive pulmonary disease) [place] on CPAP Obesity (BMI 35.0-39.9 without comorbidity) Surgical History History of colon surgery Hx of colonoscopy (~08/08/23) History of total right knee replacement H/O bilateral breast reduction surgery H/O lumpectomy History of left knee replacement History of gastric bypass Family History Mother No problems noted. Father No problems noted. 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 to a significant other at home: Yes () Do you presently have visiting nurse or other home services: No Alcohol intake: current Alcohol intake frequency: does not drink Alcohol type: wine Patient Tobacco Use Status: Never used Tobacco Tobacco use type: Cigarette e-Cigarette/Vaping Use: Never Used Second Hand Smoke Exposure: No service: No Current occupational status: retired Cognitive needs: No Hearing needs: Yes (hearing aide) Vision needs: Yes (Glasses) Female Reproductive History Menstrual Age of Menarche: 15 Review of Systems Const All systems reviewed & are unremarkable except as noted in HPI and below Eyes Reports no additional complaints ENT Reports sore throat Card Denies chest pain, Denies irregular heart rhythm and Denies leg edema Resp Reports as per HPI and Reports cough (For the last 1 week) GI Reports heartburn (Controlled with med) Reports no additional complaints Musc Reports back pain and Reports arthralgias Skin/Breast Reports system reviewed and no additional complaints, except as documented Neuro Reports restless legs (Controlled with med) Psych Reports anxiety (Controlled with med) Endo Reports no additional complaints Physical Exam Vital Signs: Last Vital Signs Pulse 75 02/09/25 13:16 BP 110/72 02/09/25 13:16 Pulse Ox 97 02/09/25 13:16 Oxygen Delivery Method Room Air 02/09/25 13:16 BMI result Body Mass Index 44.3 Const General: comfortable, no acute distress, alert and awake Orientation/consciousness: patient oriented x3 HEENT Head: Yes normal to inspection General nose exam: No nasal polyps present and No nasal discharge present Face and sinus: Yes sinuses nontender Mouth: oropharynx normal Throat: Yes posterior oropharynx normal (There is mild redness of the mucosal and swelling in the nasopharynx.) Eyes General: appearance normal, both eyes and all related structures Neck Neck: Yes normal visual inspection, Yes no lymphadenopathy, Yes trachea midline and Yes no JVD Thyroid: Thyroid normal Chest Chest palpation & inspection: normal inspection of the chest (Increased AP diameter), normal palpation of entire chest wall and no tenderness Resp Other: Percussion note is resonant, breath sounds distant on both sides with prolonged expiratory phase. No wheezes rhonchi or crepitations are heard Cardio Palpation: normal PMI Rate: regular rate Rhythm: regular rhythm Heart sounds: no gallops and no murmurs GI Palpation (GI): Soft to palpation, nontender, No hepatosplenomegaly present, no masses and Other GI palpation findings present (Abdomen is obese and slightly protuberant) Auscultation: normal bowel sounds Back/Spine/Pelvis Thoracic/Lumbar Spine: thoracic and lumbar spine normal to inspection and thoraco-lumbar ROM limited Skin General skin exam: no rashes or lesions noted Neuro General: patient oriented x3 and no focal motor deficits Cranial nerves: Yes CN's II-XII intact bilaterally Extrem General: Yes normal to inspection, No no joint enlargement (Enlarged and tender right knee), Yes no clubbing, cyanosis or edema and Yes no calf tenderness Psych Appearance: grossly normal and well kempt Speech and movement: Normal speech and movement present Results Reviewed Results Reviewed: Compliance report for the last 30 nights reviewed. She uses 30/30 nights,. 100% average use it per night 9 hours 51 minutes. Residual AHI 4.9 Assessment & Plan Assessment & Plan (1) [place] on CPAP: Comment: SLEEP APNEA/ HYPOVENTILATION SYNDROME IS WELL CONTROLLED WITH THE USE OF BIPAP 16/6 CMs, FULL FACE MASK . SHE IS VERY COMPLIANT AND ACTUALLY USES ABOUT 9-10 HOURS PLUS EVERY DAY WITH GOOD RESULTS. SHE IS VERY HAPPY WITH THE NEW BIPAP MACHINE AND VERY PLEASE TO USE IT EVERY NIGHT. Code(s): G47.33 - Obstructive sleep apnea (adult) (pediatric); Z99.89 - Dependence on other enabling machines and devices Category: Medical Plan: Commended for good compliance and advised to keep on using the BiPAP every night. (2) COPD (chronic obstructive pulmonary disease): Comment: SHE HAS HAD HISTORY OF MILD BRONCHIAL ASTHMA/COPD IN THE PAST. CURRENTLY USES ALBUTEROL ONLY ONCE IN A WHILE. Code(s): J44.9 - Chronic obstructive pulmonary disease, unspecified Category: Medical Plan: Advised to use albuterol HFA only p.r.n. (3) Morbid obesity with BMI of 40.0-44.9, adult: Comment: THIS PATIENT REMAINS GROSSLY OVERWEIGHT, BUT OVER THE YEARS SHE HAS DEFINITELY LOST SOME WEIGHT. CURRENT BMI 44.3 Code(s): E66.01 - Morbid (severe) obesity due to excess calories; Z68.41 - Body mass index [BMI] 40.0-44.9, adult Category: Medical Plan: Discussed about the weight, she is watching her diet. She does not have much potential for losing anymore weight. Coding Level of Care Code Est Pt Level 3 (54058) Diagnoses [place] on CPAP G47.33; Z99.89 COPD (chronic obstructive pulmonary disease) J44.9 Morbid obesity with BMI of 40.0-44.9, adult E66.01; Z68.41
--- OUTSIDE RECORDS SUMMARY | 2025-02-09 13:42 | XMS_ITS | Patient Health Record ---
[facility] Address [address] [place] [address] Care Team Providers Care Ring Stamper Name Role Phone Stephen Olmos Primary Care Provider Wilber Robles Unavailable [phone] Allergies Allergen (clinical drug ingredient) Drug/Non Drug [...] W/U Status Risk Notes Problem Atherosclerosis of tribe arteries of the extremities ([id number]) Atherosclerosis of tribe artery of both lower extremities, with unspecified presence of clinical manifestation (I70.203) Active confirmed Q7(A), Q8(2B), Q9(1B,2 C) Vital Signs Blood pressure diastolic 70 mm Hg 11/14/2024 Height 4ft9.5in in 11/14/2024 Blood pressure systolic 128 mm Hg 11/14/2024 Weight 200 lbs 11/14/2024 BMI 42.53 kg/m2 11/14/2024 Procedures Procedure Date Ordered Date Performed Result Body Sit e 32782-PUSSVLO NAIL, 6 OR MORE 03/28/2024 N/A 83667-HSGY SKIN LESIONS, 2 TO 4 03/28/2024 N/A 33219-OAKSFAV NAIL, 6 OR MORE 06/13/2024 N/A 85275-ABJX SKIN LESIONS, 2 TO 4 06/13/2024 N/A 90547-DDPSGLH NAIL, 6 OR MORE 09/09/2024 N/A 86211-NCMC SKIN LESIONS, 2 TO 4 09/09/2024 N/A 81873-FZYKZPB NAIL, 6 OR MORE 11/14/2024 N/A 64036-Flldfrfp Plate 11/14/2024 N/A 33893-LKIF SKIN LESIONS, 2 TO 4 11/14/2024 N/A Encounters Encounter Location Date Provider Diagnosis [facility] [address] [place] [address] 03/28/2024 Wilbermarcus PrinceTravis Atherosclerosis of tribe artery of both lower extremities, with unspecified presence of clinical manifestation I70.203 ; Tinea unguium B35.1 ; Pain in right toe(s) M79.674 and Pain in left toe(s) M79.[address] [address] 06/13/2024 Wilber Travis Atherosclerosis of tribe artery of both lower extremities, with unspecified presence of clinical manifestation I70.203 ; Tinea unguium B35.1 ; Pain in right toe(s) M79.674 and Pain in left toe(s) M79.[address] [address] 09/09/2024 Wilbermarcus PrinceTravis Atherosclerosis of tribe artery of both lower extremities, with unspecified presence of clinical manifestation I70.203 ; Tinea unguium B35.1 ; Pain in right toe(s) M79.674 ; Pain in left toe(s) M79.675 ; Pain in left foot M79.672 ; Pain in left ankle and joints of left foot M25.572 ; Bursitis of left foot M77.52 and 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 [address] 11/14/2024 Wilber Princeunier Atherosclerosis of tribe artery of both lower extremities, with unspecified presence of clinical manifestation I70.203 ; Tinea unguium B35.1 ; Pain in right toe(s) M79.674 ; Pain in left toe(s) M79.675 and Ingrown nail L60.0 Assessments Encounter Date Diagnosis (ICD Code) Assessment Notes Treatment Notes Treatment Clinical Notes Section Notes 03/28/2024 Tinea unguium (ICD-10 - B35.1) 03/28/2024 Atherosclerosis of tribe artery of both lower extremities, with unspecified presence of clinical manifestation (ICD-10 - I70.203) 06/13/2024 Tinea unguium (ICD-10 - B35.1) 06/13/2024 Atherosclerosis of tribe artery of both lower extremities, with unspecified presence of clinical manifestation (ICD-10 - I70.203) 09/09/2024 Tinea unguium (ICD-10 - B35.1) 09/09/2024 Atherosclerosis of tribe artery of both lower extremities, with unspecified presence of clinical manifestation (ICD-10 - I70.203) 11/14/2024 Tinea unguium (ICD-10 - B35.1) 11/14/2024 Atherosclerosis of tribe artery of both lower extremities, with unspecified [...] X ray : Foot, left 3V 09/09/2024 51608-XJKSNWE NAIL, 6 OR MORE 11/14/2024 36693-BVSWHJY NAIL, 6 OR MORE 09/09/2024 90394-BYTFJVT NAIL, 6 OR MORE 03/28/2024 67141-VXXFSTG NAIL, 6 OR MORE 06/13/2024 07845-DFFWCAE NAIL, 6 OR MORE 12/05/2013 89381-JRRLUNF NAIL, 6 OR MORE 08/07/2017 87781-BZLEYRN NAIL, 6 OR MORE 11/13/2017 96870-CASWKYF NAIL, 6 OR MORE 02/19/2018 69109-FXOIITZ NAIL, 6 OR MORE 04/30/2018 17850-MDTXGTJ NAIL, 6 OR MORE 07/23/2018 00384-CMHJETZ NAIL, 6 OR MORE 10/15/2018 87783-ZYIBYYO NAIL, 6 OR MORE 03/13/2014 00575-MFIIMQK NAIL, 6 OR MORE 06/16/2014 90979-NTIASTW NAIL, 6 OR MORE 12/08/2014 99814-PXMTWBW NAIL, 6 OR MORE 03/05/2015 28073-OFYNULC NAIL, 6 OR MORE 06/08/2015 87188-IADVCUT NAIL, 6 OR MORE 09/14/2015 97430-LDYLWRP NAIL, 6 OR MORE 12/28/2015 98589-EBILUPW NAIL, 6 OR MORE 03/31/2016 43387-WYWIYQQ NAIL, 6 OR MORE 07/04/2016 87954-HKIILKH NAIL, 6 OR MORE 10/03/2016 17110-ZWUIARZ NAIL, 6 OR MORE 01/07/2019 02316-MZRUDVQ NAIL, 6 OR MORE 04/01/2019 94526-OMMXPYD NAIL, 6 OR MORE 05/18/2017 05703-JFUQTQM NAIL, 6 OR MORE 08/01/2019 89705-DMYMPZZ NAIL, 6 OR MORE 10/31/2019 13183-BBXPROU NAIL, 6 OR MORE 01/23/2020 35236-VUQWVGD NAIL, 6 OR MORE 04/09/2020 79536-KSWYYZJ NAIL, 6 OR MORE 07/02/2020 40810-SXRUELH NAIL, 6 OR MORE 09/24/2020 73462-DNHUMFS NAIL, 6 OR MORE 12/07/2020 09604-MYAJFJB NAIL, 6 OR MORE 02/15/2021 55478-SZJTOQK NAIL, 6 OR MORE 05/10/2021 77259-SKDDDSI NAIL, 6 OR MORE 01/02/2017 54461-HHZPYUN NAIL, 6 OR MORE 07/26/2021 29635-PMTUNTF NAIL, 6 OR MORE 11/04/2021 90356-ERDBZQQ NAIL, 6 OR MORE 01/06/2022 26651-YOLHCZT NAIL, 6 OR MORE 03/14/2022 22604-FKQUTZN NAIL, 6 OR MORE 07/03/2022 19432-ISTMFUL NAIL, 6 OR MORE 09/12/2022 75784-DLDNPZB NAIL, 6 OR MORE 11/21/2022 23907-JPQCGSY NAIL, 6 OR MORE 02/09/2023 05319-PVPJIHI NAIL, 6 OR MORE 05/11/2023 52633-CSLZEXT NAIL, 6 OR MORE 08/03/2023 73108-WKFXCZP NAIL, OR MORE 11/02/2023 81997-Idukkzqr Plate 11/21/2022 53575-Nbdetlbt Plate 03/14/2022 10873-Hiqryqem Plate 04/01/2021 33706-Yeeymrfq Plate 05/10/2021 23249-Ctmzqjee Plate 02/15/2021 47439-Pwktzlll Plate 12/07/2020 07970-Nnmopsti Plate 09/24/2020 31542-Mdpyxejv Plate 07/02/2020 01055-Tjojxjog Plate 04/09/2020 01376-Bpelckvs Plate 10/31/2019 07629-Lhulmupg Plate 08/01/2019 25111-Yehshcyn Plate 05/18/2017 64239-Hraublal Plate 04/01/2019 91281-Rihbfgwe Plate 10/03/2016 00516-Yihtyknt Plate 06/08/2015 02101-Reoqapdc Plate 10/15/2018 92746-Sjmnnent Plate 05/11/2023 59673-Ovbxlisz Plate 11/14/2024 91408-Gstkkgzt Plate Each Additional 02/2017 87547-CMS 06/27/2019 05306-XDA 12/19/2019 94582-ZSR 06/27/2021 51608- Debride <25 sq cm 07/26/2021 47317- Debride <25 sq cm 04/09/2020 06593-SDDYAYB SKIN/TISSUE 01/23/2020 76047-QOSUNJU SKIN/TISSUE 01/02/2020 50039-PXOGRSM SKIN/TISSUE 07/11/2019 96511-YICYGNF SKIN/TISSUE 07/14/2021 52481 I&D ABSCESS- SIMPLE,SINGLE 017 11660-BZWB SKIN LESIONS, 2 TO 4 11/22/19 23 93802-XOHR SKIN LESIONS, 2 TO 4 09/12/19 23 94909-CNUA SKIN LESIONS, 2 TO 4 11/02/19 24 26268-PNXO SKIN LESIONS, 2 TO 4 08/03/20 23 48085-FTNE SKIN LESIONS, 2 TO 4 05/11/20 23 07685-WJYB SKIN LESIONS, 2 TO 4 02/10/20 23 60185-SAAA SKIN LESIONS, 2 TO 4 06/13/20 24 55011-WKJO SKIN LESIONS, 2 TO 4 03/28/20 24 48333-PFDR SKIN LESIONS, 2 TO 4 09/09/19 25 19136-PWWV SKIN LESIONS, 2 TO 4 11/15/19 25 30726- Biopsy of skin lesion 12/05/2013 75656- Biopsy of Addt'l Lesions 12/06/19 14 97092 - Tenotomy, open flexor 09/19/2019 68624 - Tenotomy, open flexor 03/18/2021 Next Appt Details Provider Name:Wilber Robles , 02/13/2025 01:00:00 PM, [address] [facility], [place], [address], Insurance Providers Payer Name Payer Address Payer Phone Subscriber Number Group Number Insured Name Patient Relationship to Insured Coverage Start Date Coverage End Date Medicare National [employer] [address] [place] [address] [phone] [id number] Charisma Ashley Self - patient is the insured [employer] [address] [place] [address] [phone] [id number] Charisma Ashley Self - patient is the [...] knee replacement 07/19/2021 [place] Reason Date[place] [facility] [facility] [place]22/24 Left side Pain unknown 04/02-04/04/20
== END 2025-02-09 13:29 | disposition home or self-care (01) ==
LOC: HO.HPS 12:19
PROVIDERS: PCP Internal Medicine; Visit Provider Internal Medicine
DX: G47.33 Obstructive sleep apnea (adult) (pediatric) (principal); Z99.89 Dependence on other enabling machines and devices; J44.9 Chronic obstructive pulmonary disease, unspecified; E66.01 Morbid (severe) obesity due to excess calories; Z68.41 Body mass index [BMI] 40.0-44.9, adult
CPT/HCPCS: 99213

== ENCOUNTER → 2025-02-09 12:18 | Outpatient (BNVA) | payer MEDICARE, SELFPAY | PROVIDERS: PCP Internal Medicine; Visit Provider Internal Medicine | DX: G47.33 Obstructive sleep apnea (adult) (pediatric) (principal); J44.9 Chronic obstructive pulmonary disease, unspecified; E66.01 Morbid (severe) obesity due to excess calories; Z99.89 Dependence on other enabling machines and devices; Z68.41 Body mass index [BMI] 40.0-44.9, adult | CPT/HCPCS: 99212 ==

== ENCOUNTER 2025-04-16 14:00 | Outpatient (AMB) | payer MEDICARE, SELFPAY ==
--- OUTSIDE RECORDS SUMMARY | 2025-04-16 14:08 | XMS_ITS | Clinical Summary ---
Author Organization [facility] Address [address] [place] [address] Phone Care Team Providers Care Negotiator Name Role Phone Stephen Olmos MD Primary Care Provid er Allergies Active Allergy Reactions Criticality Noted Date Comments Morphine Nausea and/or Vomiting 02/02/2019 Other Reaction(s): vomiting Sulfamethoxazole-Trim ethoprim Unknown 01/10/2012 Other Reaction(s): hives Tolmetin Unknown 01/10/2012 Tolmetin Sodium 09/24/2023 Other Reaction(s): hives Medications meloxicam (MOBIC) 15 MG tablet Take 15 mg by mouth daily. Active venlafaxine (EFFEXOR) 75 MG tablet Take 75 mg by mouth daily. Active ipratropium-alb uterol (COMBIVENT RESPIMAT) 20-100 mcg/actuation Mist Inhale 2 puffs into the lungs every 8 (eight) hours as needed. Active traZODone (DESYREL) 100 MG tablet Take 100 mg by mouth nightly at bedtime. Active rOPINIRole (REQUIP) 1 MG tablet Take 1 mg by mouth nightly at bedtime. Active tamoxifen (NOLVADEX) 20 MG tablet Take 20 mg by mouth daily. Active loratadine (CLARITIN) 10 mg Chew Active omeprazole-amox icill-rifabutin 10-250-12.5 mg CpID Active tiZANidine (ZANAFLEX) 2 MG tablet Take 2 tablets (4 mg total) by mouth every 6 (six) hours as needed. 12 tablet 3 Active Additional Information Patient not taking.Reported on 09/24/2023 traZODone (DESYREL) 50 MG tablet 1 tablet at bedtime Orally Once a day Active rOPINIRole (REQUIP) 1 MG tablet 1 tablet 1 to 3 hours before bedtime Orally Once a day Active pantoprazole (PROTONIX) 40 MG tablet Take 1 tablet by mouth every morning. 3 Active fluticasone propionate (FLONASE ALLERGY RELIEF) 50 mcg/actuation nasal spray 1 spray in each nostril Nasally Once a day Active CHOLECALCIFEROL 25 mcg (1,000 unit) tablet Take 1 tablet by mouth every morning. 3 Active budesonide-form oterol (SYMBICORT) 80-4.5 mcg/actuation inhaler 2 puffs Inhalation Twice a day Active triamcinolone acetonide 0.1 % cream Apply topically 2 (two) times a day. 45 g 4 Active Additional Information Patient not taking.Reported on 10/12/2023 naproxen sodium (ALEVE) 220 mg Cap Aleve Active ZINC ACETATE ORAL Zinc Active loratadine (CLARITIN ORAL) Claritin Acti ve amoxicillin (AMOXIL) 500 MG capsule TAKE 4 CAPSULES BY MOUTH 1 HOUR BEFORE APPOINTMENT 3 Active acyclovir (ZOVIRAX) 5 % cream 1 Application. Activ e guaiFENesin-cod eine (ROBITUSSIN AC) 100-10 mg/5 mL liquid Take 5 mL (10 mg of codeine total) by mouth 3 (three) times a day as needed for cough. 120 mL 4 Active Active Problems Problem Noted Date Diagnosed Date Acquired hammer toe of right foot 09/14/2022 Primary localized osteoarthrosis of ankle and fo ot 09/14/2022 Unspecified atherosclerosis of [place] arteries of extremities, bilateral legs 09/14/2022 Immunizations Immunization Administration Dates Next Due Influenza Quadrivalent Adjuvanted Preservative F ree IM 06/16/2021 Pneumococcal polysaccharide PPSV23 02/13/2019, Td (adult) 5 Lf Tetanus Toxoid, PF, Adsorbed Social History Tobacco Use Types Packs/Day Years Used Date Smoking Tobacco: Never Smokeless Tobacco: Never Tobacco Cessation:Counseling Given: Not Answered Alcohol Use Standard Drinks/Week Comments Not Currently 0 (1 standard drink = 0.6 oz pur e alcohol) Education Answer Date Recorded Are you interested in more education? Not on hailey e 12/23/2022 Are you concerned about learning? Not on file 12/23/2022 No 12/23/2022 No 12/23/2022 Digital Access Answer Date Recorded No 01/21/2023 No 01/21/2023 Reliable internet access at home? Not on file 01/21/2023 Device with a working camera? Not on file Comments Unknown Sex and Gender Information Value Date Recorded Sex Assigned at Female 04/02/2020 6:18 AM EDT Legal Sex Female 7:00 PM EST Gender Identity Female 04/02/2020 6:18 AM EDT Sexual Orientation Straight 04/05/2020 3: 03 AM EDT Last Filed Vital Signs Vital Sign Reading Time Taken Comments Blood Pressure 135/85 10/12/2023 1:01 PM EST Pulse 88 10/12/2023 1:01 PM EST Temperature 37.2 C (99 F) 10/12/2023 1:01 PM EST Respiratory Rate 20 10/12/2023 1:01 PM EST Oxygen Saturation 97% 10/12/2023 1:01 PM EST Inhaled Oxygen Concentration - - Weight 90.7 kg (200 lb) 10/12/2023 1:01 PM EST p er pt Height 144.8 cm (4' 9 ) 09/14/2022 1:21 PM EST Body Mass Index 43.28 09/14/2022 1:21 PM EST Plan of Treatment Health Maintenance Due Date Last Done Comments LIPID PANEL 1951 DEPRESSION SCREENING 1963 HEPATITIS C SCREENING 12/21/1969 MAMMOGRAM 1991 COLOGUARD 12/21/1996 COLONOSCOPY 12/21/1996 COLORECTAL CANCER SCREENING 12/21/1996 FIT TEST 12/21/1996 FOBT 12/21/1996 SIGMOIDOSCOPY 12/21/1996 VIRTUAL COLONOSCOPY 12/21/1996 ZOSTER VACCINES (1 of 2) 12/21/2001 RSV VACCINE (1 - Risk 60-74 years 1-dose series) 2011 OSTEOPOROSIS SCREENING INITI AL (ONE-TIME) 12/21/2016 PNEUMOCOCCAL VACCINES (50+ years) (2 of 2 - PCV) 02/14/2020 02/13/2019, 09/05/2018 COVID-19 VACCINE (4 - 2023-2 5 season) 2024 06/16/2021, 12/16/2020, 11/23/2020 Adult Td,Tdap Booster 10/23/2028 10/23/2018 SMOKING STATUS SCREENING (On ce After 26 Yrs) Completed 10/12/2023 HEPATITIS A VACCINES Aged Out No long er eligible based on patient's age to complete this topic HIB VACCINES Aged Out No longer eligi ble based on patient's age to complete this topic MENINGOCOCCAL VACCINES (ACWY) Aged Out No longer eligible based on patient's age to complete this topic MENINGOCOCCAL VACCINES (B) Aged Out N o longer eligible based on patient's age to complete this topic Medical Devices Not on file Insurance [facility] MEDEX SUPPLEMENT MEDICARE PART A & B [employer] MEDEX SUPPLEMENT MEDICARE PART A & B [employer] MEDEX SUPPLEMENT MEDICARE PART A & B [employer] MEDEX SUPPLEMENT MEDICARE PART A & B [employer] MEDEX SUPPLEMENT MEDICARE PART A & B [employer] MEDEX SUPPLEMENT MEDICARE PART A & B [employer] MEDEX SUPPLEMENT MEDICARE PART A & [place] [address] [place] [address] MEDEX SUPPLEMENT MEDICARE PART A & [place] [address] [place] [address] [employer]OSS MEDEX SUPPLEMENT MEDICARE PART A & B Advance Directives For more information, please contact: [phone] (9AM - 5PM [facility], Sunday-Sunday) Documents on File Type Date Recorded Patient Auditing Manager Expl anation Advance Directive - Non Epic LMR 01/24/2012 12:00 AM Care Teams Negotiator Relationship Specialty Start Date End Date Stephen Olmos MD [address] [place] [id number] PCP - General Internal Medicine 04/02/20 Additional Source Comments The information contained in this document represents components of the legal health record. It is not the complete legal health record.[facility]
[2025-04-16 14:20] VITALS: BP 110/72; PULSE 88; TEMP 36.2; O2SAT 97; BMI 45.0
--- NOTE | 2025-04-16 14:20 | MHC.PC.OV ---
Vital Signs 04/16/25 14:20 Height 4 ft 9.5 in Weight 211 lb 8 oz BMI 45.0 BP 110/72 Blood Pressure Location Lt brachial Position Sitting Pulse 88 Pulse Source Pulse Oximeter Temp 97.1 F Temp Source Temporal Artery Scan Pulse Oximetry (%) 97 Oxygen Delivery Method Room Air Intake Visit Reasons: 3 mnth f/u Allergies morphine (MORPHINE) Allergy (Severe, Verified 04/16/25 14:24) VOMITING, hives/stomach upset tolmetin (From TOLECTIN) Allergy (Severe, Verified 04/16/25 14:24) HIVES Sulfa (Sulfonamide Antibiotics) Allergy (Intermediate, Verified 04/16/25 14:24) hives Tobacco use date assessed: 04/16/25 Fall risk assessment: No Falls in past year Last assessed Fall Risk: 04/16/25 Dental Screening Dental Screen Date: 04/16/25 Did you have a dental visit in the last 12 months?: Yes Did you have a dental problem in the last 6 months where you did not have access to dental care?: No Was dental information given to patient?: Patient has dentist [facility] Medical History Chronic pain syndrome Somatic dysfunction of both sacroiliac joints Allergic rhinitis Anxiety Hx of radiation therapy Tracheobronchitis Endogenous depression Viral wart on finger GERD (gastroesophageal reflux disease) Osteoarthritis Hernia Perforation bowel Arthritis COPD (chronic obstructive pulmonary disease) [place] on CPAP Obesity (BMI 35.0-39.9 without comorbidity) Surgical History History of colon surgery Hx of colonoscopy (~08/08/23) History of total right knee replacement H/O bilateral breast reduction surgery H/O lumpectomy History of left knee replacement History of gastric bypass Family History Mother No problems noted. Father No problems noted. 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 a primary nurse care manager to a significant other at home: Yes () Do you presently have visiting nurse or other home services: No Alcohol intake: current Alcohol intake frequency: does not drink Alcohol type: wine Patient Tobacco Use Status: Never used Tobacco Tobacco use type: Cigarette e-Cigarette/Vaping Use: Never Used Second Hand Smoke Exposure: No service: No Current occupational status: retired Cognitive needs: No Hearing needs: Yes (hearing aide) Vision needs: Yes (Glasses) Female Reproductive History Menstrual Age of Menarche: 15 Questionnaire PHQ-9 Over the last 2 weeks, how often have you been bothered by any of the following problems? 1. Little interest or pleasure in doing things: not at all 2. Feeling down, depressed, or hopeless: not at all 3. Trouble falling or staying asleep, or sleeping too much: nearly every day 4. Feeling tired or having little energy: more than half the days 5. Poor appetite or overeating: not at all 6. Feeling bad about yourself - or that you are a failure or have let yourself or your family down: not at all 7. Trouble concentrating on things, such as reading the newspaper or watching television: not at all 8. Moving or speaking so slowly that other people could have noticed. Or the opposite - being so fidgety or restless that you have been moving around a lot more than usual: nearly every day 9. Thoughts that you would be better off or of hurting yourself in some way: not at all Total score: 8 Depression Screening Interpretation: Positive Depression Screening Done: Yes Source: Developed by Drs. Avila Sesay, Tessy Gonzalez, Lee Cartwright and colleagues, with an educational samm from [employer]. Thrive Questionnaire Date Thrive assessed: 01/01/25 I am a: Patient What is your living situation today?: I have a steady place to live Within the past 12 months, did the food you bought not last and you didn't have the money to get more?: I choose not to answer this question Within the past 12 months, did you worry whether your food would run out before you got money to buy more?: Sometimes True Do you have trouble paying for medicines?: No Do you have trouble getting transportation to medical appointments?: No Do you have trouble paying your heating and electricity bill?: I choose not to answer this question Do you have trouble taking care of your child, family member or friend?: No Do you have trouble with day-to-day activities such as bathing, preparing meals, shopping, managing finances, etc.?: No Are you currently unemployed and looking for a job?: No Are you interested in more education?: No Please select the resources that you would like help with: None Currently or been in a relationship where the following occur: I choose not to answer THRIVE Score: 1 AUDIT C Alcohol Use Questionnaire (AUDIT-C) 1. How often do you have a drink containing alcohol?: Never 3. How often do you have six or more drinks on one occasion?: Never Total Score: 0 ROLANDO-7 AMB Questionnaire ROLANDO-7 Date ROLANDO - 7 assessed: 01/01/25 Feeling nervous, anxious, or on edge: 0 = Not at all Not being able to stop or control worryin = More than half the days Worrying too much about different things: 2 = More than half the days Trouble relaxin = Not at all Being so restless that it is hard to sit still: 1 = Several days Becoming easily annoyed or irritable: 0 = Not at all Feeling afraid as if something awful might happen: 0 = Not at all Total ROLANDO-7 score (0-4 normal; 5-9 mild; 10-14 moderate; 15-21 severe): 5 Source: Developed by Drs. Avila Sesay, Tessy Gonzalez, Lee Cartwright and colleagues, with an educational samm from [employer]. Physical exam (Primary Care) Vital Signs: Last Vital Signs Temp 97.1 F 04/16/25 14:20 Pulse 88 04/16/25 14:20 BP 110/72 04/16/25 14:20 Pulse Ox 97 04/16/25 14:20 Oxygen Delivery Method Room Air 04/16/25 14:20 BMI result Body Mass Index 45.0 Tobacco/Smoking Status: Tobacco use Status Tobacco use date assessed 04/16/25 04/16/25 14:25 Patient Tobacco Use Status Never used Tobacco 04/16/25 14:25 Tobacco use type Cigarette 04/16/25 14:25 e-Cigarette/Vaping Use Never Used 04/16/25 14:25 PHQ-9: PHQ-9 Score PHQ-9: Total score 8 04/16/25 14:25 Depression Screening Interpretation: Positive Thrive Assessment: Date of Thrive Assessment Date Thrive assessed 01/01/25 04/16/25 14:25 Currently or been in a relationship where the following occur: I choose not to answer Coding Level of Care Code Est Pt Level 4 (55825) Complex EM visit Add On G2211 Diagnoses Osteoarthritis M19.90 Allergic rhinitis J30.9 Assessment & Plan Assessment & Plan (1) Osteoarthritis: Code(s): M19.90 - Unspecified osteoarthritis, unspecified site Category: Medical Plan: Chronic condition. She is being treated with intermittent use of tramadol and prednisone. I encouraged the patient not to use the prednisone for her persistent postnasal drip. (2) Allergic rhinitis: Comment: She describes of having a mucus plug in the nasopharynx, which I think is due to low-grade rhinitis, Code(s): J30.9 - Allergic rhinitis, unspecified Category: Medical Plan: An ENT referral is warranted for a direct laryngoscopy examination. Plan History of Present Illness - The patient is a 74-year-old female presenting with osteoarthritis and a persistent lump in the throat. - Osteoarthritis: She experiences chronic pain and uses tramadol as needed. Prednisone is used sparingly, only during significant pain episodes. - Pharyngitis: The lump in her throat, described as phlegm, resolves with prednisone but recurs weekly. She denies swallowing difficulties. - Preventative care: Blood work conducted a month ago was normal. Social History - Functional status: The patient is able to walk without assistance and perform all activities of daily living. Review of Systems - Musculoskeletal: Reports chronic pain due to osteoarthritis. - Respiratory: Denies difficulty swallowing or eating despite the sensation of a lump in the throat. Physical Exam General: Cooperative and healthy appearing Nutritional Appearance: Well nourished Orientation/consciousness: Patient oriented x3 Limitations: No limitations Head: Normal to inspection General: Appearance normal, both eyes and all related structures Neck: Normal visual inspection Chest: Normal palpation of entire chest wall Respiratory: Normal respiratory effort Neurology: Patient oriented x3 Results - Labs: Recent blood work was normal. Plan 1. Osteoarthritis - Continue tramadol as needed for pain management. - Avoid prednisone unless experiencing significant pain. 2. Pharyngitis - Referral to an child's nurse for further evaluation of the persistent lump in the throat. 3. Preventative Care - Routine blood work was completed and results were normal. Discussion Notes I discussed with the patient the importance of managing osteoarthritis pain with tramadol as needed and advised against using prednisone unless necessary. We also talked about the referral to an child's nurse for the persistent lump in her throat. I reassured her that her recent blood work was normal and scheduled a follow-up in six months. Patient Instructions - Take tramadol as needed for pain management. - Avoid using prednisone unless experiencing significant pain. - Follow up with the child's nurse as referred for the lump in the throat. - Return for a follow-up appointment in six months.
== END 2025-04-16 14:38 | disposition home or self-care (01) ==
LOC: HO.HMCH 14:01
PROVIDERS: PCP Internal Medicine; Visit Provider Internal Medicine
DX: M19.90 Unspecified osteoarthritis, unspecified site (principal); J30.9 Allergic rhinitis, unspecified

== ENCOUNTER → 2025-04-16 14:00 | Outpatient (BNVA) | payer MEDICARE, SELFPAY | PROVIDERS: PCP Internal Medicine; Visit Provider Internal Medicine | DX: M19.90 Unspecified osteoarthritis, unspecified site (principal); J30.9 Allergic rhinitis, unspecified | CPT/HCPCS: 99212 ==

== ENCOUNTER 2025-05-13 12:08 | Outpatient (REF) | payer MEDICARE, SELFPAY ==
--- NOTE | ~2025-05-13 | MM_ITS ---
EXAMINATION: DXA BONE DENSITY AXIAL HISTORY: Osteopenia m85.80 TECHNIQUE: [employer] Dual energy absorptiometry (DEXA) of the lumbar spine, total left hip, and femoral neck was performed. COMPARISON: Comparison is made with the prior examination dated 03/27/2023. FINDINGS: The bone mineral density of the lumbar spine is 1.083 g/cm2, corresponding to a T-score of -0.8, and a Z-score of 0.1. This is indicative of normal bone mineral density. This represents a BMD change of 3.9% compared to the prior exam. This is statistically significant. The bone mineral density of the left total hip is 0.876 g/cm2, corresponding to a T-score of -1.0, and a Z-score of 0.0. This is indicative of normal bone mineral density. This represents a BMD change of -3.0% compared to the prior exam. This is not statistically significant. The bone mineral density of the left femoral neck is 0.798 g/cm2, corresponding to a T-score of -1.7, and a Z-score of -0.4. This is indicative of osteopenia. This represents a BMD change of -2.1% compared to the prior exam. FRACTURE RISK: The FRAX index suggests a ten year probability of major osteoporotic fracture of 9.9%, and of hip fracture 1.8%. MM/XR DEXA axial skeleton IMPRESSION: Based on bone mineral density, and according to World Health Organization (WHO) criteria, the diagnosis is consistent with osteopenia. Statistically, 68% of repeat scans fall within 1 SD (+/- 0.010 g/cm2 for AP spine L1-L4) and 1 SD (+/- 0.012 g/cm2 for femur total) FRAX is a trademark of the [employer] Met[employer], a World Health Organization (WHO) Collaborating Center. Electronically signed by: Avila Arrieta MD 05/13/2025 01:25 PM EDT
--- OUTSIDE RECORDS SUMMARY | 2025-05-13 15:37 | XMS_ITS | Clinical Summary ---
Author Organization [facility] Address [address] [place] [id number] Phone Care Team Providers Care Crime Laboratory Analyst Name Role Phone Stephen Olmos MD Primary [...] and fo ot 09/14/2022 Unspecified atherosclerosis of [place] arteries of extremities, bilateral legs 09/14/2022 Immunizations [...] 2023-2 5 season) 2024 06/16/2021, 12/16/2020, 11/23/2020 INFLUENZA VACCINE (#1) 2025 06/16/2021 Adult Td,Tdap Booster 10/23/2028 10/23/2018 SMOKING STATUS [...] topic Medical Devices Not on file Insurance [facility] MEDEX SUPPLEMENT MEDICARE PART A & B [employer] MEDEX SUPPLEMENT MEDICARE PART A & [place] [address] [place] [address] [employer] MEDEX SUPPLEMENT MEDICARE PART A & B [employer] MEDEX SUPPLEMENT MEDICARE PART A & B [employer] MEDEX SUPPLEMENT MEDICARE PART A & B MEDICARE PART A & B Member Subscriber Plan / Payer ( fective 2019-Present) Name:Leatha Ashley Member ID:[id number] Relation to Subscriber:Self Name:Leatha Ashley Subscriber ID:[id number] Payer ID:[id number] Group ID:Not on file Type:Medicare Address: [employer] [address] [employer] MEDEX SUPPLEMENT MEDICARE PART A & B MEDEX SUPPLEMENT MEDICARE PART A & B [employer] MEDEX SUPPLEMENT MEDICARE PART A & B Advance Directives For more information, please contact: [phone] (9AM - 5PM [facility], Sunday-Sunday) Documents on File Type Date Recorded Patient Vice President Quality Assurance Expl anation Advance Directive - Non Epic LMR 01/24/2012 12:00 AM Care Teams Crime Laboratory Analyst Relationship Specialty Start Date End Date Stephen Olmos MD [address] [place] [id number] PCP - General Internal Medicine 04/02/20 Additional Source Comments The information contained in this document represents components of the legal health record. It is not the complete legal health record.[facility]
--- OUTSIDE RECORDS SUMMARY | 2025-05-13 15:37 | XMS_ITS | Encounter Summary ---
Author Organization [facility] Address [address] [place] [address] Phone Care Team Providers Care Mercantile Reporter Name Role Phone Stephen Olmos MD Primary Care Provid er Encounter Details Date Type Department Care Team (Late st Contact Info) Description 04/05/2020 Procedure [facility], Ct Scan - [address] [id number] Social History Tobacco Use Types Packs/Day Years Used Date Smoking Tobacco: Never Smokeless Tobacco: Never Alcohol Use Standard Drinks/Week Comments Not Currently 0 (1 standard drink = 0.6 oz pur e alcohol) Comments Unknown Sex and Gender Information Value Date Recorded Sex Assigned at Female 04/02/2020 6:18 AM EDT Legal Sex Female 7:00 PM EST Gender Identity Female 04/02/2020 6:18 AM EDT Sexual Orientation Straight 04/05/2020 3: 03 AM EDT documented as of this encounter Plan of Treatment Not on file documented as of this encounter Visit Diagnoses Not on filedocumented in this encounter Additional Health Concerns Infection Onset Date Last Indicated Resolved Time CoV-Risk 10/12/2023 10/12/2023 10/23/2023 1:23 AM EST documented as of this encounter Care Teams Mercantile Reporter Relationship Specialty Start Date End Date Stephen Olmos MD [address] [place] [id number] PCP - General Internal Medicine 04/02/20 documented as of this encounter Additional Source Comments The information contained in this document represents components of the legal health record. It is not the complete legal health record.[facility]
--- OUTSIDE RECORDS SUMMARY | 2025-05-13 15:37 | XMS_ITS | Encounter Summary ---
Author Organization [facility] Address [address] [place] [address] Phone Care Team Providers Care Marketing Traffic Manager Name Role Phone Stephen Olmos MD Primary Care Provid er Encounter Details Date Type Department Care Team (Late st Contact Info) Description 04/02/2020 Procedure Pass [facility], Ct Scan - [address] [address] Social History Tobacco Use Types Packs/Day Years [...] documented as of this encounter Care Teams Marketing Traffic Manager Relationship Specialty Start Date End Date Stephen Olmos MD [address] [place] [phone] PCP - General Internal Medicine 04/02/20 documented as of this encounter Additional Source Comments The information contained in this document represents components of the legal health record. It is not the complete legal health record.[facility]
--- OUTSIDE RECORDS SUMMARY | 2025-05-13 15:38 | XMS_ITS | Patient Health Record ---
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 Role Phone Stephen Olmos Primary Care Provider Wilber Robles Unavailable [phone] Allergies Allergen (clinical drug ingredient) Drug/Non Drug Allergy documented on EMR Reaction Allergy Type Onset Date Status sulfamethoxazole / trimethoprim Bactrim hives Drug Allergy Active tolmetin Tolmetin Sodium hives Drug Allergy A ctive morphine Morphine vomiting Drug Allergy Active Reason For Referral No Information Medications Medication SIG (Take, Route, Frequency, Duration) Notes Start Date End Date Status Acyclovir 5 % 1 application Externally Five times a day; Duration: 4 day(s) Active Tamoxifen Citrate 20 MG TAKE 1 TABLET BY MOUTH EVERY DAY Oral; Duration: 30 Active Aleve Active traZODone HCl 50 MG 1 tablet at bedtime Orally Once a day Active Claritin Active Zinc Active CeleBREX Active Zantac 150 MG 1 tablet Orally Twic e a day Active rOPINIRole HCl 1 MG 1 tablet 1 to 3 hour s before bedtime Orally Once a day Active Symbicort 80-4.5 MCG/ACT 2 puffs Inhalat ion Twice a day Active Pantoprazole Sodium Active Effexor XR 75 MG 1 capsule with food Orally Once a day Active Meloxicam 15 MG 1 tablet Orally Once a day Not-Taking Combivent 18-103 MCG/ACT 2 puffs Inhalat ion Four times a day 01/02/2020 Active Tamsulosin HCl Not-T aking Omeprazole Active Tylenol 500mg Oral prn Not-Ta shanna Flonase 50 MCG/ACT 1 spray in each nost ril Nasally Once a day Active Amoxicillin 500 MG 4 capsules one time Orally Once a day; Duration: 1 day(s) 09/19/2019 Not-Taking Immunizations Vaccine Route Administration Date Status Comme nts Influenza Unknown 05/28/2024 Administered COVID-19 Pfizer BioNTech Vaccine Unknown 06/16/2021 Administered 1st 11/23/20 2nd 12/16/20 Social History Tobacco Use: Social History Observation Description Date Details (start date - stop date) Never Smoker NA - NA Tobacco use other than smoking: Question Answer Notes Are you an other tobacco user? No Tobacco Control (Standard) Question Answer Notes Tobacco use: Nonsmoker Additional Findings: Tobacco non-user Current no nsmoker AUDIT-C (Standard) Question Answer Notes Did you have a drink containing alcohol in the p ast year? No Points 0 Interpretation Negative Problems Problem Type SNOMED Code ICD Code Onset Dates Problem Status W/U Status Risk Notes Problem Bilateral atherosclerosis of arteries of lower limbs (disorder) ([id number] ) Atherosclerosis of [place] artery of both lower extremities, with unspecified presence of clinical manifestation (I70.203) Active confirmed Q7(A), Q8(2B), Q9(1B,2 C) Vital Signs Blood pressure diastolic 60 mm Hg 02/13/2025 Height 4ft9.5in in 02/13/2025 Blood pressure systolic 128 mm Hg 02/13/2025 Weight 200 lbs 02/13/2025 BMI 42.53 kg/m2 02/13/2025 Procedures Procedure Date Ordered Date Performed Result Body Sit e 66996-ZFAGEUG NAIL, 6 OR MORE 06/13/2024 N/A 31819-OJJS SKIN LESIONS, 2 TO 4 06/13/2024 N/A 89543-ICTNPQB NAIL, 6 OR MORE 09/09/2024 N/A 23568-JYIR SKIN LESIONS, 2 TO 4 09/09/2024 N/A 61239-EQIOXVD NAIL, 6 OR MORE 11/14/2024 N/A 50991-Cjpmblau Plate 11/14/2024 N/A 13185-TQHC SKIN LESIONS, 2 TO 4 11/14/2024 N/A 65713-FZMYHWY NAIL, 6 OR MORE 02/13/2025 N/A 66032-KIRM SKIN LESIONS, 2 TO 4 02/13/2025 N/A Encounters Encounter Location Date Provider Diagnosis [address] [address] 06/13/2024 Wilber Travis Atherosclerosis of [place] artery of both lower extremities, with unspecified presence of clinical manifestation I70.203 ; Tinea unguium B35.1 ; Pain in right toe(s) M79.674 and Pain in left toe(s) M79.[address] [address] 09/09/2024 Wilber Travis Atherosclerosis of [place] artery of both lower extremities, with unspecified presence of clinical manifestation I70.203 ; Tinea unguium B35.1 ; Pain in right toe(s) M79.674 ; Pain in left toe(s) M79.675 ; Pain in left foot M79.672 ; Pain in left ankle and joints of left foot M25.572 ; Bursitis of left foot M77.52 and 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 [address] 11/14/2024 Wilber Travis Atherosclerosis of [place] artery of both lower extremities, with unspecified presence of clinical manifestation I70.203 ; Tinea unguium B35.1 ; Pain in right toe(s) M79.674 ; Pain in left toe(s) M79.675 and Ingrown nail L60.[address] [address] 02/13/2025 Wilbermarcus PrinceTravis Atherosclerosis of [place] artery of both lower extremities, with unspecified presence of clinical manifestation I70.203 ; Tinea unguium B35.1 ; Pain in right toe(s) M79.674 and Pain in left toe(s) M79.675 Assessments Encounter Date Diagnosis (ICD Code) Assessment Notes Treatment Notes Treatment Clinical Notes Section Notes 06/13/2024 Tinea unguium (ICD-10 - B35.1) 02/13/2025 Atherosclerosis of [place] artery of both lower extremities, with unspecified presence of clinical manifestation (ICD-10 - I70.203) Q7(A), Q8(2B), Q9(1B,2C) 06/13/2024 Atherosclerosis of [place] artery of both lower extremities, with unspecified presence of clinical manifestation (ICD-10 - I70.203) 02/13/2025 Tinea unguium (ICD-10 - B35.1) 09/09/2024 Tinea unguium (ICD-10 - B35.1) 09/09/2024 Atherosclerosis of [place] artery of both lower extremities, with unspecified presence of clinical manifestation (ICD-10 - I70.203) 11/14/2024 Tinea unguium (ICD-10 - B35.1) 11/14/2024 Atherosclerosis of [place] artery of both lower extremities, with unspecified presence of clinical manifestation (ICD-10 - I70.203) Q7(A), Q8(2B), Q9(1B,2C) 11/14/2024 Pain in right toe(s) (ICD-10 - M79.674) 02/13/2025 Pain in right toe(s) (ICD-10 - M79.674) 09/09/2024 Pain in right toe(s) (ICD-10 - M79.674) 06/13/2024 Pain in right toe(s) (ICD-10 - M79.674) 06/13/2024 Pain in left toe(s) (ICD-10 - M79.675) 02/13/2025 Pain in left toe(s) (ICD-10 - M79.675) 09/09/2024 Pain in left toe(s) (ICD-10 - M79.675) 11/14/2024 Pain in left toe(s) (ICD-10 - M79.675) 11/14/2024 Ingrown nail (ICD-10 - L60.0) 09/09/2024 Pain in left foot (ICD-10 - M79.672) 09/09/2024 Pain in left ankle and joints of left foot (ICD-10 - M25.572) 09/09/2024 Bursitis of left foot (ICD-10 - M77.52) 09/09/2024 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 - M19.072) Plan Of Treatment Pending Test Test Name Order Date X ray : Foot, left 3V 04/19/2017 X ray : Foot, left 3V 09/09/2024 54446-CSQPBHG NAIL, 6 OR MORE 11/14/2024 46212-XMNKGMS NAIL, 6 OR MORE 09/09/2024 93225-GWMPGGH NAIL, 6 OR MORE 03/28/2024 27204-CMUXAQJ NAIL, 6 OR MORE 06/13/2024 59763-MGXBDNY NAIL, 6 OR MORE 02/13/2025 29979-AZJJVQO NAIL, 6 OR MORE 12/05/2013 83295-GIJPGKH NAIL, 6 OR MORE 08/07/2017 50491-TATYXIO NAIL, 6 OR MORE 11/13/2017 10017-ZRNBCYZ NAIL, 6 OR MORE 02/19/2018 93174-ZFBCNOG NAIL, 6 OR MORE 04/30/2018 78721-IFJUDGN NAIL, 6 OR MORE 07/23/2018 51331-UKHEOTC NAIL, 6 OR MORE 10/15/2018 02134-INVFVJM NAIL, 6 OR MORE 03/13/2014 17943-ZXQYQOW NAIL, 6 OR MORE 06/16/2014 61311-WEBEKUQ NAIL, 6 OR MORE 12/08/2014 97531-QOFIJSW NAIL, 6 OR MORE 03/05/2015 73089-TIBZOTN NAIL, 6 OR MORE 06/08/2015 71889-SMUTFNA NAIL, 6 OR MORE 09/14/2015 07304-ABJBULC NAIL, 6 OR MORE 12/28/2015 84865-KAVHTHD NAIL, 6 OR MORE 03/31/2016 23739-OFCOFFO NAIL, 6 OR MORE 07/04/2016 12593-BEUAKAZ NAIL, 6 OR MORE 10/03/2016 30484-NFDHNRT NAIL, 6 OR MORE 01/07/2019 12898-APPHIVG NAIL, 6 OR MORE 04/01/2019 62310-BJYPQKK NAIL, 6 OR MORE 05/18/2017 14714-PLLWCXA NAIL, 6 OR MORE 08/01/2019 97339-UKNHVLW NAIL, 6 OR MORE 10/31/2019 08554-RIKDFFO NAIL, 6 OR MORE 01/23/2020 28026-MZQEASX NAIL, 6 OR MORE 04/09/2020 74027-TLINVGE NAIL, 6 OR MORE 07/02/2020 23795-OWVCVYB NAIL, 6 OR MORE 09/24/2020 86149-TDJRRKR NAIL, 6 OR MORE 12/07/2020 86497-YEDOKAT NAIL, 6 OR MORE 02/15/2021 05160-GKGXUQR NAIL, 6 OR MORE 05/10/2021 79254-NVHBXBF NAIL, 6 OR MORE 01/02/2017 89567-ONCCRYU NAIL, 6 OR MORE 07/26/2021 18901-PHHMZGS NAIL, 6 OR MORE 11/04/2021 88662-VCRWFFD NAIL, 6 OR MORE 01/06/2022 32685-RCVRZWE NAIL, 6 OR MORE 03/14/2022 12389-NCRUJXJ NAIL, 6 OR MORE 07/03/2022 65248-REOZYOQ NAIL, 6 OR MORE 09/12/2022 12368-NKIGVLZ NAIL, 6 OR MORE 11/21/2022 89839-ATXIGZY NAIL, 6 OR MORE 02/09/2023 19202-GMFGALD NAIL, 6 OR MORE 05/11/2023 28230-UBLEPZV NAIL, 6 OR MORE 08/03/2023 42799-QUUGTVV NAIL, 6 OR MORE 11/02/2023 48215-Tvjtcnej Plate 11/21/2022 39079-Iohaugdk Plate 03/14/2022 66229-Bwprddjn Plate 04/01/2021 61349-Madjmjeb Plate 05/10/2021 14515-Eqgatbvs Plate 02/15/2021 82516-Ddilldze Plate 12/07/2020 51894-Dfrthzio Plate 09/24/2020 00157-Zfmwkggj Plate 07/02/2020 68456-Vgjmqdpw Plate 04/09/2020 23089-Pokxtwro Plate 10/31/2019 88876-Elyyqyci Plate 08/01/2019 16474-Gfslcjas Plate 05/18/2017 61044-Wrxvevia Plate 04/01/2019 45439-Btinjsmy Plate 10/03/2016 13505-Oohqsgvi Plate 06/08/2015 80131-Gmypbcdc Plate 10/15/2018 36334-Aidkrzel Plate 05/11/2023 87264-Skxqyqjz Plate 11/14/2024 03265-Vqxbopcf Plate Each Additional 02/2017 13567-KPU 06/27/2019 89427-JBS 12/19/2019 31186-NQK 06/27/2021 51593- Debride <25 sq cm 07/26/2021 73233- Debride <25 sq cm 04/09/2020 79064-GSVWPBG SKIN/TISSUE 01/23/2020 13832-HACJCAZ SKIN/TISSUE 01/02/2020 23370-IBHHCMK SKIN/TISSUE 07/11/2019 42871-HEARLZG SKIN/TISSUE 07/14/2021 57358 I&D ABSCESS- SIMPLE,SINGLE 017 27563-BQHE SKIN LESIONS, 2 TO 4 11/22/19 23 76055-AXLM SKIN LESIONS, 2 TO 4 09/12/19 23 23492-MKMO SKIN LESIONS, 2 TO 4 11/02/19 24 44489-QNZD SKIN LESIONS, 2 TO 4 08/03/20 23 38780-OLRS SKIN LESIONS, 2 TO 4 05/11/20 23 71028-BDBA SKIN LESIONS, 2 TO 4 02/10/20 23 79957-PFWZ SKIN LESIONS, 2 TO 4 02/14/20 25 92189-EWPD SKIN LESIONS, 2 TO 4 06/13/20 24 25791-MLCF SKIN LESIONS, 2 TO 4 03/28/20 24 10579-DXKR SKIN LESIONS, 2 TO 4 09/09/19 25 85208-YSUJ SKIN LESIONS, 2 TO 4 11/15/19 25 56150- Biopsy of skin lesion 12/05/2013 90797- Biopsy of Addt'l Lesions 12/06/19 14 47277 - Tenotomy, open flexor 09/19/2019 84472 - Tenotomy, open flexor 03/18/2021 Next Appt Details Provider Name:Wilber Coby Robles , 05/22/2025 12:45:00 PM, [address] [place], [address], Insurance Providers Payer Name Payer Address Payer Phone Subscriber Number Group Number Insured Name Patient Relationship to Insured Coverage Start Date Coverage End Date Medicare National [facility] [address] [place] [address] [id number] Charisma Ashley Self - patient is the insured [employer] [address] [place] [address] [id number] Charisma Ashley Self - patient is the [...] knee replacement 07/19/2021 Hospitalization History Reason Date(Month/Year[place] [facility] [place]/22/24 Left side Pain unknown 04/02-04/04/20
== END 2025-05-13 12:09 | disposition home or self-care (01) ==
LOC: HO.MAMMO 12:08
PROVIDERS: PCP Internal Medicine; Visit Provider Internal Medicine Medical Oncology
DX: Z12.31 Encounter for screening mammogram for malignant neoplasm of breast (principal); Z13.820 Encounter for screening for osteoporosis; M85.852 Other specified disorders of bone density and structure, left thigh
CPT/HCPCS: 77063; 77067; 77080

== ENCOUNTER → 2025-05-13 13:00 | Outpatient (BNV) | payer MEDICARE, SELFPAY | PROVIDERS: PCP Internal Medicine; Visit Provider Radiology Diagnostic Radiology | DX: E28.39 Other primary ovarian failure (principal) | CPT/HCPCS: 77080 ==